=== PATIENT | male | born 1940 | race Caucasian/White ===

== ENCOUNTER → 2017-10-23 08:10 | Outpatient (CLI) | payer MEDICARE, SELFPAY ==
[2017-10-23 09:59] LABS: AST(SGOT) 20 U/L (15-37); Alanine Aminotransfer ALT/SGPT 26 U/L (16-61); Albumin, Serum 3.8 g/dL (3.2-5.0); Alkaline Phosphatase 75 U/L (45-117); Bilirubin, Direct 0.16 mg/dL (0.00-0.30); Cholesterol 130 mg/dL (200); Globulin 3.3 g/dL (2.2-4.2); High Density Lipoprotein 46 mg/dL; Protein, Total 7.1 g/dL (6.4-8.2); Triglycerides 86 mg/dL; Very Low Density Lipoprotein 17 mg/dL (5-40)
== END ==
PROVIDERS: Physician Assistant Medical; Family Provider Family Medicine; PCP Family Medicine; Visit Provider Internal Medicine Cardiovascular Disease
DX: E78.5 Hyperlipidemia, unspecified (principal)
CPT/HCPCS: 36415; 80061; 80076

== ENCOUNTER → 2018-01-20 10:56 | Outpatient (CLI) | payer MEDICARE, SELFPAY ==
[2018-01-20 12:06] LABS: Absolute Neutrophil Count 5.4 X10^3/uL (2.0-7.7); Basophil# 0.03 X10^3/uL; Basophil% 0.4 % (0-1); Eosinophil# 0.13 X10^3/uL; Eosinophils% 1.6 % (0-5); Hemoglobin 14.5 g/dl (13.0-16.5); Lymphocyte % 18.8 % (19-41); Mean Corp Hgb Conc 33.7 g/gl (32-36); Mean Corpuscular Hgb 32.5 pg (27.0-32.0); Mean Corpuscular Volume 96.4 fL (80-94); Mean Platelet Vol. 10.5 fl (6.2-12.0); Monocyte% 11.3 % (0-10); Neutrophil # 5.42 X10^3/uL (2.7-7.7); Neutrophil % 67.8 % (47-70); Platelet Count 169 K/mm3 (150-450); RBC Distribution Width CV 12.9 % (11.6-14.6); RBC Distribution Width SD 44.9 fl (35.1-43.9); Red Blood Count 4.46 M/mm3 (4.6-6.2)
[2018-01-20 12:07] LABS: POSITIVE COUNT NO; POSITIVE DIFFERENTIAL NO; POSITIVE MORPHOLOGY NO
[2018-01-20 12:46] LABS: Anion Gap 11 (5-15); BUN 24 mg/dL (7-18); BUN/Creat Ratio 16.1 RATIO (10-20); Calcium,Total 9.1 mg/dL (8.5-10.1); Chloride 104 mmol/L (98-107); Creatinine, Serum 1.49 mg/dL (0.70-1.30); EST Glomerular Filtration Rate 49 mL/min (>60); Est Glom Filt Rate - Afr Amer 59 mL/min (>60); Glucose 128 mg/dL (74-106); Sodium Level 142 mmol/L (136-145); T4 Free Direct 0.87 ng/dL (0.76-1.46); Thyroid Stim Hormone (TSH) 2.28 uIU/mL (0.358-3.74)
== END ==
PROVIDERS: Family Provider Family Medicine; PCP Family Medicine; Visit Provider Family Medicine
DX: R06.00 Dyspnea, unspecified (principal); I48.0 Paroxysmal atrial fibrillation
CPT/HCPCS: 36415; 80048; 84439; 84443; 85025

== ENCOUNTER → 2018-04-17 08:23 | Outpatient (CLI) | payer MEDICARE, SELFPAY ==
[2018-04-17 09:36] LABS: PSA,Total - Annual Screen 2.49 ng/mL (0.00-4.00)
--- OUTSIDE RECORDS SUMMARY | 2018-06-03 01:37 | XMS RPT_ITS ---
:1940 Author Organization OHIP Support Name Relationship Address Phone CARLYN MICHAELS Unavailable [address] + [place] [address] R Unavailable Unavailable Unavailable MICHAELS, CARLYN Unavailable [address] + [place] [address] R Unavailable Unavailable Unavailable MICHAELS, CARLYN Unavailable [address] + [place] [address] R Unavailable Unavailable Unavailable MICHAELS, CARLYN Unavailable [address] + [place] [address] R Unavailable Unavailable Unavailable MICHAELS, CARLYN Unavailable [address] + [place] [address] R Unavailable Unavailable Unavailable MICHAELS, CARLYN Unavailable [address] + [place] [address] R Unavailable Unavailable Unavailable MICHAELS, CARLYN Unavailable [address] + [place] [address] R Unavailable Unavailable Unavailable MICHAELS, CARLYN Unavailable [address] + [place] [address] R Unavailable Unavailable Unavailable MICHAELS, CARLYN Unavailable [address] + [place] [address] R Unavailable Unavailable Unavailable MICHAELS, CARLYN Unavailable [address] + [place] [address] R Unavailable Unavailable Unavailable Care Team Providers Name Role Phone Denae Villasenor Attending Unavailable Denae Villasenor Referring Unavailable Vikas Lockhart Primary Care Unavailable Sana Boyd Attending Unavailable Jadiel Mckeon Attending Unavailable Vikas Lockhart Referring Unavailable Jadiel Mckeon Attending Unavailable Vikas Lockhart Referring Unavailable Ashwini Nina Attending Unavailable Richy, Vikas Referring Unavailable Cristopher, Prabhjot Attending Unavailable Richy, Vikas Referring Unavailable Linda, [place] Attending Unavailable Linda, Jadiel Referring Unavailable Richy, Vikas Primary Care Unavailable Cristopher, Prabhjot Attending Unavailable Richy, Vikas Referring Unavailable Cristopher, Prabhjot Attending Unavailable Richy, Vikas Referring Unavailable Richy, Vikas Primary Care Unavailable Richy, Vikas Attending Unavailable Richy, Vikas Primary Care Unavailable PROBLEMS PROBLEMS DATE TYPE CONDITION / CODE ATTENDING STATUS SOURCE 04/17/2018 Unknown Z12.5 - Encounter Denae Villasenor [facility] for screening for M [facility]ly [facility] malignant neoplasm [facility] prostate / Repository Z12.5(ICD-10) 01/20/2018 Unknown I48.0 - Paroxysmal Vikas Lockhart [facility] atrial fibrillation [facility] / I48.0(ICD-10) Hospital Repository 01/20/2018 Unknown R06.00 - Dyspnea, Vikas Lockhart Active [facility] unspecified / Community R06.00(ICD-10) Hospital Repository 11/05/2017 Unknown J45.40 - Moderate CristopherPrabhjot gutierres [facility] persistent asthma, Community uncomplicated / Hospital J45.40(ICD-10) Repository 10/23/2017 Unknown E78.5 - Linda, [place] Active [facility] Hyperlipidemia, Community unspecified / Hospital E78.5(ICD-10) Repository 10/25/2017 Unknown R06.09 - Other Linda, [place] [facility] forms of dyspnea / Community R06.09(ICD-10) Hospital Repository 10/25/2017 Unknown I10 - Essential Linda, [place] Active [facility] (primary) Community hypertension / Hospital I10(ICD-10) Repository PROCEDURES PROCEDURES No Procedure Records FoundRESULTS RESULTS PULMONARY VISIT REPORT Observed: 05/08/2018 Status: F Source: [place] 9:18 AM [facility] REPOSITORY [facility] [place] [id number] [place] [address] OFFICE VISIT Date of Service: 05/08/18 MR#: [id number] Acct: [id number] Name: CAT MICHAELS Rambo Rep #: [id number] : 1940 Provider: Prabhjot Nicholas MD Age/Sex: 78/M Location: [facility] Status: Signed Assessment AND Plan 1. Moderate persistent asthma without complication J45.40 Plan Overall appears to be doing well. Previous pulmonary function test was obtained in 2016 showing a significant (greater than 20%) improvement following albuterol. Did stressed to the patient that vocal performances can be similar to athletic events and patient could use Ventolin preemptively to achieve better results. Patient voiced understanding. Signs and symptoms of exacerbation were reviewed. No change in medications at this time. 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 CHUCKIE (obstructive sleep apnea) G47.33 Plan Patient appears to be doing well. Compliance report shows no indications of the need for repeat titration. Did stress the role of weight loss and the overall disease plan of care. Patient voiced understanding. Continue current settings. Plan Detail Other Medications New: albuterol sulfate HFA 90 mcg/actuation 1 puff Inhalation Q4H PRN PRN 2 device 0RF Shortne ss Of Breath Follow Up 6 Months (CSM) HPI 6 M FU: Chief Complaint: Cough Details: Patient is a 78-year-old male, currently under the care of Dr. Lockhart, who presents for evaluation secondary to cough. Since last visit, patient denies any ER visits, hospitalizations or prednisone burst. Patient is using Symbicort, Flonase and Astelin. Patient overall feels subjectively unchanged compared to previous. Patient does report occasional issues with chest restriction or tightness. 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 However, during some performances, patient would like to extend to 8 bar instead of 6 wants to know if there is anything he can do to help with this. Patient has used albuterol intermittently with some improvement in overall condition. Patient has been compliant with his CPAP therapy. Patient denies any dry mouth, hoarseness or sore throat. Patient feels overall improved in the morning. Patient does state that there was one day when he had a new mask that he was unable to tolerate and was not compliant with therapy. Patient denies any change in weight. 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: [employer] Accompanied by: Self Allergies No Known Allergies Allergy (Verified 04/24/18 12:57) Medications Cholecalciferol (VIT D3) [Vitamin D] 5,000 unit PO DAILY 11/10/15 [History Confirmed 04/24/18] Multivitamin [Daily Multiple Vitamin] 1 ea PO DAILY 11/10/15 [History Confirmed 04/24/18] azelastine 137 mcg (0.1 %) nasal spray aerosol 1 spray INTRANASAL BID 04/18/17 [History Confirmed 04/24/18] fluticasone 50 mcg/actuation nasal spray,suspension 2 spray INTRANASAL QDAY g 04/18/17 [History Confirmed 04/24/18] diltiazem CD 120 mg capsule,extended release 24 hr 120 mg PO QDAY #90 cap 08/19/17 [Rx Confirmed 04/24/18] budesonide-formoterol HFA 160 mcg-4.5 mcg/actuation aerosol inhaler 2 puff INHALATION Q12H #3 device 11/05/17 [Rx Confirmed 04/24/18] flecainide 100 mg tablet 100 mg PO BID #90 tab 11/11/17 [Rx Confirmed 04/24/18] albuterol sulfate HFA 90 mcg/actuation aerosol inhaler 1 puff INHALATION Q4H PRN PRN #2 device 05/08/18 [Rx Confirmed 05/08/18] PFSH Medical History CHUCKIE (obstructive sleep apnea) (Chronic) Hyperlipidemia (Chronic) Paroxysmal atrial fibrillation (Chronic) Moderate persistent asthma (Chronic) Encounter for long-term (current) use of other medications (Chronic) Surgical History History of appendectomy (Resolved) History of umbilical hernia repair (Resolved) Family History Father , Had pacemaker, at advanced age No problems noted. Mother , lived to advanced age No problems noted. Social History Smoking Status: Former smoker how long ago did patient quit smokin years ago alcohol intake: current alcohol intake frequency: a few times a week Alcohol type: wine caffeine: No Review of Systems Const CONSTITUTIONAL: Negative anorexia, body ache, chills, daytime sleepiness, fever(s), night sweats, oral thrush, stops breathing during sleep, weight loss, sleeping in chair, fatigue, weight loss, weight gain, frequent colds, seasonal allergies, other, headache(s) or orthopnea [facility] Ear Nose Throat Mouth: Positive dry mouth in morning, nasal congestion and hearing normal; negative hoarseness, change in vision, itchy eyes, eye pain, swallowing Difficulty, ear pain, headache(s), mouth pain, nasal discharge, sinus pain, sinus pressure, sore throat, other, hard of hearing, nose bleed or post nasal drip Cardio Cardiovascular: Negative chest pain, chest pain at rest, chest pain with activity, irregular heart rhythm, edema, shortness of breath when lying down, palpitations, other or murmur Resp Respiratory: Positive as per HPI, shortness of breath shortness of breath: Positive with activity, cough cough: Positive productive color: Positive yellow and chest tightness; negative pain with cough, wheezing, chest congestion, pain on inspiration, inhalers, increase use of rescue inhalers, snoring, apnea or other Gastro Gastrointestional: Negative bloody stools, change in appetite, difficulty swallowing, reflux, hematemesis, melena stool, loose stool, constipation or other Genitourinary: Negative blood in urine, nocturia, pain with urination or other Musc Musculoskeletal: Negative body pain, back pain, neck pain or other Skin/Breast Skin/Breast: Negative dry skin, itching, unusual bruising, breast lump, other or rash Neuro Neurological: Negative restless legs, confusion, weakness or other Psych Psychocological: Negative abnormal sleep pattern, anxiety, thoughts of hurting self/others, hopelessness or other Lymph Lymphatic: Negative easy bleeding, easy bruising, other or swollen lymph nodes Exam Const Constitutional: Positive conversant, cooperative, in no acute respiratory distress, healthy appearing, well developed, well nourished and good hygiene; negative appears older than stated age, smells of smoke, frail appearing, wearing supplemental oxygen or ill appearing Head Head: Positive normocephalic and atraumatic; negative cyanosis of lips/distal nose, frontal sinus tenderness or maxillary sinus tenderness Eyes Eye: Positive clear conjunctiva; negative nystagmus, scleral abnormality or cataract present Ears Ear: Positive hearing normal and external ears normal; negative hard of hearing Nose Nose: Positive external nose normal, septum normal and clear nasal discharge; negative epistaxis or nasal polyp Mouth Mouth: Positive oral mucosae normal, no lesions and crowded posterior oropharynx; negative post nasal drip, malodorous breath or oral thrush present Mallampati Score: III: Mallampati Score Neck Neck: Positive normal visual inspection, full ROM and trachea midline; negative lymphadenopathy or JVD Chest Wall Chest: Positive normal inspection of the chest and symmetric chest movement; negative crepitus or tenderness Resp lung sounds: Positive clear to auscultation, good air exchange, normal expiratory time and normal respiratory effort; negative wheezes, rhonchi, rales, use of accessory muscles, dullness to percussion or wheeze present on forced exhalation Cardio Cardiac: Positive regular rate, regular rhythm, S1 normal and S2 normal; negative murmur, rub or gallop GI GI: Positive normal to inspection and normal bowel sounds; negative distended, ascites or epigastric tenderness Genitourinary: Positive deferred Musc Musculoskeletal: Positive steady gait; negative using an assistive device for ambulation, kyphosis or scoliosis Skin Pulmonary Skin Exam: Positive intact; negative rash, lesion, ulcers, erythema or dermal atrophy Pulses Pulse: Yes radial pulses present Extremities Extremities: Yes capillary refill normal, No clubbing, No cyanosis, No edema, No stasis dermatitis Neuro Neurologic: Yes conversant, Yes no focal neuro deficits, Yes normal concentration, Yes understands questions, Yes cooperative, Yes normal cognition, Yes normal coordination Lymph Lymphatic: No lymphadenopathy Psych Appearance: Positive grossly normal Mental Status: Positive mental status grossly normal Mood: Positive congruent mood Affect: Positive normal affect Coding Level of Care Code Off vis,est,level 3 Diagnoses Moderate persistent asthma without complication J45.40 Asthma complication type: uncomplicated CHUCKIE (obstructive sleep apnea) G47.33 05/08/18 0918 <Electronically signed by Prabhjot Nicholas MD> Date Prabhjot Nicholas MD Cosigner Signature: Date (if applicable) CC: Vikas Lockhart MD CARDIOLOGY VISIT Observed: 04/24/2018 Status: F Source: [place] REPORT 3:54 PM [facility] REPOSITORY [facility] [address] [place] [address] OFFICE VISIT Date of Service: 04/24/18 MR#: [id number] Acct: [id number] Name: CAT MICHAELS Rep #: [id number] : 1940 Provider: Ashwini Nina Age/Sex: 78/M Location: [facility] Status: Signed HPI HPI Details: CAT MICHAELS, is a 78 M who presents to the office today for a cardiovascular follow-up visit. He has a history of hypertension, paroxysmal atrial fibrillation and asthma who returns for follow-up visit. From a cardiac standpoint, patient is doing well. He does not have any chest discomfort/heaviness/tightness. His exercise tolerance is stable for his age. He does not have any worsening symptoms of shortness of breath. He denies any PND. He does not have any orthopnea. He does not have any symptoms of congestive heart failure. He does not have any palpitations that he is aware of. He does not have any lightheadedness or dizziness. He does not have any near-syncope or syncope. He does not have any lower extremity edema. He does not have any symptoms of claudication. 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 Accompanied by: None Is patient in pain?: No Allergies No Known Allergies Allergy (Verified 04/24/18 12:57) Medications Albuterol Inhaler [Ventolin Hfa] 1 puff INHALATION Q4H PRN PRN 11/03/14 [History Confirmed 04/24/18] Cholecalciferol (VIT D3) [Vitamin D] 5,000 unit PO DAILY 11/10/15 [History Confirmed 04/24/18] Multivitamin [Daily Multiple Vitamin] 1 ea PO DAILY 11/10/15 [History Confirmed 04/24/18] azelastine 137 mcg (0.1 %) nasal spray aerosol 1 spray INTRANASAL BID 04/18/17 [History Confirmed 04/24/18] fluticasone 50 mcg/actuation nasal spray,suspension 2 spray INTRANASAL QDAY g 04/18/17 [History Confirmed 04/24/18] diltiazem CD 120 mg capsule,extended release 24 hr 120 mg PO QDAY #90 cap 08/19/17 [Rx Confirmed 04/24/18] budesonide-formoterol HFA 160 mcg-4.5 mcg/actuation aerosol inhaler 2 puff INHALATION Q12H #3 device 11/05/17 [Rx Confirmed 04/24/18] flecainide 100 mg tablet 100 mg PO BID #90 tab 11/11/17 [Rx Confirmed 04/24/18] Ejection fraction %: 65 to 70 PFSH Medical History CHUCKIE (obstructive sleep apnea) (Chronic) Hyperlipidemia (Chronic) Paroxysmal atrial fibrillation (Chronic) Moderate persistent asthma (Chronic) Encounter for long-term (current) use of other medications (Chronic) Surgical History History of appendectomy (Resolved) History of umbilical hernia repair (Resolved) Family History Father , Had pacemaker, at advanced age No problems noted. Mother , lived to advanced age No problems noted. Social History Smoking Status: Former smoker how long ago did patient quit smokin years ago alcohol intake: current alcohol intake frequency: a few times a week Alcohol type: wine caffeine: No ROS Const Const: Negative for weakness, fatigue, fever(s) or headache(s) Eyes Eyes: Negative for blind spots, loss of peripheral vision or transient loss of vision ENT ENT: Negative for headache(s), dizziness, tinnitus or Nosebleed/epistaxis Cardio Chest Pain: No Palpitations: No Edema: None Muscle aches with walking: None Resp Respiratory: Negative for SOB with activity, SOB at rest, SOB orthopnea\SOB lying down or Cough GI GI: Negative nausea, vomiting, heartburn or vomiting blood/hematemesis : Negative for hematuria Musc Musc: Negative for muscle aches/ myalgia Neuro Neuro: Negative for weakness, headache(s), dizziness, near syncope, syncope, lightheadedness or orthostatic symptoms Rudi Hematologic/Lymphatic: Negative for easy bleeding Endo Endo: Negative for fatigue Cardiology Exam Const Appearance: cooperative, healthy appearing, well developed, well groomed and no acute distress Nutritional Appearance: well nourished and average body habitus Orientation: alert, awake and oriented x3 Head Head: normal to inspection, normocephalic and atraumatic Ears: hearing grossly normal bilaterally and external ears normal Nose: external nose normal, nasal mucous membranes and turbinates normal, nares normal, septum normal, no nasal discharge Face and Sinus: face symmetric Mouth: oral mucosae normal, tongue normal, oropharynx normal and moist mucous membranes Teeth and gingiva: dentition normal Throat: posterior oropharynx normal, tonsils normal and uvula midline Eyes General: appearance normal, both eyes and all related structures Eyelids: eyelids normal Conjunctivae: conjunctivae normal Pupils: PERRL, normal by confrontation and accommodation normal EOM: EOM intact bilaterally Neck Neck: normal visual inspection, trachea midline and no JVD JVD: +5 Carotids: normal carotid upstroke and bounding pulses Chest Chest inspection: normal inspection of the chest, symmetric chest movement and normal respiratory effort Auscultation: Bilateral: Clear to Auscultation Cardio Palpation: normal PMI Rate: regular rate Rhythm: regular rhythm Heart sounds: S1 normal, S2 normal and normal, physiologic split S2; negative rub, gallop or murmur GI GI: normal to inspection, soft, no hepatosplenomegaly and bowel sounds present Neuro General: alert, awake, oriented x3, no focal sensory deficit, gait normal and moves all extremities Skin Skin: no rashes or lesions noted Extremities Pulses: Normal: Right Femoral Pulse, Left Femoral Pulse, Right Dorsalis Pedis Pulse, Left Dorsalis Pedis Pulse, Right Posterior Tibial Pulse, Left Posterior Tibial Pulse, Right Radial Pulse, Left Radial Pulse Lower Extremity Edema: None: Bilateral Musculoskel Musculoskeletal: No joint tenderness Psych Psychological: normal affect Assessment AND Plan 1. Paroxysmal atrial fibrillation I48.0 Plan - GARDENIA Walter Patient has not had any symptomatic recurrence. He will continue with his Cardizem and his flecainide. He is currently not on any anticoagulation. For now we will continue to monitor. If he has any recurrence he will need to reconsider an anticoagulant. 2. Pure hypercholesterolemia E78.00; E78.0 Plan - G[place]EN[place] Walter Patient is monitoring this with his diet. He will repeat these next year for risk factor modification. Plan Detail Additional Comments - GARDENIA Walter The above patient was discussed with Dr. Mckeon, he agrees with plan of care. Thank you for allowing us to participate in patient's plan of care, if you have any questions please do not hesitate to call. This note was generated using a voice recognition system and there may be incorrect words, spelling or punctuation errors that were not noted when reviewing the office note prior to saving. 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) Coding Level of Care Code Off vis,est,level 3 Diagnoses Paroxysmal atrial fibrillation I48.0 Pure hypercholesterolemia E78.00; E78.0 Hyperlipidemia type: pure hypercholesterolemia Coding Level of Care Code Off vis,est,level 3 Diagnoses Paroxysmal atrial fibrillation I48.0 Pure hypercholesterolemia E78.00; E78.0 Hyperlipidemia type: pure hypercholesterolemia 04/24/18 1330 <Electronically signed by Ashwini VARNER> Date Ashwini VARNER 04/24/18 1554<Electronically signed by Jadiel Mckeon MD> Cosigner Signature: Date (if applicable) Jadiel Mckeon MD CC: Vikas Lockhart MD PSA,TOTAL - ANNUAL Collected: 04/17/2018 Status: F Source: [place] SCREEN 8:38 AM [facility] REPOSITORY TYPE CODE TESTS RESULT OUT OF RANGE REFERENCE UNITS LAB L501.9910 0.00-4.00 ng/mL Normal PSA,TOT 2.49 SCREEN Result Comment: This test was performed using the TPSA assay method for the [employer] chemistry system. Values obtained with different assay methods cannot be used interchangably. When changing PSA assays in the course of monitoring a patient, additional sequential testing should be carried out to confirm baseline values. Performed By: #### L501.9910 #### [facility] [address] [place], [address] CBC W/DIFF, AUTOMATED Collected: 01/20/2018 Status: F Source: [place] 11:01 AM [facility] REPOSITORY TYPE CODE TESTS RESULT OUT OF RANGE REFERENCE UNITS LAB L100.1000 4.4-11.0 K/mm3 Normal WBC 8.0 LAB L100.1200 4.6-6.2 M/mm3 Low RBC 4.46 LAB L100.1300 13.0-16.5 g/dl Normal HGB 14.5 LAB L100.1400 40-54 % Normal HCT 43.0 LAB L100.1500 80-94 fL High MCV 96.4 LAB L100.1600 27.0-32.0 pg High MCH 32.5 LAB L100.1700 32-36 g/gl Normal MCHC 33.7 LAB L100.1810 11.6-14.6 % Normal RDW CV 12.9 LAB L100.1820 35.1-43.9 fl High RDW SD 44.9 LAB L100.1900 150-450 K/mm3 Normal PLT 169 LAB L100.2000 6.2-12.0 fl Normal MPV 10.5 LAB L100.2100 47-70 % Normal NEUT% 67.8 LAB L100.2200 19-41 % Low LY% 18.8 LAB L100.2300 0-10 % High MONO% 11.3 LAB L100.2400 0-5 % Normal EO% 1.6 LAB L100.2500 0-1 % Normal BASO% 0.4 LAB L100.2550 0.0-0.9 % Normal IM GRAN % 0.100 Result Comment: IG% - Immature Granulocytes (promyelocytes, myelocytes and metamyelocytes) > 1% indicates that a LEFT SHIFT is Present. LAB L100.2620 2.0-7.7 X10 3/uL Normal Absolute Neut 5.4 LAB L100.2720 0.83-4.51 X10 3/ul Normal Absolute Lymph 1.50 Performed By: #### L100.0100 #### [facility] [place], [place], [id number] BASIC METABOLIC Collected: 01/20/2018 Status: F Source: [place] PROFILE (BMP) 11:01 AM [facility] REPOSITORY TYPE CODE TESTS RESULT OUT OF RANGE REFERENCE UNITS LAB L501.0100 74-106 mg/dL High GLU 128 Result Comment: Fasting Glucose result greater than or equal to 126 mg/dL suggests DIABETES MELLITUS per A.D.A. criteria. Please note revised GLUCOSE reference range effective 2017. LAB L501.1000 7-18 mg/dL High BUN 24 LAB L501.1100 0.70-1.30 mg/dL High CREAT,SERUM 1.49 Result Comment: The validity of the calculated GFR AND GFRAA in patients over 70 years has not been determined. Clinical correlation is essential. LAB L501.1110 >60 mL/min Low EST GFR 49 Result Comment: Non- GFR Calc LAB L501.1115 >60 mL/min Low EST GFR - AA 59 Result Comment: GFR Calc LAB L501.1300 10-20 RATIO Normal BUN/CRE 16.1 LAB L501.2200 8.5-10.1 mg/dL CA Normal 9.1 LAB L501.5300 136-145 mmol/L NA Normal 142 LAB L501.5600 3.5-5.1 mmol/L K Normal 4.0 LAB L501.5900 98-107 mmol/L CL Normal 104 LAB L501.6100 21.0-32.0 mmol/L Normal CO2 27.0 LAB L501.6200 5-15 Normal GAP 11 Performed By: #### L500.2500, L501.9520, L506.0400 #### [facility] [address] [place], [place], [id number] THYROID STIM HORMONE Collected: 01/20/2018 Status: F Source: [place] (TSH) 11:01 AM [facility] REPOSITORY TYPE CODE TESTS RESULT OUT OF RANGE REFERENCE UNITS LAB L501.9520 0.358-3.74 uIU/mL Normal TSH 2.28 Performed By: #### L500.2500, L501.9520, L506.0400 #### [facility] [address] [place], [place], [id number] T4 FREE DIRECT Collected: 01/20/2018 Status: F Source: [place] 11:01 AM [facility] REPOSITORY TYPE CODE TESTS RESULT OUT OF RANGE REFERENCE UNITS LAB L506.0400 0.76-1.46 ng/dL Normal T4 FREE 0.87 DIRECT Performed By: #### L500.2500, L501.9520, L506.0400 #### [facility] [address] [place], [address] PULMONARY VISIT REPORT Observed: 11/05/2017 Status: F Source: [place] 12:02 PM [facility] REPOSITORY [facility] [place] [address] [place] [address] OFFICE VISIT Date of Service: 11/05/17 MR#: [id number] Acct: [id number] Name: CAT MICHAELS Rep #: [id number] : 1940 Provider: Prabhjot Nicholas MD Age/Sex: 77/M Location: [facility] [place].W Status: Signed Assessment AND Plan 1. Moderate persistent asthma without complication J45.40 Plan Patient does not appear to be controlled from an asthma perspective at this time reporting symptoms 3-4 times per week. Patient was decreased to Symbicort 80 at the last appointment. Clinical suspicion for increased allergy needing increased maintenance therapy. Patient will be increased back up to the Symbicort 160/4.5. Did discuss the role of repeat pulmonary function testing to ensure no change in lung function, but patient would like to defer for now. Increase Symbicort to 160/4.5. Obtain PFT only if patient requires reevaluation prior to the 6 months Medications New: 2. CHUCKIE (obstructive sleep apnea) G47.33 Plan No compliance data available secondary to computer issues, but patient reports compliance with supplemental therapy. Patient does not have any significant change in weight compared to previous. No indication for repeat titration at this time. Continue CPAP at current settings 3. Dyspnea on exertion R06.09 Plan Patient currently being increased by maintenance therapy for asthma therapy. Patient does have a history of paroxysmal A. fib and it is unclear if the patient may have a cardiology component to dyspnea on exertion. If pulmonary function tests are stable and patient is not responding to Symbicort therapy, cardiac evaluation may be warranted. Possible cardiac evaluation in the future Plan Detail Other Medications Discontinued: budesonide-formoterol 80-4.5 mcg/actuation (Symbicort) Disconti2 puffs Inhalation BID nued Reason: Order Changed Follow Up 6 Months (BWA) HPI 9 M FU: Chief Complaint: Shortness of breath on exertion Details: Patient is a 77-year-old male, currently under the care of Dr. Lockhart, who presents for evaluation secondary to shortness of breath on exertion. Since last visit, patient states that he has been placed on prednisone therapy one time secondary to breathing difficulties. Patient states this was typically helpful in the past, but he completed a seven-day burst and feels that it did not work like it should. Patient reports that he did have some improvement, but is still having a cough productive of clear sputum and nasal congestion. Patient continues to report some shortness of breath on exertion. Patient states his cough is typically worse in the evening and he has had some shortness of breath with walking up steps or doing yard work. Patient has been compliant with Flonase and Astelin therapy. Patient denies any complications such as epistaxis. Patient does routinely follow with ENT and states that he has been told that he does not need to use those medicines anymore. However, patient feels that they are helpful has continued to use them. Patient reports she has been compliant with CPAP therapy. Patient reports that he uses it all night while sleeping, but still feels somewhat groggy during the day. Patient denies taking any naps or falling asleep while watching TV, reading or talking on the phone. Patient denies any difficulty with the interface. No complaints report is available secondary to technical difficulties. Intake Vital Signs11/05/17 Height 5 ft 6 in 11/05/17 Weight: 77.564 kg Intake Visit Reasons: 9 M FU Chief Complaint: Follow-up visit. DME Vendor: [employer] Accompanied by: Self Allergies No Known Allergies Allergy (Verified 11/05/17 10:46) Medications Albuterol Inhaler [Ventolin Hfa] 1 puff INHALATION Q4H PRN PRN 11/03/14 [History Confirmed 11/05/17] Doxazosin Mesylate [Cardura] 4 mg PO QHS 11/03/14 [History Confirmed 11/05/17] Flecainide [Tambocor] 100 mg PO BID #90 tab 11/05/14 [Rx Confirmed 11/05/17] Cholecalciferol (VIT D3) [Vitamin D] 5,000 unit PO DAILY 11/10/15 [History Confirmed 11/05/17] L. Acidophilus/Pectin, [place] [Acidophilus Capsule] 1 ea PO DAILY 11/10/15 [History Confirmed 11/05/17] Multivitamin [Daily Multiple Vitamin] 1 ea PO DAILY 11/10/15 [History Confirmed 11/05/17] azelastine 137 mcg (0.1 %) nasal spray aerosol 1 spray INTRANASAL BID 04/18/17 [History Confirmed 11/05/17] fluticasone 50 mcg/actuation nasal spray,suspension 2 spray INTRANASAL QDAY g 04/18/17 [History Confirmed 11/05/17] diltiazem CD 120 mg capsule,extended release 24 hr 120 mg PO QDAY #90 cap 08/19/17 [Rx Confirmed 11/05/17] budesonide-formoterol HFA 160 mcg-4.5 mcg/actuation aerosol inhaler 2 puff INHALATION Q12H #3 device 11/05/17 [Rx Confirmed 11/05/17] [facility] Medical History Dyspnea on exertion (Chronic) M[facility] current use of anticoagulant (Chronic) Hyperlipidemia (Chronic) Encounter for long-term (current) use of other medications (Chronic) Family History Father , Had pacemaker, at advanced age No problems noted. Mother , lived to advanced age No problems noted. Social History Smoking Status: Former smoker Review of Systems Const CONSTITUTIONAL: Positive fatigue; negative anorexia, body ache, chills, daytime sleepiness, fever(s), night sweats, oral thrush, stops breathing during sleep, weight loss, sleeping in chair, weight loss, weight gain, frequent colds, seasonal allergies, other, headache(s) or orthopnea EETM Ear Nose Throat Mouth: Positive hearing normal; negative hard of hearing, hoarseness, dry mouth in morning, change in vision, itchy eyes, eye pain, swallowing Difficulty, ear pain, nose bleed, mouth pain, nasal congestion, nasal discharge, post nasal drip, sinus pain, sinus pressure, sore throat, other or headache(s) Cardio Cardiovascular: Negative chest pain, chest pain at rest, chest pain with activity, irregular heart rhythm, edema, palpitations, murmur, other or shortness of breath when lying down Resp Respiratory: Positive as per HPI, shortness of breath shortness of breath: Positive with activity and cough cough: Positive productive color: Positive white, clear and thick; negative pain with cough, wheezing, chest congestion, chest tightness, pain on inspiration, inhalers, increase use of rescue inhalers, snoring, apnea or other Gastro Gastrointestional: Negative bloody stools, change in appetite, difficulty swallowing, reflux, hematemesis, melena stool, loose stool, constipation or other Genitourinary: Negative blood in urine, nocturia, pain with urination or other Musc Musculoskeletal: Negative body pain, back pain, neck pain or other Skin/Breast Skin/Breast: Negative dry skin, itching, rash, unusual bruising, breast lump or other Neuro Neurological: Negative restless legs, confusion, weakness or other Psych Psychocological: Negative abnormal sleep pattern, anxiety, thoughts of hurting self/others, hopelessness or other Lymph Lymphatic: Negative easy bleeding, easy bruising, swollen lymph nodes or other Exam Const Constitutional: Positive conversant, cooperative, in no acute respiratory distress, healthy appearing, well developed, well nourished and good hygiene; negative smells of smoke, wearing supplemental oxygen, obese or ill appearing Head Head: Positive normocephalic and atraumatic; negative cyanosis of lips/distal nose, frontal sinus tenderness or maxillary sinus tenderness Eyes Eye: Positive clear conjunctiva; negative nystagmus, scleral abnormality or cataract present Ears Ear: Positive hearing normal and external ears normal; negative hard of hearing Nose Nose: Positive external nose normal, septum normal and no nasal discharge; negative epistaxis or nasal polyp Mouth Mouth: Positive oral mucosae normal, no lesions, good dentition and crowded posterior oropharynx; negative post nasal drip, malodorous breath or oral thrush present Mallampati Score: III: Mallampati Score Neck Neck: Positive normal visual inspection, full ROM and trachea midline; negative lymphadenopathy or JVD Chest Wall Chest: Positive normal inspection of the chest and symmetric chest movement; negative crepitus or tenderness Resp lung sounds: Positive clear to auscultation, good air exchange, normal expiratory time and normal respiratory effort; negative wheezes, rhonchi, rales, use of accessory muscles, wheeze present on forced exhalation or dullness to percussion Cardio Cardiac: Positive regular rate, regular rhythm, S1 normal and S2 normal; negative murmur, rub or gallop GI GI: Positive normal to inspection and normal bowel sounds; negative distended, ascites, epigastric tenderness or obese Genitourinary: Positive deferred Musc Musculoskeletal: Positive steady gait; negative using an assistive device for ambulation, kyphosis or scoliosis Skin Pulmonary Skin Exam: Positive intact; negative rash, lesion, ulcers, erythema or dermal atrophy Pulses Pulse: Yes radial pulses present Extremities Extremities: Yes capillary refill normal, No clubbing, No cyanosis, No edema, No stasis dermatitis Neuro Neurologic: Yes conversant, Yes no focal neuro deficits, Yes normal concentration, Yes understands questions, Yes cooperative, Yes normal cognition, Yes normal coordination Lymph Lymphatic: No lymphadenopathy Psych Appearance: Positive grossly normal Mental Status: Positive mental status grossly normal Mood: Positive congruent mood Affect: Positive normal affect Coding Level of Care Code Off vis,est,level 4 Diagnoses Moderate persistent asthma without complication J45.40 Asthma complication type: uncomplicated CHUCKIE (obstructive sleep apnea) G47.33 Dyspnea on exertion R06.09 11/05/17 1202 <Electronically signed by Prabhjot Nicholas MD> Date Prabhjot Nicholas MD Cosigner Signature: Date (if applicable) CC: Vikas Lockhart MD LIVER PROFILE Collected: 10/23/2017 Status: F Source: IRON 8:16 AM [facility] REPOSITORY TYPE CODE TESTS RESULT OUT OF RANGE REFERENCE UNITS LAB L501.1500 6.4-8.2 g/dL Normal T PROT 7.1 LAB L501.1800 3.2-5.0 g/dL Normal ALB 3.8 LAB L501.1950 2.2-4.2 g/dL Normal GLOB 3.3 LAB L501.4100 15-37 U/L Normal AST 20 LAB L501.4305 45-117 U/L Normal ALK P 75 LAB L501.4405 16-61 U/L Normal ALT 26 LAB L501.4600 0.20-1.00 mg/dL Normal T BILI 0.60 LAB L501.4700 0.00-0.30 mg/dL Normal D BILI 0.16 Performed By: #### L500.3400, L500.4100 #### [facility] [address] [place], [address] LIPID PROFILE Collected: 10/23/2017 Status: F Source: IRON 8:16 AM [facility] REPOSITORY TYPE CODE TESTS RESULT OUT OF RANGE REFERENCE UNITS LAB L501.4900 200 mg/dL Normal CHOL 130 Result Comment: <200 mg/dL Desirable 200-240 mg/dL Borderline >240 mg/dL High Risk LAB L501.5000 mg/dL Normal TRIG 86 Result Comment: The drugs N-Acetylcysteine and Metamizole may falsely depress this assay. Serum Triglycerides Reference Interval Normal <150 mg/dL Borderline high 150 - 199 mg/dL High 200 - 499 mg/dL Very High > or = 500 mg/dL LAB L501.6400 mg/dL Normal HDL 46 Result Comment: The drugs N-Acetylcysteine and Metamizole may falsely depress this assay. Reference Range HDL <40 mg/dL Low HDL Cholesterol HDL >or= 60 mg/dL High HDL Cholesterol LAB L501.6500 0-130 mg/dL Normal LDL 67 LAB L501.6600 5-40 mg/dL Normal VLDL 17 Performed By: #### L500.3400, L500.4100 #### [facility] [address] [place], [address] CARDIOLOGY VISIT Observed: 10/18/2017 Status: F Source: IRON REPORT 10:14 AM [facility] REPOSITORY [facility] [address] [place] [address] OFFICE VISIT Date of Service: 10/10/17 MR#: [id number] Acct: [id number] Name: CAT MICHAELS Rep #: [id number] : 1940 Provider: Jadiel Mckeon MD Age/Sex: 77/M Location: [facility] [place] Status: Signed HPI [facility] Chief Complaint: Follow-up visit. Details: CAT MICHAELS, is a 77 M who presents to the office today for a follow-up visit. He is a gentleman with a history of hypertension, paroxysmal atrial fibrillation and asthma who returns for follow-up visit. He denies any chest pain or shortness breath except with exertion no paroxysmal nocturnal dyspnea or pedal edema he says that the allergy season has been quite bad for him. He has been compliant with all his medications he has not noticed any recent paroxysms of palpitations. You do remember he underwent a stress test in March 2017 where he exercised for 8 minutes at 10 metabolic equivalents with no evidence of ischemia he has had no neck arm or jaw discomfort suggest angina. His electrocardiogram done today demonstrated sinus bradycardia with a first-degree AV block and a rate of 55 bpm normal QT intervals were noted. His blood pressure is under good control. Intake Intake Visit Reasons: 6 M FU Allergies No Known Allergies Allergy (Verified 04/19/17 09:34) Medications Albuterol Inhaler [Ventolin Hfa] 1 puff INHALATION Q4H PRN PRN 11/03/14 [History Confirmed 04/19/17] Doxazosin Mesylate [Cardura] 4 mg PO QHS 11/03/14 [History Confirmed 04/19/17] Flecainide [Tambocor] 100 mg PO BID #90 tab 11/05/14 [Rx Confirmed 04/19/17] Cholecalciferol (VIT D3) [Vitamin D] 5,000 unit PO DAILY 11/10/15 [History Confirmed 04/19/17] L. Acidophilus/Pectin, [place] [Acidophilus Capsule] 1 ea PO DAILY 11/10/15 [History Confirmed 04/19/17] Multivitamin [Daily Multiple Vitamin] 1 ea PO DAILY 11/10/15 [History Confirmed 04/19/17] azelastine 137 mcg (0.1 %) nasal spray aerosol 1 spray INTRANASAL BID 04/18/17 [History Confirmed 04/19/17] budesonide-formoterol HFA 80 mcg-4.5 mcg/actuation aerosol inhaler 2 puff INHALATION BID 04/18/17 [History Confirmed 04/19/17] fluticasone 50 mcg/actuation nasal spray,suspension 2 spray INTRANASAL QDAY g 04/18/17 [History Confirmed 04/19/17] diltiazem CD 120 mg capsule,extended release 24 hr 120 mg PO QDAY #90 cap 08/19/17 [Rx] PFS Medical History Dyspnea on exertion (Chronic) MCC current use of anticoagulant (Chronic) Hyperlipidemia (Chronic) Encounter for long-term (current) use of other medications (Chronic) Family History Father , Had pacemaker, at advanced age No problems noted. Mother , lived to advanced age No problems noted. Social History Smoking Status: Former smoker ROS Const Const: Negative for fatigue, weakness, body ache, fever(s), headache(s), chills, frequent falls, night sweats, daytime sleepiness, difficulty sleeping, excessive sweating, weight gain, weight loss, increased appetite, poor appetite, anorexia or other Eyes Eyes: Negative for blind spots, loss of peripheral vision, transient loss of vision, blurry vision, change in vision, double vision, floaters, tunnel vision or other ENT ENT: Negative for headache(s) Cardio Chest Pain: No Resp Respiratory: Positive for SOB with activity GI GI: Negative nausea, vomiting, heartburn, constipation, belching, bloating, cramping, vomiting blood/hematemesis, bright, red blood in stools, black,tarry stools, loose stools, Difficulty Swallowing or other Neuro Neuro: Negative for weakness, headache(s), frequent falls, blurry vision or double vision Endo Endo: Negative for fatigue or excessive sweating Cardiology Exam Const Appearance: cooperative, healthy appearing, well developed, well groomed and no acute distress Nutritional Appearance: well nourished and average body habitus Orientation: alert, awake and oriented x3 Head Head: normal to inspection, normocephalic and atraumatic Ears: hearing grossly normal bilaterally and external ears normal Nose: external nose normal, nasal mucous membranes and turbinates normal, nares normal, septum normal, no nasal discharge Face and Sinus: face symmetric Mouth: oral mucosae normal, tongue normal, oropharynx normal and moist mucous membranes Teeth and gingiva: dentition normal Throat: posterior oropharynx normal, tonsils normal and uvula midline Eyes General: appearance normal, both eyes and all related structures Eyelids: eyelids normal Conjunctivae: conjunctivae normal Pupils: PERRL, normal by confrontation and accommodation normal EOM: EOM intact bilaterally Neck Neck: normal visual inspection, trachea midline and no JVD JVD: +5 Carotids: normal carotid upstroke and bounding pulses Chest Chest inspection: normal inspection of the chest, symmetric chest movement and normal respiratory effort Auscultation: Bilateral: Clear to Auscultation Cardio Palpation: normal PMI Rate: regular rate Rhythm: regular rhythm Heart sounds: S1 normal, S2 normal and normal, physiologic split S2; negative rub, gallop or murmur GI GI: normal to inspection, soft, no hepatosplenomegaly and bowel sounds present Neuro General: alert, awake, oriented x3, no focal sensory deficit, gait normal and moves all extremities Skin Skin: no rashes or lesions noted Extremities Pulses: Normal: Right Femoral Pulse, Left Femoral Pulse, Right Dorsalis Pedis Pulse, Left Dorsalis Pedis Pulse, Right Posterior Tibial Pulse, Left Posterior Tibial Pulse, Right Radial Pulse, Left Radial Pulse Lower Extremity Edema: None: Bilateral Musculoskel Musculoskeletal: No joint tenderness Psych Psychological: normal affect Assessment AND Plan 1. Paroxysmal atrial fibrillation I48.0 Plan He does have a history of paroxysmal atrial fibrillation but currently is maintaining sinus rhythm the plan is for him to continue the same with no changes. With regard to his shortness of breath I will suggest that we obtain a natruretic peptide level if this is normal no further action will be taken. 2. Dyspnea on exertion R06.09 Plan He does have some dyspnea on exertion and a natruretic peptide will be obtained to assess his level. Depending on the findings further recommendations will be made. 3. Essential hypertension I10 Plan His blood pressure appears to be under good control on the current medical therapy and we will continue the same with no changes I like to see him again in 6 months. Due to computer issues medication as well as past medical history were not entered contemporaneously. Thank you for allowing me to participate in the care of your patient. 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) Coding Level of Care Code Off vis,est,level 3 Diagnoses Paroxysmal atrial fibrillation I48.0 Dyspnea on exertion R06.09 Essential hypertension I10 Hypertension type: essential hypertension Coding Level of Care Code Off vis,est,level 3 Diagnoses Paroxysmal atrial fibrillation I48.0 Dyspnea on exertion R06.09 Essential hypertension I10 Hypertension type: essential hypertension 10/18/17 1014 <Electronically signed by Jadiel Mckeon MD> Date Jadiel Cross Signature: Date (if applicable) CC: Vikas Lockhart ALLERGIES ALLERGIES DATE TYPE / CODE NAME / CODE REACTION SEVERITY SOURCE 04/24/2018 Drug No Known Unknown [facility] Allergy/4160 Allergies/F00 [facility] 79243(SNOMED [id number](RXNOR Repository CT) M) ENCOUNTERS ENCOUNTERS ADMIT/DISCHARGE ACCOUNT ADMITTING ENCOUNTER LOCATION SOURCE NUMBER CLASS 05/08/2018/ [id number] Ambulatory [facility] [place] [facility] [place] 04/24/2018/ [id number] Ambulatory BMSBuilding:[facility] [place] [facility] 1 [place] Repository 04/23/2018 [id number] Ambulatory BMSBuilding:[facility] [place] 4 [place] Repository 04/22/2018 [id number] Ambulatory BMSBuilding:[facility] [place] 8 [place] Repository 04/17/2018 [id number] Ambulatory [facility] ing:LAB Repository 01/20/2018 [id number] Ambulatory [place] [facility] ing:BFHLAB Repository 12/04/2017 [id number] Ambulatory [facility]MS[facility] [place] [facility] [place] [place] 11/05/2017/ [id number] Ambulatory BMSBuilding:[facility] [place] [facility] 9 [place] [place] 10/23/2017 [id number] Ambulatory [facility] ing:LAB Repository 10/10/2017/ [id number] Ambulatory BMSBuilding:[facility] [place] [facility] 3 [place] Repository PAYERS PAYERS ENCOUNTER GUARANTOR PAYER SUBSCRIBER SOURCE 05/08/2018 CAT [id number] Primary [facility]IVA MARTINEZOB[facility]: [id number] [facility] [address]Ujz: [phone]) [id number] Repository [phone] (HP) Date:[id number] [address] [address]PQ: 05/08/2018 Secondary NOT GIVENUNK [place] Insurance:SELF PAY [facility] Hospital Number: Effective Repository Date:2018-05-07 04/24/2018 CAT K [id number] Primary CAT K [facility] [place] Insurance:AETNA CRISTINA LITTLESDOB: [facility] Number: [id number] Hospital [address]Kdc: (330) [id number] Repository [phone] (HP) Date:[id number] [address], [place] [address]TF: 04/24/2018 Secondary NOT GIVENUNK [facility] Insurance:SELF PAY [facility] Hospital Number: Effective Repository Date:2018-04-24 04/23/2018 CAT K [id number] Primary CAT K [place] Insurance:AETNA CRISTINA LITTLESDOB: [facility] Number: [id number] Hospital [address]Fij: (330) [id number] Repository [phone] (HP) Date:[id number] [address], [place] [address]PY: 04/23/2018 Secondary NOT GIVENUNK [place] Insurance:SELF PAY [facility] Hospital Number: Effective Repository Date:2018-04-09 04/22/2018 CAT K [id number] Primary CAT K [facility] [place] Insurance:AETNA CRISTINA LITTLESDOB: [facility] Number: [id number] Hospital [address]Sut: (330) [id number] Repository [phone] (HP) Date:[id number] [address], [place] [address]RS: 04/22/2018 Secondary NOT GIVENUNK [place] Insurance:SELF PAY [facility] Number: Effective Repository Date:2018-04-22 04/17/2018 CAT K [id number] Primary CAT K [facility] [place] Insurance:AETLARRY EVANS ANABELSDOB: [facility] Number: [id number] Hospital [address]Bbc: (330) [id number] Repository [phone] (HP) Date:[id number] [address] [place] [address]IM: 04/17/2018 Secondary NOT GIVENUNK [place] Insurance:SELF PAY [facility] Hospital Number: Effective Repository Date:2018-04-17 01/20/2018 CAT K [id number] Primary CAT K [place] Insurance:AETLARRY EVANS ANABELSDOB: [facility] Number: [id number] Hospital [address]Qjc: (330) [id number] Repository [phone] (HP) Date:[id number] [address] [place] [address]QI: 01/20/2018 Secondary NOT GIVENUNK [facility] Insurance:SELF PAY [facility] Number: Effective Repository Date:2018-01-20 12/04/2017 CAT K [id number] Primary CAT K [facility] [place] Insurance:AEHORTENCIA EVANS ANABELKAUSHIKOB: [facility] Number: [id number] Hospital [address]Kci: (330) [id number] Repository [phone] (HP) Date:[id number] [address] [facility] [place] [address]UV: 12/04/2017 Secondary NOT GIVENUNK [facility] Insurance:SELF PAY [facility] Number: Effective Repository Date:2017-10-21 11/05/2017 CAT K [id number] Primary CAT K [place] Insurance:AETLARRY LITTLESDOB: [facility] Number: [id number] Hospital [address]Ylr: (330) [id number] Repository [phone] (HP) Date:[id number] [address], [place] [address]DP: 11/05/2017 Secondary NOT GIVENUNK [facility] Insurance:SELF PAY [facility] Hospital Number: Effective Repository Date:2017-11-04 10/23/2017 CAT K [id number] Primary CAT K [place] Insurance:AETNA CRISTINA MARTINEZOB[facility]: [id number] Hospital [address]Opa: (330) [id number] Repository [phone] (HP) Date:7987-88-94RT [address], [place] [address]OD: 10/23/2017 Secondary NOT GIVENUNK [place] Insurance:SELF PAY [facility] Hospital Number: Effective Repository Date:2017-10-23 10/10/2017 CAT K [id number] Primary CAT K [facility] [place] Insurance:AETNA CRISTINA [facility]ARTINEZOB[facility]: [id number] Hospital [address]Qmk: (330) [id number] Repository [phone] (HP) Date:[id number] [address] [place] [address]UK: 10/10/2017 Secondary NOT GIVENUNK [facility] Insurance:SELF PAY [facility] Hospital Number: Effective Repository Date:2017-10-25
== END ==
PROVIDERS: Family Provider Family Medicine; PCP Family Medicine; Referring Provider Nurse Practitioner Adult Health; Visit Provider Nurse Practitioner Adult Health
DX: Z12.5 Encounter for screening for malignant neoplasm of prostate (principal)
CPT/HCPCS: 36415; 84153; G0103

== ENCOUNTER → 2018-06-30 08:36 | Outpatient (CLI) | payer MEDICARE, SELFPAY ==
[2018-05-08 08:36] VITALS: BMI 27.7
--- NOTE | 2018-06-30 08:54 | EKG12_ITS ---
Test Reason : Blood Pressure : / mmHG Vent. Rate : 057 BPM Atrial Rate : 057 BPM P-R Int : 226 ms QRS Dur : 110 ms QT Int : 452 ms P-R-T Axes : 055 042 048 degrees QTc Int : 439 ms Sinus bradycardia with 1st degree A-V block Otherwise normal ECG Confirmed by ALEXANDRE ERNANDEZ, MYKE ([id number]), photo editor FREDERICK MORALEZ ([id number]) on 07/01/2018 5:03:50 PM Referred By: Bobo Veras Confirmed By:MYKE SCHROEDER MD
[2018-06-30 09:36] LABS: Hematocrit 44.6 % (40-54); Hemoglobin 14.6 g/dl (13.0-16.5); Mean Corp Hgb Conc 32.7 g/gl (32-36); Mean Corpuscular Hgb 32.1 pg (27.0-32.0); Mean Platelet Vol. 10.1 fl (6.2-12.0); Platelet Count 187 K/mm3 (150-450); RBC Distribution Width CV 13.5 % (11.6-14.6); RBC Distribution Width SD 48.3 fl (35.1-43.9); Red Blood Count 4.55 M/mm3 (4.6-6.2); White Blood Count 6.7 K/mm3 (4.4-11.0)
[2018-06-30 09:39] LABS: Scan Indicated on CBC? Y/N NO
[2018-06-30 10:12] LABS: Anion Gap 8 (5-15); BUN 26 mg/dL (7-18); BUN/Creat Ratio 16.6 RATIO (10-20); Calcium,Total 8.8 mg/dL (8.5-10.1); Chloride 107 mmol/L (98-107); Creatinine, Serum 1.57 mg/dL (0.70-1.30); EST Glomerular Filtration Rate 46 mL/min (>60); Est Glom Filt Rate - Afr Amer 55 mL/min (>60); Glucose 128 mg/dL (74-106); Sodium Level 143 mmol/L (136-145)
== END ==
PROVIDERS: Family Provider Family Medicine; PCP Family Medicine; Referring Provider Otolaryngology; Visit Provider Otolaryngology
DX: Z01.818 Encounter for other preprocedural examination (principal)
CPT/HCPCS: 36415; 80048; 85027; 93005

== ENCOUNTER → 2018-11-28 09:12 | Outpatient (CLI) | payer MEDICARE, SELFPAY ==
[2018-11-27 13:34] VITALS: BMI 26.8
[2018-11-28 09:40] LABS: Absolute Lymphocyte Count 2.07 X10^3/uL (0.83-4.51); Absolute Neutrophil Count 5.2 X10^3/uL (2.0-7.7); Basophil# 0.06 X10^3/uL; Basophil% 0.7 % (0-1); Eosinophil# 0.25 X10^3/uL; Hematocrit 44.6 % (40-54); Hemoglobin 15.1 g/dL (13.0-16.5); Lymphocyte # 2.07 X10^3/ul (4.0); Lymphocyte % 24.6 % (19-41); Mean Corp Hgb Conc 33.9 g/dL (32-36); Mean Corpuscular Hgb 32.4 pg (27.0-32.0); Mean Corpuscular Volume 95.7 fL (80-94); Mean Platelet Vol. 9.7 fl (6.2-12.0); Monocyte# 0.85 X10^3/uL; Monocyte% 10.1 % (0-10); NRBC Flagged by Analyzer 0 % (0-5); Neutrophil # 5.17 X10^3/uL (2.7-7.7); Neutrophil % 61.4 % (47-70); Platelet Count 204 K/mm3 (150-450); RBC Distribution Width CV 12.8 % (11.6-14.6); RBC Distribution Width SD 44.3 fl (35.1-43.9); Red Blood Count 4.66 M/mm3 (4.6-6.2); White Blood Count 8.4 K/mm3 (4.4-11.0)
[2018-11-28 10:04] LABS: AST(SGOT) 20 U/L (15-37); Alanine Aminotransfer ALT/SGPT 26 U/L (16-61); Albumin, Serum 3.9 g/dL (3.2-5.0); Alkaline Phosphatase 96 U/L (45-117); Anion Gap 4 (5-15); BUN 23 mg/dL (7-18); BUN/Creat Ratio 15.2 RATIO (10-20); Bilirubin, Direct 0.17 mg/dL (0.00-0.30); Calcium,Total 8.9 mg/dL (8.5-10.1); Chloride 104 mmol/L (98-107); Cholesterol 131 mg/dL (200); Creatinine, Serum 1.51 mg/dL (0.70-1.30); EST Glomerular Filtration Rate 48 mL/min (>60); Est Glom Filt Rate - Afr Amer 58 mL/min (>60); Globulin 3.3 g/dL (2.2-4.2); Glucose 118 mg/dL (74-106); High Density Lipoprotein 49 mg/dL; Potassium 4.1 mmol/L (3.5-5.1); Protein, Total 7.2 g/dL (6.4-8.2); Sodium Level 137 mmol/L (136-145); Triglycerides 86 mg/dL; Very Low Density Lipoprotein 17 mg/dL (5-40)
== END ==
PROVIDERS: Family Provider Family Medicine; PCP Family Medicine; Referring Provider Internal Medicine Cardiovascular Disease; Visit Provider Internal Medicine Cardiovascular Disease
DX: E78.5 Hyperlipidemia, unspecified (principal); J45.40 Moderate persistent asthma, uncomplicated
CPT/HCPCS: 36415; 80048; 80061; 80076; 85025

== ENCOUNTER 2019-02-20 22:47 | Observation (INO) | payer MEDICARE, SELFPAY ==
[2018-11-27 13:34] VITALS: BMI 26.8
[2019-02-20 22:47] VITALS: BP 152/72; PULSE 66; RESP 16; TEMP 37.5; O2SAT 95; BMI 27.4
--- NOTE | 2019-02-20 23:01 | EKG12_ITS ---
Test Reason : Blood Pressure : / mmHG Vent. Rate : 054 BPM Atrial Rate : 044 BPM P-R Int : 000 ms QRS Dur : 110 ms QT Int : 448 ms P-R-T Axes : 000 071 058 degrees QTc Int : 424 ms Atrial fibrillation/Flutter with slow ventricular response Nonspecific ST abnormality Abnormal ECG Confirmed by JALYN ERNANDEZ, LINA ([id number]), primer expeditor and drier HEYDI SCHMID ([id number]) on 02/27/2019 11:18:30 AM Referred By: Moi Velazquez Confirmed By:LINA GUNDERSON MD
--- NOTE | 2019-02-20 23:01 | RAD_ITS ---
HISTORY: PT THINKS HE HAS AFIB PT HAS HISTORY OF AFIB EXAMINATION/TECHNIQUE: XR Chest 1 View: COMPARISON: 06/06/2015 FINDINGS: EKG leads in place. No significant change. Normal heart size. Prominent lung volumes. Left basilar mild linear scarring. No acute infiltrate. No vascular congestion or pleural effusion. No pneumothorax. The bony thorax appears intact. RAD/Chest 1 View (Portable) IMPRESSION: 1. No acute cardiopulmonary disease. No significant interval change. 2. Left basilar mild scarring. at 9330 Reported and signed by: Nam Zavala MD Electronically Signed: Nam Zavala, at 23:16 EDT Tel , Service support ,
--- NOTE | 2019-02-20 23:05 | ED.VISSUMM ---
- ER Visit Summary Date of Service: 02/20/19 Chief Complaint: Possible A. fib History of Present Illness: The patient is a 79 M who has a history of paroxysmal A. fib and follows with Dr. Mckoen. He states he has not had an episode of A. fib for greater than 5 years. He is maintained on Cardizem and flecainide. He is not on any anticoagulation. He follows about every 6 months and there is been no changes in his cardiac medications. Today he pushed mowed his lawn is his right a tractor was not working. It was about a half an acre. He took breaks try to take care of himself tonight. He sat down around 8:00 watching [employer] and felt that his heart rate was irregular. It was not getting better so he came to the emergency department. The patient's baseline EKG is a sinus bradycardia with a first-degree AV block Physical Examination: Afebrile vital signs are stable Gen: Well-nourished well-developed Head: Normocephalic atraumatic Eyes: Perrl EOMI ENT: TMs clear no rhinorrhea moist mucous membranes Neck: Supple no lymphadenopathy no JVD nontender CVS: Irregular rate rhythm no murmurs normal S1-S2 less than 2-second capillary refill Respiratory: No distress clear to auscultation bilaterally chest nontender Abdomen: Soft nontender nondistended normal bowel sounds no masses Back: Nontender Extremity: Nontender no edema Skin: Normal color no rash Neuro: alert orientated ?3 CN II-XII intact normal strength sensation reflexes gait cerebellar Psych: Normal affect normal mood Test Results: White count 12.3. Glucose 149 BUN 30 creatinine 1.68. TSH is 4.36. Magnesium 2.3. Troponin 0.072. Chest x-ray shows no acute findings. EKG is atrial fibrillation a rate of 54. Emergency Department Course and Treatment: Patient was placed on the monitor. He is remained in A. fib. He is remained in a bradycardic rhythm usually in the 50s occasionally will drop down into the 30s while awake but does not appear symptomatic at least at rest with that. He has chronic renal insufficiency so his creatinine 1.68 is near his baseline. I do not have any old troponins after 2014 to know if this troponin tonight is related to his chronic kidney disease versus perhaps exertion tonight. I spoke with on-call cardiology as well as our hospitalist. Patient will be observed tonight Impression: 1. Paroxysmal atrial fibrillation with the cardia 2. Indeterminant troponin 3. Elevated TSH This note was generated with [employer] dictation software. It may contain incorrect words, spelling, and punctuation that were not noted in review of the chart prior to signing ED Disposition - Plan for ED Patient: Referrals: Vikas Lockhart MD [Primary Care Provider] -
[2019-02-20 23:09] LABS: Absolute Neutrophil Count 7.5 X10^3/uL (2.0-7.7); Basophil# 0.09 X10^3/uL; Basophil% 0.7 % (0-1); Eosinophils% 1.6 % (0-5); Hematocrit 42.2 % (40-54); Hemoglobin 14.2 g/dL (13.0-16.5); Lymphocyte % 25.2 % (19-41); Mean Corp Hgb Conc 33.6 g/dL (32-36); Mean Corpuscular Hgb 31.8 pg (27.0-32.0); Mean Corpuscular Volume 94.6 fL (80-94); Mean Platelet Vol. 9.8 fl (6.2-12.0); Monocyte# 1.42 X10^3/uL; Monocyte% 11.5 % (0-10); NRBC Flagged by Analyzer 0 % (0-5); Neutrophil # 7.46 X10^3/uL (2.7-7.7); Neutrophil % 60.7 % (47-70); Platelet Count 191 K/mm3 (150-450); RBC Distribution Width CV 12.9 % (11.6-14.6); RBC Distribution Width SD 44.6 fl (35.1-43.9); Red Blood Count 4.46 M/mm3 (4.6-6.2); White Blood Count 12.3 K/mm3 (4.4-11.0)
[2019-02-20 23:28] LABS: Anion Gap 6 (5-15); BUN 30 mg/dL (7-18); BUN/Creat Ratio 17.9 RATIO (10-20); Calcium,Total 9.1 mg/dL (8.5-10.1); Chloride 105 mmol/L (98-107); Creatinine, Serum 1.68 mg/dL (0.70-1.30); EST Glomerular Filtration Rate 42 mL/min (>60); Est Glom Filt Rate - Afr Amer 51 mL/min (>60); Estimated Creatinine Clearance 32.17 ml/min; Glucose 149 mg/dL (74-106); Magnesium 2.3 mg/dL (1.6-2.6); Potassium 4.2 mmol/L (3.5-5.1); Sodium Level 140 mmol/L (136-145); Thyroid Stim Hormone (TSH) 4.36 uIU/mL (0.358-3.74)
[2019-02-21] VITALS (12 sets, daily range): BP systolic 110–147; BP diastolic 50–81; PULSE 45–77; RESP 16–19; TEMP 36.6–36.8; O2SAT 23–97; BMI 26.9
--- NOTE | 2019-02-21 00:08 | PCM.HP.STD ---
Problem List (1) Afib Status: Acute History of Present Illness Date of Admission: 02/21/19 Chief Complaint: irregular pulse The patient is a 79 year old M with a significant history of Afib; CHUCKIE on CPAP; asthma who presented with irregular pulse. Patient mowed a yard for about a half an acre with regular mower. Although he rested in between mowing and afterwards he still felt very tired which was unusual for him. Because of his history of paroxysmal A. fib he check his carotid pulse and recognize that his pulse was slow and irregular. He denies palpitations. He takes flecainide twice daily and extended release Cardizem daily. He is compliant with his medications. He reported that previously he was on aspirin but because of history of bleeding aspirin was stopped. He follows up with Dr. Mckeon, learning and development consultant. His last episode of A. fib was about 5 years ago. At the emergency department patient was noted to have A. fib with ventricular rates of 50s to 30s. Also he was noted to have elevated TSH and elevated troponin. Reportedly emergency department doctor discussed the case with learning and development consultant. Past Medical History Past Medical History (Chronic Problems): Chronic Problems (Last Reviewed 02/21/19 @ 01:03 by Moi Velazquez MD) Moderate persistent asthma (Chronic) CHUCKIE (obstructive sleep apnea) (Chronic) Dyspnea on exertion (Chronic) Hyperlipidemia (Chronic) Paroxysmal atrial fibrillation (Chronic) Medical History: Medical History (Last Reviewed 02/21/19 @ 02:08 by Moi Velazquez MD) Moderate persistent asthma (Chronic) J45.40 CHUCKIE (obstructive sleep apnea) (Chronic) G47.33 Hyperlipidemia (Chronic) E78.5 Paroxysmal atrial fibrillation (Chronic) I48.0 CKD (chronic kidney disease) stage 3, GFR 30-59 ml/min N18.3 Candidiasis of mouth B37.0 Allergies No Known Allergies Allergy (Verified 11/27/18 13:35) Home Medications: Ambulatory Orders Medication Instructions Recorded Cholecalciferol (VIT D3) [Vitamin 5,000 unit PO DAILY 11/10/15 D] Multivitamin [Daily Multiple 1 ea PO DAILY 11/10/15 Vitamin] azelastine 137 mcg (0.1 %) nasal 1 spray INTRANASAL BID 04/18/17 spray aerosol fluticasone propionate 50 2 spray INTRANASAL QDAY g 12/14/17 mcg/actuation nasal spray,suspension albuterol sulfate HFA 90 1 puff INHALATION Q4H PRN PRN #2 05/08/18 mcg/actuation aerosol inhaler device flecainide 100 mg tablet 100 mg PO BID #180 tab 05/27/18 diltiazem CD 120 mg 120 mg PO QDAY #90 cap 08/18/18 capsule,extended release 24 hr Surgical History: Surgical History (Last Reviewed 02/21/19 @ 02:08 by Moi Velazquez MD) History of appendectomy Z90.49 History of nasal surgery Z98.890 Bilateral plastic inserts. History of umbilical hernia repair Z98.890, Z87.19 Smoking Status: Former smoker Alcohol: Rare - *Family History Maternal Family History: Family History (Last Reviewed 02/21/19 @ 02:08 by Moi Velazquez MD) Father No problems noted. Mother No problems noted. History Items: No pertinent history Review of Systems Constitutional: Reports: Fatigue. Denies: Chills, Fever, Weight Change HEENT: Denies: Head Aches, Sinus Congestion, Sinus Drainage Cardiovascular: Denies: Chest Pain, Palpitations Respiratory: Denies: Cough, Shortness of breath at rest, Sputum production Gastrointestinal: Denies: Abdominal Pain, Nausea, Vomiting Genitourinary: Denies: Dysuria Musculoskeletal: Denies: Joint Pain, Joint Tenderness Skin: Denies: Rash, Wounds Neurological: Denies: Numbness, Tingling, Focal weakness Psychiatric: Denies: Anxiety, Depression, Homicidal Ideations, Suicidal Ideations Hematologic/ Lymphatic: Denies: Easy Bruising, Easy Bleeding VTE Information - Inpt Only VTE Present on Admission: No VTE Mechan Device Prophylaxis: SCD's VTE Pharm Prophylaxis ordered?: No Patient Problems: Active and Suspected Problems (Last Reviewed 02/21/19 @ 01:03 by Moi Velazquez MD) Afib (Acute) - Physical Exam General: Alert, Oriented x3, Cooperative HEENT: Atraumatic, PERRLA, EOMI, Normocephalic Neck: Supple, No JVD, Negative Carotid Bruits Lungs: Clear to auscultation, Normal air movement Cardiovascular: Normal S1, Normal S2, No murmurs, Irregular Rate Abdomen: Bowel Sounds Present, Soft, Non Tender Extremities: No edema, Capillary Refill Less than 3 Seconds Skin: No rashes, No breakdown Musculoskeletal: No Tenderness to Palpation of Joints or Extremities Neurological: Cranial nerves II-XII grossly intact Psych/Mental Status: Normal Affect, Appropriate Vital Signs Temp Pulse Resp BP Pulse Ox 99.5 F H 66 16 152/72 H 95 02/20/19 22:47 02/20/19 22:47 02/20/19 22:47 02/20/19 22:47 02/20/19 22:47 Oxygen Delivery Method Room Air Weight: 77.2 kg Body Mass Index (BMI) 27.4 Laboratory Tests Past 24 Hrs 02/20/19 02/20/19 22:49 22:49 WBC 12.3 H RBC 4.46 L Hgb 14.2 Hct 42.2 MCV 94.6 H MCH 31.8 MCHC 33.6 RDW Std Deviation 44.6 H RDW Coeff of Tiffany 12.9 Plt Count 191 MPV 9.8 Immature Gran % (Auto) 0.300 Neut % (Auto) 60.7 Lymph % (Auto) 25.2 [place] % (Auto) 11.5 H Eos % (Auto) 1.6 Baso % (Auto) 0.7 Absolute Neuts (auto) 7.5 Absolute Lymphs (auto) 3.10 Nucleated RBC % 0 Sodium 140 Potassium 4.2 Chloride 105 Carbon Dioxide 29.0 Anion Gap 6 BUN 30 H Creatinine 1.68 H Estim Creat Clear Calc 32.17 Est GFR (MDRD) Af Amer 51 L Est GFR (MDRD) Non-Af 42 L BUN/Creatinine Ratio 17.9 Glucose 149 H Calcium 9.1 Magnesium 2.3 Troponin I 0.072 H TSH 4.36 H Assessment/Plan All Active Problems (Last Reviewed 02/21/19 @ 01:03 by Moi Velazquez MD) Afib (Acute) The patient is a 79 year old M with a significant history of Afib; CHUCKIE on CPAP; asthma and A. fib with slow ventricular response and with elevated troponin. A. fib with slow ventricular response Heart rate predominantly in 50s but occasionally dipping into the 30s. Would hold home Cardizem. Continue flecainide. Place patient on PCU with telemetry. Aspirin 325 mg x 1 was ordered emergency department. We will continue patient on aspirin 81 mg daily Magnesium an potassium are within goal. Will get a surface echo. Cardiology consult. Trend troponin. Elevated TSH We will get free T4 Elevated troponin Etiology could be from atrial fibrillation; CKD; myocardial ischemia or other. Trend CKD stage III Creatinine on admission was 1.68. Although this is mildly elevated it is within his baseline. Repeat BMP in a.m. DVT prophylaxis Subcutaneous Lovenox Code Visit OBSV E&M: 33368 Initial observation care L3
[2019-02-21] MEDS: Aspirin 325 MG Tablet PO (00:39)
--- NOTE | 2019-02-21 01:59 | CPS ---
PATIENT REFUSED ALBUTEROL TREATMENT AT TIME OF VISIT.
--- NOTE | 2019-02-21 02:03 | EKG12_ITS ---
Test Reason : CP ADMISSION Blood Pressure : / mmHG Vent. Rate : 048 BPM Atrial Rate : 050 BPM P-R Int : 000 ms QRS Dur : 110 ms QT Int : 472 ms P-R-T Axes : 000 058 052 degrees QTc Int : 421 ms Atrial fibrillation with slow ventricular response Abnormal ECG When compared with ECG of 30-JUN-2018 09:02, Atrial fibrillation has replaced Sinus rhythm Confirmed by ALEXANDRE ERNANDEZ, MYKE ([id number]), battery inspector HEYDI SCHMID ([id number]) on 02/27/2019 11:32:42 AM Referred By: Moi Velazquez Confirmed By:MYKE SCHROEDER MD
[2019-02-21 04:49] LABS: Anion Gap 6 (5-15); BUN 27 mg/dL (7-18); BUN/Creat Ratio 17.5 RATIO (10-20); Calcium,Total 8.6 mg/dL (8.5-10.1); Chloride 108 mmol/L (98-107); Creatinine, Serum 1.54 mg/dL (0.70-1.30); EST Glomerular Filtration Rate 47 mL/min (>60); Est Glom Filt Rate - Afr Amer 56 mL/min (>60); Glucose 120 mg/dL (74-106); Potassium 4.5 mmol/L (3.5-5.1); Sodium Level 141 mmol/L (136-145); T4 Free Direct 0.88 ng/dL (0.76-1.46)
[2019-02-21] MEDS: Budesonide Respules 0.5 MG/2 ML AMPUL.NEB. INHALATION (07:07)
[2019-02-21] MEDS: Albuterol 2.5 MG/3 ML VIAL.NEB. INHALATION (07:07)
[2019-02-21] MEDS: Flecainide 100 MG Tablet PO (09:52)
[2019-02-21] MEDS: Multivitamins,Therapeutic Tablet 1 TABLET PO (09:52)
--- NOTE | 2019-02-21 12:15 | PCM.CONS.C ---
Problem List (1) Troponin I above reference range Status: Acute (2) Paroxysmal atrial fibrillation Status: Acute Reason for Consult Date of Consultation: 02/21/19 Reason for Consultation: Atrial fibrillation with slow ventricular response History of Present Illness: The patient is a 79 year old M being seen by request of the hospitalist team. His past cardiac history is notorious for seasonal atrial fibrillation, obstructive sleep apnea on CPAP. He presented yesterday with complaints of irregular heart beating. Patient mowed a yard for about a half an acre with regular mower. He noted some tiredness and fatigue. He checked his pulse and felt it to be irregular, which prompted the presentation. In the emergency department, the patient was found to be in atrial fibrillation with slow ventricular response. Work-up also revealed elevated creatinine level and borderline elevated troponins. The patient is an established patient of Dr. Mckeon with a history of paroxysmal atrial fibrillation. He is on flecainide and Cardizem at home. He stated that his last episode of atrial fibrillation was about 5 or more years ago. He had pretty much similar symptoms, back then. Overnight telemetry demonstrates atrial fibrillation with slow ventricular response. At the moment of my exam, the patient is minimally symptomatic. Past Medical History Allergies/Adverse Reactions: Allergies No Known Allergies Allergy (Verified 11/27/18 13:35) Home Medications: Ambulatory Orders Medication Instructions Recorded Cholecalciferol (VIT D3) [Vitamin 5,000 unit PO DAILY 11/10/15 D] Multivitamin [Daily Multiple 1 ea PO DAILY 11/10/15 Vitamin] azelastine 137 mcg (0.1 %) nasal 1 spray INTRANASAL BID 04/18/17 spray aerosol fluticasone propionate 50 2 spray INTRANASAL QDAY g 04/18/17 mcg/actuation nasal spray,suspension albuterol sulfate HFA 90 1 puff INHALATION Q4H PRN PRN #2 05/08/18 mcg/actuation aerosol inhaler device flecainide 100 mg tablet 100 mg PO BID #180 tab 05/27/18 diltiazem CD 120 mg 120 mg PO QDAY #90 cap 08/18/18 capsule,extended release 24 hr Past Medical History (Chronic Problems): Chronic Problems (Last Reviewed 02/21/19 @ 02:08 by Moi Velazquez MD) Moderate persistent asthma (Chronic) CHUCKIE (obstructive sleep apnea) (Chronic) Dyspnea on exertion (Chronic) Hyperlipidemia (Chronic) - *Family History Maternal Family History: Family History (Last Reviewed 02/21/19 @ 02:08 by Moi Velazquez MD) Father No problems noted. Mother No problems noted. History Items: No pertinent history Smoking Status: Former smoker Alcohol: Rare Review of Systems - Review of Systems General: Denies: Fever, Night Sweats, Fatigue Cardiovascular: Denies: Chest Discomfort, Shortness of Breath, Orthopnea, PND, Peripheral Edema, Palpitations, Lightheadedness, Dizziness, Near Syncope, Syncope Respiratory: Denies: Cough, Sputum Production, Hemoptysis Gastrointestinal: Denies: Hematemesis, Hematochezia, Melena Genitourinary: Denies: Dysuria, Hematuria Skin: Denies: Rash Objective: Vital Signs Temp Pulse Resp BP Pulse Ox 98.1 F 77 16 116/59 L 95 02/21/19 09:42 02/21/19 09:42 02/21/19 09:42 02/21/19 09:42 02/21/19 09:42 Oxygen Flow Rate (L/min) 2 Oxygen Delivery Method Nasal Cannula Weight: 75.495 kg Body Mass Index (BMI) 26.9 Intake and Output for Last 24 Hours 02/19/19 02/20/19 02/21/19 23:59 23:59 23:59 Intake Total 0 / 0 Balance 0 / 0 General: Awake, Alert, Oriented x 3 HEENT: PERRL, EOMI, Sclera Non Icteric Neck: Supple, Good ROM, No Lymph Node Enlargement Lungs: Clear to auscultation Cardiovascular: Regular Rhythm, Irregular Rhythm, Normal S1, Normal S2, No Murmurs, No Rubs, No Gallops Vascular: No Carotid Bruits, Normal Femoral Pulses, Normal Radial Pulses, Normal Dorsalis Pedal Pulse, Normal Posterior Tibial Pulses Abdomen: Bowel Sounds Present, Soft, Non Tender, No HSM, No Organomegaly Extremities: No Cyanosis, No Clubbing, No edema Neurological: No Focal Motor or Sensory Deficit 02/20/19 22:49: WBC 12.3 H, RBC 4.46 L, Hgb 14.2, Hct 42.2, MCV 94.6 H, MCH 31.8, MCHC 33.6, Plt Count 191, MPV 9.8, Immature Gran % (Auto) 0.300, Neut % (Auto) 60.7, Lymph % (Auto) 25.2, [place] % (Auto) 11.5 H, Eos % (Auto) 1.6, Baso % (Auto) 0.7, Absolute Neuts (auto) 7.5, Nucleated RBC % 0 02/20/19 22:49: Sodium 140, Potassium 4.2, Chloride 105, Carbon Dioxide 29.0, Anion Gap 6, BUN 30 H, Creatinine 1.68 H, Est GFR (MDRD) Af Amer 51 L, Est GFR (MDRD) Non-Af 42 L, BUN/Creatinine Ratio 17.9, Glucose 149 H, Calcium 9.1, Magnesium 2.3, Troponin I 0.072 H 02/21/19 01:28: Troponin I 0.072 H 02/21/19 04:10: Sodium 141, Potassium 4.5, Chloride 108 H, Carbon Dioxide 27.0, Anion Gap 6, BUN 27 H, Creatinine 1.54 H, Est GFR (MDRD) Af Amer 56 L, Est GFR (MDRD) Non-Af 47 L, BUN/Creatinine Ratio 17.5, Glucose 120 H, Calcium 8.6 02/21/19 04:10: Troponin I 0.066 H Rhythm: EKG: Atrial fibrillation with slow ventricular response ECHO: Normal left ventricular ejection fraction in the range of 65% without evidence of regional wall motion abnormalities. The right ventricle was not well visualized. Stress Test: Cardiac Cath: PCI: CT Surgery: Holter monitor: EPS: PPM: CXR: Chest CT Scan: Assessment/Plan 1. Paroxysmal atrial fibrillation. Patient presents with rare but symptomatic paroxysms of atrial fibrillation. He was on flecainide and Cardizem at home. Due to bradycardia, Cardizem was stopped. Flecainide to be continued. I will initiate anticoagulation with Eliquis 5 mg twice daily. Options for pharmacological versus DC cardioversion mediated rhythm control were discussed with the patient. He likely need 3 to 4 weeks of uninterrupted anticoagulation, before outpatient cardioversion. He may well convert to normal sinus rhythm by himself, though. 2. Borderline troponin elevation. There is no evidence of acute coronary syndrome. EKG does not demonstrate evidence of coronary ischemia. There is no evidence of local wall motion abnormalities on the echocardiogram. Concerns about pulmonary embolism, therefore I will order a d-dimer to rule that out. If negative, the patient may be discharged home with outpatient exercise Cardiolite stress test. Code Visit Inpatient E&M: 94693 Init Hosp L2
[2019-02-21 12:31] LABS: D-Dimer Quantitative (DVT/PE) 0.28 FEU/ug/m (0.27-0.49)
[2019-02-21] MEDS: APIXABAN 5 MG TABLET PO (14:45)
--- NOTE | 2019-02-21 15:05 | DCINST_ITS ---
- Discharge Diagnoses Current Active Problems: Current Active and Chronic Problems (Last Reviewed 02/21/19 @ 02:08 by Moi Velazquez MD) Afib (Acute) Troponin I above reference range (Acute) You will use the following diet at home:: Cardiac Your food should be the consistency of: Regular Your liquids should be the consistency of: Regular/Thin Discharge Activity: Return to Normal Activity Call your doctor if you observe: Fever of 101 or Higher, Shortness of breath, Dizziness, Fainting spells, Swelling in the ankles, Chest pain, Increased palpitations (irregular heartbeat) Allergies/Adverse Reactions: Allergies No Known Allergies Allergy (Verified 11/27/18 13:35) Medications to take at Discharge Cholecalciferol (VIT D3) [Vitamin D3] 5,000 unit PO DAILY 11/10/15 Multivitamin [Daily Multiple Vitamin] 1 ea PO DAILY 11/10/15 azelastine 137 mcg (0.1 %) nasal spray aerosol 1 spray INTRANASAL BID 04/18/17 fluticasone propionate 50 mcg/actuation nasal spray,suspension 2 spray INTRANASAL QDAY g 04/18/17 albuterol sulfate HFA 90 mcg/actuation aerosol inhaler 1 puff INHALATION Q4H PRN PRN #2 device 05/08/18 flecainide 100 mg tablet 100 mg PO BID #180 tab 05/27/18 Apixaban [Eliquis] 5 mg PO BID #60 tab 02/21/19 The following prescriptions were given: Apixaban [Eliquis] 5 mg PO BID #60 tab Transmission Status: Pending to [facility] Primary Care Physician: Vikas Lockhart MD [Primary Care Provider] - Please follow up with your Primary Care Physician in: 3-5 days Test Results: Test results from this visit will be discussed in further detail at your follow- up appointment, if applicable. Please Follow Up With: Jadiel Mckeon MD - Or PA/POWER LINEWORKER When: 1-2 weeks
--- NOTE | 2019-02-21 18:50 | DS.PCM_ITS ---
Discharge Date and Diagnosis Date of Admission: 02/21/19 Date of Discharge: 02/21/19 - Secondary Discharge Diagnosis Chronic Problems (Last Reviewed 02/21/19 @ 02:08 by Moi Velazquez MD) Moderate persistent asthma (Chronic) CHUCKIE (obstructive sleep apnea) (Chronic) Dyspnea on exertion (Chronic) Hyperlipidemia (Chronic) Hospital Course and Treatment Imaging Results: CXR: IMPRESSION: 1. No acute cardiopulmonary disease. No significant interval change. 2. Left basilar mild scarring. Echo: Interpretation summary The estimated ejection fraction is 65%. Left ventricular systolic function is normal No regional wall motion abnormalities noted. The right ventricle is not well visualized. The left atrium is mildly enlarged. Mild (1+) pulmonic valve insufficiency. Consults: Cardiology Operations: None Procedures: 2-D Echocardiogram Summary of Care Provided: Per HPI: The patient is a 79 year old M with a significant history of Afib; CHUCKIE on CPAP; asthma who presented with irregular pulse. Patient mowed a yard for about a half an acre with regular mower. Although he rested in between mowing and afterwards he still felt very tired which was unusual for him. Because of his history of paroxysmal A. fib he check his carotid pulse and recognize that his pulse was slow and irregular. He denies palpitations. He takes flecainide twice daily and extended release Cardizem daily. He is compliant with his medications. He reported that previously he was on aspirin but because of history of bleeding aspirin was stopped. He follows up with Dr. Mckeon, assistant corporation counsel. His last episode of A. fib was about 5 years ago. At the emergency department patient was noted to have A. fib with ventricular rates of 50s to 30s. Also he was noted to have elevated TSH and elevated troponin. Reportedly emergency department doctor discussed the case with ca rdiologist. Hospital Course: 1. Paroxysmal A. fib with slow ventricular [id number] male with a history of A. fib, CHUCKIE on CPAP, and asthma presented with a regular pulse. He was mowing the yard about half an acre with a normal mower and when he was resting between mowing and then when he finished he felt very tired. He presented to the ER where he was found to be in A. fib with ventricular rates in the 50s. He was monitored overnight and cardiology was consulted. Because of his heart rate Cardizem was held but he was continued on his flecainide. Cardiology felt that it was okay to discontinue his Cardizem completely and just continue on flecainide. They also started him on Eliquis 5 mg p.o. twice daily and felt that if a d-dimer was negative that he could go home today. The d- dimer was negative and the patient felt comfortable to go home and said that all of his symptoms had resolved and he felt great. I discussed with him the risks of going home and the need to pick out hand his Eliquis from the pharmacy. He expressed understanding of the risks and benefits and chose to go home today. Of note the troponin was also slightly elevated and cardiology felt that he would be able to get a stress test as an outpatient and was cleared for discharge by cardiology. 2. CKD 3-on admission his creatinine was 1.68, which is slightly above baseline of 1.4-1.5. However on the day of discharge his creatinine had improved to 1.54 area 3. His other medical diagnoses were evaluated and his home medications were continued where appropriate - Physical Exam General: Alert, Oriented x3, Cooperative, No apparent distress HEENT: Atraumatic, PERRLA, EOMI, Normocephalic Oral: Moist Mucosa Neck: Supple, No JVD Lungs: Clear to auscultation, Normal air movement, No rhonchi, No wheeze, No rales Cardiovascular: Regular rate, Normal S1, Normal S2, No murmurs, - - Irregular rhythm Abdomen: Soft, Non Tender, Non-Distended, No Hepato-splenomegaly Extremities: No edema, Capillary Refill Less than 3 Seconds Skin: No rashes, No breakdown Neurological: Neuro grossly intact, Sensory exam intact to light touch and pain Psych/Mental Status: Normal Affect, Appropriate Vital Signs Temp Pulse Resp BP Pulse Ox 98.2 F 53 L 16 121/65 H 94 02/21/19 15:38 02/21/19 15:38 02/21/19 15:38 02/21/19 15:38 02/21/19 15:38 Oxygen Flow Rate (L/min) 2 Oxygen Delivery Method Room Air Weight: 166 lb 7 oz Body Mass Index (BMI) 26.9 Intake and Output for Last 24 Hours 02/19/19 02/20/19 02/21/19 23:59 23:59 23:59 Intake Total 0 / 0 Balance 0 / 0 Laboratory Tests Past 24 Hrs 02/20/19 02/20/19 02/21/19 22:49 22:49 01:28 WBC 12.3 H RBC 4.46 L Hgb 14.2 Hct 42.2 MCV 94.6 H MCH 31.8 MCHC 33.6 RDW Std Deviation 44.6 H RDW Coeff of Tiffany 12.9 Plt Count 191 MPV 9.8 Immature Gran % (Auto) 0.300 Neut % (Auto) 60.7 Lymph % (Auto) 25.2 Converse % (Auto) 11.5 H Eos % (Auto) 1.6 Baso % (Auto) 0.7 Absolute Neuts (auto) 7.5 Absolute Lymphs (auto) 3.10 Nucleated RBC % 0 D-Dimer Quant (PE/DVT) Sodium 140 Potassium 4.2 Chloride 105 Carbon Dioxide 29.0 Anion Gap 6 BUN 30 H Creatinine 1.68 H Estim Creat Clear Calc 32.17 Est GFR (MDRD) Af Amer 51 L Est GFR (MDRD) Non-Af 42 L BUN/Creatinine Ratio 17.9 Glucose 149 H Calcium 9.1 Magnesium 2.3 Troponin I 0.072 H 0.072 H TSH 4.36 H Free T4 02/21/19 02/21/19 02/21/19 04:10 04:10 12:20 WBC RBC Hgb Hct MCV MCH MCHC RDW Std Deviation RDW Coeff of Tiffany Plt Count MPV Immature Gran % (Auto) Neut % (Auto) Lymph % (Auto) Converse % (Auto) Eos % (Auto) Baso % (Auto) Absolute Neuts (auto) Absolute Lymphs (auto) Nucleated RBC % D-Dimer Quant (PE/DVT) 0.28 Sodium 141 Potassium 4.5 Chloride 108 H Carbon Dioxide 27.0 Anion Gap 6 BUN 27 H Creatinine 1.54 H Estim Creat Clear Calc 35.10 Est GFR (MDRD) Af Amer 56 L Est GFR (MDRD) Non-Af 47 L BUN/Creatinine Ratio 17.5 Glucose 120 H Calcium 8.6 Magnesium Troponin I 0.066 H TSH Free T4 0.88 Discharge Activity: Return to Normal Activity Call your doctor if you observe: Fever of 101 or Higher, Shortness of breath, Dizziness, Fainting spells, Swelling in the ankles, Chest pain, Increased palpitations (irregular heartbeat) Home Medications: Medications to take at Discharge Cholecalciferol (VIT D3) [Vitamin D3] 5,000 unit PO DAILY 11/10/15 Multivitamin [Daily Multiple Vitamin] 1 ea PO DAILY 11/10/15 azelastine 137 mcg (0.1 %) nasal spray aerosol 1 spray INTRANASAL BID 04/18/17 fluticasone propionate 50 mcg/actuation nasal spray,suspension 2 spray INTRANASAL QDAY g 04/18/17 albuterol sulfate HFA 90 mcg/actuation aerosol inhaler 1 puff INHALATION Q4H PRN PRN #2 device 05/08/18 flecainide 100 mg tablet 100 mg PO BID #180 tab 05/27/18 Apixaban [Eliquis] 5 mg PO BID #60 tab 02/21/19 Following Prescrptions Were Given to Patient: Apixaban [Eliquis] 5 mg PO BID #60 tab Transmission Status: Received by [facility] [facility] Primary Care Physician: Vikas Lockhart MD [Primary Care Provider] - Please follow up with your Primary Care Physician in: 3-5 days Please Follow Up With: Jadiel Mckeon MD - Or PA/VENEER MARKER When: 1-2 weeks Disposition: Home Minutes spent on discharge:: 35 Patient Condition:: Stable Medical Necessity - Tobacco Use Smoking Status: Former smoker Meaningful Use Info Meaningful Use Diagnoses (Choose all that apply): None applicable Code Visit OBSV E&M: 43776 Observation care discharge
== END 2019-02-21 16:37 | disposition home or self-care (01) ==
LOC: ED 23:19 → PCU 02-21 00:49
PROVIDERS: Internal Medicine Cardiovascular Disease; Admitting Provider Hospitalist; Emergency Provider Emergency Medicine; Family Provider Family Medicine; PCP Family Medicine; Referring Provider Hospitalist; Visit Provider Family Medicine
DX: I48.0 Paroxysmal atrial fibrillation (principal); G47.33 Obstructive sleep apnea (adult) (pediatric); E78.5 Hyperlipidemia, unspecified; J45.40 Moderate persistent asthma, uncomplicated; N18.3 Chronic kidney disease, stage 3 (moderate); Z79.899 Other long term (current) drug therapy; Z79.51 Long term (current) use of inhaled steroids; Z87.891 Personal history of nicotine dependence
CPT/HCPCS: 36415; 71045; 80048; 83735; 84439; 84443; 84484; 85025; 85379; 93005; 93306; 94640; 94660; 99218; 99285; Q9957; A4216; G0378

== ENCOUNTER → 2019-03-12 12:28 | Outpatient (CLI) | payer MEDICARE, SELFPAY ==
[2019-02-21 01:06] VITALS: BMI 26.9
== END ==
PROVIDERS: Family Provider Family Medicine; PCP Family Medicine; Referring Provider Internal Medicine Critical Care Medicine; Visit Provider Internal Medicine Critical Care Medicine
DX: R05 Cough (principal)
CPT/HCPCS: 87070; 87205

== ENCOUNTER → 2019-03-20 11:39 | Outpatient (CLI) | payer MEDICARE, SELFPAY ==
[2019-03-20 10:53] VITALS: BMI 26.6
[2019-03-20 13:43] LABS: Anion Gap 7 (5-15); BUN 21 mg/dL (7-18); BUN/Creat Ratio 16.9 RATIO (10-20); Chloride 105 mmol/L (98-107); Creatinine, Serum 1.24 mg/dL (0.70-1.30); EST Glomerular Filtration Rate 60 mL/min (>60); Est Glom Filt Rate - Afr Amer 72 mL/min (>60); Glucose 84 mg/dL (74-106); Potassium 4.1 mmol/L (3.5-5.1); Sodium Level 140 mmol/L (136-145)
== END ==
PROVIDERS: Family Provider Family Medicine; PCP Family Medicine; Referring Provider Internal Medicine Cardiovascular Disease; Visit Provider Internal Medicine Cardiovascular Disease
DX: I48.0 Paroxysmal atrial fibrillation (principal)
CPT/HCPCS: 36415; 80048

== ENCOUNTER → 2019-03-30 10:52 | Outpatient (CLI) | payer MEDICARE, SELFPAY ==
[2019-03-20 10:53] VITALS: BMI 26.6
== END ==
PROVIDERS: Family Provider Family Medicine; PCP Family Medicine; Referring Provider Internal Medicine Cardiovascular Disease; Visit Provider Internal Medicine Cardiovascular Disease
DX: I48.0 Paroxysmal atrial fibrillation (principal)
CPT/HCPCS: 93225; 93226

== ENCOUNTER → 2019-06-12 14:43 | Outpatient (CLI) | payer MEDICARE, SELFPAY ==
[2019-05-19 06:02] VITALS: BMI 26.6
== END ==
PROVIDERS: PCP Family Medicine; Referring Provider Nurse Practitioner Acute Care; Visit Provider Nurse Practitioner Acute Care
DX: R05 Cough (principal)
CPT/HCPCS: 87070; 87077; 87205

== ENCOUNTER → 2019-10-20 07:27 | Outpatient (CLI) | payer MEDICARE, SELFPAY ==
[2019-09-29 13:10] VITALS: BMI 26.4
[2019-10-20 09:15] LABS: AST(SGOT) 17 U/L (15-37); Alanine Aminotransfer ALT/SGPT 27 U/L (16-61); Albumin, Serum 3.7 g/dL (3.2-5.0); Alkaline Phosphatase 76 U/L (45-117); Anion Gap 8 (5-15); BUN 23 mg/dL (7-18); BUN/Creat Ratio 15.4 RATIO (10-20); Calcium,Total 8.8 mg/dL (8.5-10.1); Chloride 105 mmol/L (98-107); Cholesterol 133 mg/dL (200); Creatinine, Serum 1.49 mg/dL (0.70-1.30); EST Glomerular Filtration Rate 48 mL/min (>60); Est Glom Filt Rate - Afr Amer 58 mL/min (>60); Globulin 3.5 g/dL (2.2-4.2); Glucose 111 mg/dL (74-106); High Density Lipoprotein 47 mg/dL; PSA,Total - Annual Screen 2.16 ng/mL (0.00-4.00); Potassium 4.1 mmol/L (3.5-5.1); Protein, Total 7.2 g/dL (6.4-8.2); Sodium Level 141 mmol/L (136-145); Triglycerides 85 mg/dL; Very Low Density Lipoprotein 17 mg/dL (5-40)
== END ==
PROVIDERS: PCP Family Medicine; Referring Provider Internal Medicine Cardiovascular Disease; Visit Provider Internal Medicine Cardiovascular Disease
DX: I48.0 Paroxysmal atrial fibrillation (principal); E78.5 Hyperlipidemia, unspecified; Z12.5 Encounter for screening for malignant neoplasm of prostate
CPT/HCPCS: 36415; 80048; 80061; 80076; 84153; G0103

== ENCOUNTER → 2019-11-23 10:30 | Outpatient (CLI) | payer MEDICARE, SELFPAY ==
[2019-11-09 10:06] VITALS: BMI 26.8
[2019-11-23 12:25] LABS: Anion Gap 6 (5-15); BUN 24 mg/dL (7-18); BUN/Creat Ratio 16.4 RATIO (10-20); Chloride 107 mmol/L (98-107); Creatinine, Serum 1.46 mg/dL (0.70-1.30); EST Glomerular Filtration Rate 49 mL/min (>60); Est Glom Filt Rate - Afr Amer 60 mL/min (>60); Glucose 120 mg/dL (74-106); Potassium 4.1 mmol/L (3.5-5.1); Sodium Level 139 mmol/L (136-145)
== END ==
PROVIDERS: PCP Family Medicine; Referring Provider Nurse Practitioner Family; Visit Provider Nurse Practitioner Family
DX: I48.0 Paroxysmal atrial fibrillation (principal)
CPT/HCPCS: 36415; 80048

== ENCOUNTER → 2019-12-18 11:32 | Outpatient (CLI) | payer MEDICARE, SELFPAY ==
[2019-11-25 08:52] VITALS: BMI 26.9
--- NOTE | 2019-12-18 11:34 | RAD_ITS ---
STUDY: X-RAY CHEST REASON FOR EXAM: Male, 79 years old. INCREASED SHORTNESS OF BREATH AND COUGH X 2 WKS, NO FEVER TECHNIQUE: Frontal and lateral views of the chest. COMPARISON: 02/20/2019 chest x-ray FINDINGS: The lungs are clear and expanded. There is no demonstrated pleural abnormality. Normal size heart. Normal mediastinum and shawn. Normal visualized pulmonary arteries. Normal visualized aortic arch and descending thoracic aorta. Normal visualized thoracic spine. Normal visualized ribs, clavicles, and shoulders. There is no demonstrated abnormality of the visualized soft tissue structures of the upper abdomen. RAD/Chest PA and Lateral IMPRESSION: Normal x-ray examination of the chest. Electronically Signed: Milton Wright MD at 17:00 EDT , Service support ,
[2019-12-18 12:26] LABS: Absolute Lymphocyte Count 1.66 X10^3/uL (0.83-4.51); Absolute Neutrophil Count 6.6 X10^3/uL (2.0-7.7); Basophil# 0.07 X10^3/uL; Basophil% 0.7 % (0-1); Eosinophil# 0.18 X10^3/uL; Eosinophils% 1.9 % (0-5); Hemoglobin 14.2 g/dL (13.0-16.5); Lymphocyte # 1.66 X10^3/ul (4.0); Lymphocyte % 17.3 % (19-41); Mean Corp Hgb Conc 33.8 g/dL (32-36); Mean Corpuscular Hgb 32.7 pg (27.0-32.0); Mean Corpuscular Volume 96.8 fL (80-94); Mean Platelet Vol. 10.3 fl (6.2-12.0); Monocyte# 1.02 X10^3/uL; Monocyte% 10.6 % (0-10); NRBC Flagged by Analyzer 0 % (0-5); Neutrophil # 6.64 X10^3/uL (2.7-7.7); Neutrophil % 69.2 % (47-70); Platelet Count 198 K/mm3 (150-450); RBC Distribution Width CV 13.2 % (11.6-14.6); RBC Distribution Width SD 46.6 fl (35.1-43.9); Red Blood Count 4.34 M/mm3 (4.6-6.2); White Blood Count 9.6 K/mm3 (4.4-11.0)
[2019-12-18 12:58] LABS: BNP,B-Type NATRIURETIC PEPTIDE 166.1 pg/mL (0-100)
[2019-12-18 13:08] LABS: Anion Gap 5 (5-15); BUN 21 mg/dL (7-18); BUN/Creat Ratio 15.2 RATIO (10-20); Calcium,Total 8.9 mg/dL (8.5-10.1); Chloride 107 mmol/L (98-107); Creatinine, Serum 1.38 mg/dL (0.70-1.30); EST Glomerular Filtration Rate 53 mL/min (>60); Est Glom Filt Rate - Afr Amer 64 mL/min (>60); Glucose 102 mg/dL (74-106); Potassium 4.1 mmol/L (3.5-5.1); Sodium Level 140 mmol/L (136-145)
== END ==
PROVIDERS: PCP Family Medicine; Referring Provider Nurse Practitioner Family; Visit Provider Nurse Practitioner Family
DX: R06.09 Other forms of dyspnea (principal); I48.0 Paroxysmal atrial fibrillation; R42 Dizziness and giddiness
CPT/HCPCS: 36415; 71046; 80048; 83880; 85025

== ENCOUNTER → 2020-01-04 06:08 | Outpatient (CLI) | payer MEDICARE, SELFPAY ==
[2019-11-25 08:52] VITALS: BMI 26.9
--- NOTE | 2020-01-04 13:00 | STRESSREP ---
Stress Test Report Exercise myocardial perfusion stress test. 79-year-old man with a history of atrial fibrillation. Stress protocol: Resting EKG demonstrates sinus bradycardia with a rate of 54 bpm normal intervals are noted resting blood pressure is 128/76 mmHg. The patient exercised according to regular Prabhjot protocol for 7 minutes and 35 seconds. The maximum heart rate was 120 bpm which was 85% of max impacted heart rate the maximum workload was 9.4 metabolic equivalents. Patient maintained sinus rhythm throughout the recording. At rest there were no ST or T wave changes noted to suggest ischemia at peak exercise upsloping ST changes only were noted with no meet the criteria for ischemia. No clinical angina was noted the test was terminated due to leg fatigue. Myocardial perfusion protocol. 11.8 mCi of technetium 99m sestamibi was injected at rest. The patient exercised according to regular Prabhjot protocol for 7-1/2 minutes at peak exercise 33.3 mCi of technetium 99m sestamibi was injected stress images were obtained stress and rest images were reconstructed and compared in the short axis vertical long horizontal long axis. Gated images were also obtained Perfusion SPECT analysis: Review of the stress images demonstrate normal uptake of tracer noted in all areas of the myocardium. The resting images demonstrated normal uptake of tracer noted in all areas of the myocardium. No reversibility is noted suggest ischemia no previous infarct is noted. Dated SPECT analysis: The gated ejection fraction is 70%. Conclusion: Normal exercise myocardial perfusion stress test at a moderate to high workload. Preserved ejection fraction. No arrhythmias noted. No A. fib noted.
== END ==
PROVIDERS: PCP Family Medicine; Referring Provider Internal Medicine Cardiovascular Disease; Visit Provider Internal Medicine Cardiovascular Disease
DX: R06.09 Other forms of dyspnea (principal); I48.0 Paroxysmal atrial fibrillation; Z51.81 Encounter for therapeutic drug level monitoring; Z79.899 Other long term (current) drug therapy
CPT/HCPCS: 78452; 93017; A9500; A4216

== ENCOUNTER → 2020-08-01 13:44 | Outpatient (CLI) | payer MEDICARE, SELFPAY ==
[2020-06-02 08:44] VITALS: BMI 27.7
[2020-08-01 15:31] LABS: Anion Gap 6 (5-15); BUN 22 mg/dL (7-18); BUN/Creat Ratio 15.1 RATIO (10-20); Calcium,Total 9.3 mg/dL (8.5-10.1); Chloride 105 mmol/L (98-107); Creatinine, Serum 1.46 mg/dL (0.70-1.30); EST Glomerular Filtration Rate 49 mL/min (>60); Est Glom Filt Rate - Afr Amer 60 mL/min (>60); Glucose 74 mg/dL (74-106); Sodium Level 140 mmol/L (136-145)
== END ==
PROVIDERS: PCP Family Medicine; Referring Provider Internal Medicine Cardiovascular Disease; Visit Provider Internal Medicine Cardiovascular Disease
DX: N18.9 Chronic kidney disease, unspecified (principal); R42 Dizziness and giddiness
CPT/HCPCS: 36415; 80048

== ENCOUNTER → 2020-08-24 08:05 | Outpatient (CLI) | payer MEDICARE, SELFPAY ==
[2020-06-02 08:44] VITALS: BMI 27.7
--- NOTE | 2020-08-24 11:47 | NEURO ---
NCS and/or EMG Patient Report Ordering Doctor: Guero Mcneill DATE OF SERVICE: 08/24/20 Isiah Mcmahan presents for electrodiagnostic testing of the lower limbs. He reports a history of plantar fasciitis in the right foot. He reports altered sensation in both feet as well as pain in the left heel. He denies a history of diabetes. He denies back pain. Electrodiagnostic findings: Peroneal motor nerve demonstrates normal distal latency, amplitude and conduction velocity bilaterally. Normal tibial motor response bilaterally. Normal peroneal and tibial F waves. H reflex is normal bilaterally. Sensory responses are within normal limits. On needle EMG, all muscles tested in the lower limb showed no evidence of denervation with normal motor unit action potentials. Electrodiagnostic impression: This is a normal electrodiagnostic study of the lower limbs. There is no electrodiagnostic evidence for lumbosacral radiculopathy or peripheral neuropathy.
== END ==
PROVIDERS: PCP Family Medicine; Referring Provider Podiatrist; Visit Provider Podiatrist
DX: G62.9 Polyneuropathy, unspecified (principal); R20.2 Paresthesia of skin
CPT/HCPCS: 95886; 95913

== ENCOUNTER 2020-08-25 17:21 | Observation (INO) | payer MEDICARE, SELFPAY ==
[2020-06-02 08:44] VITALS: BMI 27.7
[2020-08-25 17:22] VITALS: BP 147/69; PULSE 55; RESP 16; TEMP 36.8; O2SAT 99; BMI 28.5
--- NOTE | 2020-08-25 17:36 | ED.VIS.GEN ---
History of Present Illness Chief Complaint: Lower Extremity Injury Informant: Patient Narrative: 80-year-old male presenting with right knee pain. He states that he was walking up stairs carrying a case of water bottles when he tripped and fell anteriorly. He thinks he might of hit his knee but is unsure of the exact mechanism. He states he was unable to get up and walk after this. He states he crawled into the house. Patient is nonweightbearing in the ED. He denies any head injury or LOC. Patient is currently on Eliquis for history of A. fib. Patient sustained no lacerations or abrasions. He denies any paresthesias. - Past Medical History (1) Chronic kidney disease Status: Chronic (2) Hyperlipidemia Status: Chronic (3) Moderate persistent asthma Status: Chronic (4) CHUCKIE (obstructive sleep apnea) Status: Chronic (5) Paroxysmal atrial fibrillation Status: Chronic Past Medical History - Allergies and Home Meds Allergies/Adverse Reactions: Allergies No Known Allergies Allergy (Verified 06/02/20 08:44) Primary Care Physician: Moi Echevarria DO [STAFF PHYSICIAN] - Vikas Lockhart MD [Primary Care Provider] - Prior records reviewed: Yes Past Medical History: - - Reviewed in problem list Surgical History: noncontributory Lives: Spouse/ Significant Other Smoking Status: Former smoker Alcohol: None Drugs: None - Family History Maternal Family History: Family History (Last Reviewed 06/02/20 @ 11:[address] Jadiel Mckeon MD) Father No problems noted. Mother No problems noted. Family History: Reports: No pertinent history Review of Systems General: Denies: Chills, Fever, Sweats Eyes: Denies: Visual changes - bilaterally, Diplopia ENT: Denies: Rhinorrhea, Sore throat Cardiovascular: Denies: Chest pain, Palpitations Respiratory: Denies: Dyspnea, Cough, Dyspnea on exertion Gastrointestinal: Denies: Abdominal pain, Nausea, Vomiting, Diarrhea, Melena, Hematochezia Genitourinary: Denies: Dysuria, Hematuria, Frequency Musculoskeletal: Reports: Extremity Pain - Right knee pain and right thigh pain Skin: Denies: Rash, Wounds Neurological: Denies: Headache, Weakness, Numbness Psych: Denies: Depression, Anxiety, Suicidal thoughts, Suicidal ideations, -, - Physical Exam Vital Signs/Narrative: Vital Signs Temp Pulse Resp BP Pulse Ox 08/25/20 17:22 98.2 F 55 L 16 147/69 H 99 General: Well nourished, No Acute Distress Head: Normocephalic, Atraumatic Eyes: Perrl, EOMI ENT: Moist mucous membranes, No rhinorrhea Cardiovascular: Regular rate, Regular rhythm Respiratory: No distress, CTA bilaterally Extremities: Tenderness - Right knee pain and distal femoral pain anteriorly. Extensor mechanism intact on the right knee. Patient is able to flex the knee however he has difficulty straightening her back out. Patella does look mildly inferiorly subluxed. Skin: Normal color, No rash Neurological: Alert, Oriented x3 Psychological: Normal affect, Normal Mood Diagnostic/Tx/Re-eval Clinical Impression(s) from Imaging Studies Femur X-Ray 08/25/20 17:39 IMPRESSION: Normal x-ray examination of the femur. Electronically Signed: Max Hernandez DO at 18:38 EDT Tel [phone], Service support , Knee X-Ray 08/25/20 17:40 IMPRESSION: Normal x-ray examination of the knee. Electronically Signed: Max Hernandez DO at 18:39 EDT Tel [phone], Service support , - Medical Decision Making 80-year-old male with right knee and distal femur pain. He states that he had a fall forward on steps and is unable to ambulate secondary to pain. He was given Gar[place] in the ED with good relief of his pain. He had x-rays of the right femur and right knee which interpreted by myself showed no acute bony abnormality. Based on his examination with a defect at the lateral aspect of the patella as well as difficulty with extension of the knee secondary to pain I believe he has a partial quadriceps tear. I discussed this with Dr. Echevarria recommended patient the patient in a knee immobilizer with crutches. Patient is to call the office tomorrow and set up outpatient MRI and office visit. Patient given Gar[place] for pain at home. He is counseled not to bend his knee to keep it in the immobilizer. Patient knowledge understanding is amenable to this plan. Impression: 1. Mechanical fall 2. Partial quadriceps tear right knee ED Disposition - Plan for ED Patient: Disposition: Home or Assisted Living Prescriptions: Hydrocodone Bitart/Apap 5-325 [Gar[place] 5MG-325MG] 1 tablet PO Q6H PRN PRN 3 Days #12 tab PRN Reason: Pain Prescription Printed Referrals: Vikas Lockhart MD [Primary Care Provider] - Moi Echevarria DO [STAFF PHYSICIAN] - Additional Instructions: You were diagnosed today with a partial quadriceps rupture. It is very important that you keep your knee immobilizer on and do not bend your knee. You are to follow-up with Dr. Monique tomorrow for outpatient MRI.
--- NOTE | 2020-08-25 17:39 | RAD_ITS ---
STUDY: X-RAY - RIGHT FEMUR REASON FOR STUDY: Male, 80 years old. Distal femur pain TECHNIQUE: 4 view(s) of the femur. COMPARISON: None. FINDINGS: Normal visualized femur. Normal visualized soft tissue structure. RAD/Femur Min 2 Views IMPRESSION: Normal x-ray examination of the femur. Electronically Signed: Max Hernandez DO at 18:38 EDT Tel [phone], Service support ,
--- NOTE | 2020-08-25 17:40 | RAD_ITS ---
STUDY: X-RAY - RIGHT KNEE REASON FOR EXAM: Male, 80 years old. Knee pain TECHNIQUE: 4 view(s) of the knee. COMPARISON: None. FINDINGS: Normal visualized distal femur. Normal visualized proximal tibia and fibula. Normal proximal tibiofibular articulation. Normal medial femorotibial compartment. Normal lateral femorotibial compartment. Normal patellofemoral articulation. The soft tissue structures are unremarkable. RAD/Knee 4 or More Views IMPRESSION: Normal x-ray examination of the knee. Electronically Signed: Max Hernandez DO at 18:39 EDT Tel [phone], Service support ,
[2020-08-25] MEDS: HYDROcodone Bitartrate/Apap 5/325 Tablet PO (17:45)
[2020-08-25 20:16] VITALS: BP 145/64; PULSE 57; RESP 18; O2SAT 97
[2020-08-25] MEDS: Ondansetron ODT 4 MG Tablet PO (20:40)
--- NOTE | 2020-08-25 22:00 | ED.RN ---
PT TOOK ONE STEP WITH THE CRUTCHES AND BECAME DIZZY TO THE POINT WHERE HE NEEDED TO SIT DOWN. IS CONCERNED FOR BEING ABLE TO TAKE CARE OF HIM SAFELY AT HOME. THE RESULTS OF THE WALK TEST WERE RELAYED TO ALONG WITH THE WIFES CONCERNS. VERBALIZED UNDERSTANDING
--- NOTE | 2020-08-25 22:07 | EKG12_ITS ---
Test Reason : DYSRHYTHMIA Blood Pressure : / mmHG Vent. Rate : 055 BPM Atrial Rate : 055 BPM P-R Int : 288 ms QRS Dur : 120 ms QT Int : 478 ms P-R-T Axes : 055 038 033 degrees QTc Int : 457 ms Sinus bradycardia with 1st degree A-V block Otherwise normal ECG Confirmed by NATALIA ERNANDEZ, AIDE ([id number]), editorial project manager SANTHOSH MOORE ([id number]) on 08/29/2020 9:54:56 AM Referred By: GENE Confirmed By:ANDREINA FISHER MD
[2020-08-25 22:35] LABS: Absolute Lymphocyte Count 1.43 X10^3/uL (0.83-4.51); Absolute Neutrophil Count 11.2 X10^3/uL (2.0-7.7); Basophil# 0.07 X10^3/uL; Basophil% 0.5 % (0-1); Eosinophil# 0.08 X10^3/uL; Eosinophils% 0.6 % (0-5); Hematocrit 44.2 % (40-54); Hemoglobin 14.5 g/dL (13.0-16.5); Lymphocyte # 1.43 X10^3/ul (0.83-4.51); Mean Corp Hgb Conc 32.8 g/dL (32-36); Mean Corpuscular Hgb 32.2 pg (27.0-32.0); Monocyte# 1.44 X10^3/uL; Monocyte% 10.1 % (0-10); NRBC Flagged by Analyzer 0 % (0-5); Neutrophil # 11.22 X10^3/uL (2.7-7.7); Neutrophil % 78.3 % (47-70); Platelet Count 207 K/mm3 (150-450); RBC Distribution Width CV 13.2 % (11.6-14.6); RBC Distribution Width SD 46.9 fl (35.1-43.9); Red Blood Count 4.51 M/mm3 (4.6-6.2); White Blood Count 14.3 K/mm3 (4.4-11.0)
--- NOTE | 2020-08-25 22:53 | RAD_ITS ---
STUDY: X-RAY CHEST REASON FOR EXAM: Male, 80 years old. Near syncope TECHNIQUE: Frontal view COMPARISON: 12/18/2019 FINDINGS: The lungs are clear and expanded. There is no demonstrated pleural abnormality. Normal size heart. Normal mediastinum and shawn. Normal visualized pulmonary arteries. Normal visualized aortic arch and descending thoracic aorta. Normal visualized thoracic spine. Normal visualized ribs, clavicles, and shoulders. There is no demonstrated abnormality of the visualized soft tissue structures of the upper abdomen. RAD/Chest 1 View (Portable) IMPRESSION: Normal x-ray examination of the chest. Electronically Signed: Max Hernandez DO at 23:45 EDT Tel [phone], Service support ,
[2020-08-25 22:54] LABS: ALB/GLOB Ratio 1.2 RATIO (0.9-2.4); AST(SGOT) 24 U/L (15-37); Alanine Aminotransfer ALT/SGPT 29 U/L (16-61); Alkaline Phosphatase 85 U/L (45-117); Anion Gap 4 (5-15); BUN 23 mg/dL (7-18); BUN/Creat Ratio 14.5 RATIO (10-20); Calcium,Total 8.8 mg/dL (8.5-10.1); Chloride 102 mmol/L (98-107); Creatinine, Serum 1.59 mg/dL (0.70-1.30); EST Glomerular Filtration Rate 45 mL/min (>60); Est Glom Filt Rate - Afr Amer 54 mL/min (>60); Estimated Creatinine Clearance 33.44 ml/min; Globulin 3.3 g/dL (2.2-4.2); Glucose 217 mg/dL (74-106); Potassium 4.5 mmol/L (3.5-5.1); Protein, Total 7.3 g/dL (6.4-8.2); Sodium Level 136 mmol/L (136-145)
--- NOTE | 2020-08-25 23:20 | PCM.HP.STD ---
Problem List (1) Knee pain, right Status: Acute Qualifiers: Chronicity: acute Qualified Code(s): M25.561 - Pain in right knee (2) Paroxysmal atrial fibrillation Status: Chronic (3) Hyperlipidemia Status: Chronic Qualifiers: Hyperlipidemia type: pure hypercholesterolemia Qualified Code(s): E78.00 - Pure hypercholesterolemia, unspecified; E78.0 - Pure hypercholesterolemia (4) Chronic kidney disease Status: Chronic Qualifiers: Chronic kidney disease stage: stage 3 (moderate) Chronic kidney disease stage 3 subtype: unspecified whether 3a or 3b Qualified Code(s): N18.30 - Chronic kidney disease, stage 3 unspecified (5) CHUCKIE (obstructive sleep apnea) Status: Chronic (6) Moderate persistent asthma Status: Chronic Qualifiers: Asthma complication type: uncomplicated Qualified Code(s): J45.40 - Moderate persistent asthma, uncomplicated History of Present Illness Date of Admission: 08/25/20 Chief Complaint: Mechanical fall, intractable R knee pain The patient is a 80 y/o M w/ PMHx: PAF on eliquis, CHUCKIE, Asthma w/ allergic rhinitis, CKD stage III, HLD who presents to the [facility] ED on 08/25/20 with history of unfortunate mechanical fall onto his right knee with onset of significant severe 10/10 knee pain and distal femur pain following specifically noted to have fallen forward on the steps and unable to ambulate following prompting eventual ED presentation. Upon ED attempt for discharge from the ED to home he had lightheadedness and lightheadedness while attempting to ambulate without assist with crutches and felt unsafe therefore discharge from ED discontinued. He notes notable nausea since taking pain regimen or potentially associated pain. He denied any lightheadedness or dizziness prior to his fall. In the ED Work-up in the ED included T 98.2, heart rate 57, BP 147/69, respiratory rate 16, 99% on room air, CBC with WBC 14.3, hemoglobin 14.5, platelet 207 with left shift, CMP with BUN/creat 23/1.59, glucose 217 otherwise not marked appearing, troponin 0.020, plain film of the right knee unremarkable, plain film of the right femur unremarkable. In the ED patient ministered normal saline, Zofran as well as Fyffe. UA, CXR pending upon admission per ED physician. Past Medical History Past Medical History (Chronic Problems): Chronic Problems (Last Reviewed 06/02/20 @ 11:[address] Jadiel Mckeon MD) Dyspnea on exertion (Chronic) Paroxysmal atrial fibrillation (Chronic) Incomplete right bundle branch block (Chronic) Hyperlipidemia (Chronic) Chronic kidney disease (Chronic) CHUCKIE (obstructive sleep apnea) (Chronic) Moderate persistent asthma (Chronic) Medical History: Medical History (Last Reviewed 06/02/20 @ 11:[address] Jadiel Mckeon MD) Dyspnea on exertion (Chronic) R06.09 Paroxysmal atrial fibrillation (Chronic) I48.0 Hyperlipidemia (Chronic) E78.5 Chronic kidney disease (Chronic) N18.9 CHUCKIE (obstructive sleep apnea) (Chronic) G47.33 Moderate persistent asthma (Chronic) J45.40 Rhinitis (Acute) J31.0 CKD (chronic kidney disease) stage 3, GFR 30-59 ml/min N18.3 Candidiasis of mouth B37.0 Troponin I above reference range Onset Date: 02/20/19 R79.89 Allergies No Known Allergies Allergy (Verified 06/02/20 08:44) Home Medications: Ambulatory Orders Medication Instructions Recorded Cholecalciferol (VIT D3) [Vitamin 5,000 unit PO DAILY 11/10/15 D3] Multivitamin [Daily Multiple 1 ea PO DAILY 11/10/15 Vitamin] azelastine 137 mcg (0.1 %) nasal 1 spray INTRANASAL BID 04/18/17 spray aerosol albuterol sulfate 90 mcg/actuation 1 puff INHALATION Q4H PRN PRN #2 05/08/18 aerosol inhaler device fluticasone propionate 50 2 spray INTRANASAL DAILY #16 g 09/08/19 mcg/actuation nasal spray,suspension furosemide 20 mg tablet 20 mg PO DAILY #90 tab 01/05/20 budesonide-formoterol HFA 160 2 inh INHALATION BID #10.2 g 02/22/ mcg-4.5 mcg/actuation aerosol inhaler apixaban 2.5 mg tablet 2.5 mg PO BID #180 tab 03/21/20 diltiazem HCl 120 mg See Rx Instructions .ROUTE 05/30/20 capsule,extended release 24 hr .COMPLEX #90 cap flecainide 100 mg tablet See Rx Instructions .ROUTE 05/30/20 .COMPLEX #180 tablet Hydrocodone Bitart/Apap 5-325 1 tablet PO Q6H PRN PRN 3 Days #12 08/25/20 [Fyffe 5MG-325MG] tab Surgical History: Surgical History (Last Reviewed 06/02/20 @ 11:[address] Jadiel Mckeon MD) History of appendectomy Z90.49 History of nasal surgery Z98.890 Bilateral plastic inserts. History of umbilical hernia repair Z98.890, Z87.19 Surgical History: - - Umbilical hernia repair, bilateral plastic nasal surgery inserts, appendectomy. Psychiatric History: No pertinent psych hx Lives: Spouse/ Significant Other Smoking Status: Former smoker - Patient quit cigarette tobacco usage greater than 50 years prior to current presentation with prior to this less than 1/2 pack/day starting when he was 22 years old. Tobacco Use: Non-smoker Alcohol: None Drugs: None - *Family History Maternal Family History: Family History (Last Reviewed 06/02/20 @ 11:[address] Jadiel Mckeon MD) Father No problems noted. Mother No problems noted. History Items: Heart Disease Paternal Family History: Family History (Last Reviewed 06/02/20 @ 11:[address] Jadiel Mckeon MD) Father No problems noted. Mother No problems noted. History Items: Heart Disease Review of Systems Constitutional: Reports: Weakness, Fatigue. Denies: Anorexia, Chills, Fever, Malaise, Weight Change HEENT: Denies: Head Aches, Sinus Congestion, Sinus Drainage Cardiovascular: Reports: Light Headedness. Denies: Chest Pain, Palpitations Respiratory: Denies: Cough, Shortness of breath at rest, Sputum production Gastrointestinal: Reports: Nausea. Denies: Abdominal Pain, Vomiting Genitourinary: Denies: Dysuria Musculoskeletal: Reports: Joint Pain, Leg Pain. Denies: Joint Tenderness Skin: Denies: Rash, Wounds Neurological: Reports: Balance problems. Denies: Focal weakness, Numbness, Tingling Psychiatric: Denies: Anxiety, Depression, Homicidal Ideations, Suicidal Ideations Hematologic/ Lymphatic: Denies: Easy Bruising, Easy Bleeding VTE Information - Inpt Only VTE Present on Admission: No VTE Mechan Device Prophylaxis: SCD's VTE Pharm Prophylaxis ordered?: No Reason prophylaxis not ordered:: Treatment Not Indicated - We will continue patient home Eliquis anticoagulant regimen. Subjective: Patient seated upright in the ED bed, notes pain currently controlled but still has some nausea, holding emesis bag, denies any current lightheadedness or dizziness nor any preceding his fall but only since being in the ED and since narcotic therapy. Objective: Physical Examination: General: awake, alert, oriented x 3 and cooperative, seated upright in the ED bed, fatigued appearing, no acute distress currently. Skin: normal color, turgor, no icterus, cyanosis. HEENT: AT/NC, EOMI, PERRLA, moderately dry MM, no carotid bruits or JVD noted. Lungs: CTA bilaterally, moderate effort, mild decrease BL bases, no rales, ronchi or wheezing. Heart: Regular rate and rhythm; no gallop, rub audible. Abdomen: soft, NTTP, ND, normal BS, no HSM. Extremities: no cyanosis or clubbing, right lower extremity with knee immobilizer in place, peripheral pulses intact. Neurological: patient awake, alert, oriented as noted; cognitive function intact; pupils equally reactive to light and accomodation; cranial nerves II-XII grossly normal, moving all 4 extremities except specifically limited right lower extremity with knee immobilizer in place, strength accordingly severely global decreased. Psychiatric: affect appears fatigued, no acute evidence of depressive or anxiety feelings. - Physical Exam Vitals/I&O's: Vital Signs Temp Pulse Resp BP Pulse Ox 98.2 F 57 L 18 145/64 H 97 08/25/20 17:22 08/25/20 20:16 08/25/20 20:16 08/25/20 20:16 08/25/20 20:16 Oxygen Delivery Method Room Air Weight: 177 lb 3.674 oz Body Mass Index (BMI) 28.5 Laboratory Results 08/25/20 22:12: Sodium 136, Potassium 4.5, Chloride 102, Carbon Dioxide 30.0, Anion Gap 4 L, BUN 23 H, Creatinine 1.59 H, Estim Creat Clear Calc 33.44, Est GFR (MDRD) Af Amer 54 L, Est GFR (MDRD) Non-Af 45 L, BUN/Creatinine Ratio 14.5, Glucose 217 H, Calcium 8.8, Total Bilirubin 0.30, AST 24, ALT 29, Alkaline Phosphatase 85, Troponin I 0.020, Total Protein 7.3, Albumin 4.0, Globulin 3.3, Albumin/Globulin Ratio 1.2 08/25/20 22:25: WBC 14.3 H, RBC 4.51 L, Hgb 14.5, Hct 44.2, MCV 98.0 H, MCH 32.2 H, MCHC 32.8, RDW Std Deviation 46.9 H, RDW Coeff of Tiffany 13.2, Plt Count 207, MPV 10.0, Immature Gran % (Auto) 0.500, Neut % (Auto) 78.3 H, Lymph % (Auto) 10.0 L, [place] % (Auto) 10.1 H, Eos % (Auto) 0.6, Baso % (Auto) 0.5, Absolute Neuts (auto) 11.2 H, Absolute Lymphs (auto) 1.43, Nucleated RBC % 0 Assessment/Plan All Active Problems (Last Reviewed 06/02/20 @ 11:[address] Jadiel Mckeon MD) Knee pain, right (Acute) Rhinitis (Acute) The patient is a 80 y/o M w/ PMHx: PAF on eliquis, CHUCKIE, Asthma w/ allergic rhinitis, CKD stage III, HLD who presents to the [facility] ED on 08/25/20 with history of unfortunate mechanical fall onto his right knee with onset of significant severe 10/10 knee pain and distal femur pain following specifically noted to have fallen forward on the steps and unable to ambulate following prompting eventual ED presentation. 1. Mechanical fall with acute intractable right knee pain with suspected partial versus complete quadricep tear to the right knee: Patient with inability to bear any weight and significant acute pain. Patient was discussed with orthopedic surgeon who recommended knee immobilizer with crutches with plan for outpatient MRI and office follow-up. Patient unable to utilize crutches safely therefore will plan to admit to medical surgical floor, will continue consultation with Dr. Echevarria initiated per ED, will continue knee immobilizer with crutch usage with assist only, maintain on fall precautions, as needed oral and IV narcotic, as needed antiemetic regimen. UA, CXR pending. 2. Hyperglycemia: Admission glucose 217, per current regimen and history nondiabetic, will obtain hemoglobin A1c and if significant will initiate ADA diet as well as Accu-Cheks with sliding scale. 3. Leukocytosis: Patient with CBC with WC elevation and left shift, unclear specific etiology, possibly stress response given recent injury as noted, plan repeat CBC in AM. 4. PAF: We will continue patient home flecainide, diltiazem regimen as well as apixaban cautiously given recent fall and injury. 5. Chronic Kidney Disease Stage III: Admission BUN/Cr 23/1.59, baseline renal function 1.3-1.5, stable, repeat BMP in AM. 6. Chronic asthma with allergic rhinitis: We will continue as needed albuterol, azelastine nasal spray, budesonide inhaler, fluticasone intranasal spray home regimen. 7. Hyperlipidemia: Not on regimen, defer to outpatient. 8. CHUCKIE: We will continue CPAP nightly. 9. DVT prophylaxis: SCDs, continue home apixaban regimen. OBSV E&M: [id number] Initial observation care L3
[2020-08-26] VITALS: BP 147/59; PULSE 51; RESP 18; TEMP 36.1; O2SAT 99
[2020-08-26 00:14] VITALS: BP 151/76; PULSE 60; RESP 18; TEMP 36.8; O2SAT 97
[2020-08-26 00:23] VITALS: BMI 27.6
[2020-08-26 00:50] VITALS: BMI 27.6
[2020-08-26] MEDS: 0.9% Normal Saline 1,000 ML 100 ML IV (00:55)
[2020-08-26] MEDS: 0.9% Saline Lock 10 ML Syringe IV (00:55)
[2020-08-26 01:16] LABS: Magnesium 2.3 mg/dL (1.6-2.6)
[2020-08-26 05:20] VITALS: BP 134/77; PULSE 62; RESP 18; TEMP 36.9; O2SAT 95
[2020-08-26 05:23] VITALS: RESP 16; O2SAT 96
[2020-08-26 06:36] LABS: Absolute Lymphocyte Count 1.73 X10^3/uL (0.83-4.51); Absolute Neutrophil Count 5.9 X10^3/uL (2.0-7.7); Basophil# 0.05 X10^3/uL; Basophil% 0.6 % (0-1); Eosinophil# 0.09 X10^3/uL; Hemoglobin 12.9 g/dL (13.0-16.5); Lymphocyte # 1.73 X10^3/ul (0.83-4.51); Lymphocyte % 19.3 % (19-41); Mean Corp Hgb Conc 33.1 g/dL (32-36); Mean Corpuscular Hgb 31.8 pg (27.0-32.0); Mean Corpuscular Volume 96.1 fL (80-94); Mean Platelet Vol. 10.2 fl (6.2-12.0); Monocyte# 1.14 X10^3/uL; Monocyte% 12.7 % (0-10); NRBC Flagged by Analyzer 0 % (0-5); Neutrophil # 5.93 X10^3/uL (2.7-7.7); Neutrophil % 66.2 % (47-70); Platelet Count 195 K/mm3 (150-450); RBC Distribution Width CV 13.2 % (11.6-14.6); RBC Distribution Width SD 47.1 fl (35.1-43.9); Red Blood Count 4.06 M/mm3 (4.6-6.2)
[2020-08-26 06:47] VITALS: PULSE 59; RESP 16; O2SAT 98
[2020-08-26] MEDS: Albuterol 2.5 MG/3 ML VIAL.NEB. INHALATION (06:47)
[2020-08-26] MEDS: Budesonide Respules 0.5 MG/2 ML AMPUL.NEB. INHALATION (06:55)
[2020-08-26 07:08] LABS: ALB/GLOB Ratio 1.2 RATIO (0.9-2.4); AST(SGOT) 23 U/L (15-37); Alanine Aminotransfer ALT/SGPT 25 U/L (16-61); Albumin, Serum 3.4 g/dL (3.2-5.0); Alkaline Phosphatase 74 U/L (45-117); Anion Gap 6 (5-15); BUN 19 mg/dL (7-18); BUN/Creat Ratio 14.3 RATIO (10-20); Calcium,Total 8.2 mg/dL (8.5-10.1); Chloride 106 mmol/L (98-107); Creatinine, Serum 1.33 mg/dL (0.70-1.30); EST Glomerular Filtration Rate 55 mL/min (>60); Est Glom Filt Rate - Afr Amer 66 mL/min (>60); Estimated Creatinine Clearance 39.97 ml/min; Globulin 2.9 g/dL (2.2-4.2); Glucose 112 mg/dL (74-106); Potassium 4.1 mmol/L (3.5-5.1); Protein, Total 6.3 g/dL (6.4-8.2); Sodium Level 139 mmol/L (136-145)
--- NOTE | 2020-08-26 07:30 | PN_ITS ---
Patient Problems: Active and Suspected Problems (Last Reviewed 06/02/20 @ 11:[address] Jadiel Mckeon MD) Knee pain, right (Acute) Vitals/I&O's: Vital Signs Temp Pulse Resp BP Pulse Ox 98.5 F 62 16 134/77 H 96 08/26/20 05:20 08/26/20 05:20 08/26/20 05:23 08/26/20 05:20 08/26/20 05:23 Oxygen Delivery Method Room Air Weight: 171 lb 8.314 oz Body Mass Index (BMI) 27.6 Intake and Output for Last 24 Hours 08/24/20 08/25/20 08/26/20 23:59 23:59 23:59 Intake Total 900 / 900 Output Total 450 / 450 Balance 450 / 450 Laboratory Results 08/25/20 22:12: Sodium 136, Potassium 4.5, Chloride 102, Carbon Dioxide 30.0, Anion Gap 4 L, BUN 23 H, Creatinine 1.59 H, Estim Creat Clear Calc 33.44, Est GFR (MDRD) Af Amer 54 L, Est GFR (MDRD) Non-Af 45 L, BUN/Creatinine Ratio 14.5, Glucose 217 H, Calcium 8.8, Total Bilirubin 0.30, AST 24, ALT 29, Alkaline Phosphatase 85, Troponin I 0.020, Total Protein 7.3, Albumin 4.0, Globulin 3.3, Albumin/Globulin Ratio 1.2 08/25/20 22:25: WBC 14.3 H, RBC 4.51 L, Hgb 14.5, Hct 44.2, MCV 98.0 H, MCH 32.2 H, MCHC 32.8, RDW Std Deviation 46.9 H, RDW Coeff of Tiffany 13.2, Plt Count 207, MPV 10.0, Immature Gran % (Auto) 0.500, Neut % (Auto) 78.3 H, Lymph % (Auto) 10.0 L, [place] % (Auto) 10.1 H, Eos % (Auto) 0.6, Baso % (Auto) 0.5, Absolute Neuts (auto) 11.2 H, Absolute Lymphs (auto) 1.43, Nucleated RBC % 0 08/26/20 05:50: WBC 9.0, RBC 4.06 L, Hgb 12.9 L, Hct 39.0 L, MCV 96.1 H, MCH 31.8, MCHC 33.1, RDW Std Deviation 47.1 H, RDW Coeff of Tiffany 13.2, Plt Count 195, MPV 10.2, Immature Gran % (Auto) 0.200, Neut % (Auto) 66.2, Lymph % (Auto) 19.3, [place] % (Auto) 12.7 H, Eos % (Auto) 1.0, Baso % (Auto) 0.6, Absolute Neuts (auto) 5.9, Absolute Lymphs (auto) 1.73, Nucleated RBC % 0 08/26/20 05:50: Sodium 139, Potassium 4.1, Chloride 106, Carbon Dioxide 27.0, Anion Gap 6, BUN 19 H, Creatinine 1.33 H, Estim Creat Clear Calc 39.97, Est GFR (MDRD) Af Amer 66, Est GFR (MDRD) Non-Af 55 L, BUN/Creatinine Ratio 14.3, Glucose 112 H, Calcium 8.2 L, Total Bilirubin 0.60, AST 23, ALT 25, Alkaline Phosphatase 74, Total Protein 6.3 L, Albumin 3.4, Globulin 2.9, Albumin/Globulin Ratio 1.2 08/26/20 05:50: Hemoglobin A1c 6.0 H 08/26/20 : Magnesium 2.3 Current Medications Acetaminophen (Acetaminophen 325 Mg Tablet) 650 mg PO Q6H PRN PRN PRN Reason: Pain Score 1-10/Temp > 100.7 F Al Hydroxide/Mg Hydroxide (Mag Hydrox/Al Hydrox/Simeth 30 Ml Udc) 30 ml PO Q6H PRN PRN PRN Reason: Gastric Burning Albuterol Sulfate (Albuterol 2.5 Mg/3 Ml Vial.Neb.) 2.5 mg INHALATION Q2H PRN PRN PRN Reason: Dyspnea, wheezing Albuterol Sulfate (Albuterol 2.5 Mg/3 Ml Vial.Neb.) 2.5 mg INHALATION Q6HWA.RT JOSH Azelastine HCl (Azelastine Hcl Nasal.Sry) 1 spray NASAL BID JOSH Budesonide (Budesonide Respules 0.5 Mg/2 Ml Ampul.Neb.) 0.5 mg INHALATION Q12H.RT JOSH Cholecalciferol (Cholecalciferol (Vit D3) 25 Mcg Tablet (1,000 Units)) 125 mcg PO DAILY [facility] Diltiazem HCl (Diltiazem Cd 120 Mg Capsule) 120 mg PO DAILY [facility] Famotidine (Famotidine 20 Mg Tablet) 20 mg PO BID [facility] Flecainide Acetate (Flecainide 100 Mg Tablet) 100 mg PO BID [facility] Fluticasone Propionate (Fluticasone 0.05% 1 [place] Nasal.Sry) 2 spray NASAL DAILY [facility] Guaifenesin (Guaifenesin 10 Ml Udc (200mg/10ml)) 20 ml PO Q4H PRN PRN PRN Reason: COUGH Hydralazine HCl (Hydralazine 20 Mg/Ml Vial) 10 mg IV Q4H PRN PRN PRN Reason: SBP > 160 Sodium Chloride () 250 mls @ 15 mls/hr IV .[id number] PRN PRN Reason: Saline Flush Sodium Chloride () 250 mls @ 15 mls/hr IV .[id number] PRN PRN Reason: Additional IVPB Infusion Sodium Chloride () 1,000 mls @ 100 mls/hr IV .Q10H [facility] Last Admin: 08/26/20 00:55 Dose: 100 mls/hr Documented by: Magnesium Hydroxide (Magnesium Hydroxide 30 Ml Udc) 30 ml PO DAILY PRN PRN PRN Reason: Constipation Melatonin (Melatonin 3 Mg Tablet) 3 mg PO QHS PRN PRN PRN Reason: INSOMNIA Morphine Sulfate (Morphine 2 Mg/Ml Syringe) 2 mg IV Q3H PRN PRN PRN Reason: Pain Score 6-10 Ondansetron HCl (Ondansetron 4 Mg/2 Ml Vial) 4 mg IV Q8H PRN PRN PRN Reason: NAUSEA/VOMITING Oxycodone HCl (Oxycodone 5 Mg Tablet) 5 mg PO Q4H PRN PRN PRN Reason: Pain Score 4-5 Prochlorperazine Edisylate (Prochlorperazine 10 Mg/2 Ml Vial) 5 mg IV Q4H PRN PRN PRN Reason: Breakthrough nausea/vomiting Psyllium Hydrophilic Mucilloid (Psyllium 1 Packet) 1 packet PO DAILY PRN PRN PRN Reason: Constipation Senna/Docusate Sodium (Senna/Docusate Sodium 1 Tablet) 2 tablet PO BID PRN PRN PRN Reason: Constipation Sodium Chloride (0.9% Saline Lock 10 Ml Syringe) 10 - 40 ml IV UD PRN PRN Reason: SALINE FLUSH Last Admin: 08/26/20 00:55 Dose: 10 ml Documented by: Throat Lozenges (Benzocaine/Menthol 1 Lozenge) 1 lozenge MUCOUS MEM Q2H PRN PRN PRN Reason: SORE THROAT STROKE Vital Signs/Narrative: Vital Signs Temp Pulse Resp BP Pulse Ox 08/26/20 05:23 16 96 08/26/20 05:20 98.5 F 62 18 134/77 H 95 Medical Necessity - Tobacco Use Smoking Status: Former smoker Tobacco Use: Non-smoker Assessment/Plan All Active Problems (Last Reviewed 06/02/20 @ 11:[address] Jadiel Mckeon MD) Knee pain, right (Acute) Rhinitis (Acute) The patient is a 80 y/o M is admitted after mechanical fall resulting into intractable right knee pain. 1. Mechanical fall with acute intractable right knee pain with suspected partial versus complete quadricep tear to the right knee: Patient with inability to bear any weight and significant acute pain. Patient was discussed with orthopedic surgeon who recommended knee immobilizer with crutches with plan for outpatient MRI and office follow-up. Patient unable to utilize crutches safely therefore will plan to admit to medical surgical floor, will continue consultation with Dr. Echevarria initiated per ED, will continue knee immobilizer with crutch usage with assist only, maintain on fall precautions, as needed oral and IV narcotic, as needed antiemetic regimen. UA, CXR pending. 2. Hyperglycemia: Admission glucose 217, per current regimen and history nondiabetic, will obtain hemoglobin A1c and if significant will initiate ADA diet as well as Accu-Cheks with sliding scale. 3. Leukocytosis: Patient with CBC with WC elevation and left shift, unclear specific etiology, possibly stress response given recent injury as noted, plan repeat CBC in AM. 4. PAF: We will continue patient home flecainide, diltiazem regimen as well as apixaban cautiously given recent fall and injury. 5. Chronic Kidney Disease Stage III: Admission BUN/Cr 23/1.59, baseline renal function 1.3-1.5, stable, repeat BMP in AM. 6. Chronic asthma with allergic rhinitis: We will continue as needed albuterol, azelastine nasal spray, budesonide inhaler, fluticasone intranasal spray home regimen. 7. Hyperlipidemia: Not on regimen, defer to outpatient. 8. CHUCKIE: We will continue CPAP nightly. 9. DVT prophylaxis: SCDs, continue home apixaban regimen.
--- NOTE | 2020-08-26 08:01 | PCM.CONS.GEN ---
Reason for Consult Date of Consultation: 08/25/20 Reason for Consultation: right knee pain History of Present Illness: The patient is a 80 year old M on Eliquis had fall onto ceramic covered stair injury to right knee. Seen in the emergency room denies other injury is on Eliquis secondary to A. fib. denies numbness tingling. Past Medical History Past Medical History (Chronic Problems): Chronic Problems (Last Reviewed 06/02/20 @ 11:[address] Jadiel Mckeon MD) Dyspnea on exertion (Chronic) Paroxysmal atrial fibrillation (Chronic) Incomplete right bundle branch block (Chronic) Hyperlipidemia (Chronic) Chronic kidney disease (Chronic) CHUCKIE (obstructive sleep apnea) (Chronic) Moderate persistent asthma (Chronic) Medical History: Medical History (Last Reviewed 06/02/20 @ 11:[address] Jadiel Mckeon MD) Dyspnea on exertion (Chronic) R06.09 Paroxysmal atrial fibrillation (Chronic) I48.0 Hyperlipidemia (Chronic) E78.5 Chronic kidney disease (Chronic) N18.9 CHUCKIE (obstructive sleep apnea) (Chronic) G47.33 Moderate persistent asthma (Chronic) J45.40 Rhinitis (Acute) J31.0 CKD (chronic kidney disease) stage 3, GFR 30-59 ml/min N18.3 Candidiasis of mouth B37.0 Troponin I above reference range Onset Date: 02/20/19 R79.89 Allergies No Known Allergies Allergy (Verified 06/02/20 08:44) Home Medications: Ambulatory Orders Medication Instructions Recorded Cholecalciferol (VIT D3) [Vitamin 5,000 unit PO DAILY 11/10/15 D3] Multivitamin [Daily Multiple 1 ea PO DAILY 11/10/15 Vitamin] azelastine 137 mcg (0.1 %) nasal 1 spray INTRANASAL BID PRN 04/18/17 spray aerosol albuterol sulfate 90 mcg/actuation 1 puff INHALATION Q4H PRN PRN #2 05/08/18 aerosol inhaler device budesonide-formoterol HFA 160 2 inh INHALATION BID #10.2 g 02/23/20 mcg-4.5 mcg/actuation aerosol inhaler Hydrocodone Bitart/Apap 5-325 1 tablet PO Q6H PRN PRN 3 Days #12 08/25/20 [[place] 5MG-325MG] tab Diltiazem CD [Cardizem CD] 120 mg PO DAILY 08/26/20 Flecainide [Tambocor] 100 mg PO BID 08/26/20 Fluticasone 0.05% [Flonase Nasal 1 spray INHALATION DAILY PRN 08/26/20 [place]] Surgical History: Surgical History (Last Reviewed 06/02/20 @ 11:[address] Jadiel Mckeon MD) History of appendectomy Z90.49 History of nasal surgery Z98.890 Bilateral plastic inserts. History of umbilical hernia repair Z98.890, Z87.19 Surgical History: - - Umbilical hernia repair, bilateral plastic nasal surgery inserts, appendectomy. Psychiatric History: No pertinent psych hx Lives: Spouse/ Significant Other Smoking Status: Former smoker Tobacco Use: Non-smoker Alcohol: None Drugs: None - *Family History Paternal Family History: Family History (Last Reviewed 06/02/20 @ 11:[address] Jadiel Mckeon MD) Father No problems noted. Mother No problems noted. History Items: Heart Disease Maternal Family History: Family History (Last Reviewed 06/02/20 @ 11:[address] Jadiel Mckeon MD) Father No problems noted. Mother No problems noted. History Items: Heart Disease Patient Problems: Active and Suspected Problems (Last Reviewed 06/02/20 @ 11:[address] Jadiel Mckeon MD) Knee pain, right (Acute) - Physical Exam Vitals/I&O's: Vital Signs Temp Pulse Resp BP Pulse Ox 98.5 F 59 L 16 134/77 H 98 08/26/20 05:20 08/26/20 06:47 08/26/20 06:47 08/26/20 05:20 08/26/20 06:47 Oxygen Delivery Method Room Air Weight: 171 lb 8.314 oz Body Mass Index (BMI) 27.6 Intake and Output for Last 24 Hours 08/24/20 08/25/20 08/26/20 23:59 23:59 23:59 Intake Total 900 / 900 Output Total 450 / 450 Balance 450 / 450 General: Alert, Oriented x3, Cooperative, No apparent distress Musculoskeletal: - - Right knee with mild ecchymosis joint effusion palpable defect quad tendon, no collateral instability compartments soft no open wounds able to plantarflex dorsiflex ankle with palpable pedal pulses and intact light touch Laboratory Results 08/25/20 22:12: Sodium 136, Potassium 4.5, Chloride 102, Carbon Dioxide 30.0, Anion Gap 4 L, BUN 23 H, Creatinine 1.59 H, Estim Creat Clear Calc 33.44, Est GFR (MDRD) Af Amer 54 L, Est GFR (MDRD) Non-Af 45 L, BUN/Creatinine Ratio 14.5, Glucose 217 H, Calcium 8.8, Total Bilirubin 0.30, AST 24, ALT 29, Alkaline Phosphatase 85, Troponin I 0.020, Total Protein 7.3, Albumin 4.0, Globulin 3.3, Albumin/Globulin Ratio 1.2 08/25/20 22:25: WBC 14.3 H, RBC 4.51 L, Hgb 14.5, Hct 44.2, MCV 98.0 H, MCH 32.2 H, MCHC 32.8, RDW Std Deviation 46.9 H, RDW Coeff of Tiffany 13.2, Plt Count 207, MPV 10.0, Immature Gran % (Auto) 0.500, Neut % (Auto) 78.3 H, Lymph % (Auto) 10.0 L, [place] % (Auto) 10.1 H, Eos % (Auto) 0.6, Baso % (Auto) 0.5, Absolute Neuts (auto) 11.2 H, Absolute Lymphs (auto) 1.43, Nucleated RBC % 0 08/26/20 05:50: WBC 9.0, RBC 4.06 L, Hgb 12.9 L, Hct 39.0 L, MCV 96.1 H, MCH 31.8, MCHC 33.1, RDW Std Deviation 47.1 H, RDW Coeff of Tiffany 13.2, Plt Count 195, MPV 10.2, Immature Gran % (Auto) 0.200, Neut % (Auto) 66.2, Lymph % (Auto) 19.3, [place] % (Auto) 12.7 H, Eos % (Auto) 1.0, Baso % (Auto) 0.6, Absolute Neuts (auto) 5.9, Absolute Lymphs (auto) 1.73, Nucleated RBC % 0 08/26/20 05:50: Sodium 139, Potassium 4.1, Chloride 106, Carbon Dioxide 27.0, Anion Gap 6, BUN 19 H, Creatinine 1.33 H, Estim Creat Clear Calc 39.97, Est GFR (MDRD) Af Amer 66, Est GFR (MDRD) Non-Af 55 L, BUN/Creatinine Ratio 14.3, Glucose 112 H, Calcium 8.2 L, Total Bilirubin 0.60, AST 23, ALT 25, Alkaline Phosphatase 74, Total Protein 6.3 L, Albumin 3.4, Globulin 2.9, Albumin/Globulin Ratio 1.2 08/26/20 05:50: Hemoglobin A1c 6.0 H 08/26/20 : Magnesium 2.3 Current Medications Acetaminophen (Acetaminophen 325 Mg Tablet) 650 mg PO Q6H PRN PRN PRN Reason: Pain Score 1-10/Temp > 100.7 F Al Hydroxide/Mg Hydroxide (Mag Hydrox/Al Hydrox/Simeth 30 Ml Udc) 30 ml PO Q6H PRN PRN PRN Reason: Gastric Burning Albuterol Sulfate (Albuterol 2.5 Mg/3 Ml Vial.Neb.) 2.5 mg INHALATION Q2H PRN PRN PRN Reason: Dyspnea, wheezing Albuterol Sulfate (Albuterol 2.5 Mg/3 Ml Vial.Neb.) 2.5 mg INHALATION Q6HWA.RT [facility] Last Admin: 08/26/20 06:47 Dose: 2.5 mg Documented by: Azelastine HCl (Azelastine Hcl Nasal.Sry) 1 spray NASAL BID [facility] Budesonide (Budesonide Respules 0.5 Mg/2 Ml Ampul.Neb.) 0.5 mg INHALATION Q12H.RT [facility] Last Admin: 08/26/20 06:55 Dose: 0.5 mg Documented by: Cholecalciferol (Cholecalciferol (Vit D3) 25 Mcg Tablet (1,000 Units)) 125 mcg PO DAILY [facility] Diltiazem HCl (Diltiazem Cd 120 Mg Capsule) 120 mg PO DAILY [facility] Famotidine (Famotidine 20 Mg Tablet) 20 mg PO BID [facility] Flecainide Acetate (Flecainide 100 Mg Tablet) 100 mg PO BID [facility] Fluticasone Propionate (Fluticasone 0.05% 1 [place] Nasal.Sry) 2 spray NASAL DAILY [facility] Guaifenesin (Guaifenesin 10 Ml Udc (200mg/10ml)) 20 ml PO Q4H PRN PRN PRN Reason: COUGH Hydralazine HCl (Hydralazine 20 Mg/Ml Vial) 10 mg IV Q4H PRN PRN PRN Reason: SBP > 160 Sodium Chloride () 250 mls @ 15 mls/hr IV .[id number] PRN PRN Reason: Saline Flush Sodium Chloride () 250 mls @ 15 mls/hr IV .[id number] PRN PRN Reason: Additional IVPB Infusion Sodium Chloride () 1,000 mls @ 100 mls/hr IV .Q10H [facility] Last Admin: 08/26/20 00:55 Dose: 100 mls/hr Documented by: Magnesium Hydroxide (Magnesium Hydroxide 30 Ml Udc) 30 ml PO DAILY PRN PRN PRN Reason: Constipation Melatonin (Melatonin 3 Mg Tablet) 3 mg PO QHS PRN PRN PRN Reason: INSOMNIA Morphine Sulfate (Morphine 2 Mg/Ml Syringe) 2 mg IV Q3H PRN PRN PRN Reason: Pain Score 6-10 Ondansetron HCl (Ondansetron 4 Mg/2 Ml Vial) 4 mg IV Q8H PRN PRN PRN Reason: NAUSEA/VOMITING Oxycodone HCl (Oxycodone 5 Mg Tablet) 5 mg PO Q4H PRN PRN PRN Reason: Pain Score 4-5 Prochlorperazine Edisylate (Prochlorperazine 10 Mg/2 Ml Vial) 5 mg IV Q4H PRN PRN PRN Reason: Breakthrough nausea/vomiting Psyllium Hydrophilic Mucilloid (Psyllium 1 Packet) 1 packet PO DAILY PRN PRN PRN Reason: Constipation Senna/Docusate Sodium (Senna/Docusate Sodium 1 Tablet) 2 tablet PO BID PRN PRN PRN Reason: Constipation Sodium Chloride (0.9% Saline Lock 10 Ml Syringe) 10 - 40 ml IV UD PRN PRN Reason: SALINE FLUSH Last Admin: 08/26/20 00:55 Dose: 10 ml Documented by: Throat Lozenges (Benzocaine/Menthol 1 Lozenge) 1 lozenge MUCOUS MEM Q2H PRN PRN PRN Reason: SORE THROAT Assessment/Plan All Active Problems (Last Reviewed 06/02/20 @ 11:[address] Jadiel Mckeon MD) Knee pain, right (Acute) Rhinitis (Acute) Quadriceps tendon rupture right knee MRI to fully evaluate right knee May ambulate weightbearing as tolerated as long as knee immobilizer is on No need to be off Eliquis for 72 hours preop Does not need to be in hospital per orthopedic standpoint Schedule surgery likely next week definitive plans following MRI
--- NOTE | 2020-08-26 08:12 | MRI_ITS ---
STUDY: MRI RIGHT KNEE REASON FOR EXAM: Right knee injury with deformity at the quadriceps tendon. TECHNIQUE: Standardized fat and water weighted pulse sequences were obtained in all 3 orthogonal planes. COMPARISON: Radiographs 08/25/2020. FINDINGS: Normal medial meniscus. Normal hyaline cartilage of the medial femorotibial compartment. Normal medial femoral condyle and tibial plateau. Normal medial collateral ligamentous complex (MCL). Normal distal semimembranosus, gracilis and semitendinosus tendons. Normal lateral meniscus. Normal hyaline cartilage of the lateral femorotibial compartment. Normal lateral femoral condyle and tibial plateau. Normal proximal tibiofibular articulation. Normal lateral collateral (fibular) ligament. Normal popliteus tendon. Normal biceps femoris tendon. Normal anterior cruciate ligament (ACL). Normal posterior cruciate ligament (PCL). Normal congruent patellofemoral articulation. Normal hyaline cartilage of the patellofemoral compartment. There is a tear of the medial patellar retinaculum (T2 axial images 13-15) and a mild sprain of the lateral patellar retinaculum (T2 axial image 13). There is a full-thickness near-complete tear of the distal is 0.7 cm of the quadriceps tendon with only a few intact fibers of the posterior aspect of the tendon (T2 sagittal images 9-14). Normal patellar tendon. Normal Hoffa''s fat pad. There is a small joint effusion with anterior extravasation of fluid. There is a strain of the distal vastus lateralis muscle (T2 sagittal images 3-5). The otherwise visualized osseous structures are unremarkable. MRI/Lower Ext Joint Only (Routine) IMPRESSION: Full-thickness near complete tear of the distal quadriceps tendon. Tear of the medial patellar retinaculum and mild sprain of the lateral patellar retinaculum. Distal vastus lateralis muscle strain. Small joint effusion with anterior extravasation of fluid. Electronically Signed: Kwasi Jennings MD at 12:41 EDT Tel , Service support ,
--- NOTE | 2020-08-26 09:40 | CASEMGMT ---
BENJAMIN DONALDSON Face to Face with patient for initial transition planning/care coordination assessment. RN CM introduced self and role at [facility]. Patient sitting in chair, alert and oriented. Patient willing to participate in assessment and is able to answer all questions appropriately. Care providers, pharmacy, and demographics verified. Patient wishes to discharge home, with possible HHC pending progress with therapy. Patient states he has no further needs or concerns at this time. CM to follow for discharge planning needs that may arise. PCP: Richy Specialists: Cristopher, fuel attendant; Linda, candle maker; Natalie, urologist; Gaviota, ENT; Tomas, ortho Preferred Pharmacy: [facility] Insurance: [employer] Prescription Benefit: yes Living Will/HPOA: yes, Chasidy Mcmahan LNOK: , daughter Living Arrangements: Patient lives with in a single story home with 4 steps to enter the home. Patient states he was independent at home. Transportation: self/ DME/HHC: Patient states he has crutches and cpap at home. Patient may benefit from walker and possible HHC at discharge, will monitor progress with therapy. Disposition Plan: Patient to discharge home with family support and follow-up plans in place. Lennie MARTINEZ, RN, CM
[2020-08-26 11:20] VITALS: BP 144/77; PULSE 64; RESP 18; TEMP 36.7; O2SAT 98
--- NOTE | 2020-08-26 11:57 | CASEMGMT ---
RN ANIKA was notified from therapy that pt needs a FWW. Pt requested [employer] as he is using them for other DME. Rx for walker obtained. Faxed referral to [employer] for delivery to pt room today.
--- NOTE | 2020-08-26 12:06 | NURSING ---
Addendum entered by Phuong Rivers 08/26/20 12:18: pt remains in MRI Original Note: pt to and from MRI
[2020-08-26] MEDS: dilTIAZem CD 120 MG Capsule PO (12:26)
[2020-08-26] MEDS: Famotidine 20 MG Tablet PO (12:26)
[2020-08-26] MEDS: Flecainide 100 MG Tablet PO (12:28)
--- NOTE | 2020-08-26 12:34 | NURSING ---
pt now returned from MRI
--- NOTE | 2020-08-26 13:02 | PN.ORTHO_ITS ---
Patient Problems: Active and Suspected Problems (Last Reviewed 06/02/20 @ 11:[address] Jadiel Mckeon MD) Knee pain, right (Acute) Subjective: Doing well pain controlled nausea improved ambulating with knee immobilizer with therapy oK for discharge - Physical Exam Vitals/I&O's: Vital Signs Temp Pulse Resp BP Pulse Ox 98.0 F 64 18 144/77 H 98 08/26/20 11:20 08/26/20 11:20 08/26/20 11:20 08/26/20 11:20 08/26/20 11:20 Oxygen Delivery Method Room Air Weight: 171 lb 8.314 oz Body Mass Index (BMI) 27.6 Intake and Output for Last 24 Hours 08/24/20 08/25/20 08/26/20 23:59 23:59 23:59 Intake Total 2500 / 2500 Output Total 650 / 650 Balance 1850 / 1850 General: Alert, Oriented x3, Cooperative, No apparent distress Extremities: - - Knee immobilizer on compartment soft neurovascular intact Laboratory Results 08/25/20 22:12: Sodium 136, Potassium 4.5, Chloride 102, Carbon Dioxide 30.0, Anion Gap 4 L, BUN 23 H, Creatinine 1.59 H, Estim Creat Clear Calc 33.44, Est GFR (MDRD) Af Amer 54 L, Est GFR (MDRD) Non-Af 45 L, BUN/Creatinine Ratio 14.5, Glucose 217 H, Calcium 8.8, Total Bilirubin 0.30, AST 24, ALT 29, Alkaline Phosphatase 85, Troponin I 0.020, Total Protein 7.3, Albumin 4.0, Globulin 3.3, Albumin/Globulin Ratio 1.2 08/25/20 22:25: WBC 14.3 H, RBC 4.51 L, Hgb 14.5, Hct 44.2, MCV 98.0 H, MCH 32.2 H, MCHC 32.8, RDW Std Deviation 46.9 H, RDW Coeff of Tiffany 13.2, Plt Count 207, MPV 10.0, Immature Gran % (Auto) 0.500, Neut % (Auto) 78.3 H, Lymph % (Auto) 10.0 L, [place] % (Auto) 10.1 H, Eos % (Auto) 0.6, Baso % (Auto) 0.5, Absolute Neuts (auto) 11.2 H, Absolute Lymphs (auto) 1.43, Nucleated RBC % 0 08/26/20 05:50: WBC 9.0, RBC 4.06 L, Hgb 12.9 L, Hct 39.0 L, MCV 96.1 H, MCH 31.8, MCHC 33.1, RDW Std Deviation 47.1 H, RDW Coeff of Tiffany 13.2, Plt Count 195, MPV 10.2, Immature Gran % (Auto) 0.200, Neut % (Auto) 66.2, Lymph % (Auto) 19.3, [place] % (Auto) 12.7 H, Eos % (Auto) 1.0, Baso % (Auto) 0.6, Absolute Neuts (auto) 5.9, Absolute Lymphs (auto) 1.73, Nucleated RBC % 0 08/26/20 05:50: Sodium 139, Potassium 4.1, Chloride 106, Carbon Dioxide 27.0, Anion Gap 6, BUN 19 H, Creatinine 1.33 H, Estim Creat Clear Calc 39.97, Est GFR (MDRD) Af Amer 66, Est GFR (MDRD) Non-Af 55 L, BUN/Creatinine Ratio 14.3, Glucose 112 H, Calcium 8.2 L, Total Bilirubin 0.60, AST 23, ALT 25, Alkaline Phosphatase 74, Total Protein 6.3 L, Albumin 3.4, Globulin 2.9, Albumin/Globulin Ratio 1.2 08/26/20 05:50: Hemoglobin A1c 6.0 H 08/26/20 : Magnesium 2.3 Current Medications Acetaminophen (Acetaminophen 325 Mg Tablet) 650 mg PO Q6H PRN PRN PRN Reason: Pain Score 1-10/Temp > 100.7 F Al Hydroxide/Mg Hydroxide (Mag Hydrox/Al Hydrox/Simeth 30 Ml Udc) 30 ml PO Q6H PRN PRN PRN Reason: Gastric Burning Albuterol Sulfate (Albuterol 2.5 Mg/3 Ml Vial.Neb.) 2.5 mg INHALATION Q2H PRN PRN PRN Reason: Dyspnea, wheezing Albuterol Sulfate (Albuterol 2.5 Mg/3 Ml Vial.Neb.) 2.5 mg INHALATION Q6HWA.RT [facility] Last Admin: 08/26/20 06:47 Dose: 2.5 mg Documented by: Azelastine HCl (Azelastine Hcl Nasal.Sry) 1 spray NASAL BID [facility] Last Admin: 08/26/20 12:35 Dose: Not Given Documented by: Budesonide (Budesonide Respules 0.5 Mg/2 Ml Ampul.Neb.) 0.5 mg INHALATION Q12H.RT [facility] Last Admin: 08/26/20 06:55 Dose: 0.5 mg Documented by: Cholecalciferol (Cholecalciferol (Vit D3) 25 Mcg Tablet (1,000 Units)) 125 mcg PO DAILY [facility] Last Admin: 08/26/20 12:37 Dose: Not Given Documented by: Diltiazem HCl (Diltiazem Cd 120 Mg Capsule) 120 mg PO DAILY [facility] Last Admin: 08/26/20 12:26 Dose: 120 mg Documented by: Famotidine (Famotidine 20 Mg Tablet) 20 mg PO BID [facility] Last Admin: 08/26/20 12:26 Dose: 20 mg Documented by: Flecainide Acetate (Flecainide 100 Mg Tablet) 100 mg PO BID [facility] Last Admin: 08/26/20 12:28 Dose: 100 mg Documented by: Fluticasone Propionate (Fluticasone 0.05% 1 [place] Nasal.Sry) 2 spray NASAL [place] [facility] Last Admin: 08/26/20 12:35 Dose: Not Given Documented by: Guaifenesin (Guaifenesin 10 Ml Udc (200mg/10ml)) 20 ml PO Q4H PRN PRN PRN Reason: COUGH Hydralazine HCl (Hydralazine 20 Mg/Ml Vial) 10 mg IV Q4H PRN PRN PRN Reason: SBP > 160 Sodium Chloride () 250 mls @ 15 mls/hr IV .[id number] PRN PRN Reason: Saline Flush Sodium Chloride () 250 mls @ 15 mls/hr IV .[id number] PRN PRN Reason: Additional IVPB Infusion Sodium Chloride () 1,000 mls @ 100 mls/hr IV .Q10H [facility] Last Admin: 08/26/20 12:36 Dose: Not Given Documented by: Magnesium Hydroxide (Magnesium Hydroxide 30 Ml Udc) 30 ml PO DAILY PRN PRN PRN Reason: Constipation Melatonin (Melatonin 3 Mg Tablet) 3 mg PO QHS PRN PRN PRN Reason: INSOMNIA Morphine Sulfate (Morphine 2 Mg/Ml Syringe) 2 mg IV Q3H PRN PRN PRN Reason: Pain Score 6-10 Ondansetron HCl (Ondansetron 4 Mg/2 Ml Vial) 4 mg IV Q8H PRN PRN PRN Reason: NAUSEA/VOMITING Oxycodone HCl (Oxycodone 5 Mg Tablet) 5 mg PO Q4H PRN PRN PRN Reason: Pain Score 4-5 Prochlorperazine Edisylate (Prochlorperazine 10 Mg/2 Ml Vial) 5 mg IV Q4H PRN PRN PRN Reason: Breakthrough nausea/vomiting Psyllium Hydrophilic Mucilloid (Psyllium 1 Packet) 1 packet PO DAILY PRN PRN PRN Reason: Constipation Senna/Docusate Sodium (Senna/Docusate Sodium 1 Tablet) 2 tablet PO BID PRN PRN PRN Reason: Constipation Sodium Chloride (0.9% Saline Lock 10 Ml Syringe) 10 - 40 ml IV UD PRN PRN Reason: SALINE FLUSH Last Admin: 08/26/20 00:55 Dose: 10 ml Documented by: Throat Lozenges (Benzocaine/Menthol 1 Lozenge) 1 lozenge MUCOUS MEM Q2H PRN PRN PRN Reason: SORE THROAT Medical Necessity - Tobacco Use Smoking Status: Former smoker Tobacco Use: Non-smoker Assessment/Plan All Active Problems (Last Reviewed 06/02/20 @ 11:[address] Jadiel Mckeon MD) Knee pain, right (Acute) Rhinitis (Acute) Right knee full-thickness quad tendon rupture MRI reviewed Plan for quad tendon repair 09/01/2020. Last dose of Eliquis should be 08/29/2020 in the AM Must wear knee immobilizer when ambulating may remove knee immobilizer when resting strict ice and elevation to minimize swelling courage ankle pumps
--- NOTE | 2020-08-26 13:29 | PCM.DC ---
- Discharge Diagnoses Current Active Problems: Current Active and Chronic Problems (Last Reviewed 06/02/20 @ 11:[address] Jadiel Mckeon MD) Knee pain, right (Acute) Paroxysmal atrial fibrillation (Chronic) Hyperlipidemia (Chronic) Chronic kidney disease (Chronic) CHUCKIE (obstructive sleep apnea) (Chronic) Moderate persistent asthma (Chronic) You will use the following diet at home:: No restrictions Discharge Activity: Return to Normal Activity, - - Must wear knee immobilizer when ambulating Call your doctor if you observe: Uncontrolled pain Additional Instructions: Last dose of Eliquis 08/29/2020 in a.m. then hold prior to surgery. Wear knee immobilizer when ambulating, may remove with rest. Ice and elevation. Allergies/Adverse Reactions: Allergies No Known Allergies Allergy (Verified 06/02/20 08:44) Medications to take at Discharge Cholecalciferol (VIT D3) [Vitamin D3] 5,000 unit PO DAILY 11/10/15 Multivitamin [Daily Multiple Vitamin] 1 ea PO DAILY 11/10/15 azelastine 137 mcg (0.1 %) nasal spray aerosol 1 spray INTRANASAL BID PRN 04/18/17 albuterol sulfate 90 mcg/actuation aerosol inhaler 1 puff INHALATION Q4H PRN PRN #2 device 05/08/18 budesonide-formoterol HFA 160 mcg-4.5 mcg/actuation aerosol inhaler 2 inh INHALATION BID #10.2 g 02/23/20 Hydrocodone Bitart/Apap 5-325 [[place] 5MG-325MG] 1 tablet PO Q6H PRN PRN 3 Days #12 tab 08/25/20 Diltiazem CD [Cardizem CD] 120 mg PO DAILY 08/26/20 Flecainide [Tambocor] 100 mg PO BID 08/26/20 Fluticasone 0.05% [Flonase Nasal [place]] 1 spray INHALATION DAILY PRN 08/26/20 The following prescriptions were given: Hydrocodone Bitart/Apap 5-325 [[place] 5MG-325MG] 1 tablet PO Q6H PRN PRN 3 Days #12 tab PRN Reason: Pain Prescription Printed Primary Care Physician: Vikas Lockhart MD [Primary Care Provider] - Please follow up with your Primary Care Physician in: 1 Week Test Results: Test results from this visit will be discussed in further detail at your follow-up appointment, if applicable. Please Follow Up With: Moi Echevarria DO - Last dose of Eliquis 08/29/2020 in a.m. When: Quad tendon repair 09/01/2020 Proposed Discharge Date: 08/26/20
--- NOTE | 2020-08-26 13:31 | PCM.DC.SUM ---
<Monique Kenny PRINTING PRESS OPERATOR APPRENTICE - Last Filed: 08/26/20 13:36> Discharge Date and Diagnosis - Problem List Patient Problems: Active and Suspected Problems (Last Reviewed 06/02/20 @ 11:[address] Jadiel Mckeon MD) Knee pain, right (Acute) Date of Admission: 08/25/20 Date of Discharge: 08/26/20 - Primary Discharge Diagnosis Acute Problems: Active Problems (Last Reviewed 06/02/20 @ 11:[address] Jadiel Mckeon MD) 1. Intractable right knee pain secondary to right knee full-thickness quad tendon rupture 2. Prediabetes 3. Paroxysmal atrial fibrillation 4. Chronic kidney disease stage IIIa 5. Chronic asthma with allergic rhinitis 6. Hyperlipidemia 7. CHUCKIE - Secondary Discharge Diagnosis Chronic Problems: Chronic Problems (Last Reviewed 06/02/20 @ 11:[address] Jadiel Mckeon MD) Dyspnea on exertion (Chronic) Paroxysmal atrial fibrillation (Chronic) Incomplete right bundle branch block (Chronic) Hyperlipidemia (Chronic) Chronic kidney disease (Chronic) CHUCKIE (obstructive sleep apnea) (Chronic) Moderate persistent asthma (Chronic) Hospital Course and Treatment Imaging Results: Diagnostic Data Femur X-Ray 08/25/20 17:39 IMPRESSION: Normal x-ray examination of the femur. Electronically Signed: Max Hernandez DO at 18:38 EDT Tel [phone], Service support , Knee X-Ray 08/25/20 17:40 IMPRESSION: Normal x-ray examination of the knee. Electronically Signed: Max Hernandez DO at 18:39 EDT Tel [phone], Service support , Chest X-Ray 08/25/20 22:53 IMPRESSION: Normal x-ray examination of the chest. Electronically Signed: Max Hernandez DO at 23:45 EDT Tel [phone], Service support , Lower Extremity MRI 08/26/20 08:12 IMPRESSION: Full-thickness near complete tear of the distal quadriceps tendon. Tear of the medial patellar retinaculum and mild sprain of the lateral patellar retinaculum. Distal vastus lateralis muscle strain. Small joint effusion with anterior extravasation of fluid. Electronically Signed: Kwasi Jennings MD at 12:41 EDT Tel , Service support , Dr. Echevarria- orthopedic medicine Operations: None Procedures: None Summary of Care Provided: The patient is a 80 year old M admitted 08/25/2020 due to mechanical fall, intractable right knee pain. 1. Intractable right knee pain secondary to right knee full-thickness quad tendon rupture-orthopedic medicine on consult. Patient will return for quad tendon repair 09/01/2020. Last dose of Eliquis 08/29/2020 in a.m. Patient will wear knee immobilizer with ambulation. Ice, elevation, as needed pain regimen. 2. Prediabetes-hemoglobin A1c 6%. Recommend carb controlled diet. 3. Paroxysmal atrial fibrillation-on flecainide, Cardizem. Hold Eliquis 72 hours prior to surgery with last dose 08/29/2020 in a.m. 4. Chronic kidney disease stage IIIa-at baseline. 5. Chronic asthma with allergic rhinitis-continue as needed albuterol inhaler regimen. 6. Hyperlipidemia-not on regimen, outpatient follow-up. 7. CHUCKIE-on CPAP. Patient seen and examined prior to discharge. Physical assessment as noted below. Patient is stable for discharge with follow up recommendations as noted above. This patient was seen by FERNANDO Vincent under the supervision of Dr. Neri. Patient Problems: Active and Suspected Problems (Last Reviewed 06/02/20 @ 11:[address] Jadiel Mckeon MD) Knee pain, right (Acute) - Physical Exam Vitals/I&O's: Vital Signs Temp Pulse Resp BP Pulse Ox 98.0 F 64 18 144/77 H 98 08/26/20 11:20 08/26/20 11:20 08/26/20 11:20 08/26/20 11:20 08/26/20 11:20 Oxygen Delivery Method Room Air Weight: 171 lb 8.314 oz Body Mass Index (BMI) 27.6 Intake and Output for Last 24 Hours 08/24/20 08/25/20 08/26/20 23:59 23:59 23:59 Intake Total 2500 / 2500 Output Total 650 / 650 Balance 1850 / 1850 General: Alert, Oriented x3, Cooperative HEENT: Atraumatic, PERRLA, EOMI, Normocephalic Neck: Supple, No JVD, Negative Carotid Bruits Lungs: Clear to auscultation, Normal air movement Cardiovascular: Regular rate, No murmurs Abdomen: Bowel Sounds Present, Soft, Non Tender, Non-Distended Extremities: No clubbing, No cyanosis, No edema, Capillary Refill Less than 3 Seconds Skin: No rashes, No breakdown Musculoskeletal: No Tenderness to Palpation of Joints or Extremities Neurological: Cranial nerves II-XII grossly intact, Neuro grossly intact Psych/Mental Status: Normal Affect, Appropriate Laboratory Results 08/25/20 22:12: Sodium 136, Potassium 4.5, Chloride 102, Carbon Dioxide 30.0, Anion Gap 4 L, BUN 23 H, Creatinine 1.59 H, Estim Creat Clear Calc 33.44, Est GFR (MDRD) Af Amer 54 L, Est GFR (MDRD) Non-Af 45 L, BUN/Creatinine Ratio 14.5, Glucose 217 H, Calcium 8.8, Total Bilirubin 0.30, AST 24, ALT 29, Alkaline Phosphatase 85, Troponin I 0.020, Total Protein 7.3, Albumin 4.0, Globulin 3.3, Albumin/Globulin Ratio 1.2 08/25/20 22:25: WBC 14.3 H, RBC 4.51 L, Hgb 14.5, Hct 44.2, MCV 98.0 H, MCH 32.2 H, MCHC 32.8, RDW Std Deviation 46.9 H, RDW Coeff of Tiffany 13.2, Plt Count 207, MPV 10.0, Immature Gran % (Auto) 0.500, Neut % (Auto) 78.3 H, Lymph % (Auto) 10.0 L, Dickey % (Auto) 10.1 H, Eos % (Auto) 0.6, Baso % (Auto) 0.5, Absolute Neuts (auto) 11.2 H, Absolute Lymphs (auto) 1.43, Nucleated RBC % 0 08/26/20 05:50: WBC 9.0, RBC 4.06 L, Hgb 12.9 L, Hct 39.0 L, MCV 96.1 H, MCH 31.8, MCHC 33.1, RDW Std Deviation 47.1 H, RDW Coeff of Tiffany 13.2, Plt Count 195, MPV 10.2, Immature Gran % (Auto) 0.200, Neut % (Auto) 66.2, Lymph % (Auto) 19.3, Dickey % (Auto) 12.7 H, Eos % (Auto) 1.0, Baso % (Auto) 0.6, Absolute Neuts (auto) 5.9, Absolute Lymphs (auto) 1.73, Nucleated RBC % 0 08/26/20 05:50: Sodium 139, Potassium 4.1, Chloride 106, Carbon Dioxide 27.0, Anion Gap 6, BUN 19 H, Creatinine 1.33 H, Estim Creat Clear Calc 39.97, Est GFR (MDRD) Af Amer 66, Est GFR (MDRD) Non-Af 55 L, BUN/Creatinine Ratio 14.3, Glucose 112 H, Calcium 8.2 L, Total Bilirubin 0.60, AST 23, ALT 25, Alkaline Phosphatase 74, Total Protein 6.3 L, Albumin 3.4, Globulin 2.9, Albumin/Globulin Ratio 1.2 08/26/20 05:50: Hemoglobin A1c 6.0 H 08/26/20 : Magnesium 2.3 Current Medications Acetaminophen (Acetaminophen 325 Mg Tablet) 650 mg PO Q6H PRN PRN PRN Reason: Pain Score 1-10/Temp > 100.7 F Al Hydroxide/Mg Hydroxide (Mag Hydrox/Al Hydrox/Simeth 30 Ml Udc) 30 ml PO Q6H PRN PRN PRN Reason: Gastric Burning Albuterol Sulfate (Albuterol 2.5 Mg/3 Ml Vial.Neb.) 2.5 mg INHALATION Q2H PRN PRN PRN Reason: Dyspnea, wheezing Albuterol Sulfate (Albuterol 2.5 Mg/3 Ml Vial.Neb.) 2.5 mg INHALATION Q6HWA.RT [facility] Last Admin: 08/26/20 06:47 Dose: 2.5 mg Documented by: Azelastine HCl (Azelastine Hcl Nasal.Sry) 1 spray NASAL BID [facility] Last Admin: 08/26/20 12:35 Dose: Not Given Documented by: Budesonide (Budesonide Respules 0.5 Mg/2 Ml Ampul.Neb.) 0.5 mg INHALATION Q12H.RT [facility] Last Admin: 08/26/20 06:55 Dose: 0.5 mg Documented by: Cholecalciferol (Cholecalciferol (Vit D3) 25 Mcg Tablet (1,000 Units)) 125 mcg PO DAILY [facility] Last Admin: 08/26/20 12:37 Dose: Not Given Documented by: Diltiazem HCl (Diltiazem Cd 120 Mg Capsule) 120 mg PO DAILY [facility] Last Admin: 08/26/20 12:26 Dose: 120 mg Documented by: Famotidine (Famotidine 20 Mg Tablet) 20 mg PO BID [facility] Last Admin: 08/26/20 12:26 Dose: 20 mg Documented by: Flecainide Acetate (Flecainide 100 Mg Tablet) 100 mg PO BID [facility] Last Admin: 08/26/20 12:28 Dose: 100 mg Documented by: Fluticasone Propionate (Fluticasone 0.05% 1 Gary Nasal.Sry) 2 spray NASAL DAILY [facility] Last Admin: 08/26/20 12:35 Dose: Not Given Documented by: Guaifenesin (Guaifenesin 10 Ml Udc (200mg/10ml)) 20 ml PO Q4H PRN PRN PRN Reason: COUGH Hydralazine HCl (Hydralazine 20 Mg/Ml Vial) 10 mg IV Q4H PRN PRN PRN Reason: SBP > 160 Sodium Chloride () 250 mls @ 15 mls/hr IV .[id number] PRN PRN Reason: Saline Flush Sodium Chloride () 250 mls @ 15 mls/hr IV .[id number] PRN PRN Reason: Additional IVPB Infusion Sodium Chloride () 1,000 mls @ 100 mls/hr IV .Q10H [facility] Last Admin: 08/26/20 12:36 Dose: Not Given Documented by: Magnesium Hydroxide (Magnesium Hydroxide 30 Ml Udc) 30 ml PO DAILY PRN PRN PRN Reason: Constipation Melatonin (Melatonin 3 Mg Tablet) 3 mg PO QHS PRN PRN PRN Reason: INSOMNIA Morphine Sulfate (Morphine 2 Mg/Ml Syringe) 2 mg IV Q3H PRN PRN PRN Reason: Pain Score 6-10 Ondansetron HCl (Ondansetron 4 Mg/2 Ml Vial) 4 mg IV Q8H PRN PRN PRN Reason: NAUSEA/VOMITING Oxycodone HCl (Oxycodone 5 Mg Tablet) 5 mg PO Q4H PRN PRN PRN Reason: Pain Score 4-5 Prochlorperazine Edisylate (Prochlorperazine 10 Mg/2 Ml Vial) 5 mg IV Q4H PRN PRN PRN Reason: Breakthrough nausea/vomiting Psyllium Hydrophilic Mucilloid (Psyllium 1 Packet) 1 packet PO DAILY PRN PRN PRN Reason: Constipation Senna/Docusate Sodium (Senna/Docusate Sodium 1 Tablet) 2 tablet PO BID PRN PRN PRN Reason: Constipation Sodium Chloride (0.9% Saline Lock 10 Ml Syringe) 10 - 40 ml IV UD PRN PRN Reason: SALINE FLUSH Last Admin: 08/26/20 00:55 Dose: 10 ml Documented by: Throat Lozenges (Benzocaine/Menthol 1 Lozenge) 1 lozenge MUCOUS MEM Q2H PRN PRN PRN Reason: SORE THROAT Discharge Diet: No Restrictions Discharge Activity: Return to Normal Activity, - - Must wear knee immobilizer when ambulating Call your doctor if you observe: Uncontrolled pain Home Medications: Medications to take at Discharge Cholecalciferol (VIT D3) [Vitamin D3] 5,000 unit PO DAILY 11/10/15 Multivitamin [Daily Multiple Vitamin] 1 ea PO DAILY 11/10/15 azelastine 137 mcg (0.1 %) nasal spray aerosol 1 spray INTRANASAL BID PRN 04/18/17 albuterol sulfate 90 mcg/actuation aerosol inhaler 1 puff INHALATION Q4H PRN PRN #2 device 05/08/18 budesonide-formoterol HFA 160 mcg-4.5 mcg/actuation aerosol inhaler 2 inh INHALATION BID #10.2 g 02/23/20 Diltiazem CD [Cardizem CD] 120 mg PO DAILY 08/26/20 Flecainide [Tambocor] 100 mg PO BID 08/26/20 Fluticasone 0.05% [Flonase Nasal Gary] 1 spray INHALATION DAILY PRN 08/26/20 Hydrocodone Bitart/Apap 5-325 [[place] 5MG-325MG] 1 tablet PO Q6H PRN PRN 3 Days #12 tab 08/26/20 Following Prescriptions Were Given to Patient: Hydrocodone Bitart/Apap 5-325 [[place] 5MG-325MG] 1 tablet PO Q6H PRN PRN 3 Days #12 tab PRN Reason: Pain Prescription Printed Primary Care Physician: Vikas Lockhart MD [Primary Care Provider] - Please follow up with your Primary Care Physician in: 1 Week Please Follow Up With: Moi Echevarria DO - Last dose of Eliquis 08/29/2020 in a.m. When: Quad tendon repair 09/01/2020 Disposition: Home Minutes spent on discharge:: 35 Patient Condition:: Stable Medical Necessity - Tobacco Use Smoking Status: Former smoker Tobacco Use: Non-smoker Meaningful Use Info Meaningful Use Diagnoses (Choose all that apply): None applicable <Gerald Neri - Last Filed: 08/26/20 17:05> Discharge Date and Diagnosis - Primary Discharge Diagnosis Acute Problems: Active Problems (Last Reviewed 06/02/20 @ 11:[address] Jadiel Mckeon MD) Knee pain, right (Acute) - Secondary Discharge Diagnosis Chronic Problems: Chronic Problems (Last Reviewed 06/02/20 @ 11:[address] Jadiel Mckeon MD) Dyspnea on exertion (Chronic) Paroxysmal atrial fibrillation (Chronic) Incomplete right bundle branch block (Chronic) Hyperlipidemia (Chronic) Chronic kidney disease (Chronic) CHUCKIE (obstructive sleep apnea) (Chronic) Moderate persistent asthma (Chronic) Hospital Course and Treatment Imaging Results: 08/26/20 08:12 Lower Ext Joint Only (Routine) [MRI] Urgent Summary of Care Provided: This patient was seen in conjunction with PRINTING PRESS OPERATOR APPRENTICE, Monique. I have independently interviewed and examined the patient and reviewed pertinent history, examination findings, laboratory and plan of management. I have reviewed the note and agree with the documented findings with the few additional points. In brief, patient is 80-year-old gentleman admitted after mechanical fall resulting in intractable right knee pain and swelling. X-ray imagings were done. Further MRI was done which showed Full-thickness near complete tear of the distal quadriceps tendon and tear of the medial patellar retinaculum and small joint effusion. On conservative management with ice elevation, pain control. Patient was seen by orthopedic surgeon as mentioned above and has follow-up date on 09/01 for quadriceps tendon repair. Keep the knee immobilizer. Other comorbidities as mentioned above. Hold Eliquis as instructed above prior to surgery. Discharge medication reconciliation done. Discharge follow-up instructions completed. Discharge process discussed with the patient and all questions were answered to patient's satisfaction. Total time spent, exact 35 minutes on discharge meds reconciliation, examination, coordination of care with nurses and ancillary staff, review of imaging and blood test and discussion with the patient on follow-up instructions I have discussed my assessment with PRINTING PRESS OPERATOR APPRENTICEMonique and orders have been reviewed. [] Clinical Impression(s) from Imaging Studies Femur X-Ray 08/25/20 17:39 IMPRESSION: Normal x-ray examination of the femur. Electronically Signed: Max Hernandez DO at 18:38 EDT Tel [phone], Service support , Knee X-Ray 08/25/20 17:40 IMPRESSION: Normal x-ray examination of the knee. Electronically Signed: Max Hernandez DO at 18:39 EDT Tel [phone], Service support , Chest X-Ray 08/25/20 22:53 IMPRESSION: Normal x-ray examination of the chest. Electronically Signed: Max Hernandez DO at 23:45 EDT Tel [phone], Service support , Lower Extremity MRI 08/26/20 08:12 IMPRESSION: Full-thickness near complete tear of the distal quadriceps tendon. Tear of the medial patellar retinaculum and mild sprain of the lateral patellar retinaculum. Distal vastus lateralis muscle strain. Small joint effusion with anterior extravasation of fluid. Electronically Signed: Kwasi Jennings MD at 12:41 EDT Tel , Service support , Objective: Seen and examined. Patient is admitted after fall while going down the stairs. Has quadriceps tendon tear. Right leg and knee immobilizer. Patient complain of pain on moving right leg. Physical exam General: Alert, Oriented x3, Cooperative HEENT: Atraumatic, PERRLA, EOMI, Normocephalic Oral: No Gingival or Mucosal Lesions/ Ulcerations Neck: Supple, No JVD, Negative Carotid Bruits Lungs: Air entry diminished in bilateral lung bases. No crepitation/rhonchi Cardiovascular: Regular rate, Regular Rhythm, Normal S1, Normal S2, No murmurs Abdomen: Bowel Sounds Present, Soft, Non Tender, Non-Distended : No renal angle tenderness. No suprapubic tenderness. Extremities: Right lower extremity on knee immobilizer. Skin: No rashes, No breakdown Musculoskeletal: Right knee area is swollen and tender Neurological: Cranial nerves II-XII grossly intact, Deep Tendon Reflexes 2+/4 and Symmetrical, Neuro grossly intact Psych/Mental Status: Normal Affect, Appropriate. - Physical Exam Vitals/I&O's: Vital Signs Temp Pulse Resp BP Pulse Ox 98.0 F 64 18 144/77 H 98 08/26/20 11:20 08/26/20 11:20 08/26/20 11:20 08/26/20 11:20 08/26/20 11:20 Oxygen Delivery Method Room Air Weight: 171 lb 8.314 oz Body Mass Index (BMI) 27.6 Intake and Output for Last 24 Hours 08/24/20 08/25/20 08/26/20 23:59 23:59 23:59 Intake Total 2500 / 2500 Output Total 650 / 650 Balance 1850 / 1850 Laboratory Results 08/25/20 22:12: Sodium 136, Potassium 4.5, Chloride 102, Carbon Dioxide 30.0, Anion Gap 4 L, BUN 23 H, Creatinine 1.59 H, Estim Creat Clear Calc 33.44, Est GFR (MDRD) Af Amer 54 L, Est GFR (MDRD) Non-Af 45 L, BUN/Creatinine Ratio 14.5, Glucose 217 H, Calcium 8.8, Total Bilirubin 0.30, AST 24, ALT 29, Alkaline Phosphatase 85, Troponin I 0.020, Total Protein 7.3, Albumin 4.0, Globulin 3.3, Albumin/Globulin Ratio 1.2 08/25/20 22:25: WBC 14.3 H, RBC 4.51 L, Hgb 14.5, Hct 44.2, MCV 98.0 H, MCH 32.2 H, MCHC 32.8, RDW Std Deviation 46.9 H, RDW Coeff of Tiffany 13.2, Plt Count 207, MPV 10.0, Immature Gran % (Auto) 0.500, Neut % (Auto) 78.3 H, Lymph % (Auto) 10.0 L, Dickey % (Auto) 10.1 H, Eos % (Auto) 0.6, Baso % (Auto) 0.5, Absolute Neuts (auto) 11.2 H, Absolute Lymphs (auto) 1.43, Nucleated RBC % 0 08/26/20 05:50: WBC 9.0, RBC 4.06 L, Hgb 12.9 L, Hct 39.0 L, MCV 96.1 H, MCH 31.8, MCHC 33.1, RDW Std Deviation 47.1 H, RDW Coeff of Tiffany 13.2, Plt Count 195, MPV 10.2, Immature Gran % (Auto) 0.200, Neut % (Auto) 66.2, Lymph % (Auto) 19.3, Dickey % (Auto) 12.7 H, Eos % (Auto) 1.0, Baso % (Auto) 0.6, Absolute Neuts (auto) 5.9, Absolute Lymphs (auto) 1.73, Nucleated RBC % 0 08/26/20 05:50: Sodium 139, Potassium 4.1, Chloride 106, Carbon Dioxide 27.0, Anion Gap 6, BUN 19 H, Creatinine 1.33 H, Estim Creat Clear Calc 39.97, Est GFR (MDRD) Af Amer 66, Est GFR (MDRD) Non-Af 55 L, BUN/Creatinine Ratio 14.3, Glucose 112 H, Calcium 8.2 L, Total Bilirubin 0.60, AST 23, ALT 25, Alkaline Phosphatase 74, Total Protein 6.3 L, Albumin 3.4, Globulin 2.9, Albumin/Globulin Ratio 1.2 08/26/20 05:50: Hemoglobin A1c 6.0 H 08/26/20 : Magnesium 2.3 Inpatient E&M: [id number] Disch Hosp
--- NOTE | 2020-08-26 15:06 | PHA.DC.MR ---
Pharmacy Service has performed discharge medication reconciliation for this patient. The patient's discharge medication list was reviewed for discrepancies and discrepancies were resolved. Home Medications Cholecalciferol (VIT D3) [Vitamin D3] 5,000 unit PO DAILY 11/10/15 Multivitamin [Daily Multiple Vitamin] 1 ea PO DAILY 11/10/15 azelastine 137 mcg (0.1 %) nasal spray aerosol 1 spray INTRANASAL BID PRN 04/18/17 albuterol sulfate 90 mcg/actuation aerosol inhaler 1 puff INHALATION Q4H PRN PRN #2 device 05/08/18 budesonide-formoterol HFA 160 mcg-4.5 mcg/actuation aerosol inhaler 2 inh INHALATION BID #10.2 g 02/23/20 Diltiazem CD [Cardizem CD] 120 mg PO DAILY 08/26/20 Flecainide [Tambocor] 100 mg PO BID 08/26/20 Fluticasone 0.05% [Flonase Nasal [place]] 1 spray INHALATION DAILY PRN 08/26/20 Hydrocodone Bitart/Apap 5-325 [[place] 5MG-325MG] 1 tablet PO Q6H PRN PRN 3 Days #12 tab 08/26/20
== END 2020-08-26 14:58 | disposition home or self-care (01) ==
LOC: ED 20:13 → MS3 23:56
PROVIDERS: Admitting Provider Family Medicine; Emergency Provider Student in an Organized Health Care Education/Training Program; PCP Family Medicine; Visit Provider Internal Medicine
DX: S76.111A Strain of right quadriceps muscle, fascia and tendon, initial encounter (principal); W10.9XXA Fall (on) (from) unspecified stairs and steps, initial encounter; Y93.89 Activity, other specified; Y92.9 Unspecified place or not applicable; Y99.9 Unspecified external cause status; J45.40 Moderate persistent asthma, uncomplicated; E78.5 Hyperlipidemia, unspecified; I44.0 Atrioventricular block, first degree; R42 Dizziness and giddiness; I48.0 Paroxysmal atrial fibrillation; D72.829 Elevated white blood cell count, unspecified; J31.0 Chronic rhinitis; N18.31 Chronic kidney disease, stage 3a; R73.03 Prediabetes; G47.33 Obstructive sleep apnea (adult) (pediatric); Z79.899 Other long term (current) drug therapy; Z87.891 Personal history of nicotine dependence; Z79.01 Long term (current) use of anticoagulants
CPT/HCPCS: 36415; 71045; 73552; 73564; 73721; 80053; 83036; 83735; 84484; 85025; 93005; 94640; 96360; 96361; 97162; 97166; 99218; 99251; 99285; J7030; J7040; A4216; G0378; G0463

== ENCOUNTER 2020-09-01 17:39 | Observation (INO) | payer MEDICARE, SELFPAY ==
[2020-09-01] VITALS (11 sets, daily range): BP systolic 113–144; BP diastolic 52–75; PULSE 61–77; RESP 16–18; TEMP 35.9–37.1; O2SAT 93–99; BMI 32.8
[2020-09-01] MEDS: Lactated Ringers 1,000 ML 100 ML IV (13:24)
--- NOTE | 2020-09-01 13:59 | PCM.HP.STD ---
HPI - General General Date of Admission: 08/25/20 HPI Narrative CAT MICHAELS, is a 80 M who presents after a ground-level fall on the stairs 08/26/2020, was initially seen in the ER and evaluated he is on Eliquis for atrial fibrillation. MRI and clinical exam consistent with full-thickness quadriceps tendon rupture on the right. Eliquis last dose 08/29/2020 in the AM. [facility], [facility] Medical History (Updated 09/01/20 @ 14:[address] Moi Echevarria, DO) Asthma Candidiasis of mouth Chronic kidney disease CKD (chronic kidney disease) stage 3, GFR 30-59 ml/min CPAP (continuous positive airway pressure) dependence Dyspnea on exertion Former smoker History of stress test Hx of echocardiogram Hyperlipidemia Irregular heart beat Moderate persistent asthma CHUCKIE (obstructive sleep apnea) Paroxysmal atrial fibrillation Rhinitis Shortness of breath on exertion Wears glasses Home Medications cholecalciferol (vitamin D3) 5,000 unit PO DAILY 11/10/15 [History Last Taken 09/01/20 08:30 5000 UNIT] multivitamin 1 ea PO DAILY 11/10/15 [History Last Taken 09/01/20 08:30 1 EA] azelastine 137 mcg (0.1 %) nasal spray aerosol 1 spray INTRANASAL BID PRN 04/18/17 [History Last Taken Unknown] albuterol sulfate 90 mcg/actuation aerosol inhaler 1 puff INHALATION Q4H PRN PRN #2 device 05/08/18 [Rx Last Taken 02/20/19 16:00 1 puff] budesonide-formoterol HFA 160 mcg-4.5 mcg/actuation aerosol inhaler 2 inh INHALATION BID #10.2 g 02/23/20 [Rx Last Taken 09/01/20 08:30 2 INH] diltiazem HCl 120 mg PO DAILY 08/26/20 [History Last Taken 09/01/20 08:30 120 MG] flecainide 100 mg PO BID 08/26/20 [History Last Taken 09/01/20 08:30 100 MG] fluticasone propionate 1 spray INHALATION DAILY PRN 08/26/20 [History Last Taken Unknown] apixaban [Eliquis] 2.5 mg PO BID 08/31/20 [History Last Taken 08/28/20] Allergy/AdvReac Type Severity Reaction Status Date / Time No Known Allergies Allergy Verified 08/31/20 08:50 Family History Father , Had pacemaker, at advanced age No problems noted. Mother , lived to advanced age No problems noted. Surgical History (Updated 08/31/20 @ 09:04 by Mackenzie Vital) History of appendectomy History of nasal surgery History of umbilical hernia repair Social History (Updated 06/02/20 @ 11:[address] Jadiel Mckeon MD) Smoking Status: Former smoker how long ago did patient quit smokin years ago alcohol intake: current alcohol intake frequency: a few times a week Alcohol type: wine caffeine: No Vital Signs Vital Signs Vital Signs: 09/01/20 13:06 Temperature 98.6 F Temperature Source Temporal Pulse Rate 72 Respiratory Rate 16 Respiratory Pattern Irregular Blood Pressure 143/64 H Blood Pressure Mean 90 Blood Pressure Source Manual Blood Pressure Position Semi-Fowlers Blood Pressure Location Left Arm Pulse Ox 97 Oxygen Delivery Method Room Air Physical Exam Const alert, oriented x3 and no apparent distress General Appearance: comfortable Orientation / Consciousness: awake Extremity Extremity Narrative: Right knee with palpable defect quadriceps tendon no open wounds there is joint effusion and swelling edema throughout the leg neurovascular intact Assessment & Plan Assessment/Plan (1) Quadriceps tendon rupture: Status: Acute Code(s): S76.119A - Strain of unspecified quadriceps muscle, fascia and tendon, initial encounter Qualifiers: Encounter type: subsequent encounter Laterality: right Qualified Code(s): S76.111D - Strain of right quadriceps muscle, fascia and tendon, subsequent encounter Plan: Risk benefits and alternatives reviewed with the patient including risk of bleeding infection nerve artery tissue damage need for further surgery continued pain retear postoperative expectations need for postoperative physical therapy and expected postoperative course We will proceed with right quadriceps tendon repair with bioabsorbable patellar anchors He will resume his Eliquis the morning after surgery he will be given a postoperative femoral nerve block and will be placed in a knee immobilizer immediately after surgery
[2020-09-01] MEDS: Cefazolin 2 GM in 0.9% Normal Saline 100 ML IV (14:03)
--- NOTE | 2020-09-01 15:25 | PCM.OPRPT ---
Problems Associated Problem List Diagnoses (1) Quadriceps tendon rupture: Report of Operation Description of Surgical Findings:: Preoperative diagnosis: Right quadriceps tendon rupture Postoperative diagnosis: Same Procedure: Right open quadriceps tendon repair Anesthesia: General with postoperative femoral block EBL: 25 Complications: None Condition: Stable to PACU Implants: Arthrex bio composite 4.75 swivel lock x2 Tourniquet time 47 minutes 300 mmHg Indication for procedure: 80-year-old male had a fall on the stairs and sustained full-thickness rupture of right quadriceps tendon risk benefits and alternatives were reviewed including risk of bleeding infection nerve, artery, bone, tissue damage, blood clot need for further surgery and continued pain. Need for postoperative restrictions and postoperative physical therapy and expected postoperative course. Procedure: Patient was met the preoperative holding area once again the operative extremity was identified by both patient and physician and was marked. Patient was brought back to the operating room on a wheeled cart and transferred to the operating table in the supine position. Anesthesia was started. The patient was prepped and draped in the usual sterile fashion with a bump under the right hip and a well-padded tourniquet. A timeout was called to ensure the proper patient procedure and extremity were being contemplated. The leg was exsanguinated with Esmarch and the tourniquet was inflated to 300 mmHg. A midline incision was carried down through the skin and subcutaneous tissue over the quadriceps insertion and patella full-thickness this flaps were elevated. The patella was prepped with a rongeur to assure bleeding bone. Following this a, #5 suture tape was passed in a Krak?w fashion proximally and then distally. The tails were then secured to a 4.75 swivel lock. Drill holes were made for the anchors followed by a tap. And the tails were advanced under tension creating an excellent repair, the free sutures were then used to provide additional repair, a #2 suture was also used for [id number] for the lateral and medial retinaculum, #1 Vicryl was also used on the most more posterior retinacular tissue. The knee was brought into flexion to ensure adequate repair. Prior to repair the articular joint was thoroughly irrigated and irrigation was repeated after repair, this was followed by closure of subcutaneous tissue with 2-0 Vicryl buried knots followed by hadley in the skin dressing was applied in the form of Mepilex Ag. Thigh-high SABINA hose and knee immobilizer. Tourniquet was let down there was no intraoperative complications all counts were correct and patient was brought back to the PACU in stable condition He will resume his Eliquis, and start physical therapy immediately Admit VTE Documentation VTE Mechan Device Prophylaxis: SCD's
--- NOTE | 2020-09-01 15:34 | PCM.DC ---
Discharge Instructions Outpatient Procedure Reason For Visit: RT QUADRICEPS REPAIR Diet Discharge Diet: No restrictions Activity Additional Activity Instructions:: Keep operative extremity elevated when not ambulating. Weightbearing as tolerated with knee immobilizer on. May remove when not ambulating keeping leg straight. Encourage immediate straight leg raise, however do not bend knee then actively extend knee. However should perform prone leg flexion and extension as was demonstrated by Dr. Echevarria up to 90 degrees of flexion, this should be done 10-15 times 3 times a day to help with early range of motion without stressing repair. Dressing should remain on clean and dry for 72 hours post op, then should be removed prior to her first shower, do not submerge knee in tub or pool for 3 weeks, take pain medication as prescribed if questions or concerns please call geri Jacobsen morning after surgery, Follow Up Care Test Results: Test results from this visit will be discussed in further detail at your follow-up appointment, if applicable. Discharge Plan Admission Attending Provider: Moi Echevarria Primary Care Provider: Vikas Lockhart Discharge Orders/Prescriptions Prescriptions: New acetaminophen [acetaminophen] 500 MG tablet 1,000 mg PO Q6H PRN Qty: 100 RF: 0 oxycodone 5 mg capsule 5 - 10 mg PO Q4H PRN (Reason: pain) 5 Days Qty: 40 RF: 0 cephalexin [cephalexin] 500 MG capsule 1,000 mg PO Q8 Qty: 4 RF: 0 Continued azelastine 137 mcg (0.1 %) aerosol,spray 1 spray INTRANASAL BID PRN (Reason: Congestion) RF: 0 albuterol sulfate 90 mcg/actuation HFA aerosol inhaler 1 puff INHALATION Q4H PRN PRN (Reason: Shortness Of Breath) Qty: 2 RF: 0 multivitamin 1 EACH tablet 1 ea PO DAILY RF: 0 cholecalciferol (vitamin D3) 1,000 UNIT tablet 5,000 unit PO DAILY RF: 0 diltiazem HCl 120 MG capsule 120 mg PO DAILY RF: 0 flecainide 100 MG tablet 100 mg PO BID RF: 0 fluticasone propionate 1 SPRAY spray,suspension 1 spray INHALATION DAILY PRN (Reason: Congestion) RF: 0 Eliquis 5 mg Tablet 2.5 mg PO BID RF: 0 budesonide-formoterol 160-4.5 mcg/actuation HFA aerosol inhaler 2 inh INHALATION BID Qty: 10.2 RF: 3 Referrals: Vikas Lockhart MD [Primary Care Provider] - Disposition Discharge Orders: Discharge Patient (Routine); Ordered 09/01/20 Ordered By: Dr. Moi Echevarria
[2020-09-01] MEDS: Cefazolin 1 GM/50 ML BAG IV ×2 (15:53→23:22)
[2020-09-02 02:12] VITALS: BP 108/61; PULSE 63; RESP 18; TEMP 36.6; O2SAT 97
[2020-09-02] MEDS: Cefazolin 1 GM/50 ML BAG IV (05:48)
[2020-09-02 05:50] VITALS: BP 106/56; PULSE 59; RESP 16; TEMP 36.3; O2SAT 96
[2020-09-02 08:00] VITALS: BP 112/59; PULSE 61; RESP 14; TEMP 36.8; O2SAT 95
--- NOTE | 2020-09-02 08:26 | PCM.PN.ORT ---
Subjective Subjective: Seen and examined patient rested well overnight pain controlled denies nausea vomiting shortness of breath or chest pain. Patient did have dizziness postoperatively that has subsequently resolved however he has not been up to stand yet with physical therapy. Objective Data Objective Data Vital Signs: Vital Signs Temp Pulse Resp BP Pulse Ox 97.4 F L 59 L 16 106/56 L 96 09/02/20 05:50 09/02/20 05:50 09/02/20 05:50 09/02/20 05:50 09/02/20 05:50 Oxygen Flow Rate (L/min) 2 Oxygen Delivery Method Room Air Weight: 167 lb 15.876 oz Body Mass Index (BMI) 32.8 Intake & Output: Intake and Output for Last 24 Hours 08/31/20 09/01/20 09/02/20 23:59 23:59 23:59 Intake Total 1210 / 1210 50 / 50 Output Total 900 / 900 Balance 1210 / 1210 -850 / -850 Physical Exam Const alert and oriented x3 General Appearance: cooperative Extremity Extremity Narrative: Dressing clean dry and intact compartments soft neurovascular intact Assessment & Plan Assessment/Plan (1) Quadriceps tendon rupture: Status: Acute Code(s): S76.119A - Strain of unspecified quadriceps muscle, fascia and tendon, initial encounter Qualifiers: Encounter type: subsequent encounter Laterality: right Qualified Code(s): S76.111D - Strain of right quadriceps muscle, fascia and tendon, subsequent encounter Plan: Will have patient seen by physical therapy this a.m. as long as he does well does not become lightheaded and vitals remained stable he is okay for discharge to home. He was given postoperative discharge instructions. We will start physical therapy on Saturday will wear knee immobilizer at all times while ambulating demonstrated again straight leg raise and prone leg flexion exercises will leave dressing on for 72 hours postop then may remove prior to for shower and then shower daily afterwards to change bandage daily at that time follow-up in office 2 weeks
[2020-09-02] MEDS: Loperamide 2 MG Capsule PO (09:59)
[2020-09-02] MEDS: dilTIAZem CD 120 MG Capsule PO (09:59)
[2020-09-02] MEDS: Flecainide 100 MG Tablet PO (09:59)
[2020-09-02] MEDS: APIXABAN 2.5 MG TABLET PO (09:59)
--- NOTE | 2020-09-02 10:00 | CASEMGMT ---
RN CM LOADER HELPER CM to room to meet with patient for initial transition planning/care coordination assessment. BENJAMIN DONALDSON introduced self and role at [facility] [place]. Pt voices understanding and consents to assessment at this time. Pt sitting up in chair in room in no distress at this time. Pt is A/O at this time and answers all questions appropriately. Care providers, pharmacy, and demographics verified/updated at this time. PCP: Dr Vikas Lockhart Specialists: Dr Mckeon-cardiology, Dr Nicholas-pulmonology, Dr Veras--ENT Preferred Pharmacy: [facility] [place] Retail Insurance:[employer] Prescription Benefit: Yes Living Will/HPOA: Has both LW and Healthcare POA, who is his , Chasidy LNOK: , Chasidy. Daughter, Patricia. Son, Adrián Living Arrangements: Lives w/his , Chasidy, in one-story home w/basement. 3 steps to enter. States no difficulty w/these stairs. Independent prior to hospitalization. able to help. States son, Adrián, is planning on staying with them for a couple of days to help as well. Transportation: Pt drove prior to hospitalization. also drives and denies transp concerns. DME: States has the following DME: shower chair, CPAP, walker. States is concerning getting [facility] @ discharge and he has the contact info for this already. Pt states no need for further DME at this time. HHC/SNF: No history of either. Denies need for HHC States plans to start OP therapy on Saturday. Pt wishes to return home and states has no concerns with going home at time of discharge. CM to follow for home oxygen needs and any discharge planning/needs. Pt voices no concerns/needs at this time. Advised pt to ask for CM if any questions/concerns/needs arise. Voices understanding. PLAN: Home w/OP therapy. Aidan MARTINEZ RN, CM
== END 2020-09-02 12:01 | disposition home or self-care (01) ==
LOC: SDC 20:50 → MS3 20:50
PROVIDERS: Admitting Provider Orthopaedic Surgery; PCP Family Medicine; Referring Provider Orthopaedic Surgery; Visit Provider Orthopaedic Surgery
PROC: (CPT 27385; principal; 2020-09-01 13:45)
DX: S76.111A Strain of right quadriceps muscle, fascia and tendon, initial encounter (principal); W10.9XXA Fall (on) (from) unspecified stairs and steps, initial encounter; Y93.9 Activity, unspecified; Y92.9 Unspecified place or not applicable; Y99.9 Unspecified external cause status; N18.31 Chronic kidney disease, stage 3a; G47.33 Obstructive sleep apnea (adult) (pediatric); J45.40 Moderate persistent asthma, uncomplicated; I48.0 Paroxysmal atrial fibrillation; E78.5 Hyperlipidemia, unspecified; Z87.891 Personal history of nicotine dependence; Z79.899 Other long term (current) drug therapy; Z79.01 Long term (current) use of anticoagulants
CPT/HCPCS: 01250; 27385; 64447; 96361; 96365; 96366; 97162; 99218; C1713; J7120; G0378; G0379; J2405

== ENCOUNTER → 2020-10-14 11:02 | Outpatient (CLI) | payer MEDICARE, SELFPAY ==
[2020-09-14 10:35] VITALS: BMI 32.8
== END ==
PROVIDERS: PCP Family Medicine; Referring Provider Orthopaedic Surgery; Visit Provider Orthopaedic Surgery
DX: R19.5 Other fecal abnormalities (principal)
CPT/HCPCS: 87493

== ENCOUNTER → 2020-11-23 07:29 | Outpatient (CLI) | payer MEDICARE, SELFPAY ==
[2020-11-01 08:40] VITALS: BMI 27.3
[2020-11-23 07:54] LABS: Absolute Lymphocyte Count 2.18 X10^3/uL (0.83-4.51); Basophil# 0.05 X10^3/uL; Basophil% 0.6 % (0-1); Eosinophil# 0.13 X10^3/uL; Eosinophils% 1.6 % (0-5); Hematocrit 40.5 % (40-54); Hemoglobin 13.4 g/dL (13.0-16.5); Lymphocyte # 2.18 X10^3/ul (0.83-4.51); Lymphocyte % 26.6 % (19-41); Mean Corp Hgb Conc 33.1 g/dL (32-36); Mean Corpuscular Hgb 31.5 pg (27.0-32.0); Mean Corpuscular Volume 95.3 fL (80-94); Mean Platelet Vol. 9.6 fl (6.2-12.0); Monocyte# 0.83 X10^3/uL; Monocyte% 10.1 % (0-10); NRBC Flagged by Analyzer 0 % (0-5); Neutrophil % 60.9 % (47-70); Platelet Count 203 K/mm3 (150-450); RBC Distribution Width CV 13.2 % (11.6-14.6); RBC Distribution Width SD 46.2 fl (35.1-43.9); Red Blood Count 4.25 M/mm3 (4.6-6.2); White Blood Count 8.2 K/mm3 (4.4-11.0)
[2020-11-23 08:33] LABS: Anion Gap 6 (5-15); BUN 17 mg/dL (7-18); BUN/Creat Ratio 12.3 RATIO (10-20); Calcium,Total 8.4 mg/dL (8.5-10.1); Chloride 106 mmol/L (98-107); Cholesterol 140 mg/dL (200); Creatinine, Serum 1.38 mg/dL (0.70-1.30); EST Glomerular Filtration Rate 53 mL/min (>60); Est Glom Filt Rate - Afr Amer 64 mL/min (>60); Glucose 112 mg/dL (74-106); High Density Lipoprotein 43 mg/dL; Magnesium 2.2 mg/dL (1.6-2.6); Potassium 4.1 mmol/L (3.5-5.1); Sodium Level 141 mmol/L (136-145); Thyroid Stim Hormone (TSH) 3.88 uIU/mL (0.358-3.74); Triglycerides 104 mg/dL; Very Low Density Lipoprotein 21 mg/dL (5-40)
== END ==
PROVIDERS: PCP Family Medicine; Referring Provider Internal Medicine Cardiovascular Disease; Visit Provider Internal Medicine Cardiovascular Disease
DX: I12.9 Hypertensive chronic kidney disease with stage 1 through stage 4 chronic kidney disease, or unspecified chronic kidney disease (principal); N18.30 Chronic kidney disease, stage 3 unspecified; I48.91 Unspecified atrial fibrillation; R06.00 Dyspnea, unspecified
CPT/HCPCS: 36415; 80048; 80061; 83735; 84443; 85025

== ENCOUNTER 2020-11-23 13:00 | Outpatient (RCR) | payer MEDICARE, SELFPAY ==
[2020-09-01 18:18] VITALS: BMI 32.8
--- NOTE | 2020-09-05 12:51 | HP.PTEVAL ---
Patient's Visit Information CAT MICHAELS is a 80 year old M referred to Physical Therapy by Dr. Moi Echevarria DO with a diagnosis of 09/01 quad tendon repair.. Date of Evaluation: 09/05/20 Physical Therapist: Bryan Penn, DPT, OCS, CSCS - Visit Plan Frequency: 3x /Week Duration: 3 Months Plan: Pt is WBAT in immobilizer. Allowed to move to 90 degrees flexion but not actively extend(may do SLR as tolerated.). Treat with: 1. rollout and stretch HS R as able. patella mobs, PROM knee flexion to 90, No active extension yet. 2. strength R hip and knee as tolerated within precaution limits. 3. Gait training as needed using walker and getting away from it as safety allows WBAT in brace. 4. ice as needed. - Subjective Quad tendon repair 09/01/20. Fell down one step adn tore something in Knee, fall was 2 weeks ago. Showered this morning adn replaced dressing. sat in shower chair. Pain abdulaziz the weekend 2/10 on meds (acetominophen). Has other meds but kyle needed first night. Pain is 0-2/10 this weekend. Not sleeping great but that is unusual. No balance problems just missed the last step. 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 Spends day when healthy being active with yard work, steps at home with regularity. No regular exercises. Less active since covid. Lives with . Has steps and not a problem prior, doesn't need to do them. Dresses self with assist from for paints. Bathroom self, needed help stepping over tub to shower. Getting around house with wh walker without assist. Has to be in brace all day, loosened when sitting. Went down two steps with walker with assist yesterday and walked outside on cement a little. Ex: has leg lifts at home on , Saturday it hurt too much as well as yesterday. Bends knee a little bit. - Pain R knee anteriorly Pain Intensity (Out of 10): 2 Pain Intensity Range: 0, 2 - Objective Walks in with walker wheeled adn brace on R knee immobilizer mod I. needs assist of hands.other leg to bring R up on table. Transfer is mod I chair and bed. Steps ascended adn descended with one rail using L only. L LE WNL ROM and strength at 0-140 L knee AROM and 4+/5 strength hip, knee, ankle. R hip PROM WFL and HS tight B at -45 90/90 test. R knee AROM 0-22 today, PROM to 29. Self limited by pain. Able to SLR with 10 degree ext lag after about 4 tries adn some cueing. Hip strength 4- R abd and ext, and 3 flexion. ankle AROM WFL to 0 DF and 4+/5 strength all directions. Incision is dressed appropriately and appear dry. No signs of excessive redness or heat or swelling but did not take dressing off today. wEaring compression stocking. Needing assist to doff and don immobilizer. - Goals Goal 1:: sT 0-90 AROM per limitations in doc note Goal Time Frame: 2-4 Weeks Goal 2:: SLR withotu lag x 10 Goal Time Frame: 4-6 Weeks Goal 3:: Walk as allowed by doctor withotu antalgia and step reciprocally Goal Time Frame: 8-12 Weeks Goal 4:: Pt feel back to all normal home activities Goal Time Frame: 8-12 Weeks Goal 5:: I approp management of condition including HEP Goal Time Frame: 8-12 Weeks - Rehabilitation Potential Physical Therapy Diagnosis: s/p quad tendon repair with resulting ROM and strength deficits. Rehabilitation Potential: Good - Anticipated Interventions Patient/Client Instruction: Educate patient on: Condition, Plan of Care For the Purpose of:: To decrease pain, To increase ROM, To improve muscle performance and motor function, To increase tolerance to activity/condition/position, To improve gait and locomotor functions, To improve health of tissue Therapeutic Exercise to Include: Strength training, Flexibilty training, Gait and locomotor training, Neuromotor development, Passive ROM, Active ROM For the Purpose of:: To decrease pain, To increase ROM, To improve ability to perform ADL's, To increase tolerance to activity/condition/position, To improve ability of physical actions for home/community/work/leisure, To improve gait and locomotor functions Manual Therapy Techniques to Include: Petrissage, Scar massage, Mobilization For the Purpose of:: To decrease pain, To increase ROM Cryotherapy (ice pack, ice massage): Yes For the Purpose of:: To decrease pain, To decrease swelling/inflammation Thank you for the opportunity to evaluate your patient. For Medicare and Medicare HMO plans, please review the plan of care and approve it. It will need to be FAXED BACK to us at [phone] for Medicare purposes. For Medicare only, by signing this I certify the plan of care. Please let me know if there are questions or concerns regarding this plan of care. Physician Signature: Date:
--- NOTE | 2020-09-23 13:16 | HP.PTREVAL ---
Dr. Moi Echevarria, DO, It has been my pleasure to treat CAT MICHAELS over the last 9 visits for 09/01 quad tendon repair.. Please see the progress note below for an update on the physical therapy plan of care! Subjective: No pain. Doing HEP dailyx 2. Sleeps OK. To doctor October 13. Very much liked exercising from last session. Objective/Function: Walking with brace locked I, see FGA. Transfer with UE easilya dn I bed adn chair. Obeying precautions with brace on onow. Steps using L only and two railings. Overall doing well and will start sink exercises at home of SLS and hip movmeents B. Plan Plan: 3x/week x 4 weeks to cotninue POC within doctor limitations of 90 degree flexion and only passive extension , no active extension of knee. Please spend time in gym with machines for LE, core strength that are within his limitation, amb brace locked only and flexion ROM to 90. POC still appropriate with fair prognosis Goals Goal 1:: sT 0-90 AROM per limitations in doc note Goal Time Frame: 2-4 Weeks Goal Progress: Goal Met Goal 2:: SLR withotu lag x 10 Goal Time Frame: 4-6 Weeks Goal Progress: Goal Met Goal 3:: Walk as allowed by doctor withotu antalgia and step reciprocally Goal Time Frame: 8-12 Weeks Goal Progress: brace locked only Goal 4:: Pt feel back to all normal home activities Goal Time Frame: 8-12 Weeks Goal 5:: I approp management of condition including HEP Goal Time Frame: 8-12 Weeks Anticipated Interventions Patient/Client Instruction: Educate patient on: Condition, Plan of Care For the Purpose of:: To decrease pain, To increase ROM, To improve muscle performance and motor function, To increase tolerance to activity/condition/position, To improve gait and locomotor functions, To improve health of tissue Therapeutic Exercise to Include: Strength training, Flexibilty training, Gait and locomotor training, Neuromotor development, Passive ROM, Active ROM For the Purpose of:: To decrease pain, To increase ROM, To improve ability to perform ADL's, To increase tolerance to activity/condition/position, To improve ability of physical actions for home/community/work/leisure, To improve gait and locomotor functions Manual Therapy Techniques to Include: Petrissage, Scar massage, Mobilization For the Purpose of:: To decrease pain, To increase ROM Cryotherapy (ice pack, ice massage): Yes For the Purpose of:: To decrease pain, To decrease swelling/inflammation Please do not hesitate to contact me at [phone] by phone or if you have questions or concerns regarding this new plan of care! Sincerely, Bryan Penn, DPT, OCS, CSCS
--- NOTE | 2020-10-14 12:47 | HP.PTREVAL ---
Dr. Moi Echevarria, DO, It has been my pleasure to treat CAT MICHAELS over the last 15 visits for 09/01 quad tendon repair.. Please see the progress note below for an update on the physical therapy plan of care! Subjective: Saw doctor this morning adn can remove brace now and be gentle. Using a walker for a little bit as he gets out of brace. Wants 6 more weeks of PT. Pain today 2/10 in anterior knee. Sleep OK. Continue therapy for 6 weeks. Did bike today Objective/Function: Full AROM extension R LE adn 2 degree ext lag with SLR, 128 flexion today. Patella moving well, HS strength R 4, quad not tested. Walks with good knee flexion, steps not tested. Overall doing well and decreasing pain. Aprropriate to cotninue PT with fair prognosis. Plan Plan: 3x/week for 4-6 weeks for... 1. ensure gait without pain. 2. progress strength of surgical integirty slowly and R LE strength and function slowly. 3. ROM R knee. Progress to I gym program without pain, slowly and then list for Silver ashishs I. Goals Goal 1:: sT 0-90 AROM per limitations in doc note Goal Time Frame: 2-4 Weeks Goal Progress: Goal Met Goal 2:: SLR withotu lag x 10 Goal Time Frame: 4-6 Weeks Goal Progress: Goal Met Goal 3:: Walk as allowed by doctor withotu antalgia and step reciprocally Goal Time Frame: 8-12 Weeks Goal Progress: Progressing Goal 4:: Pt feel back to all normal home activities Goal Time Frame: 8-12 Weeks Goal Progress: Progressing Goal 5:: I approp management of condition including HEP Goal Time Frame: 8-12 Weeks Goal Progress: Progressing Anticipated Interventions Patient/Client Instruction: Educate patient on: Condition, Plan of Care For the Purpose of:: To decrease pain, To increase ROM, To improve muscle performance and motor function, To increase tolerance to activity/condition/position, To improve gait and locomotor functions, To improve health of tissue Therapeutic Exercise to Include: Strength training, Flexibilty training, Gait and locomotor training, Neuromotor development, Passive ROM, Active ROM For the Purpose of:: To decrease pain, To increase ROM, To improve ability to perform ADL's, To increase tolerance to activity/condition/position, To improve ability of physical actions for home/community/work/leisure, To improve gait and locomotor functions Manual Therapy Techniques to Include: Petrissage, Scar massage, Mobilization For the Purpose of:: To decrease pain, To increase ROM Cryotherapy (ice pack, ice massage): Yes For the Purpose of:: To decrease pain, To decrease swelling/inflammation Please do not hesitate to contact me at [phone] by phone or if you have questions or concerns regarding this new plan of care! Sincerely, Bryan Penn, DPT, OCS, CSCS
--- NOTE | 2020-11-05 10:00 | HP.PTREVAL ---
Dr. Moi Echevarria, DO, It has been my pleasure to treat CAT MICHAELS over the last 24 visits for 09/01 quad tendon repair.. Please see the progress note below for an update on the physical therapy plan of care! Subjective: Seeing patient for re assessment today. Pt. reports overall doing well. She reports being ~85-90% better. He is having some difficulty with ascending and descending steps. He reports continued swelling (minimal) and redness at anterior knee after exercising. I talked to him this slight edema in normal as long as it continues to reduce with rest. No pain reported currently. Objective/Function: ROM: AROM 0-0-122deg. PROM 0-0-128deg. Pt. reports no pain with manual ROM testing. PALPATION: Pt. has slight swelling throughout knee (non pitting), most likely due to recently exercises. He does have some marked redness (non infection presentation), again most likely due to activity. GAIT: Pt. ambulating without AD with good step length and knee flexion during swing, and good stability during stance phase. Slight increase in lateral trunk lean to R during R stance phase (pt. reports no pain during this). STAIRS: Pt. has marked muscle weakness during loading phase of RLE during ascending steps, needs 1 HR to complete. Descending again has slight soreness with loaded RLE descending and difficulty with controlled descending (again suggesting some functional quad, glute weakness). MMT: LLE 5/5 throughout ankle and knee. Hip: flexion 4+/5, abd 4+/5, ext 4+/5. RLE: ankle 5/5 throughout; knee: flexion 4+/5, ext tolerated light over pressure equivalent of ~4/5 (break test not performed). Hip: flexion 4+/5, abd 4/5, ext 4/5. Plan Plan: Cont with POC. I would recommend continued progression towards independent gym program. Cont. to stress end range knee extension both passively and actively. Slowly progress loading applied to quad as tolerated. Add in glute strengthening as well. Goal of increasing control with ascending and descending steps as he has to do this frequently at work. Pt. as reassessment with physician in ~2-3 weeks. Goals Goal 1:: sT 0-90 AROM per limitations in doc note Goal Time Frame: 2-4 Weeks Goal Progress: Goal Met Goal 2:: SLR withotu lag x 10 Goal Time Frame: 4-6 Weeks Goal Progress: Goal Met Goal 3:: Walk as allowed by doctor withotu antalgia and step reciprocally Goal Time Frame: 8-12 Weeks Goal Progress: Progressing Goal 4:: Pt feel back to all normal home activities Goal Time Frame: 8-12 Weeks Goal Progress: Progressing Goal 5:: I approp management of condition including HEP Goal Time Frame: 8-12 Weeks Goal Progress: Progressing Goal 6:: LTG: Pt. to negotiate steps with 1 HR with good eccentric control during R loading phase. Goal Time Frame: 2-4 Weeks Goal Progress: Progressing Anticipated Interventions Patient/Client Instruction: Educate patient on: Condition, Plan of Care For the Purpose of:: To decrease pain, To increase ROM, To improve muscle performance and motor function, To increase tolerance to activity/condition/position, To improve gait and locomotor functions, To improve health of tissue Therapeutic Exercise to Include: Strength training, Flexibilty training, Gait and locomotor training, Neuromotor development, Passive ROM, Active ROM For the Purpose of:: To decrease pain, To increase ROM, To improve ability to perform ADL's, To increase tolerance to activity/condition/position, To improve ability of physical actions for home/community/work/leisure, To improve gait and locomotor functions Manual Therapy Techniques to Include: Petrissage, Scar massage, Mobilization For the Purpose of:: To decrease pain, To increase ROM Cryotherapy (ice pack, ice massage): Yes For the Purpose of:: To decrease pain, To decrease swelling/inflammation Please do not hesitate to contact me at [phone] by phone or if you have questions or concerns regarding this new plan of care! Sincerely, BOO LombardiT
--- NOTE | 2020-11-14 10:53 | HP.PTREVAL ---
Dr. Moi Echevarria, DO, It has been my pleasure to treat CAT MICHAELS over the last 26 visits for 09/01 quad tendon repair.. Please see the progress note below for an update on the physical therapy plan of care! Subjective: Leg doing pretty well. A little sensitive and pulling in front. No pain recently. It has been a while. Tolerating machine strengthening well. Sleeping well. Activities at home are cautious on steps, doesn't carry things going down steps such as books or other objects. Basic ADLS are getting done OK. No shower chair needed. Doing most things outside of stair pretty well. Trasnfers are going OK. Hobbies are normal. 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 To doctror in two weeks. Needs more confidence on steps outside, steps adn with exercises. Objective/Function: Steps reciprocal up without rail, needs rail to descend safely. No knee pain. Walking on grass and gravel today slight deficits and hesitation, SBA. Funcitonal knee aROM without pain today. Confident gait on firm flat surface. Stair goals approp and outdoor walking needed. Fair prognosis to I with these. Plan Plan: continue 2-3x/week for 2 weeks, pt to do gym workout leg press, HSC, slant baord, hip abd and glut ham I with HO given today. Please progress to fucntional ex descending steps carrying object, walking on grass and grave and progress gym ex as he needs. He will do those as [employer] smember and ask questions if he has any. Goals Goal 1:: sT 0-90 AROM per limitations in doc note Goal Time Frame: 2-4 Weeks Goal Progress: Goal Met Goal 2:: SLR withotu lag x 10 Goal Time Frame: 4-6 Weeks Goal Progress: Goal Met Goal 3:: Walk as allowed by doctor withotu antalgia and step reciprocally Goal Time Frame: 8-12 Weeks Goal Progress: up on steps, approp Goal 4:: Pt feel back to all normal home activities Goal Time Frame: 8-12 Weeks Goal Progress: just steps off, approp. Goal 5:: I approp management of condition including HEP Goal Time Frame: 8-12 Weeks Goal Progress: gym met. Goal 6:: LTG: Pt. to negotiate steps with 1 HR with good eccentric control during R loading phase. Goal Time Frame: 2-4 Weeks Goal Progress: up , not down, approp. Anticipated Interventions Patient/Client Instruction: Educate patient on: Condition, Plan of Care For the Purpose of:: To decrease pain, To increase ROM, To improve muscle performance and motor function, To increase tolerance to activity/condition/position, To improve gait and locomotor functions, To improve health of tissue Therapeutic Exercise to Include: Strength training, Flexibilty training, Gait and locomotor training, Neuromotor development, Passive ROM, Active ROM For the Purpose of:: To decrease pain, To increase ROM, To improve ability to perform ADL's, To increase tolerance to activity/condition/position, To improve ability of physical actions for home/community/work/leisure, To improve gait and locomotor functions Manual Therapy Techniques to Include: Petrissage, Scar massage, Mobilization For the Purpose of:: To decrease pain, To increase ROM Cryotherapy (ice pack, ice massage): Yes For the Purpose of:: To decrease pain, To decrease swelling/inflammation Please do not hesitate to contact me at [phone] by phone or if you have questions or concerns regarding this new plan of care! Sincerely, Bryan Penn, DPT, OCS, CSCS
--- NOTE | 2020-11-21 12:58 | HP.PTREVAL_ITS ---
Dr. Moi Echevarria, DO, It has been my pleasure to treat CAT MICHAELS over the last 29 visits for 09/01 quad tendon repair.. Please see the progress note below for an update on the physical therapy plan of care! Subjective: Did workout I prior to session including shoulder and chest press. Objective/Function: 0-132 AROM. SLR without lag. Overall walking well adn steps without rail reciprocally and I. Overall doing well. Will continue 2 more visits of POC then likely D/C to I program. Plan Plan: Pt to be seen 2 more visits then d/c to I program. Ensure I with gym program, continue steps with weights, outdoor walking if desired. Ensure LEFS after last session Goals Goal 1:: sT 0-90 AROM per limitations in doc note Goal Time Frame: 2-4 Weeks Goal Progress: Goal Met Goal 2:: SLR withotu lag x 10 Goal Time Frame: 4-6 Weeks Goal Progress: Goal Met Goal 3:: Walk as allowed by doctor withotu antalgia and step reciprocally Goal Time Frame: 8-12 Weeks Goal Progress: Goal Met Goal 4:: Pt feel back to all normal home activities Goal Time Frame: 8-12 Weeks Goal Progress: Goal Met Goal 5:: I approp management of condition including HEP Goal Time Frame: 8-12 Weeks Goal Progress: gym met. Goal 6:: LTG: Pt. to negotiate steps with 1 HR with good eccentric control duri ng R loading phase. Goal Time Frame: 2-4 Weeks Goal Progress: Progressing Anticipated Interventions Patient/Client Instruction: Educate patient on: Condition, Plan of Care For the Purpose of:: To decrease pain, To increase ROM, To improve muscle performance and motor function, To increase tolerance to activity/condition/position, To improve gait and locomotor functions, To improve health of tissue Therapeutic Exercise to Include: Strength training, Flexibilty training, Gait and locomotor training, Neuromotor development, Passive ROM, Active ROM For the Purpose of:: To decrease pain, To increase ROM, To improve ability to perform ADL's, To increase tolerance to activity/condition/position, To improve ability of physical actions for home/community/work/leisure, To improve gait and locomotor functions Manual Therapy Techniques to Include: Petrissage, Scar massage, Mobilization For the Purpose of:: To decrease pain, To increase ROM Cryotherapy (ice pack, ice massage): Yes For the Purpose of:: To decrease pain, To decrease swelling/inflammation Please do not hesitate to contact me at [phone] by phone or Fax: if you have questions or concerns regarding this new plan of care! Sincerely, Bryan Penn, DPT, OCS, CSCS
--- NOTE | 2021-01-19 15:53 | HP.PT.NRP ---
CAT MICHAELS was seen in my office for initial evaluation on 09/05/20. The following Plan of Care was established for this patient: Initial Frequency: 3x /Week Initial Duration: 3 Months Patient/Client Instruction: Educate patient on: Condition, Plan of Care For the Purpose of:: To decrease pain, To increase ROM, To improve muscle performance and motor function, To increase tolerance to activity/condition/position, To improve gait and locomotor functions, To improve health of tissue Therapeutic Exercise to Include: Strength training, Flexibilty training, Gait and locomotor training, Neuromotor development, Passive ROM, Active ROM For the Purpose of:: To decrease pain, To increase ROM, To improve ability to perform ADL's, To increase tolerance to activity/condition/position, To improve ability of physical actions for home/community/work/leisure, To improve gait and locomotor functions Manual Therapy Techniques to Include: Petrissage, Scar massage, Mobilization For the Purpose of:: To decrease pain, To increase ROM Cryotherapy (ice pack, ice massage): Yes For the Purpose of:: To decrease pain, To decrease swelling/inflammation This patient was last seen in our office 11/23/20. Pertinent comments regarding their Physical therapy will appear below: Pt seen 30 visits of POC and came along rather nicely per his reevaluations. At this point, he has become I with his HEP and will continue exercise on his own. I deneen disocntinue him from PT. At this point I will be discontinuing this patient from physical therapy. I would be happy to see this patient again in the future if found appropriate by the physician. Thank you! Bryan Penn, DPT, OCS, CSCS Balance/Gait/Functional tests - Balance/Special Test Scores Functional Gait Assessment Score: 23 % Disability: 23.3400 Lower Extremity Functional Score: 54
== END 2020-11-23 19:00 | disposition home or self-care (01) ==
LOC: PT 13:00
PROVIDERS: PCP Family Medicine; Referring Provider Orthopaedic Surgery; Visit Provider Orthopaedic Surgery
DX: Z47.89 Encounter for other orthopedic aftercare (principal)
CPT/HCPCS: 97110; 97140; 97162; 97164; 97530

== ENCOUNTER → 2020-12-01 15:28 | Outpatient (CLI) | payer MEDICARE, SELFPAY ==
[2020-11-01 08:40] VITALS: BMI 27.3
[2020-11-25 10:12] VITALS: BMI 27.3
--- NOTE | 2020-12-01 16:00 | MRI_ITS ---
HISTORY: RIGHT foot plantar fascitis. TECHNIQUE: Multiplanar and multisequence MR images of the right foot. IV Contrast dosage and agent: None. # of images including paperwork:265. COMPARISON: None. FINDINGS: BONE: No acute fracture identified. Degenerative cyst in the talar head, probable old osteochondral injury of the medial talar dome. JOINTS: Normal alignment without dislocation. No significant joint effusion. Mild degenerative changes. LIGAMENTS: Intact in this. Ligament interval. TENDONS: No Achilles tendon tear. No high-grade flexor, peroneal, or extensor tendon tear or tenosynovitis. PLANTAR FASCIA: Normal signal and morphology without acute tear. SOFT TISSUES: Sinus tarsi fat preserved. Mild subcutaneous edema. Mild edema in the pre-Achilles fat. 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 Unremarkable plantar fascia. Mild soft tissue edema in the right foot. at 1003 Reported and signed by: Angela Fisher MD Electronically Signed: Angela Fisher MD at 10:02 EDT Tel , Service support ,
--- NOTE | 2020-12-01 16:45 | MRI_ITS ---
HISTORY: LEFT foot pain, plantar fasciitis. TECHNIQUE: Multiplanar and multisequence MR images of the left foot. IV Contrast dosage and agent: None. # of images including paperwork:269. COMPARISON: None. FINDINGS: BONE: No acute fracture identified. Very mild bone marrow edema of the calcaneus at the plantar fascia insertion. Degenerative subchondral edema of the talar dome, likely superimposed on small chronic osteochondral lesion medially. Degenerative subchondral cysts of the first metatarsal head. JOINTS: Normal alignment without dislocation. No significant joint effusion. Mild degenerative change. LIGAMENTS: Intact Lisfranc ligament interval. TENDONS: No Achilles tendon tear. No high-grade tear or significant tenosynovitis of the peroneal, flexor, or extensor tendons. PLANTAR FASCIA: Mild 6 mm thickening and signal heterogeneity at the calcaneal attachment. SOFT TISSUES: Sinus tarsi fat preserved. Mild edema in the pre-Achilles fat pad. Mild plantar subcutaneous edema. MRI/Lower Ext/No Jt/w/o IMPRESSION: Mild plantar fasciitis of the left foot. Mild bone marrow edema of the adjacent calcaneus. 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 at 1011 Reported and signed by: Angela Fisher MD Electronically Signed: Angela Fisher MD at 10:10 EDT Tel , Service support ,
== END ==
PROVIDERS: PCP Family Medicine; Referring Provider Podiatrist; Visit Provider Podiatrist
DX: M72.2 Plantar fascial fibromatosis (principal); M77.42 Metatarsalgia, left foot; M77.41 Metatarsalgia, right foot
CPT/HCPCS: 73718

== ENCOUNTER → 2021-01-04 09:18 | Outpatient (CLI) | payer MEDICARE, SELFPAY ==
[2021-01-04 09:42] LABS: Absolute Lymphocyte Count 1.61 X10^3/uL (0.83-4.51); Absolute Neutrophil Count 5.1 X10^3/uL (2.0-7.7); Basophil# 0.05 X10^3/uL; Basophil% 0.7 % (0-1); Eosinophil# 0.06 X10^3/uL; Eosinophils% 0.8 % (0-5); Hematocrit 40.2 % (40-54); Hemoglobin 13.7 g/dL (13.0-16.5); Lymphocyte # 1.61 X10^3/ul (0.83-4.51); Lymphocyte % 21.4 % (19-41); Mean Corp Hgb Conc 34.1 g/dL (32-36); Mean Corpuscular Hgb 32.8 pg (27.0-32.0); Mean Corpuscular Volume 96.2 fL (80-94); Mean Platelet Vol. 9.8 fl (6.2-12.0); Monocyte# 0.69 X10^3/uL; Monocyte% 9.2 % (0-10); NRBC Flagged by Analyzer 0 % (0-5); Neutrophil # 5.09 X10^3/uL (2.7-7.7); Neutrophil % 67.6 % (47-70); Platelet Count 202 K/mm3 (150-450); RBC Distribution Width CV 13.4 % (11.6-14.6); RBC Distribution Width SD 47.4 fl (35.1-43.9); Red Blood Count 4.18 M/mm3 (4.6-6.2); White Blood Count 7.5 K/mm3 (4.4-11.0)
[2021-01-07 03:06] LABS: Alternaria alternata <0.10 kU/L (Class 0); Bermuda Grass <0.10 kU/L (Class 0); Bluegrass, Kentucky <0.10 kU/L (Class 0); Cat Hair/Dander, Standard <0.10 kU/L (Class 0); D farinae Mite <0.10 kU/L (Class 0); D pteronyssinus <0.10 kU/L (Class 0); Dog Epithelia <0.10 kU/L (Class 0); Elm, American White <0.10 kU/L (Class 0); Oak, White <0.10 kU/L (Class 0); Plantain, English <0.10 kU/L (Class 0); Ragweed, Short/Common <0.10 kU/L (Class 0)
[2021-01-07 07:20] LABS: Mouse Urine <0.10 kU/L (Class 0)
[2021-01-07 20:08] LABS: Aspirgillus flavus Negative (Neg:<1:1); Aspirgillus fumigatus Negative (Neg:<1:1); Aspirgillus niger Negative (Neg:<1:1); Cytoplasmic Ab (C-ANCA) <1:20 titer (Neg:<1:20)
[2021-01-07 23:10] LABS: Immunoglobulin E 133 IU/mL (6-495); Perinuclear Ab (P-ANCA) <1:20 titer (Neg:<1:20)
== END ==
PROVIDERS: PCP Family Medicine; Referring Provider Nurse Practitioner Acute Care; Visit Provider Nurse Practitioner Acute Care
DX: J45.40 Moderate persistent asthma, uncomplicated (principal)
CPT/HCPCS: 36415; 82785; 85025; 86003; 86256; 86606

== ENCOUNTER → 2021-03-20 12:52 | Outpatient (CLI) | payer MEDICARE, SELFPAY ==
[2020-11-01 08:40] VITALS: BMI 27.3
--- NOTE | 2021-03-20 15:47 | PFTCOMP_ITS ---
COMPLETE PULMONARY FUNCTION TEST INTERPRETATION Brief HPI: Patient is an 81 year old male, currently under the care of myself, who presents to [facility] for complete pulmonary function tests secondary to diagnosis of asthma. Respiratory therapist reports good effort and reproducible results. Interpretation: Forced expiration spirometry shows a mild large airways obstructive ventilatory defect with an FEV1 of 110% predicted. There is a significant bronchodilator response in FEV1 by strict ATS criteria. Spirograms are of good quality and plateau slowly, indicating slowly emptying areas of the lungs. The respiratory flow volume loop shows decreased expiratory flow rates at all lung volumes consistent with airway obstruction. Lung volumes by body plethysmography show a normal total lung capacity at 5.77 L, 107% predicted. All other lung volumes are within normal limits. Diffusion capacity by carbon monoxide is normal at 107% predicted. The airway resistance is slightly elevated. Compared to previous pulmonary function tests from 07/13/2015, there has been no significant change. Impression: Fully reversible mild large airways obstructive ventilatory defect in a pattern consistent with asthma
== END ==
PROVIDERS: PCP Family Medicine; Referring Provider Nurse Practitioner Acute Care; Visit Provider Nurse Practitioner Acute Care
DX: J45.50 Severe persistent asthma, uncomplicated (principal)
CPT/HCPCS: 94060; 94726; 94729

== ENCOUNTER 2021-07-06 11:00 | Outpatient (RCR) | payer MEDICARE, SELFPAY ==
--- NOTE | 2021-06-20 10:49 | HP.PTEVAL_ITS ---
Patient's Visit Information CAT MICHAELS is a 81 year old M referred to Physical Therapy by Dr. Guero Mcneill DPM with a diagnosis of B Peripheral neuropathy. Date of Evaluation: 06/20/21 Physical Therapist: Bryan Penn DPT, OCS, CSCS - Visit Plan Frequency: 2x /Week Duration: 4 Weeks Plan: Please do 15 minutes of B foot massage underside of feet and the 15 minutes of teaching balance ex progression ec and foam working to I in gym. Pt is to do gym ex 2x/week, daily stretches for PF at home and add foot and toe ROM every 10 minutes when sitting long time and SLS at counter 1-2 min each leg daily. has foot massager at home to progress to when we find out if massage is helpful for tight feeling inn feet. - Subjective Sent over from foot doctor due to problem with feet. Had plantarfasciitis and that is better. Did fall and hurt knee and then that took precedence. PFitis is conquered. Knee is coming along well L. The fall was tripping on the last step into basement and no other falls. Is here because bottoms of feet from balls to heel feels like the skin is really tight. Sometimes it hurts badly, other days just feels tight. Not noticing a pattern to it. Has had this concern for years. Wears orthotics regularly. Stretches feet for plantarfasciitis and this sometimes helps. Looking something to do regularly which might give positive results. Has tried TENS unit on feet which seems to help. Wants less tightness in legs. Also feel like balance is uncertain at times but does not feel dangerous. Activities are pretty normal, more cautious. Works out at for LE strength, calf streetches, heel raises, machines LE and UE. Uses bike also. Retired. Sleep is OK. 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 Plays [employer]. - Pain B feet tightness Pain Intensity (Out of 10): 0 - Objective Walks normal and safe back to PT I. Trasnfers I, steps reciprocal with no rail up and down. SLS 3 seconds each leg, unable ec as he tends BW immediately. Tends backwards in romberg with ec adn on foam with ec. Tightness mildly in gastroc soleus B. Ankle hip and knee AROM WFL and strength at 4+/5 B. sensation to gross light touch WNl in B feet and ankles. reflexes 2/3 B patella and 1/3 B achilles. Coordination to reciprocal toe and heel tap is I and normal. pulses are present pedally B. - Balance/Special Test Scores Functional Gait Assessment Score: 29 % Disability: 3.3400 CATSIB Score (Max score 120 seconds): 79 Lower Extremity Functional Score: 72 - Goals Goal 1:: Pt feel tightness in feet is 50% better and manageable Goal Time Frame: 2-4 Weeks Goal 2:: I appropriate balance ex in gym to help minimize future problems Goal Time Frame: 2-4 Weeks - Rehabilitation Potential Physical Therapy Diagnosis: Unstable balance and sensation differences likely due to neuropathy Rehabilitation Potential: Questionable - Anticipated Interventions Patient/Client Instruction: Educate patient on: Condition, Plan of Care For the Purpose of:: To decrease pain, To improve balance Therapeutic Exercise to Include: Balance training For the Purpose of:: To improve balance, To improve safety with gait Manual Therapy Techniques to Include: Soft tissue mobilization For the Purpose of:: To decrease pain Thank you for the opportunity to evaluate your patient. For Medicare and Medicare HMO plans, please review the plan of care and approve it. It will need to be FAXED BACK to us at [phone] for Medicare purposes. For Medicare only, by signing this I certify the plan of care. Please let me know if there are questions or concerns regarding this plan of care. Physician Signature: Date:
--- NOTE | 2021-07-06 11:42 | HP.PTREVAL ---
Dr. Guero Mcneill, DPM, It has been my pleasure to treat CAT MICHAELS over the last 5 visits for B Peripheral neuropathy. Please see the progress note below for an update on the physical therapy plan of care! Subjective: Getting better, feet don't feel so bad. Balance feels Pretty good. Doing stretches at home. Wants to continue on own. Objective/Function: Pt doing well with walking, HEP and pain complaints. Plan Plan: f/u in two weeks to monitor progress with HEP and ensure consistent improvement and meeting of goals. and d/c if doing well Balance/Gait/Functional tests - Balance/Special Test Scores Functional Gait Assessment Score: 29 % Disability: 3.3400 CATSIB Score (Max score 120 seconds): 79 Lower Extremity Functional Score: 73 Goals Goal 1:: Pt feel tightness in feet is 50% better and manageable Goal Time Frame: 2-4 Weeks Goal Progress: Goal Met Goal 2:: I appropriate balance ex in gym to help minimize future problems Goal Time Frame: 2-4 Weeks Goal Progress: Goal Met Anticipated Interventions Patient/Client Instruction: Educate patient on: Condition, Plan of Care For the Purpose of:: To decrease pain, To improve balance Therapeutic Exercise to Include: Balance training For the Purpose of:: To improve balance, To improve safety with gait Manual Therapy Techniques to Include: Soft tissue mobilization For the Purpose of:: To decrease pain Please do not hesitate to contact me at [phone] by phone or if you have questions or concerns regarding this new plan of care! Sincerely, Bryan Penn, DPT, OCS, CSCS
--- NOTE | 2021-09-08 07:58 | HP.PT.NRP ---
CAT MICHAELS was seen in my office for initial evaluation on 06/20/21. The following Plan of Care was established for this patient: Initial Frequency: 2x /Week Initial Duration: 4 Weeks Patient/Client Instruction: Educate patient on: Condition, Plan of Care For the Purpose of:: To decrease pain, To improve balance Therapeutic Exercise to Include: Balance training For the Purpose of:: To improve balance, To improve safety with gait Manual Therapy Techniques to Include: Soft tissue mobilization For the Purpose of:: To decrease pain This patient was last seen in our office 07/06/21. Pertinent comments regarding their Physical therapy will appear below: Pt seen 5 visits of POC and was 95% better. he was to f/u two weeks after last session as needed to progress and ensure compliance. He did not schedule or attend that visit. At this point, it has been over 2 months and I will discontinue from my care. At this point I will be discontinuing this patient from physical therapy. I would be happy to see this patient again in the future if found appropriate by the physician. Thank you! Bryan Penn, DPT, OCS, CSCS Balance/Gait/Functional tests - Balance/Special Test Scores Functional Gait Assessment Score: 29 % Disability: 3.3400 CATSIB Score (Max score 120 seconds): 79 Lower Extremity Functional Score: 73
== END 2021-07-06 19:00 | disposition home or self-care (01) ==
LOC: PT 11:00
PROVIDERS: PCP Family Medicine; Referring Provider Podiatrist; Visit Provider Podiatrist
DX: G62.9 Polyneuropathy, unspecified (principal); R26.81 Unsteadiness on feet
CPT/HCPCS: 97110; 97140; 97161; 97164

== ENCOUNTER 2021-07-14 05:02 | Emergency (ER) | payer MEDICARE, SELFPAY ==
[2021-07-14 05:04] VITALS: BP 147/72; PULSE 63; RESP 18; TEMP 35.8; O2SAT 96; BMI 29.7
--- NOTE | 2021-07-14 05:23 | CT_ITS ---
HISTORY: head injury TECHNIQUE: Helically acquired images were obtained of the cervical spine without contrast. 2D reformatted images were reviewed. A radiation dose optimization technique was used for this scan. COMPARISON: None FINDINGS: # of images incl. paperwork: 370 SOFT TISSUES: No prevertebral soft tissue swelling. ALIGNMENT: Normal alignment. FRACTURE: No fracture or acute compression deformity. DISC SPACES/POSTERIOR ELEMENTS: Multilevel disc height loss with small posterior disc osteophyte complexes and facet arthropathy, most prominent at C4-C5 and C5-C6 with mild spinal canal stenosis and mild bilateral neuroforaminal narrowing. LUNG APICES: Visualized portions are unremarkable. THYROID: Visualized portions are unremarkable. SKULL BASE: Visualized portions are unremarkable. CT/Spine Cervical without Contras IMPRESSION: No acute fracture or subluxation. Mild spondylosis. Individualized dose optimization techniques were used for this CT. at 0615 Reported and signed by: Nam Boateng MD Electronically Signed: Nam Boateng MD at 6:14 EST ,
--- NOTE | 2021-07-14 05:23 | CT_ITS ---
HISTORY: head injury TECHNIQUE: Multiple axial images were obtained of the brain without intravenous contrast. Coronal and sagittal reformats obtained. Bone algorithm axial images obtained. A radiation dose optimization technique was used for this scan. COMPARISON: None FINDINGS: # of images incl. paperwork: 252 HEMORRHAGE: No evidence of acute intracranial hemorrhage. CEREBRAL PARENCHYMA: --Volume: Mild global cerebral volume loss. --White matter: Mild periventricular hypodense chronic small vessel ischemic change. --Mass: No evidence of intracranial mass. --Stroke: Li-white matter differentiation is preserved. VENTRICULAR SYSTEM: No hydrocephalus. MASS EFFECT: No midline shift or focal sulci effacement. Basal cisterns are preserved. SCALP: No large scalp hematoma. CALVARIUM/SKULL BASE: No fracture. PARANASAL SINUSES: Diffuse mucoperiosteal thickening, most prominent in the ethmoid sinuses. MASTOID AIR CELLS: Minimal left inferior mastoid air cell fluid. ORBITS: Imaged portions are unremarkable. VESSELS: Mild carotid atherosclerosis. ASPECTS acute stroke score: 10 CT/Brain/Head without Contrast IMPRESSION: No CT evidence of acute intracranial hemorrhage or injury. Mild senescent changes with atherosclerosis. Sinus disease as above. Minimal nonspecific left mastoid air cell fluid. Individualized dose optimization techniques were used for this CT. at 0611 Reported and signed by: Nam Boateng MD Electronically Signed: Nam Boateng MD at 6:10 EST ,
--- NOTE | 2021-07-14 05:23 | EKG12_ITS ---
Test Reason : SYNCOPE Blood Pressure : / mmHG Vent. Rate : 052 BPM Atrial Rate : 052 BPM P-R Int : 262 ms QRS Dur : 120 ms QT Int : 484 ms P-R-T Axes : 068 069 055 degrees QTc Int : 450 ms Sinus bradycardia with 1st degree A-V block Otherwise normal ECG Confirmed by ALEXANDRE ERNANDEZ, MYKE ([id number]), technical writer and editor SANTHOSH MOORE ([id number]) on 07/17/2021 10:56:48 AM Referred By: SHAI Confirmed By:MYKE SCHROEDER MD
[2021-07-14] MEDS: Ondansetron 4 MG/2 ML Vial IV (05:35)
[2021-07-14 05:43] LABS: Absolute Lymphocyte Count 2.39 X10^3/uL (0.83-4.51); Absolute Neutrophil Count 5.7 X10^3/uL (2.0-7.7); Basophil# 0.04 X10^3/uL; Basophil% 0.4 % (0-1); Eosinophil# 0.22 X10^3/uL; Eosinophils% 2.3 % (0-5); Hematocrit 40.6 % (40-54); Hemoglobin 14.2 g/dL (13.0-16.5); Lymphocyte # 2.39 X10^3/ul (0.83-4.51); Lymphocyte % 24.8 % (19-41); Mean Corpuscular Hgb 32.5 pg (27.0-32.0); Mean Corpuscular Volume 92.9 fL (80-94); Mean Platelet Vol. 10.3 fl (6.2-12.0); Monocyte% 13.5 % (0-10); NRBC Flagged by Analyzer 0 % (0-5); Neutrophil # 5.65 X10^3/uL (2.7-7.7); Neutrophil % 58.6 % (47-70); Platelet Count 187 K/mm3 (150-450); RBC Distribution Width CV 13.2 % (11.6-14.6); RBC Distribution Width SD 44.8 fl (35.1-43.9); Red Blood Count 4.37 M/mm3 (4.6-6.2); White Blood Count 9.6 K/mm3 (4.4-11.0)
[2021-07-14 05:55] LABS: International Normalized Ratio 1.1; Prothrombin Time (Protime)PT. 13.5 SECONDS (11.7-14.9)
--- NOTE | 2021-07-14 05:55 | RAD_ITS ---
HISTORY: cough EXAMINATION/TECHNIQUE: XR Chest 1 View: 3 image frontal chest radiograph COMPARISON: August 25, 2020 FINDINGS: LINES/DEVICES: None. LUNGS: Eventration of the hemidiaphragms. No airspace consolidation. Unremarkable interstitium. No effusion. No pneumothorax. MEDIASTINUM: Mild cardiomegaly. Aortic atherosclersosis. MUSCULOSKELETAL: No acute osseous finding. RAD/Chest 1 View (Portable) IMPRESSION: Cardiomegaly without florid pulmonary edema. No evidence of acute cardiopulmonary process. at 0618 Reported and signed by: Nam Boateng MD Electronically Signed: Nam Boateng MD at 6:16 EST ,
[2021-07-14 06:01] LABS: ALB/GLOB Ratio 1.1 RATIO (0.9-2.4); AST(SGOT) 17 U/L (15-37); Alanine Aminotransfer ALT/SGPT 27 U/L (16-61); Albumin, Serum 3.6 g/dL (3.2-5.0); Alkaline Phosphatase 82 U/L (45-117); Anion Gap 5 (5-15); BUN 20 mg/dL (7-18); BUN/Creat Ratio 12.9 RATIO (10-20); Calcium,Total 8.9 mg/dL (8.5-10.1); Chloride 105 mmol/L (98-107); Creatinine, Serum 1.55 mg/dL (0.70-1.30); EST Glomerular Filtration Rate 46 mL/min (>60); Est Glom Filt Rate - Afr Amer 56 mL/min (>60); Estimated Creatinine Clearance 33.73 ml/min; Globulin 3.4 g/dL (2.2-4.2); Glucose 164 mg/dL (74-106); Sodium Level 137 mmol/L (136-145)
[2021-07-14 06:03] VITALS: BP 141/72; PULSE 56; RESP 16; TEMP 37.1; O2SAT 98
[2021-07-14 06:43] VITALS: O2SAT 99
--- NOTE | 2021-07-14 07:00 | EX.ED.DYSGE1 ---
HPI History of Present Illness Chief Complaint: Syncope Informant: patient and spouse/S.O. Narrative Narrative: Patient brought in by EMS for syncopal episode with head injury. Patient on Eliquis for history of paroxysmal atrial fibrillation. Is been on this for least 5 years. Reports was coming back from the restroom felt lightheaded and does not recall the event. He hit his head on the hardwood floor. Mild headache. He nausea and vomiting x1. Status post Zofran by EMS. Denies neck back chest or abdominal pain. No extremity pain or paresthesias. Tetanus was back in 2008. Denied recent vomiting or diarrhea. Denies urinary symptoms. He states he has been dealing with a viral cold since Saturday sick contacts in the car. He is Covid vaccinated. Reports mild cough. No fevers. No loss of taste or smell. Prior similar symptoms: No PFSH PFSH Medical History Asthma Candidiasis of mouth Chronic kidney disease CKD (chronic kidney disease) stage 3, GFR 30-59 ml/min CPAP (continuous positive airway pressure) dependence Dyspnea on exertion Former smoker History of stress test Hx of echocardiogram Hyperlipidemia Irregular heart beat Moderate persistent asthma CHUCKIE (obstructive sleep apnea) Other acute postprocedural pain Paroxysmal atrial fibrillation Rhinitis Shortness of breath on exertion Wears glasses Home Medications cholecalciferol (vitamin D3) 5,000 unit PO DAILY 11/10/15 [History Last Taken 09/01/20 08:30 5000 UNIT] multivitamin 1 ea PO DAILY 11/10/15 [History Last Taken 09/01/20 08:30 1 EA] azelastine 137 mcg (0.1 %) nasal spray aerosol 1 spray INTRANASAL BID PRN 04/18/17 [History Last Taken Unknown] albuterol sulfate 90 mcg/actuation aerosol inhaler 1 puff INHALATION Q4H PRN PRN #2 device 05/08/18 [Rx Last Taken 02/20/19 16:00 1 puff] acetaminophen 1,000 mg PO Q6H PRN #100 tab 09/01/20 [Rx Last Taken Unknown] budesonide-formoterol HFA 160 mcg-4.5 mcg/actuation aerosol inhaler 2 inh INHALATION BID #10.2 g 03/01/21 [Rx Last Taken Unknown] fluticasone propionate 50 mcg/actuation nasal spray,suspension 1 spray INHALATION DAILY PRN #16 g 03/20/21 [Rx Last Taken Unknown] apixaban 2.5 mg tablet 2.5 mg PO BID #180 tab 04/17/21 [Rx Last Taken Unknown] diltiazem HCl 120 mg capsule,extended release 24 hr 120 mg PO DAILY #90 cap 05/30/21 [Rx Last Taken Unknown] flecainide 100 mg tablet 100 mg PO BID #180 tab 06/12/21 [Rx Last Taken Unknown] montelukast 10 mg tablet 10 mg PO QPM #90 tab 07/07/21 [Rx Last Taken Unknown] Allergy/AdvReac Type Severity Reaction Status Date / Time No Known Allergies Allergy Verified 07/14/21 05:09 Family History Father , Had pacemaker, at advanced age No problems noted. Mother , lived to advanced age No problems noted. Surgical History History of appendectomy History of nasal surgery History of umbilical hernia repair Social History Smoking Status: Former smoker how long ago did patient quit smokin years ago alcohol intake: current alcohol intake frequency: a few times a week Alcohol type: wine caffeine: No ROS ROS ED Constitutional Constitutional ED: Denies chills, fever(s) or sweats Eyes Eyes: Denies change in vision ENT ENT ED: Denies dysphagia or sore throat Cardiovascular Cardiovascular: Denies chest pain, leg edema, palpitations or racing heartbeat Respiratory/Chest Respiratory/Chest: Reports cough; Denies dyspnea or dyspnea on exertion Gastrointestinal Gastrointestinal: Reports nausea and vomiting; Denies abdominal pain or diarrhea Genitourinary Genitourinary ED: Denies dysuria, hematuria or urinary frequency Musculoskeletal Musculoskeletal: Denies back pain, extremity pain or neck pain Integumentary Denies rash or wounds Neurologic Neurologic: Reports headache(s); Denies paresthesias or weakness EXAM Physical Exam Const Vital Signs: 07/14/21 05:04 07/14/21 06:03 07/14/21 07:28 Temperature 96.4 F L 98.7 F Temperature Source Temporal Temporal Pulse Rate 63 56 L 61 Respiratory Rate 18 16 18 Blood Pressure 147/72 H 141/72 H 150/78 H Blood Pressure Mean 97 95 Pulse Ox 96 98 96 Oxygen Delivery Method Room Air Room Air Positive well nourished and well developed Constitutional Narrative: GCS 15. General Appearance ED: well developed and NAD HEENT Reports moist mucous membranes HEENT Narrative: No hemotympanums. There is small contusion left medial brow with an abrasion with dried blood. There is no deep lacerations. No proptosis or entrapment. normocephalic and atraumatic Eyes PERRL, EOMs intact bilaterally and conjunctivae normal General Eye ED: Yes normal appearance of both eyes Neck no lymphadenopathy and supple Neck Narrative: No midline tenderness or step-off. General: Negative for tenderness Chest Wall Chest: Negative for tenderness Resp normal respiratory effort and normal air movement Effort and Inspection: symmetric chest movement; Negative for respiratory distress Cardio regular rate, regular rhythm and no murmurs Peripheral Pulses: pulses 2+ throughout GI normal to inspection, nondistended, normoactive bowel sounds and non-tender Palpation: Negative for guarding or rebound tenderness present Back/Spine no CVA tenderness and no thoracic nor lumbar tenderness Cervical Spine: Negative for cervical spine tenderness Thoracic Spine / Upper Back: Negative for thoracic spinal tenderness Lumbar Spine / Lower Back: Negative for lumbar spinal tenderness Extremity normal to inspection Extremity Narrative: Negative logroll bilateral lower extremities. Active full range of motion x4 extremities. Pulses intact x4. General Extremety ED: Negative for edema or tenderness General Extremity: Negative for edema Neuro oriented x3, CN's II-XII intact bilaterally and no sensory deficits noted Sensorium / Orientation: awake and alert Skin Skin Narrative: Abrasion contusion noted left medial brow. MDM MDM MDM Narrative Medical decision making narrative: Patient no focal deficits. Due to being on Eliquis trauma scan obtain a head and neck returning negative. EKG was sinus rhythm. Basic labs were normal. Covid testing obtained due to cough also negative. Chest x-ray 1 view reviewed by myself and read by radiology shows no acute process. Patient's tetanus updated wound was cleansed by nursing. Patient was ambulated by nursing with no difficulties. Likely orthostasis process from post ictal urination. Currently clinically stable. Creatinine 1.55 stable from previous history of chronic kidney disease. We will monitor symptoms he will follow-up as an outpatient. Return precautions discussed. All questions were answered. Lab Data Labs: Laboratory Results - last 24 hr 07/14/21 07/14/21 07/14/21 05:20 05:20 05:20 WBC 9.6 RBC 4.37 L Hgb 14.2 Hct 40.6 MCV 92.9 MCH 32.5 H MCHC 35.0 RDW Std Deviation 44.8 H RDW Coeff of Tiffany 13.2 Plt Count 187 MPV 10.3 Immature Gran % (Auto) 0.400 Neut % (Auto) 58.6 Lymph % (Auto) 24.8 [place] % (Auto) 13.5 H Eos % (Auto) 2.3 Baso % (Auto) 0.4 Absolute Neuts (auto) 5.7 Absolute Lymphs (auto) 2.39 Nucleated RBC % 0 PT 13.5 INR 1.1 APTT 31.0 Sodium 137 Potassium 4.0 Chloride 105 Carbon Dioxide 27.0 Anion Gap 5 BUN 20 H Creatinine 1.55 H Estim Creat Clear Calc 33.73 Est GFR (MDRD) Af Amer 56 L Est GFR (MDRD) Non-Af 46 L BUN/Creatinine Ratio 12.9 Glucose 164 H Calcium 8.9 Total Bilirubin 0.70 AST 17 ALT 27 Alkaline Phosphatase 82 Total Protein 7.0 Albumin 3.6 Globulin 3.4 Albumin/Globulin Ratio 1.1 Radiography Chest X-Ray - ED: 1 View, Read by ED Physician and Read by Radiologist Diagnostic Testing: Clinical Impression(s) from Imaging Studies Brain CT 07/14/21 05:23 IMPRESSION: No CT evidence of acute intracranial hemorrhage or injury. Mild senescent changes with atherosclerosis. Sinus disease as above. Minimal nonspecific left mastoid air cell fluid. Individualized dose optimization techniques were used for this CT. at 0611 Reported and signed by: Nam Boateng MD Electronically Signed: Nam Boateng MD at 6:10 EST Reading Location ID and State: [facility] / [place] Tel , Service support , Cervical Spine CT 07/14/21 05:23 IMPRESSION: No acute fracture or subluxation. Mild spondylosis. Individualized dose optimization techniques were used for this CT. at 0615 Reported and signed by: Nam Boateng MD Electronically Signed: Nam Boateng MD at 6:14 EST Reading Location ID and State: [facility] / [place] Tel , Service support , Chest X-Ray 07/14/21 05:55 IMPRESSION: Cardiomegaly without florid pulmonary edema. No evidence of acute cardiopulmonary process. at 0618 Reported and signed by: Nam Boateng MD Electronically Signed: Nam Boateng MD at 6:16 EST Reading Location ID and State: [facility] / [place] Tel , Service support , EKG Initial EKG: Attestation: I personally reviewed and interpreted this EKG as follows: Comments: Sinus rate of 52, no ST or T wave changes QTC 450. Discharge Plan Triage Chief Complaint: Syncope ED Provider: Gene Sheppard Dx/Rx/DC Orders Clinical Impression: Syncope, Chronic kidney disease, CHI (closed head injury), Abrasion of face, Tetanus toxoid vaccination administered at current visit, URI (upper respiratory infection) Instructions: Causes of Syncope, ED Abrasion, ED Head Injury (Adult), ED URI, Viral, No Abx (Adult) Prescriptions: No Action azelastine 137 mcg (0.1 %) aerosol,spray 1 spray INTRANASAL BID PRN (Reason: Congestion) RF: 0 albuterol sulfate 90 mcg/actuation HFA aerosol inhaler 1 puff INHALATION Q4H PRN PRN (Reason: Shortness Of Breath) Qty: 2 RF: 0 multivitamin 1 EACH tablet 1 ea PO DAILY RF: 0 cholecalciferol (vitamin D3) 1,000 UNIT tablet 5,000 unit PO DAILY RF: 0 acetaminophen [acetaminophen] 500 MG tablet 1,000 mg PO Q6H PRN Qty: 100 RF: 0 budesonide-formoterol 160-4.5 mcg/actuation HFA aerosol inhaler 2 inh INHALATION BID Qty: 10.2 RF: 3 fluticasone propionate 50 mcg/actuation spray,suspension 1 spray INHALATION DAILY PRN (Reason: Congestion) Qty: 16 RF: 5 Eliquis 2.5 mg tablet 2.5 mg PO BID Qty: 180 RF: 3 diltiazem HCl 120 mg capsule,extended release 24hr 120 mg PO DAILY Qty: 90 RF: 3 flecainide 100 mg tablet 100 mg PO BID Qty: 180 RF: 3 montelukast 10 mg tablet 10 mg PO QPM Qty: 90 RF: 3 Primary Care Provider: Vikas Lockhart Referrals: Vikas Lockhart MD [Primary Care Provider] - 3-5 Days Activity Restrictions/Additional Instructions: CT head and neck negative. Labs and EKG normal. Your Covid testing negative your chest x-ray negative. Creatinine stable today at 1.55. Follow-up with your doctor. Return if any worsening symptoms. Disposition Disposition: Home, Self Care Discharge Date/Time: 07/14/21 07:45
[2021-07-14] MEDS: Diphth,Pertuss(Acell),Tet Vac 0.5 ML Vial IM (07:21)
[2021-07-14 07:28] VITALS: BP 150/78; PULSE 61; RESP 18; O2SAT 96
== END 2021-07-14 07:45 | disposition home or self-care (01) ==
PROVIDERS: Emergency Provider Emergency Medicine; PCP Family Medicine; Visit Provider Emergency Medicine
DX: R55 Syncope and collapse (principal); I48.0 Paroxysmal atrial fibrillation; N18.30 Chronic kidney disease, stage 3 unspecified; S09.90XA Unspecified injury of head, initial encounter; S00.81XA Abrasion of other part of head, initial encounter; E78.5 Hyperlipidemia, unspecified; J06.9 Acute upper respiratory infection, unspecified; Z87.891 Personal history of nicotine dependence; Z99.89 Dependence on other enabling machines and devices; G47.33 Obstructive sleep apnea (adult) (pediatric); Z79.01 Long term (current) use of anticoagulants; Z23 Encounter for immunization
CPT/HCPCS: 70450; 71045; 72125; 80053; 85025; 85610; 85730; 87811; 90471; 90715; 93005; 96374; 99284; A4216; J2405

== ENCOUNTER 2021-08-04 09:58 | Outpatient (CLI) | payer MEDICARE, SELFPAY ==
[2021-08-04 10:45] LABS: Hematocrit 41.7 % (40-54); Hemoglobin 14.1 g/dL (13.0-16.5); Mean Corp Hgb Conc 33.8 g/dL (32-36); Mean Corpuscular Volume 94.6 fL (80-94); Mean Platelet Vol. 10.2 fl (6.2-12.0); Platelet Count 160 K/mm3 (150-450); RBC Distribution Width SD 45.6 fl (35.1-43.9); Red Blood Count 4.41 M/mm3 (4.6-6.2); White Blood Count 9.8 K/mm3 (4.4-11.0)
[2021-08-04 11:26] LABS: AST(SGOT) 18 U/L (15-37); Alanine Aminotransfer ALT/SGPT 32 U/L (16-61); Albumin, Serum 3.6 g/dL (3.2-5.0); Alkaline Phosphatase 81 U/L (45-117); Anion Gap 4 (5-15); BUN 21 mg/dL (7-18); BUN/Creat Ratio 14.7 RATIO (10-20); Bilirubin, Direct 0.19 mg/dL (0.00-0.30); Calcium,Total 8.6 mg/dL (8.5-10.1); Chloride 106 mmol/L (98-107); Cholesterol 155 mg/dL (200); Creatinine, Serum 1.43 mg/dL (0.70-1.30); EST Glomerular Filtration Rate 50 mL/min (>60); Est Glom Filt Rate - Afr Amer 61 mL/min (>60); Globulin 3.6 g/dL (2.2-4.2); Glucose 160 mg/dL (74-106); High Density Lipoprotein 48 mg/dL; Potassium 4.5 mmol/L (3.5-5.1); Protein, Total 7.2 g/dL (6.4-8.2); Sodium Level 139 mmol/L (136-145); T4 Total, Thyroxin 7.7 ug/dL (4.5-12.1); Thyroid Stim Hormone (TSH) 3.16 uIU/mL (0.358-3.74); Triglycerides 99 mg/dL; Very Low Density Lipoprotein 20 mg/dL (5-40)
== END 2021-08-04 23:59 | disposition home or self-care (01) ==
PROVIDERS: PCP Family Medicine; Referring Provider Internal Medicine Cardiovascular Disease; Visit Provider Internal Medicine Cardiovascular Disease
DX: R42 Dizziness and giddiness (principal); I48.0 Paroxysmal atrial fibrillation; E78.00 Pure hypercholesterolemia, unspecified
CPT/HCPCS: 36415; 80048; 80061; 80076; 84436; 84443; 85027

== ENCOUNTER 2021-09-05 11:02 | Emergency (ER) | payer MEDICARE, SELFPAY ==
[2021-09-05 11:03] VITALS: BP 138/83; PULSE 69; RESP 18; TEMP 36.6; BMI 25.7
[2021-09-05 11:05] VITALS: BP 138/83; PULSE 64; RESP 18; TEMP 36.6; O2SAT 97
--- NOTE | 2021-09-05 11:24 | EDS_ITS ---
HPI HPI - GI History of Present Illness Chief Complaint: Diarrhea Informant: patient and spouse/S.O. Abdominal Pain/Flank Pain Onset: - (NO abd pain) Nausea/Vomiting/Emesis GI Symptom: Positive for Vomiting (twice, both times isolated and just after eating, none in past 24-48 hrs); Negative for Nausea Quality: Positive for Nonbilious (just food); Negative for Blood streaks, Coffee ground and Hematemesis Diarrhea/Melena/Hematochezia GI Symptom: Positive for Diarrhea; Negative for Melena and Hematochezia Onset: Days (3) Stool Quality: Positive for Watery; Negative for Black, Maroon and BRB per rectum Severity: Severe (5-10 per day) Associated Symptoms Associated Symptoms: Negative for Dysuria, Frequency, Hematuria and Urgency Narrative Narrative: Profuse watery diarrhea for the past couple days. Patient has been drinking well, trying to stay hydrated, he has been a little fatigued but denies any lightheadedness or near syncope/syncope. No chest symptoms. He did vomit twice as above, but for the most part he has not been nauseated. Denies any abdominal pain. Denies contact with anyone who has been ill lately that he knows of. No recent antibiotics or other illness, although he did have a similar more limited episode of diarrhea several weeks ago that resolved without treatment. He had a history of C. difficile long ago but not recently. Denies any recent travel or suspicious food ingestions such as undercooked meats or leftovers that have sat out. [facility] Medical History Asthma Candidiasis of mouth Chronic kidney disease CKD (chronic kidney disease) stage 3, GFR 30-59 ml/min CPAP (continuous positive airway pressure) dependence Dyspnea on exertion Former smoker History of stress test Hx of echocardiogram Hyperlipidemia Irregular heart beat Moderate persistent asthma CHUCKIE (obstructive sleep apnea) Other acute postprocedural pain Paroxysmal atrial fibrillation Rhinitis Shortness of breath on exertion Wears glasses Home Medications cholecalciferol (vitamin D3) 5,000 unit PO DAILY 11/10/15 [History Last Taken 09/01/20 08:30 5000 UNIT] multivitamin 1 ea PO DAILY 11/10/15 [History Last Taken 09/01/20 08:30 1 EA] azelastine 137 mcg (0.1 %) nasal spray aerosol 1 spray INTRANASAL BID PRN 04/18/17 [History Last Taken Unknown] albuterol sulfate 90 mcg/actuation aerosol inhaler 1 puff INHALATION Q4H PRN PRN #2 device 05/08/18 [Rx Last Taken 02/20/19 16:00 1 puff] acetaminophen 1,000 mg PO Q6H PRN #100 tab 09/01/20 [Rx Last Taken Unknown] budesonide-formoterol HFA 160 mcg-4.5 mcg/actuation aerosol inhaler 2 inh INHALATION BID #10.2 g 03/01/21 [Rx Last Taken Unknown] fluticasone propionate 50 mcg/actuation nasal spray,suspension 1 spray INHALATION DAILY PRN #16 g 03/20/21 [Rx Last Taken Unknown] apixaban 2.5 mg tablet 2.5 mg PO BID #180 tab 04/17/21 [Rx Last Taken Unknown] diltiazem HCl 120 mg capsule,extended release 24 hr 120 mg PO DAILY #90 cap 05/30/21 [Rx Last Taken Unknown] flecainide 100 mg tablet 100 mg PO BID #180 tab 06/12/21 [Rx Last Taken Unknown] montelukast 10 mg tablet 10 mg PO QPM #90 tab 07/07/21 [Rx Last Taken Unknown] Allergy/AdvReac Type Severity Reaction Status Date / Time No Known Allergies Allergy Verified 09/05/21 11:06 Family History Father , Had pacemaker, at advanced age No problems noted. Mother , lived to advanced age No problems noted. Surgical History History of appendectomy History of nasal surgery History of umbilical hernia repair Social History Smoking Status: Former smoker how long ago did patient quit smokin years ago alcohol intake: current alcohol intake frequency: a few times a week Alcohol type: wine caffeine: No ROS ROS ED Constitutional Constitutional ED: Reports malaise; Denies chills or fever(s) Eyes Eyes: Denies change in vision or diplopia ENT ENT ED: Denies rhinorrhea or sore throat Cardiovascular Cardiovascular: Denies chest pain or palpitations Respiratory/Chest Respiratory/Chest: Denies cough or dyspnea Gastrointestinal Gastrointestinal: Reports as per HPI, diarrhea and vomiting; Denies abdominal pain or nausea Genitourinary Genitourinary ED: Denies dysuria or hematuria Musculoskeletal Musculoskeletal: Denies back pain or neck pain Integumentary Denies abscess or rash Neurologic Neurologic: Denies headache(s), paresthesias or weakness Psychiatric Psychiatric: Denies anxiety or suicidal thoughts EXAM Physical Exam Const Vital Signs: 09/05/21 11:03 09/05/21 11:05 09/05/21 12:05 Temperature 98 F 98 F 98.7 F Temperature Source Temporal Oral Oral Pulse Rate 69 64 59 L Respiratory Rate 18 18 18 Blood Pressure 138/83 H 138/83 H 120/69 Blood Pressure Mean 101 101 86 Pulse Ox 97 96 Oxygen Delivery Method Room Air Room Air 09/05/21 13:05 Temperature 98.4 F Temperature Source Oral Pulse Rate 57 L Respiratory Rate 18 Blood Pressure 122/63 H Blood Pressure Mean 82 Pulse Ox 96 Oxygen Delivery Method Room Air Positive well nourished and well developed Constitutional Narrative: well-appearing General Appearance ED: well developed and NAD HEENT Reports moist mucous membranes normocephalic and atraumatic Eyes PERRL and EOMs intact bilaterally Neck full ROM and supple Resp normal respiratory effort and clear to auscultation bilaterally Cardio regular rate, regular rhythm and no murmurs GI non-tender and non-distended Auscultation: normoactive bowel sounds Palpation: soft Back/Spine no CVA tenderness General Back: other FROM Extremity normal to inspection General Extremety ED: Negative for edema, pulses abnormal or tenderness General Extremity: Negative for edema or pulses abnormal Neuro oriented x3, CN's II-XII intact bilaterally and no sensory deficits noted Sensorium / Orientation: awake and alert Motor Exam: strength 5/5 throughout Psych mental status grossly normal, thought process normal, cooperative, affect normal and speech normal Skin no rashes or lesions noted and no wounds MDM MDM MDM Narrative Medical decision making narrative: Lab work obtained unremarkable, he has chronic renal insufficiency that is essentially unchanged. While getting hydrated here in emergency department he did not have the need to have a bowel movement and was unable to provide a specimen. I discussed with him that most causes of diarrhea are self-limiting, however with his history of C. difficile I think it is entirely reasonable to obtain test on his stool which would really be the only way to rule in or rule out either bacterial or C. difficile opportunistic infection given he does not have symptoms of severe colitis nor does he have a leukocytosis on his blood work. He understands this, he has been hydrating well as an outpatient stable for discharge home which is what he wants to do, so given a stool collection kit and prescription for the test that we wanted to follow-up with his regular doctor. Lab Data Attestation: I reviewed the patient's lab results. Labs: Laboratory Results - last 24 hr 09/05/21 09/05/21 11:40 11:40 WBC 7.2 RBC 4.81 Hgb 15.7 Hct 44.5 MCV 92.5 MCH 32.6 H MCHC 35.3 RDW Std Deviation 44.3 H RDW Coeff of Tiffany 12.9 Plt Count 185 MPV 9.9 Immature Gran % (Auto) 0.300 Neut % (Auto) 56.8 Lymph % (Auto) 23.0 [place] % (Auto) 17.9 H Eos % (Auto) 1.7 Baso % (Auto) 0.3 Absolute Neuts (auto) 4.1 Absolute Lymphs (auto) 1.65 Nucleated RBC % 0 Differential Comment SCANNED Reactive Lymphocytes 1+ Sodium 137 Potassium 3.9 Chloride 104 Carbon Dioxide 23.0 Anion Gap 10 BUN 21 H Creatinine 1.41 H Estim Creat Clear Calc 37.08 Est GFR (MDRD) Af Amer 62 Est GFR (MDRD) Non-Af 51 L BUN/Creatinine Ratio 14.9 Glucose 100 Calcium 8.8 Total Bilirubin 0.50 AST 44 H ALT 34 Alkaline Phosphatase 70 Total Protein 7.3 Albumin 3.7 Globulin 3.6 Albumin/Globulin Ratio 1.0 Discharge Plan Triage Chief Complaint: Diarrhea ED Provider: Diego Park Dx/Rx/DC Orders Clinical Impression: Acute diarrhea, Chronic kidney insufficiency Instructions: ED Diarrhea, Unknown Cause Prescriptions: No Action azelastine 137 mcg (0.1 %) aerosol,spray 1 spray INTRANASAL BID PRN (Reason: Congestion) RF: 0 albuterol sulfate 90 mcg/actuation HFA aerosol inhaler 1 puff INHALATION Q4H PRN PRN (Reason: Shortness Of Breath) Qty: 2 RF: 0 multivitamin 1 EACH tablet 1 ea PO DAILY RF: 0 cholecalciferol (vitamin D3) 1,000 UNIT tablet 5,000 unit PO DAILY RF: 0 acetaminophen [acetaminophen] 500 MG tablet 1,000 mg PO Q6H PRN Qty: 100 RF: 0 budesonide-formoterol 160-4.5 mcg/actuation HFA aerosol inhaler 2 inh INHALATION BID Qty: 10.2 RF: 3 fluticasone propionate 50 mcg/actuation spray,suspension 1 spray INHALATION DAILY PRN (Reason: Congestion) Qty: 16 RF: 5 Eliquis 2.5 mg tablet 2.5 mg PO BID Qty: 180 RF: 3 diltiazem HCl 120 mg capsule,extended release 24hr 120 mg PO DAILY Qty: 90 RF: 3 flecainide 100 mg tablet 100 mg PO BID Qty: 180 RF: 3 montelukast 10 mg tablet 10 mg PO QPM Qty: 90 RF: 3 Primary Care Provider: Vikas Lockhart Referrals: Vikas Lockhart MD [Primary Care Provider] - Activity Restrictions/Additional Instructions: Until you have a negative C. difficile test, avoid taking Imodium and take either a probiotic or eat yogurt at least 1 container daily. Disposition Disposition: Home, Self Care
[2021-09-05 12:02] LABS: Absolute Lymphocyte Count 1.65 X10^3/uL (0.83-4.51); Absolute Neutrophil Count 4.1 X10^3/uL (2.0-7.7); Basophil# 0.02 X10^3/uL; Basophil% 0.3 % (0-1); Eosinophil# 0.12 X10^3/uL; Eosinophils% 1.7 % (0-5); Hematocrit 44.5 % (40-54); Hemoglobin 15.7 g/dL (13.0-16.5); Lymphocyte # 1.65 X10^3/ul (0.83-4.51); Mean Corp Hgb Conc 35.3 g/dL (32-36); Mean Corpuscular Hgb 32.6 pg (27.0-32.0); Mean Corpuscular Volume 92.5 fL (80-94); Mean Platelet Vol. 9.9 fl (6.2-12.0); Monocyte# 1.28 X10^3/uL; Monocyte% 17.9 % (0-10); NRBC Flagged by Analyzer 0 % (0-5); Neutrophil # 4.07 X10^3/uL (2.7-7.7); Neutrophil % 56.8 % (47-70); POSITIVE MORPHOLOGY YES; Platelet Count 185 K/mm3 (150-450); RBC Distribution Width CV 12.9 % (11.6-14.6); RBC Distribution Width SD 44.3 fl (35.1-43.9); Red Blood Count 4.81 M/mm3 (4.6-6.2); White Blood Count 7.2 K/mm3 (4.4-11.0)
[2021-09-05 12:03] LABS: Differential Indicated SCAN CRITERIA MET
[2021-09-05 12:05] VITALS: BP 120/69; PULSE 59; RESP 18; TEMP 37.1; O2SAT 96
[2021-09-05 12:09] LABS: AST(SGOT) 44 U/L (15-37); Alanine Aminotransfer ALT/SGPT 34 U/L (16-61); Albumin, Serum 3.7 g/dL (3.2-5.0); Alkaline Phosphatase 70 U/L (45-117); Anion Gap 10 (5-15); BUN 21 mg/dL (7-18); BUN/Creat Ratio 14.9 RATIO (10-20); Calcium,Total 8.8 mg/dL (8.5-10.1); Chloride 104 mmol/L (98-107); Creatinine, Serum 1.41 mg/dL (0.70-1.30); EST Glomerular Filtration Rate 51 mL/min (>60); Est Glom Filt Rate - Afr Amer 62 mL/min (>60); Estimated Creatinine Clearance 37.08 ml/min; Globulin 3.6 g/dL (2.2-4.2); Glucose 100 mg/dL (74-106); Potassium 3.9 mmol/L (3.5-5.1); Protein, Total 7.3 g/dL (6.4-8.2); Sodium Level 137 mmol/L (136-145)
[2021-09-05 12:33] LABS: Differential Comment SCANNED; Reactive Lymphocyte 1+
[2021-09-05 13:05] VITALS: BP 122/63; PULSE 57; RESP 18; TEMP 36.9; O2SAT 96
--- NOTE | 2021-09-05 13:08 | NURSING ---
pt and pts asked this RN how long is this going to be? this RN explains to pt that we are still waiting on another stool sample to be sent for further testing. pt states that he is not sure if he can provide another sample. pts expresses that i have things to do later today and i want to be sure i can do them. pt requesting to be able to leave at this time. provider aware
[2021-09-05 13:19] VITALS: BP 124/65; PULSE 86; RESP 18; O2SAT 94
--- NOTE | 2021-09-11 14:23 | CASEMGMT ---
ED follow-up phone call: BENJAMIN DONALDSON attempted to complete follow-up phone call at this time. No answer, voice message left with return contact information.
== END 2021-09-05 13:48 | disposition home or self-care (01) ==
PROVIDERS: Emergency Provider Emergency Medicine; PCP Family Medicine; Visit Provider Emergency Medicine
DX: R19.7 Diarrhea, unspecified (principal); I48.0 Paroxysmal atrial fibrillation; N18.30 Chronic kidney disease, stage 3 unspecified; E78.5 Hyperlipidemia, unspecified; Z87.891 Personal history of nicotine dependence; R10.9 Unspecified abdominal pain; K92.0 Hematemesis; Z99.89 Dependence on other enabling machines and devices; G47.33 Obstructive sleep apnea (adult) (pediatric)
CPT/HCPCS: 80053; 83630; 85025; 87329; 87493; 87506; 99282; A4216

== ENCOUNTER → 2021-09-05 | Outpatient (CLI) | payer MEDICARE, SELFPAY ==
[2021-09-07 14:32] LABS: Giardia Lamblia, Stool EIA Negative (Negative)
== END | disposition home or self-care (01) ==
LOC: LABSPEC 09-06 08:46
PROVIDERS: PCP Family Medicine; Visit Provider Emergency Medicine
DX: R19.7 Diarrhea, unspecified (principal); Z87.19 Personal history of other diseases of the digestive system
CPT/HCPCS: 87329; 87506

== ENCOUNTER → 2021-11-16 | Outpatient (CLI) | payer MEDICARE, SELFPAY | END | disposition home or self-care (01) | LOC: SL 09:21 | PROVIDERS: PCP Family Medicine; Visit Provider Nurse Practitioner Acute Care | DX: Z46.89 Encounter for fitting and adjustment of other specified devices (principal) ==

== ENCOUNTER 2022-01-25 21:31 | Emergency (ER) | payer MEDICARE, SELFPAY ==
[2022-01-25 21:31] VITALS: BP 147/74; PULSE 47; RESP 18; TEMP 36.7; O2SAT 98; BMI 26.1
--- NOTE | 2022-01-25 21:35 | ED.RN ---
ATTEMPT TO CALL RT FOR EKG AND PHONE JUST KEPT RINING,NO ANSWER.
[2022-01-25 21:38] VITALS: PULSE 72; RESP 17; O2SAT 96
--- NOTE | 2022-01-25 21:48 | EKG12_ITS ---
Test Reason : DYSRHYTHMIA Blood Pressure : / mmHG Vent. Rate : 072 BPM Atrial Rate : 064 BPM P-R Int : 000 ms QRS Dur : 138 ms QT Int : 458 ms P-R-T Axes : 000 055 030 degrees QTc Int : 501 ms Atrial fibrillation Non-specific intra-ventricular conduction block Abnormal ECG Confirmed by ALEXANDRE ERNANDEZ, MYKE ([id number]), sound editor SANTHOSH MOORE ([id number]) on 01/29/2022 9:47:18 AM Referred By: GENE Confirmed By:MYKE SCHROEDER MD
--- NOTE | 2022-01-25 21:50 | EDS_ITS ---
HPI History of Present Illness Chief Complaint: Palpitations Narrative Narrative: 82-year-old male presenting with lightheadedness and palpitations. He feels his heart rate is irregular. He was seen by Dr. Mckeon earlier today and had an EKG and was told he is not in atrial fibrillation. He does have a history of paroxysmal A. fib fib. He is on Eliquis. He states that he has not had any fainting episodes. He does have a history of lightheadedness and dizziness. He denies chest pain. He states he does have some chronic shortness of breath with is unchanged. No fever, chills, cough. PFSH [facility] Medical History Asthma Candidiasis of mouth Chronic kidney disease CKD (chronic kidney disease) stage 3, GFR 30-59 ml/min CPAP (continuous positive airway pressure) dependence Dyspnea on exertion Former smoker History of stress test Hx of echocardiogram Hyperlipidemia Irregular heart beat Knee pain, right Moderate persistent asthma CHUCKIE (obstructive sleep apnea) Other acute postprocedural pain Paroxysmal atrial fibrillation Quadriceps tendon rupture Rhinitis Shortness of breath on exertion Stool contents finding, abnormal Wears glasses Home Medications cholecalciferol (vitamin D3) 25 mcg (1,000 unit) tablet 5,000 unit PO DAILY vitamin 11/10/15 [History Last Taken 09/01/20 08:30 5000 UNIT] multivitamin 1 ea PO DAILY supplement 11/10/15 [History Last Taken 09/01/20 08:30 1 EA] azelastine 137 mcg (0.1 %) nasal spray aerosol 1 spray intranasal BID PRN Congestion 04/18/17 [History Last Taken Unknown] albuterol sulfate 90 mcg/actuation aerosol inhaler 1 puff inhalation Q4H PRN PRN Shortness Of Breath #2 device 05/08/18 [Rx Last Taken 02/20/19 16:00 1 puff] apixaban 2.5 mg tablet 2.5 mg PO BID #180 tabs 04/17/21 [Rx Last Taken Unknown] diltiazem HCl 120 mg capsule,extended release 24 hr 120 mg PO DAILY heart #90 caps 05/30/21 [Rx Last Taken Unknown] flecainide 100 mg tablet 100 mg PO BID heart #180 tabs 06/12/21 [Rx Last Taken Unknown] montelukast 10 mg tablet 10 mg PO QPM #90 tabs 07/07/21 [Rx Last Taken Unknown] budesonide-formoterol HFA 160 mcg-4.5 mcg/actuation aerosol inhaler 2 inh inhalation BID 09/21/21 [History Last Taken Unknown] fluticasone propionate 50 mcg/actuation nasal spray,suspension 1 spray inhalation BID 01/25/22 [History Last Taken Unknown] furosemide 20 mg tablet (Lasix) 20 mg PO DAILY 01/25/22 [History Last Taken Unknown] tamsulosin 0.4 mg capsule 0.4 mg PO DAILY 01/25/22 [History Last Taken Unknown] Allergy/AdvReac Type Severity Reaction Status Date / Time No Known Allergies Allergy Verified 01/25/22 21:33 Family History Father , Had pacemaker, at advanced age No problems noted. Mother , lived to advanced age No problems noted. Surgical History History of appendectomy History of appendectomy History of nasal surgery History of umbilical hernia repair Social History Smoking Status: Former smoker how long ago did patient quit smokin years ago alcohol intake: current alcohol intake frequency: a few times a week Alcohol type: wine caffeine: No ROS ROS ED Constitutional Constitutional ED: Denies chills or fever(s) Eyes Eyes: Denies change in vision or diplopia ENT ENT ED: Denies rhinorrhea or sore throat Cardiovascular Cardiovascular: Reports palpitations; Denies chest pain Respiratory/Chest Respiratory/Chest: Denies cough or dyspnea Gastrointestinal Gastrointestinal: Denies abdominal pain or constipation Genitourinary Genitourinary ED: Denies dysuria Musculoskeletal Musculoskeletal: Denies arthralgias or back pain Integumentary Denies abscess or Abrasions Neurologic Neurologic: Denies headache(s) or paresthesias Psychiatric Psychiatric: Denies anxiety or depression EXAM Physical Exam Const Vital Signs: 01/25/22 21:31 01/25/22 21:38 01/25/22 21:40 Temperature 98.0 F Temperature Source Temporal Pulse Rate 47 L 72 Respiratory Rate 18 17 Respiratory Effort Normal Non-Labored Blood Pressure 147/74 H Blood Pressure Mean 98 Pulse Ox 98 96 Oxygen Delivery Method Room Air Room Air 01/25/22 21:56 Temperature Temperature Source Pulse Rate Respiratory Rate Respiratory Effort Blood Pressure Blood Pressure Mean Pulse Ox Oxygen Delivery Method Room Air Positive well nourished General Appearance ED: NAD; Negative for pallor HEENT Reports moist mucous membranes Negative for trauma Eyes PERRL and EOMs intact bilaterally General Eye ED: Negative for pale conjunctiva or scleral icterus Chest Wall inspection of chest normal Resp normal respiratory effort and clear to auscultation bilaterally Auscultation: Negative for rales, rhonchi or wheezes Cardio regular rate Rhythm: abnormal rhythm irregularly irregular GI Inspection: Negative for abdominal distention Extremity normal to inspection Neuro oriented x3 and CN's II-XII intact bilaterally Sensorium / Orientation: alert Psych mental status grossly normal Skin no rashes or lesions noted and no wounds General Skin Exam: Negative for jaundice or pallor MDM MDM MDM Narrative Medical decision making narrative: 82-year-old male presenting with palpitations and feeling of lightheadedness. These are all not new symptoms. Patient had an EKG performed this morning which he was told was not A. fib. He is been having his irregular heartbeats all day. I obtained an EKG tonight and it shows atrial fibrillation at a controlled rate of 72 bpm. Patient is anticoagulated. EKG was sent to Dr. Mckeon who wanted the patient to be discharged home. He did not feel he needed to be admitted. He did not feel he needed blood work or imaging. He states that he can manage him as an outpatient and recommended he go home and take his regular medications and his office will reach out to them tomorrow. Patient was amenable to this. All this was discussed with him at length. All questions were answered. Patient discharged stable condition. Impression: 1 atrial fibrillation with controlled ventricular response 2. Lightheadedness Discharge Plan Triage Chief Complaint: Palpitations ED Provider: Herbie Trujillo Dx/Rx/DC Orders Instructions: ED AFIB Prescriptions: No Action azelastine 137 mcg (0.1 %) aerosol,spray 1 spray INTRANASAL BID PRN (Reason: Congestion) albuterol sulfate 90 mcg/actuation HFA aerosol inhaler 1 puff INHALATION Q4H PRN PRN (Reason: Shortness Of Breath) Qty: 2 0RF budesonide-formoterol 160-4.5 mcg/actuation HFA aerosol inhaler 2 inh INHALATION BID Rx Instructions: breathing multivitamin 1 EACH tablet 1 ea PO DAILY cholecalciferol (vitamin D3) 1,000 UNIT tablet 5,000 unit PO DAILY tamsulosin 0.4 mg Capsule 0.4 mg PO DAILY furosemide [Lasix] 20 mg Tablet 20 mg PO DAILY fluticasone propionate 50 mcg/actuation spray,suspension 1 spray INHALATION BID Eliquis 2.5 mg tablet 2.5 mg PO BID Qty: 180 3RF diltiazem HCl 120 mg capsule,extended release 24hr 120 mg PO DAILY Qty: 90 3RF flecainide 100 mg tablet 100 mg PO BID Qty: 180 3RF montelukast 10 mg tablet 10 mg PO QPM Qty: 90 3RF Primary Care Provider: Vikas Lockhart Referrals: Jadiel Mckeon MD [Med Staff - Active Staff] - As soon as possible Vikas Lockhart MD [Primary Care Provider] - Disposition Disposition: Home, Self Care
== END 2022-01-25 22:02 | disposition home or self-care (01) ==
PROVIDERS: Emergency Provider Student in an Organized Health Care Education/Training Program; PCP Family Medicine; Visit Provider Student in an Organized Health Care Education/Training Program
DX: I48.91 Unspecified atrial fibrillation (principal); N18.30 Chronic kidney disease, stage 3 unspecified; R42 Dizziness and giddiness; E78.5 Hyperlipidemia, unspecified; Z87.891 Personal history of nicotine dependence; Z79.01 Long term (current) use of anticoagulants; G47.33 Obstructive sleep apnea (adult) (pediatric)
CPT/HCPCS: 93005; 99284; A4216

== ENCOUNTER 2022-04-20 09:00 | Outpatient (RCR) | payer MEDICARE, SELFPAY ==
--- NOTE | 2022-04-11 10:08 | HP.PTEVAL ---
Patient's Visit Information CAT MICHAELS is a 82 year old M referred to Physical Therapy by GARDENIA Barone with a diagnosis of ILIOTIBIAL BAND SYNDROME OF RIGHT HIP. Date of Evaluation: 04/11/22 Physical Therapist: Dante Mendiola, PT, Cert MDT, OCS - Visit Plan Frequency: 2x /Week Duration: 4 Weeks Plan: PT INTERVETIONS STICK /STM I TBAND ,MODALTIES US/ESTIM/CP , STRETCHING HIP AND STRENGTH HIP - Subjective This 82 y/o male presents to physical therapy with iliotibial pain pain . Patient had pain h/o patella tendon repair August 2020. Patient twisted leg ~ 2weeks ago and developed right lateral hip pain. Seen DR did x-rays -. Patient located lateral IT BAND. Aggravating symptoms not specific even at rest. Alleviating factors teylonal. Denies paresthesia/tingling. Denies back pain. Denies falls. Patient has pain during sleeping. Patient has neuropathy feet ,cardiac issues A-FIB. Possible ablation. Patient has pain with stairs . Patient goals have no more pain. VOCATION: vocation. SOCIAL: - Pain Right Hip Pain Intensity (Out of 10): 7 Pain Intensity Range: 10 Comment: lateral - Objective POSTURE: mild forward posture. GAIT: reciprocal pattern. SYMMTRIES: align. PALAPTION: mid to proximal I T BAND tender. FLEXABLITY : quads mod tight ,hamstrings min/mod ,piriformis min tight. MMT: quads//hamstring,hip flexion/hip abd 4/5 ,ankle 5/5. AROM HIP: hip flexion 110 degrees ,abduction 45 ,IR 50 degrees - Balance/Special Test Scores Lower Extremity Functional Score: 32 - Goals Goal 1:: Patient to be I with HEP Goal Time Frame: 4-6 Weeks Goal 2:: Patient to demonstrate 60% improvement with improved function and less pain Goal Time Frame: 4-6 Weeks Goal 3:: Patient to improve LFES score by 5 points to improve QOL and function Goal Time Frame: 4-6 Weeks Goal 4:: Patient to perform all functional activities with min symptoms Goal Time Frame: 4-6 Weeks - Rehabilitation Potential Physical Therapy Diagnosis: Patient has right IT band tender has h/o quad tendon repair last year ,with patient consrant pain and tender I T BAND thus benefit from skilled PT Rehabilitation Potential: Good - Anticipated Interventions Patient/Client Instruction: Educate patient on: Condition, Plan of Care For the Purpose of:: To decrease pain, To increase ROM, To improve muscle performance and motor function, To improve ability to perform ADL's, To increase tolerance to activity/condition/position, To improve performance and independence with ADL's, To improve health of tissue, To decrease soft tissue restriction, To increase flexibility/ROM, To prevent re-injury Therapeutic Exercise to Include: Strength training, Body mechanics, Flexibilty training, Passive ROM, Active ROM Comment: HIP For the Purpose of:: To decrease pain, To increase ROM, To improve muscle performance and motor function, To improve ability to perform ADL's, To increase tolerance to activity/condition/position, To improve ability of physical actions for home/community/work/leisure, To improve health of tissue, To decrease soft tissue restriction, To increase flexibility/ROM, To prevent re-injury Manual Therapy Techniques to Include: Soft tissue mobilization Comment: STICK I T BAND For the Purpose of:: To decrease pain, To decrease swelling/inflammation, To improve health of tissue, To decrease soft tissue restriction, To increase flexibility/ROM TENS: Yes IF ES: Yes Cryotherapy (ice pack, ice massage): Yes Thermo therapy (hot pack): Yes Ultrasound (thermal/non thermal): Yes For the Purpose of:: To decrease pain, To increase ROM, To improve nutrient delivery to tissue, To increase oxygenation perfusion, To decrease soft tissue restriction, To increase flexibility/ROM Thank you for the opportunity to evaluate your patient. For Medicare and Medicare HMO plans, please review the plan of care and approve it. It will need to be FAXED BACK to us at [phone] for Medicare purposes. For Medicare only, by signing this I certify the plan of care. Please let me know if there are questions or concerns regarding this plan of care. Physician Signature: Date:
--- NOTE | 2022-09-13 10:42 | HP.PT.NRP ---
CAT MICHAELS was seen in my office for initial evaluation on 04/11/22. The following Plan of Care was established for this patient: Initial Frequency: 2x /Week Initial Duration: 4 Weeks Patient/Client Instruction: Educate patient on: Condition, Plan of Care For the Purpose of:: To decrease pain, To increase ROM, To improve muscle performance and motor function, To improve ability to perform ADL's, To increase tolerance to activity/condition/position, To improve performance and independence with ADL's, To improve health of tissue, To decrease soft tissue restriction, To increase flexibility/ROM, To prevent re-injury Therapeutic Exercise to Include: Strength training, Body mechanics, Flexibilty training, Passive ROM, Active ROM For the Purpose of:: To decrease pain, To increase ROM, To improve muscle performance and motor function, To improve ability to perform ADL's, To increase tolerance to activity/condition/position, To improve ability of physical actions for home/community/work/leisure, To improve health of tissue, To decrease soft tissue restriction, To increase flexibility/ROM, To prevent re-injury Manual Therapy Techniques to Include: Soft tissue mobilization Comment: STICK I T BAND For the Purpose of:: To decrease pain, To decrease swelling/inflammation, To improve health of tissue, To decrease soft tissue restriction, To increase flexibility/ROM TENS: Yes IF ES: Yes Cryotherapy (ice pack, ice massage): Yes Thermo therapy (hot pack): Yes Ultrasound (thermal/non thermal): Yes For the Purpose of:: To decrease pain, To increase ROM, To improve nutrient delivery to tissue, To increase oxygenation perfusion, To decrease soft tissue restriction, To increase flexibility/ROM This patient was last seen in our office . Pertinent comments regarding their Physical therapy will appear below: Patient seen for IT BAND syndrome right hip doing well thus d/c At this point I will be discontinuing this patient from physical therapy. I would be happy to see this patient again in the future if found appropriate by the physician. Thank you! Dante Mendiola, PT, Cert MDT, OCS Balance/Gait/Functional tests - Balance/Special Test Scores Lower Extremity Functional Score: 32
== END 2022-04-20 19:00 | disposition home or self-care (01) ==
LOC: PT 09:00
PROVIDERS: PCP Family Medicine
DX: M76.31 Iliotibial band syndrome, right leg (principal)
CPT/HCPCS: 97110; 97162

== ENCOUNTER 2022-07-09 08:40 | Emergency (ER) | payer MEDICARE, SELFPAY ==
[2022-07-09] VITALS (10 sets, daily range): BP systolic 108–143; BP diastolic 61–115; PULSE 63–113; RESP 11–18; TEMP 35.7; O2SAT 93–99; BMI 26.7
--- NOTE | 2022-07-09 08:55 | EKG12_ITS ---
Test Reason : Blood Pressure : / mmHG Vent. Rate : 066 BPM Atrial Rate : 066 BPM P-R Int : 186 ms QRS Dur : 096 ms QT Int : 434 ms P-R-T Axes : 051 029 034 degrees QTc Int : 454 ms Sinus rhythm with Premature atrial complexes Otherwise normal ECG Confirmed by ALEXANDRE ERNANDEZ, MYKE ([id number]), magazine editor SANTHOSH MOORE ([id number]) on 07/10/2022 7:58:05 AM Referred By: INDIO Confirmed By:MYKE SCHROEDER MD
--- NOTE | 2022-07-09 08:56 | EDS_ITS ---
HPI History of Present Illness Chief Complaint: Palpitations Narrative Narrative: 82-year-old male past medical history of paroxysmal atrial fibrillation since 1997, presents with irregular heartbeat, thinking that he is in atrial fibrillation again. His legal arbitrator is Dr. Mckeon. He is on Eliquis for his atrial fibrillation. He had an ablation performed at the [facility] a week ago today. He states that on of last week, he sent a normal EKG to the legal arbitrator. However, over the weekend, he noticed that he was in atrial fibrillation again with an irregular heartbeat. He denies any fevers or chills. No cough, no shortness of breath or chest pain. [facility] Medical History Asthma Candidiasis of mouth Chronic kidney disease CKD (chronic kidney disease) stage 3, GFR 30-59 ml/min CPAP (continuous positive airway pressure) dependence Dyspnea on exertion Former smoker History of stress test Hx of amiodarone therapy Hx of echocardiogram Hyperlipidemia Irregular heart beat Knee pain, right Moderate persistent asthma CHUCKIE (obstructive sleep apnea) Other acute postprocedural pain Paroxysmal atrial fibrillation Quadriceps tendon rupture Rhinitis Shortness of breath on exertion Stool contents finding, abnormal Wears glasses Home Medications cholecalciferol (vitamin D3) 25 mcg (1,000 unit) tablet 5,000 unit PO DAILY vitamin 11/10/15 [History Last Taken 09/01/20 08:30 5000 UNIT] multivitamin 1 ea PO DAILY supplement 11/10/15 [History Last Taken 09/01/20 08:30 1 EA] azelastine 137 mcg (0.1 %) nasal spray aerosol 1 spray intranasal BID PRN Congestion 04/18/17 [History Last Taken Unknown] albuterol sulfate 90 mcg/actuation aerosol inhaler 1 puff inhalation Q4H PRN PRN Shortness Of Breath #2 device 05/08/18 [Rx Last Taken 02/20/19 16:00 1 puff] montelukast 10 mg tablet 10 mg PO QPM #90 tabs 07/07/21 [Rx Last Taken Unknown] fluticasone propionate 50 mcg/actuation nasal spray,suspension 1 spray inhalation BID PRN 03/26/22 [History Last Taken Unknown] budesonide-formoterol HFA 160 mcg-4.5 mcg/actuation aerosol inhaler 2 inh inhalation BID #3 device 03/30/22 [Rx Last Taken Unknown] apixaban 2.5 mg tablet (Eliquis) See Rx Instructions .Route .COMPLEX #180 tabs 04/02/22 [Rx Last Taken Unknown] amiodarone 200 mg tablet 200 mg PO BID This is a dose increase #60 tabs 04/05/22 [Rx Last Taken Unknown] diltiazem HCl 120 mg capsule,extended release 24 hr 120 mg PO DAILY heart #90 caps 05/29/22 [Rx Last Taken Unknown] Allergy/AdvReac Type Severity Reaction Status Date / Time No Known Allergies Allergy Verified 04/06/22 08:29 Family History Father , Had pacemaker, at advanced age No problems noted. Mother , lived to advanced age No problems noted. Surgical History History of appendectomy History of appendectomy History of nasal surgery History of umbilical hernia repair Social History Smoking Status: Former smoker how long ago did patient quit smokin years ago alcohol intake: current alcohol intake frequency: a few times a week Alcohol type: wine substance use type: does not use caffeine: Yes Type: coffee Number of servings: 1 ROS ROS ED ROS Narrative Constitutional: No fever, no chills. HEENT: No sore throat. No neck pain. No loss of vision. No rhinorrhea. Cardiovascular: No chest pain. Positive palpitations. No pedal edema. Respiratory: No cough, no shortness of breath. Abdominal: No abdominal pain. No nausea. No vomiting. Genitourinary: No dysuria. No hematuria. Musculoskeletal: No myalgias. No arthralgias. Neurologic: No headaches. No dizziness. No lightheadedness. Skin: No rash. No change in color. Psychiatric: No depression. No anxiety. EXAM Physical Exam Narrative Exam Narrative: Afebrile. Vital signs noted. HEENT: Normocephalic. Atraumatic. PERRL, EOMI. Neck soft and supple. No point tenderness or step off. Cardiovascular: Irregularly irregular rhythm with normal rate, no murmurs, rubs, or gallops appreciated. Respiratory: No tachypnea. Lungs clear to auscultation bilaterally. Gastrointestinal: Abdomen soft, nontender, with normoactive bowel sounds. No rebound or guarding. Neurological: Awake. Alert. Nonfocal, nonlateralizing. Skin: No rash. Normal color. No pallor. Musculoskeletal: No pedal edema. Full range of motion extremities. Const Vital Signs: 07/09/22 08:40 07/09/22 08:51 07/09/22 08:52 Temperature 96.2 F L Temperature Source Temporal Pulse Rate 66 96 Pulse Rate [1 (Initial Baseline)] Pulse Rate [2] Pulse Rate [3] Pulse Rate [4] Pulse Rate [5] Respiratory Rate 18 18 Respiratory Rate [1 (Initial Baseline)] Respiratory Rate [2] Respiratory Rate [3] Respiratory Rate [4] Respiratory Rate [5] Respiratory Effort Normal Non-Labored Blood Pressure 119/82 H 126/83 H Blood Pressure [1 (Initial Baseline)] Blood Pressure [2] Blood Pressure [3] Blood Pressure [4] Blood Pressure [5] Blood Pressure Mean 94 97 Pulse Ox 96 96 Oxygen Delivery Method Room Air Room Air Oxygen Delivery Method [1 (Initial Baseline)] Oxygen Delivery Method [2] Oxygen Delivery Method [3] Oxygen Delivery Method [4] Oxygen Delivery Method [5] Oxygen Flow Rate (L/min) Oxygen Flow Rate (L/min) [2] Oxygen Flow Rate (L/min) [3] Oxygen Flow Rate (L/min) [4] Oxygen Flow Rate (L/min) [5] 07/09/22 10:37 07/09/22 10:38 07/09/22 10:45 Temperature Temperature Source Pulse Rate 95 90 Pulse Rate [1 (Initial Baseline)] 113 H Pulse Rate [2] 101 H Pulse Rate [3] 71 Pulse Rate [4] 68 Pulse Rate [5] 71 Respiratory Rate 12 18 Respiratory Rate [1 (Initial Baseline)] 14 Respiratory Rate [2] 11 L Respiratory Rate [3] 17 Respiratory Rate [4] 16 Respiratory Rate [5] 18 Respiratory Effort Blood Pressure 128/90 H 128/90 H Blood Pressure [1 (Initial Baseline)] 138/115 H Blood Pressure [2] 143/82 H Blood Pressure [3] 108/67 Blood Pressure [4] 120/66 Blood Pressure [5] 116/61 Blood Pressure Mean 102 Pulse Ox 99 99 Oxygen Delivery Method Room Air Room Air Oxygen Delivery Method [1 (Initial Baseline)] Room Air Oxygen Delivery Method [2] Nasal Cannula Oxygen Delivery Method [3] Nasal Cannula Oxygen Delivery Method [4] Nasal Cannula Oxygen Delivery Method [5] Nasal Cannula Oxygen Flow Rate (L/min) Oxygen Flow Rate (L/min) [2] 2 Oxygen Flow Rate (L/min) [3] 2 Oxygen Flow Rate (L/min) [4] 2 Oxygen Flow Rate (L/min) [5] 2 07/09/22 11:00 07/09/22 10:55 07/09/22 11:05 Temperature Temperature Source Pulse Rate Pulse Rate [1 (Initial Baseline)] Pulse Rate [2] Pulse Rate [3] Pulse Rate [4] Pulse Rate [5] Respiratory Rate Respiratory Rate [1 (Initial Baseline)] Respiratory Rate [2] Respiratory Rate [3] Respiratory Rate [4] Respiratory Rate [5] Respiratory Effort Blood Pressure Blood Pressure [1 (Initial Baseline)] Blood Pressure [2] Blood Pressure [3] Blood Pressure [4] Blood Pressure [5] Blood Pressure Mean Pulse Ox Oxygen Delivery Method Nasal Cannula Nasal Cannula Room Air Oxygen Delivery Method [1 (Initial Baseline)] Oxygen Delivery Method [2] Oxygen Delivery Method [3] Oxygen Delivery Method [4] Oxygen Delivery Method [5] Oxygen Flow Rate (L/min) 2 2 Oxygen Flow Rate (L/min) [2] Oxygen Flow Rate (L/min) [3] Oxygen Flow Rate (L/min) [4] Oxygen Flow Rate (L/min) [5] 07/09/22 11:08 Temperature Temperature Source Pulse Rate 63 Pulse Rate [1 (Initial Baseline)] Pulse Rate [2] Pulse Rate [3] Pulse Rate [4] Pulse Rate [5] Respiratory Rate 14 Respiratory Rate [1 (Initial Baseline)] Respiratory Rate [2] Respiratory Rate [3] Respiratory Rate [4] Respiratory Rate [5] Respiratory Effort Blood Pressure 114/62 Blood Pressure [1 (Initial Baseline)] Blood Pressure [2] Blood Pressure [3] Blood Pressure [4] Blood Pressure [5] Blood Pressure Mean 79 Pulse Ox 96 Oxygen Delivery Method Room Air Oxygen Delivery Method [1 (Initial Baseline)] Oxygen Delivery Method [2] Oxygen Delivery Method [3] Oxygen Delivery Method [4] Oxygen Delivery Method [5] Oxygen Flow Rate (L/min) Oxygen Flow Rate (L/min) [2] Oxygen Flow Rate (L/min) [3] Oxygen Flow Rate (L/min) [4] Oxygen Flow Rate (L/min) [5] MDM MDM MDM Narrative Medical decision making narrative: I received a phone call from his legal arbitrator, Dr. Mckeon. He would like the patient confirmed to be in atrial fibrillation. EKG was obtained and interpreted by myself which does show atrial fibrillation at 102 bpm, he is in the 90s on the monitor. No acute ST changes. In discussion with Dr. Mckeon, as the patient has not missed his Eliquis dosing in the last 3 weeks, and the patient confirms this, it was felt that cardioversion should be performed. Risks and benefits were discussed with the patient. Timeout was performed. Procedural sedation was used for cardioversion. See procedure note for details. Procedure note: Timeout was performed. Written consent signed. Risks and benefits of procedural sedation with propofol were discussed with the patient, and with electrocardioversion, synchronized. Pacer pads were placed in the AP diameter by RN. A total of 70 mg of propofol was used for adequate sedation. Synchronized cardioversion with 150 J was performed by myself. Patient did have transient dip in his blood pressure, and IV fluids were continued. Patient tolerated procedure well. His repeat EKG afterwards was interpreted by myself and it shows normal sinus rhythm with PACs at 66 beats per minges. At this point in time, I feel the patient can be discharged safely home with follow-up to his legal arbitrator. Return instructions were reviewed. Disposition is discharged home in improved and stable condition. Discharge Plan Triage Chief Complaint: Palpitations ED Provider: Guanako Arnold Dx/Rx/DC Orders Clinical Impression: Paroxysmal atrial fibrillation, Encounter for cardioversion procedure Instructions: ED AFIB, ED Procedural Sedation, (Adult) Prescriptions: No Action azelastine 137 mcg (0.1 %) aerosol,spray 1 spray INTRANASAL BID PRN (Reason: Congestion) albuterol sulfate 90 mcg/actuation HFA aerosol inhaler 1 puff INHALATION Q4H PRN PRN (Reason: Shortness Of Breath) Qty: 2 0RF multivitamin 1 EACH tablet 1 ea PO DAILY cholecalciferol (vitamin D3) 1,000 UNIT tablet 5,000 unit PO DAILY fluticasone propionate 50 mcg/actuation spray,suspension 1 spray INHALATION BID PRN montelukast 10 mg tablet 10 mg PO QPM Qty: 90 3RF budesonide-formoterol 160-4.5 mcg/actuation HFA aerosol inhaler 2 inh INHALATION BID Qty: 3 3RF Rx Instructions: breathing Eliquis 2.5 mg tablet See Rx Instructions .ROUTE .COMPLEX Qty: 180 3RF Dose Instruction: TAKE 1 TABLET TWICE A DAY Rx Instructions: TAKE 1 TABLET TWICE A DAY amiodarone 200 mg tablet 200 mg PO BID Qty: 60 11RF diltiazem HCl 120 mg capsule,extended release 24hr 120 mg PO DAILY Qty: 90 3RF Primary Care Provider: Manju Coulter Referrals: Jadiel Mckeon MD [Med Staff - Active Staff] - As soon as possible Vikas Lockhart MD [Non-Staff] - Activity Restrictions/Additional Instructions: Continue your previous medications, including your Eliquis. Follow-up with Dr. Mckeon as soon as possible. Disposition Disposition: Home, Self Care
--- NOTE | 2022-07-09 09:13 | EKG12_ITS ---
Test Reason : Blood Pressure : / mmHG Vent. Rate : 102 BPM Atrial Rate : 267 BPM P-R Int : 000 ms QRS Dur : 100 ms QT Int : 380 ms P-R-T Axes : 000 028 014 degrees QTc Int : 495 ms Atrial flutter with variable A-V block Inferior-posterior infarct , age undetermined Abnormal ECG Confirmed by ALEXANDRE ERNANDEZ, MYKE ([id number]), slot editor SANTHOSH MOORE ([id number]) on 07/10/2022 7:59:47 AM Referred By: INDIO Confirmed By:MYKE SCHROEDER MD
[2022-07-09] MEDS: Propofol 200 MG/20 ML Vial IV BOLUS (11:09)
== END 2022-07-09 12:04 | disposition home or self-care (01) ==
PROVIDERS: Emergency Provider Emergency Medicine; PCP Family Medicine; Visit Provider Emergency Medicine
DX: I48.0 Paroxysmal atrial fibrillation (principal); N18.30 Chronic kidney disease, stage 3 unspecified; E78.5 Hyperlipidemia, unspecified; Z87.891 Personal history of nicotine dependence
CPT/HCPCS: 92960; 93005; 99284; J7040; A4216

== ENCOUNTER → 2022-07-25 | Outpatient (CLI) | payer MEDICARE, SELFPAY ==
[2022-07-25 12:23] LABS: Absolute Lymphocyte Count 1.64 X10^3/uL (0.83-4.51); Absolute Neutrophil Count 4.2 X10^3/uL (2.0-7.7); Basophil# 0.06 X10^3/uL; Basophil% 0.9 % (0-1); Eosinophil# 0.07 X10^3/uL; Hematocrit 39.8 % (40-54); Hemoglobin 13.4 g/dL (13.0-16.5); Lymphocyte # 1.64 X10^3/ul (0.83-4.51); Lymphocyte % 24.2 % (19-41); Mean Corp Hgb Conc 33.7 g/dL (32-36); Mean Corpuscular Hgb 32.8 pg (27.0-32.0); Mean Corpuscular Volume 97.3 fL (80-94); Mean Platelet Vol. 10.4 fl (6.2-12.0); Monocyte# 0.82 X10^3/uL; Monocyte% 12.1 % (0-10); NRBC Flagged by Analyzer 0 % (0-5); Neutrophil # 4.16 X10^3/uL (2.7-7.7); Neutrophil % 61.5 % (47-70); Platelet Count 225 K/mm3 (150-450); RBC Distribution Width CV 13.2 % (11.6-14.6); RBC Distribution Width SD 47.6 fl (35.1-43.9); Red Blood Count 4.09 M/mm3 (4.6-6.2); White Blood Count 6.8 K/mm3 (4.4-11.0)
[2022-07-25 12:48] LABS: ALB/GLOB Ratio 1.1 RATIO (0.9-2.4); AST(SGOT) 19 U/L (15-37); Alanine Aminotransfer ALT/SGPT 38 U/L (16-61); Albumin, Serum 3.6 g/dL (3.2-5.0); Alkaline Phosphatase 78 U/L (45-117); Anion Gap 6 (5-15); BUN 25 mg/dL (7-18); BUN/Creat Ratio 16.1 RATIO (10-20); Calcium,Total 8.7 mg/dL (8.5-10.1); Chloride 107 mmol/L (98-107); Cholesterol 143 mg/dL (200); Creatinine, Serum 1.55 mg/dL (0.70-1.30); EST Glomerular Filtration Rate 46 mL/min (>60); Est Glom Filt Rate - Afr Amer 55 mL/min (>60); Globulin 3.4 g/dL (2.2-4.2); Glucose 117 mg/dL (74-106); High Density Lipoprotein 45 mg/dL; Potassium 4.2 mmol/L (3.5-5.1); Sodium Level 140 mmol/L (136-145); Triglycerides 84 mg/dL; Very Low Density Lipoprotein 17 mg/dL (5-40)
[2022-07-25 12:52] LABS: Microalbumin,Random Urine 9.4 mg/L (NO RANGE EST.); Microalbumin:Creatinine Ratio 5.8 mg/g CRE (<30 mg/g CRE)
[2022-07-26 12:12] LABS: Hemoglobin A1c 6.1 % (3.8-5.6)
[2022-07-26 13:00] LABS: Thyroid Stim Hormone (TSH) 2.86 uIU/mL (0.358-3.74)
== END | disposition home or self-care (01) ==
LOC: LAB.FUTURE 08:44 → BFHLAB 08:45
PROVIDERS: PCP Family Medicine; Referring Provider Family Medicine; Visit Provider Family Medicine
DX: E11.9 Type 2 diabetes mellitus without complications (principal); N40.1 Benign prostatic hyperplasia with lower urinary tract symptoms; N13.8 Other obstructive and reflux uropathy; E03.9 Hypothyroidism, unspecified
CPT/HCPCS: 36415; 80053; 80061; 82043; 82570; 83036; 84439; 84443; 85025

== ENCOUNTER 2022-09-17 09:24 | Day surgery (SDC) | payer MEDICARE, SELFPAY ==
--- NOTE | 2022-09-03 08:51 | HP.PCM_ITS ---
History and Physical Date of Admission: 09/17/22 CAT MICHAELS, is a 82 M who presents today for a cardioversion. He has a history of hypertension, paroxysmal atrial fibrillation, and asthma.? You remember in February 2019, he was admitted to the hospital with an episode of atrial fibrillation with a slow ventricular response rate.? He had some medication changes and he appears to have done well.? After seeing us in the office his medications were adjusted once again.? At that time, he was noted to have some renal dysfunction and it has improved after rechecking it. A follow-up Holter monitor in March 2019 did not demonstrate any evidence of atrial fibrillation. He underwent electrophysiology study and ablation for persistent atrial fibrillation with [facility] on 07/02/[address] Bejarano. He presented to [facility] [place] [facility] on 07/09/2022 with palpitations.? He was noted to be in atrial fibrillation at a rate of 102 bpm.? He proceeded with cardioversion to sinus rhythm with PACs. He denies chest, arm, jaw, or neck discomfort.? He denies palpitations.? He denies bilateral lower extremity edema.? He denies claudication.? He denies shortness of breath with activity, shortness of breath at rest, orthopnea, or PND.? He denies chronic cough.? He denies significant, sudden weight gain.? He denies lightheadedness, dizziness, near-syncope, or syncope.? He denies blood in urine, blood in stool, or epistaxis.? He denies fever with chills.? He denies myalgia.? He denies fatigue. He states feeling uneasy or anxious that he attributes to atrial fibrillation.? His exercise level has remained stable. Intake Vital Signs See EMR Allergies See EMR Medications See EMR [facility] Medical History?(Reviewed 08/07/22 @ 10:25 by Gibson Lopez WATER RESOURCE ENGINEER, WATER RESOURCE ENGINEER-C) Asthma Candidiasis of mouth Chronic kidney disease CKD (chronic kidney disease) stage 3, GFR 30-59 ml/min CPAP (continuous positive airway pressure) dependence Dyspnea on exertion Former smoker History of stress test Hx of amiodarone therapy Hx of echocardiogram Hyperlipidemia Irregular heart beat Knee pain, right Moderate persistent asthma CHUCKIE (obstructive sleep apnea) Other acute postprocedural pain Paroxysmal atrial fibrillation Quadriceps tendon rupture Rhinitis Shortness of breath on exertion Stool contents finding, abnormal Wears glasses Surgical History? History of appendectomy History of appendectomy History of cardiac radiofrequency ablation (RFA) (~07/03/22) History of cardioversion (~07/09/22) History of nasal surgery History of umbilical hernia repair Family History? Father?? ,? Had pacemaker, at advanced age ?? No problems noted. Mother?? ,? lived to advanced age ?? No problems noted. Social History? Smoking Status:? Former smoker how long ago did patient quit smoking:? 50 years ago alcohol intake:? current alcohol intake frequency: a few times a week Alcohol type: wine substance use type:? does not use caffeine:? Yes Type: coffee Number of servings: 1 ROS Const Const: Positive for other (Uneasy, anxiety); Negative for fatigue, weakness, body ache, fever(s) or chills ENT ENT: Negative for dizziness or Nosebleed/epistaxis Cardio Chest Pain: No Palpitations: No Edema: None Muscle aches with walking: None Resp Respiratory: Negative for SOB with activity, SOB at rest, SOB orthopnea\SOB lying down, Cough or paroxysmal nocturnal dyspnea GI GI: Negative nausea, vomiting blood/hematemesis, bright, red blood in stools or black,tarry stools : Negative for hematuria or frequent nighttime urination/ nocturia Musc Musc: Negative for muscle aches/ myalgia Skin Skin: Negative non-healing lesions or rash Neuro Neuro: Negative for dizziness, lightheadedness, near syncope, syncope, orthostatic symptoms or weakness Endo Endo: Negative for fatigue Allergy Allergy/Immunology: Negative for rash Cardiology Exam Const Appearance: cooperative, healthy appearing, comfortable and no acute distress Nutritional Appearance: well nourished and overweight Orientation: alert, awake and oriented x3 Head Head: normal to inspection Ears: hearing grossly normal bilaterally Nose: external nose normal Face and Sinus: face symmetric Mouth: moist mucous membranes Eyes General: appearance normal, both eyes and all related structures Eyelids: eyelids normal EOM: EOM intact bilaterally Neck Neck: normal visual inspection and no JVD Carotids: normal carotid upstroke Chest Chest inspection: normal inspection of the chest, symmetric chest movement and normal respiratory effort; Negative cough Auscultation: Bilateral: Clear to Auscultation Cardio Rate: regular rate Rhythm: irregular rhythm Heart sounds: S1 normal and S2 normal; Negative rub, gallop or murmur GI GI: normal to inspection Neuro General: patient alert, patient awake, patient oriented x3 and CN's II-XI intact bilaterally Skin Skin: no rashes or lesions noted Extremities Pulses: Normal: Right Posterior Tibial Pulse, Left Posterior Tibial Pulse, Right Radial Pulse and Left Radial Pulse Lower Extremity Edema: None: Bilateral Psych Psychological: normal affect Supplemental Info Supplemental Information Exercise myocardial perfusion stress test 01/04/2020 Conclusion: Normal exercise myocardial perfusion stress test at a moderate to high workload. Preserved ejection fraction. No arrhythmias noted. No A. fib noted. Echocardiogram from 05/25/2022 at [facility]: Conclusions: ? Exam indication: Nonsustained atrial fibrillation ? The left ventricle is small.? Left ventricular systolic function is hyperdynamic.? EF equals 72?5% (2D biplane) ? The right ventricle is normal in size.? Right ventricular systolic function is normal. ? Estimated right ventricular systolic pressure is likely underestimated due to a week or in complete tricuspid regurgitation signal and is, at least, 35 mmHg consistent with mild pulmonary hypertension.? Estimated right atrial pressure is 3 mmHg based on IVC assessment. ? No significant valve disease. ? The patient has not had a prior echocardiographic exam for comparison. ECHOCARDIOGRAM 11/04/2014 Interpretation Summary Normal LV size. Mild concentric left ventricular hypertrophy. Left ventricular systolic function is normal. The estimated ejection fraction is 65 %. Mild (1+) mitral valve insufficiency. Mild tricuspid valve insufficiency. Assessment and Plan Assessment and Plan (1) Paroxysmal atrial fibrillation: ?Status:?Chronic ?Comment: s/p EP study and ablation with [facility] on 07/02/2022; DCCV in ER on 07/09/2022; ?Plan: His twelve-lead ECG on 08/07/2022 showed atrial fibrillation at a controlled rate at 72 bpm. He is currently taking amiodarone 200mg PO daily. He is also on Eliquis 2.5mg twice daily for CVA protection, without interruption. He continues to feel uneasy, and attributes this to atrial fibrillation. He will proceed with a cardioversion. On account of age and creatinine greater than 1.5, he will proceed with Eliquis 2.5mg PO BID. (2) Hyperlipidemia: ?Status:?Chronic ?Qualifiers: ?Hyperlipidemia type:?pure hypercholesterolemia? Qualified Code(s):? E78.00 - Pure hypercholesterolemia, unspecified; E78.0 - Pure hypercholesterolemia ?Plan: He will continue risk factor and lifestyle modification.
[2022-09-12 10:45] LABS: Anion Gap 8 (5-15); BUN 24 mg/dL (7-18); BUN/Creat Ratio 13.9 RATIO (10-20); Chloride 106 mmol/L (98-107); Creatinine, Serum 1.73 mg/dL (0.70-1.30); EST Glomerular Filtration Rate 40 mL/min (>60); Est Glom Filt Rate - Afr Amer 49 mL/min (>60); Glucose 105 mg/dL (74-106); Potassium 4.3 mmol/L (3.5-5.1); Sodium Level 141 mmol/L (136-145)
[2022-09-14 08:36] VITALS: BMI 26.8
--- NOTE | 2022-09-17 11:09 | OP.PCM_ITS ---
Operative Report Date of Procedure: 09/17/22 DC cardioversion. 82-year-old man with a history of atrial fibrillation flutter status post a blation in June 2022. Patient presents with recurrent atrial fibrillation flutter. Patient has been anticoagulated uninterrupted and on low-dose amiodarone. The patient was brought into the noninvasive lab and was seen by Dr. Villagomez of the critical care division. Informed consent was obtained. Anterior-posterior pads were applied. The patient was then administered 60 mg of intravenous propofol and 200 J of synchronized DC cardioversion energy were applied with prompt reversal to sinus rhythm. Patient tolerated the procedure well. Conclusion: Successful DC cardioversion from atrial fibrillation to sinus rhythm. Continue amiodarone. Continue anticoagulation. Follow-up as per office protocol.
--- NOTE | 2022-09-17 11:52 | PCM.OP.PRO ---
Procedure Report Date of Procedure: 09/17/22 CONSCIOUS SEDATION REPORT DATE OF SERVICE: September 17, 2022 BRIEF HISTORY OF PRESENT ILLNESS: The patient is an 82-year-old male who presented to [facility] for elective outpatient cardioversion due to underlying atrial fibrillation. The patient denied any prior anesthetic complications. His last surface echocardiogram demonstrated an ejection fraction of approximately 70%. The patient is systemically anticoagulated on Eliquis. PHYSICAL EXAMINATION: VITAL SIGNS: Reviewed and were acceptable. GENERAL: The patient is a male, in no apparent distress, speaking in full sentences. HEENT: Normocephalic, atraumatic. Mucous membranes are moist and pink. Good mouth opening noted. Trachea is midline. Good neck mobility. CHEST: S1, S2 irregularly irregular. No murmurs, rubs or gallops were noted. LUNGS: Clear to auscultation bilaterally without appreciable wheezes, rales or rhonchi. ABDOMEN: Soft, nontender, nondistended. Positive bowel sounds. EXTREMITIES: There is no clubbing, cyanosis or edema. ASA Class: II DESCRIPTION OF PROCEDURE: After confirmation of informed consent, the patient's anesthesia plan was reviewed in detail. Propofol was chosen. Risks and benefits were reviewed and the patient agreed to proceed. At 1103, the patient was given 40 mg of propofol. The patient achieved an appropriate level of sedation and was given a 200 joule synchronized cardioversion by Dr. Mckeon at the bedside. This was successful in achieving normal sinus rhythm. The patient was monitored until 1115, at which time he reached his baseline mental status and function. The patient tolerated the procedure well. COMPLICATIONS: None ESTIMATED BLOOD LOSS: None RECOMMENDATIONS: Okay to recover in usual fashion. Procedures Pulmonary 9xxxx: [id number] Con Sedation
== END 2022-09-17 11:56 | disposition home or self-care (01) ==
PROVIDERS: PCP Family Medicine; Referring Provider Internal Medicine Cardiovascular Disease; Visit Provider Internal Medicine Cardiovascular Disease
DX: I48.92 Unspecified atrial flutter (principal); I48.91 Unspecified atrial fibrillation; E78.5 Hyperlipidemia, unspecified; Z87.891 Personal history of nicotine dependence
CPT/HCPCS: 36415; 80048; 92960; 93005; J7040

== ENCOUNTER → 2022-11-07 | Outpatient (CLI) | payer MEDICARE, SELFPAY | END | disposition home or self-care (01) | PROVIDERS: PCP Family Medicine; Referring Provider Nurse Practitioner Acute Care; Visit Provider Nurse Practitioner Acute Care | DX: G47.33 Obstructive sleep apnea (adult) (pediatric) (principal) | CPT/HCPCS: 95811 ==

== ENCOUNTER → 2023-01-24 | Outpatient (CLI) | payer MEDICARE, SELFPAY ==
[2023-01-24 12:23] LABS: Anion Gap 4 (5-15); BUN 24 mg/dL (7-18); BUN/Creat Ratio 14.8 RATIO (10-20); Calcium,Total 9.1 mg/dL (8.5-10.1); Chloride 107 mmol/L (98-107); Creatinine, Serum 1.62 mg/dL (0.70-1.30); EST Glomerular Filtration Rate 44 mL/min (>60); Est Glom Filt Rate - Afr Amer 53 mL/min (>60); Glucose 183 mg/dL (74-106); Potassium 4.3 mmol/L (3.5-5.1); Sodium Level 140 mmol/L (136-145); Thyroid Stim Hormone (TSH) 3.06 uIU/mL (0.358-3.74)
[2023-01-24 12:37] LABS: Protein, Urine (Random) 12.2 mg/dL (<11.9); Protein:Creat Ratio 87 mg/g CRE (0-200)
== END | disposition home or self-care (01) ==
LOC: BFHLAB 09:34
PROVIDERS: PCP Family Medicine; Referring Provider Family Medicine; Visit Provider Family Medicine
DX: E11.22 Type 2 diabetes mellitus with diabetic chronic kidney disease (principal); N18.30 Chronic kidney disease, stage 3 unspecified; T46.2X5A Adverse effect of other antidysrhythmic drugs, initial encounter
CPT/HCPCS: 36415; 80048; 82570; 83036; 84156; 84439; 84443

== ENCOUNTER → 2023-07-29 | Outpatient (CLI) | payer MEDICARE, SELFPAY ==
[2023-07-29 08:31] LABS: Absolute Lymphocyte Count 1.62 X10^3/uL (0.83-4.51); Absolute Neutrophil Count 3.3 X10^3/uL (2.0-7.7); Basophil# 0.06 X10^3/uL; Eosinophil# 0.21 X10^3/uL; Eosinophils% 3.5 % (0-5); Hematocrit 39.7 % (40-54); Hemoglobin 12.9 g/dL (13.0-16.5); Lymphocyte # 1.62 X10^3/ul (0.83-4.51); Lymphocyte % 26.6 % (19-41); Mean Corp Hgb Conc 32.5 g/dL (32-36); Mean Corpuscular Hgb 30.1 pg (27.0-32.0); Mean Corpuscular Volume 92.5 fL (80-94); Monocyte# 0.84 X10^3/uL; Monocyte% 13.8 % (0-10); NRBC Flagged by Analyzer 0 % (0-5); Neutrophil # 3.34 X10^3/uL (2.7-7.7); Neutrophil % 54.9 % (47-70); Platelet Count 185 K/mm3 (150-450); RBC Distribution Width SD 47.1 fl (35.1-43.9); Red Blood Count 4.29 M/mm3 (4.6-6.2); White Blood Count 6.1 K/mm3 (4.4-11.0)
[2023-07-29 08:56] LABS: Hemoglobin A1c 5.9 % (3.8-5.6)
[2023-07-29 09:15] LABS: ALB/GLOB Ratio 1.1 RATIO (0.9-2.4); AST(SGOT) 24 U/L (15-37); Alanine Aminotransfer ALT/SGPT 22 U/L (16-61); Albumin, Serum 3.7 g/dL (3.2-5.0); Alkaline Phosphatase 69 U/L (45-117); Anion Gap 4 (5-15); BUN 19 mg/dL (7-18); BUN/Creat Ratio 11.7 RATIO (10-20); Chloride 107 mmol/L (98-107); Cholesterol 141 mg/dL (200); Creatinine, Serum 1.63 mg/dL (0.70-1.30); EST Glomerular Filtration Rate 43 mL/min (>60); Est Glom Filt Rate - Afr Amer 52 mL/min (>60); Globulin 3.4 g/dL (2.2-4.2); Glucose 144 mg/dL (74-106); High Density Lipoprotein 39 mg/dL; Potassium 4.5 mmol/L (3.5-5.1); Protein, Total 7.1 g/dL (6.4-8.2); Sodium Level 139 mmol/L (136-145); T4 Free Direct 0.93 ng/dL (0.76-1.46); Triglycerides 117 mg/dL; Very Low Density Lipoprotein 23 mg/dL (5-40)
[2023-07-29 11:40] LABS: Microalbumin,Random Urine 10.5 mg/L (NO RANGE EST.); Microalbumin:Creatinine Ratio 6.6 mg/g CRE (<30 mg/g CRE)
== END | disposition home or self-care (01) ==
LOC: LAB 08:12
PROVIDERS: PCP Family Medicine; Referring Provider Family Medicine; Visit Provider Family Medicine
DX: E11.9 Type 2 diabetes mellitus without complications (principal); N18.30 Chronic kidney disease, stage 3 unspecified; N40.1 Benign prostatic hyperplasia with lower urinary tract symptoms; N13.8 Other obstructive and reflux uropathy; J45.909 Unspecified asthma, uncomplicated
CPT/HCPCS: 36415; 80053; 80061; 82043; 82570; 83036; 84439; 84443; 85025

== ENCOUNTER 2023-07-30 16:48 | Emergency (ER) | payer MEDICARE, SELFPAY ==
[2023-07-30 16:48] VITALS: BP 137/58; PULSE 75; RESP 16; TEMP 36.7; O2SAT 100; BMI 26.6
--- NOTE | 2023-07-30 16:56 | ED.VIS.GI ---
HPI HPI - GI History of Present Illness Chief Complaint: Nausea/Vomiting/Diarrhea Informant: patient Nausea/Vomiting/Emesis GI Symptom: Positive for Nausea and Vomiting Onset: Days (3) Quality: Positive for Nonbilious; Negative for Blood streaks, Coffee ground or Hematemesis Diarrhea/Melena/Hematochezia GI Symptom: Positive for Diarrhea; Negative for Melena or Hematochezia Onset: Days (3) Stool Quality: Positive for Loose and Watery Associated Symptoms Associated Symptoms: Negative for Dysuria, Frequency or Hematuria Narrative Narrative: Patient presents with I feel like I am dehydrated. Patient states he has been having some nausea, vomiting, and diarrhea for the past few days. Patient denies any melena or hematochezia. Patient states his diarrhea started off as loose stools then became watery. Patient denies any hematemesis or coffee-ground emesis. Patient states he is able to keep some fluids down. Patient denies any abdominal pain. Patient denies any fevers or chills. Patient denies any urinary complaints. [facility] Medical History (Updated 07/30/23 @ 18:[address] Bryan Diego, ) Asthma Candidiasis of mouth Chronic kidney disease CKD (chronic kidney disease) stage 3, GFR 30-59 ml/min CPAP (continuous positive airway pressure) dependence Dyspnea on exertion Former smoker History of stress test Hx of amiodarone therapy Hx of echocardiogram Hyperlipidemia Irregular heart beat Knee pain, right Moderate persistent asthma CHUCKIE (obstructive sleep apnea) Other acute postprocedural pain Paroxysmal atrial fibrillation Quadriceps tendon rupture Rhinitis Shortness of breath on exertion Stool contents finding, abnormal Wears glasses Home Medications cholecalciferol (vitamin D3) 25 mcg (1,000 unit) tablet 5,000 unit PO DAILY vitamin 11/10/15 [History Last Taken 07/30/23] multivitamin 1 ea PO DAILY supplement 11/10/15 [History Last Taken 07/30/23] azelastine 137 mcg (0.1 %) nasal spray aerosol 1 spray intranasal BID PRN Congestion 04/18/17 [History Last Taken Unknown] apixaban 5 mg tablet (Eliquis) 5 mg PO BID dose has been increased to 5mg bid #180 tabs 10/08/22 [Rx Last Taken 07/30/23] dupilumab 200 mg/1.14 mL subcutaneous pen injector (Dupixent) 200 mg subcut MONTHLY 02/06/23 [History Last Taken Unknown] Allergy/AdvReac Type Severity Reaction Status Date / Time No Known Allergies Allergy Verified 07/30/23 16:49 Family History Father , Had pacemaker, at advanced age No problems noted. Mother , lived to advanced age No problems noted. Other Chronic kidney disease Surgical History (Updated 07/30/23 @ 18:27 by Bárbara Del Rio) History of appendectomy History of appendectomy History of cardiac radiofrequency ablation History of cardiac radiofrequency ablation (RFA) (~07/03/22) History of cardioversion (~07/09/22) History of nasal surgery History of umbilical hernia repair Social History Smoking Status: Former smoker how long ago did patient quit smokin years ago alcohol intake: current alcohol intake frequency: a few times a week Alcohol type: wine substance use type: does not use caffeine: Yes Type: coffee Number of servings: 1 ROS ROS ED Constitutional Constitutional ED: Denies chills or fever(s) Eyes Eyes: Denies blurry vision or change in vision ENT ENT ED: Denies rhinorrhea or sore throat Cardiovascular Cardiovascular: Denies chest pain or palpitations Respiratory/Chest Respiratory/Chest: Denies cough or dyspnea Gastrointestinal Gastrointestinal: Reports diarrhea, nausea and vomiting; Denies melena Genitourinary Genitourinary ED: Denies dysuria or hematuria Musculoskeletal Musculoskeletal: Denies back pain or neck pain Integumentary Denies abscess or rash Neurologic Neurologic: Denies headache(s) or weakness Allergic/Immunologic Allergic/Immunologic ED: Denies mouth swelling or urticaria EXAM Physical Exam Const Vital Signs: 07/30/23 16:48 Temperature 98.1 F Temperature Source Temporal Pulse Rate 75 Respiratory Rate 16 Blood Pressure 137/58 H Blood Pressure Mean 84 Pulse Ox 100 Oxygen Delivery Method Room Air Positive well nourished and well developed General Appearance ED: well developed and NAD HEENT Reports moist mucous membranes Neck supple and no JVD Resp normal respiratory effort and clear to auscultation bilaterally Cardio regular rate and regular rhythm GI non-tender and non-distended Palpation: soft Neuro CN's II-XII intact bilaterally, moves all extremities and no sensory deficits noted Motor Exam: strength 5/5 throughout Psych mental status grossly normal MDM MDM MDM Narrative Medical decision making narrative: Differential diagnosis includes dehydration, electrolyte abnormality, gastrointestinal bleeding, anemia, and viral illness. CBC will be obtained to assess for leukocytosis and anemia. Basic metabolic profile will be obtained to assess for electrolyte abnormality and renal function. PT with INR and PTT will be obtained to assess for coagulopathy. Lab Data Attestation: I reviewed the patient's lab results. Lab results narrative: CBC was reviewed and was within normal limits. Basic metabolic profile was reviewed. BUN was 24 and creatinine was 1.52. These are consistent with prior results. PT with INR and PTT were reviewed. Pro time was 15.3 and INR is 1.2. PTT was normal at 31.9. Labs: Laboratory Results - last 24 hr 07/30/23 17:45 WBC 8.8 RBC 4.32 L Hgb 13.0 Hct 39.2 L MCV 90.7 MCH 30.1 MCHC 33.2 RDW Std Deviation 46.5 H RDW Coeff of Tiffany 14.0 Plt Count 182 MPV 10.2 Immature Gran % (Auto) 0.200 Neut % (Auto) 86.2 H Lymph % (Auto) 5.5 L Perry % (Auto) 7.4 Eos % (Auto) 0.2 Baso % (Auto) 0.5 Absolute Neuts (auto) 7.6 Absolute Lymphs (auto) 0.49 L Nucleated RBC % 0 Differential Comment SEE COMMENT Platelet Estimate ADEQUATE RBC Morphology N CHROM Anisocytosis RARE Macrocytosis RARE PT 15.3 H INR 1.2 APTT 31.9 Sodium 138 Potassium 4.0 Chloride 106 Carbon Dioxide 25.0 Anion Gap 7 BUN 24 H Creatinine 1.52 H Estim Creat Clear Calc 33.23 Est GFR (MDRD) Af Amer 57 L Est GFR (MDRD) Non-Af 47 L BUN/Creatinine Ratio 15.8 Glucose 135 H Calcium 8.4 L Treatment and Re-Evaluation :: Patient was given IV fluids. Patient was advised of his findings. Patient was instructed to follow-up with his primary care physician in 5 to 7 days. Patient was instructed to drink plenty of fluids. Patient was instructed to return if worse in any way. Patient understood and was agreeable with the plan. All questions were answered. Discharge Plan Triage Chief Complaint: Nausea/Vomiting/Diarrhea ED Provider: Bryan Diego Dx/Rx/DC Orders Clinical Impression: Nausea, vomiting, and diarrhea, Chronic kidney disease Instructions: ED Vomiting (Adult) Prescriptions: No Action azelastine 137 mcg (0.1 %) aerosol,spray 1 spray INTRANASAL BID PRN (Reason: Congestion) Dupixent Pen 200 mg/1.14 mL pen injector 200 mg subcut MONTHLY multivitamin 1 EACH tablet 1 ea PO DAILY cholecalciferol (vitamin D3) 1,000 UNIT tablet 5,000 unit PO DAILY Eliquis 5 mg tablet 5 mg PO BID Qty: 180 3RF Primary Care Provider: Manju Coulter Referrals: Manju Coulter MD [Primary Care Provider] - 5-7 Days Disposition Disposition: Home, Self Care
[2023-07-30 17:56] LABS: Absolute Lymphocyte Count 0.49 X10^3/uL (0.83-4.51); Absolute Neutrophil Count 7.6 X10^3/uL (2.0-7.7); Basophil# 0.04 X10^3/uL; Basophil% 0.5 % (0-1); Eosinophil# 0.02 X10^3/uL; Eosinophils% 0.2 % (0-5); Hematocrit 39.2 % (40-54); Lymphocyte # 0.49 X10^3/ul (0.83-4.51); Lymphocyte % 5.5 % (19-41); Mean Corp Hgb Conc 33.2 g/dL (32-36); Mean Corpuscular Hgb 30.1 pg (27.0-32.0); Mean Corpuscular Volume 90.7 fL (80-94); Mean Platelet Vol. 10.2 fl (6.2-12.0); Monocyte# 0.65 X10^3/uL; Monocyte% 7.4 % (0-10); NRBC Flagged by Analyzer 0 % (0-5); Neutrophil # 7.61 X10^3/uL (2.7-7.7); Neutrophil % 86.2 % (47-70); POSITIVE DIFFERENTIAL YES; Platelet Count 182 K/mm3 (150-450); RBC Distribution Width SD 46.5 fl (35.1-43.9); Red Blood Count 4.32 M/mm3 (4.6-6.2); White Blood Count 8.8 K/mm3 (4.4-11.0)
[2023-07-30 18:05] LABS: International Normalized Ratio 1.2; Prothrombin Time (Protime)PT. 15.3 SECONDS (11.7-14.9)
[2023-07-30 18:06] LABS: Partial Thromboplast Time 31.9 Seconds (24.1-36.2)
[2023-07-30 18:07] LABS: Anion Gap 7 (5-15); BUN 24 mg/dL (7-18); BUN/Creat Ratio 15.8 RATIO (10-20); Calcium,Total 8.4 mg/dL (8.5-10.1); Chloride 106 mmol/L (98-107); Creatinine, Serum 1.52 mg/dL (0.70-1.30); EST Glomerular Filtration Rate 47 mL/min (>60); Est Glom Filt Rate - Afr Amer 57 mL/min (>60); Estimated Creatinine Clearance 33.23 ml/min; Glucose 135 mg/dL (74-106); Sodium Level 138 mmol/L (136-145)
[2023-07-30 18:16] LABS: Differential Indicated SCAN CRITERIA MET
[2023-07-30 18:19] LABS: Anisocytosis RARE; Platelet Estimate ADEQUATE (ADEQ); Red Cell Morphology N CHROM NORMAL (NORM C&C)
[2023-07-30] MEDS: 0.9% Normal Saline (1000mL) 1,000 ML 1000 ML IV (18:19)
[2023-07-30 18:20] LABS: Macrocytosis RARE
[2023-07-30 18:48] VITALS: BP 121/60; PULSE 72; RESP 16; TEMP 37.2; O2SAT 99
== END 2023-07-30 19:17 | disposition home or self-care (01) ==
PROVIDERS: Emergency Provider Emergency Medicine; PCP Family Medicine; Visit Provider Emergency Medicine
DX: R11.2 Nausea with vomiting, unspecified (principal); I48.0 Paroxysmal atrial fibrillation; N18.30 Chronic kidney disease, stage 3 unspecified; Z87.891 Personal history of nicotine dependence; R19.7 Diarrhea, unspecified; E78.5 Hyperlipidemia, unspecified; G47.33 Obstructive sleep apnea (adult) (pediatric); Z99.89 Dependence on other enabling machines and devices; Z79.01 Long term (current) use of anticoagulants; Z90.49 Acquired absence of other specified parts of digestive tract
CPT/HCPCS: 80048; 85025; 85610; 85730; 96360; 99283; J7030; A4216

== ENCOUNTER → 2023-08-21 | Outpatient (CLI) | payer MEDICARE, SELFPAY ==
--- NOTE | 2023-08-21 10:11 | RAD_ITS ---
INDICATION: Shortness of breath, cough -- for DCCV EXAMINATION/TECHNIQUE: X-RAY - XR Chest 2 Views COMPARISON: July 14, 2021 FINDINGS: LINES/DEVICES: None. LUNGS: No new consolidation, edema or effusion. There is a grossly stable hazy opacity at the right cardiophrenic angle suggestive of a pericardial fat pad. No pneumothorax. MEDIASTINUM AND CARDIOVASCULAR STRUCTURES: Cardiac silhouette not enlarged. Central airways and mediastinal contour are unremarkable. BONES AND SOFT TISSUES: Unremarkable. RAD/Chest PA and Lateral IMPRESSION: No radiographic evidence of acute cardiopulmonary disease. Electronically Signed: Lisa Ballard MD at 8:40 EDT ,
[2023-08-21 11:43] LABS: Anion Gap 6 (5-15); BUN 27 mg/dL (7-18); BUN/Creat Ratio 15.5 RATIO (10-20); Calcium,Total 9.5 mg/dL (8.5-10.1); Chloride 108 mmol/L (98-107); Creatinine, Serum 1.74 mg/dL (0.70-1.30); EST Glomerular Filtration Rate 40 mL/min (>60); Est Glom Filt Rate - Afr Amer 48 mL/min (>60); Glucose 242 mg/dL (74-106); Potassium 4.6 mmol/L (3.5-5.1); Sodium Level 140 mmol/L (136-145)
== END | disposition home or self-care (01) ==
LOC: RAD 10:11
PROVIDERS: PCP Family Medicine; Referring Provider Internal Medicine Cardiovascular Disease; Visit Provider Internal Medicine Cardiovascular Disease
DX: R53.83 Other fatigue (principal); I48.92 Unspecified atrial flutter; I48.19 Other persistent atrial fibrillation; R06.02 Shortness of breath; R05.9 Cough, unspecified
CPT/HCPCS: 36415; 71046; 80048

== ENCOUNTER 2023-09-05 11:31 | Day surgery (SDC) | payer MEDICARE, SELFPAY ==
--- NOTE | 2023-08-21 16:18 | PCM.HP.BLA ---
History and Physical Date of Admission: 09/05/23 CAT MICHAELS, is a 83 M who presents for a cardioversion. His EKG from 08/21/2023 demonstrated Atrial Fibrillation/Flutter. He has a history of hypertension, paroxysmal atrial fibrillation, and asthma. You remember in February 2019, he was admitted to the hospital with an episode of atrial fibrillation with a slow ventricular response rate. He had some medication changes and he appears to have done well. After seeing us in the office his medications were adjusted once again. At that time, he was noted to have some renal dysfunction and it has improved after rechecking it. A follow-up Holter monitor in March 2019 did not demonstrate any evidence of atrial fibrillation. He underwent electrophysiology study and ablation for persistent atrial fibrillation with [facility] on 07/02/[address] Bejarano. He presented to [facility] Emergency Department on 07/09/2022 with palpitations. He was noted to be in atrial fibrillation at a rate of 102 bpm. He proceeded with cardioversion to sinus rhythm with PACs. He had repeat cardioversion in September 2022 for recurrening atrial fibrillation. He has actually done well since then with no complaints at this particular time. Intake Vital Signs See EMR Allergies See EMR Medications See EMR Ejection fraction %: 65 to 70 PFSH Medical History Asthma Candidiasis of mouth Chronic kidney disease CKD (chronic kidney disease) stage 3, GFR 30-59 ml/min CPAP (continuous positive airway pressure) dependence Dyspnea on exertion Former smoker History of stress test Hx of amiodarone therapy Hx of echocardiogram Hyperlipidemia Irregular heart beat Knee pain, right Moderate persistent asthma CHUCKIE (obstructive sleep apnea) Other acute postprocedural pain Paroxysmal atrial fibrillation Quadriceps tendon rupture Rhinitis Shortness of breath on exertion Stool contents finding, abnormal Wears glasses Surgical History History of appendectomy History of appendectomy History of cardiac radiofrequency ablation History of cardiac radiofrequency ablation (RFA) (~07/03/22) History of cardioversion (~07/09/22) History of nasal surgery History of umbilical hernia repair Family History Father , Had pacemaker, at advanced age No problems noted. Mother , lived to advanced age No problems noted. Other Chronic kidney disease Social History Smoking Status: Former smoker how long ago did patient quit smokin years ago alcohol intake: current alcohol intake frequency: a few times a week Alcohol type: wine substance use type: does not use caffeine: Yes Type: coffee Number of servings: 1 ROS Const Const: Negative for fatigue, weakness, headache(s), daytime sleepiness or difficulty sleeping Eyes Eyes: Negative for change in vision ENT ENT: Negative for headache(s), dizziness or Nosebleed/epistaxis Cardio Chest Pain: No Palpitations: No Edema: None Resp Respiratory: Negative for SOB with activity, SOB at rest, SOB orthopnea\SOB lying down or Cough GI GI: Negative nausea, vomiting or heartburn Neuro Neuro: Negative for dizziness, lightheadedness, near syncope, headache(s) or weakness Endo Endo: Negative for fatigue Cardiology Exam Const Appearance: cooperative, healthy appearing, comfortable and no acute distress Nutritional Appearance: well nourished and overweight Orientation: alert, awake and oriented x3 Head Head: normal to inspection Ears: hearing grossly normal bilaterally Nose: external nose normal Face and Sinus: face symmetric Mouth: moist mucous membranes Eyes General: appearance normal, both eyes and all related structures Eyelids: eyelids normal EOM: EOM intact bilaterally Neck Neck: normal visual inspection and no JVD Carotids: normal carotid upstroke Chest Chest inspection: normal inspection of the chest, symmetric chest movement and normal respiratory effort; Negative cough Auscultation: Bilateral: Clear to Auscultation Cardio Rhythm: irregularly irregular rhythm Heart sounds: S1 normal and S2 normal; Negative rub, gallop or murmur GI GI: normal to inspection Neuro General: patient alert, patient awake, patient oriented x3 and CN's II-XI intact bilaterally Skin Skin: no rashes or lesions noted Extremities Pulses: Normal: Right Posterior Tibial Pulse, Left Posterior Tibial Pulse, Right Radial Pulse and Left Radial Pulse Upper Extremity: Bruising Lower Extremity Edema: None: Bilateral Psych Psychological: normal affect Supplemental Info Supplemental Information Echocardiogram from 05/25/2022 at [facility]: Conclusions: ? Exam indication: Nonsustained atrial fibrillation ? The left ventricle is small. Left ventricular systolic function is hyperdynamic. EF equals 72?5% (2D biplane) ? The right ventricle is normal in size. Right ventricular systolic function is normal. ? Estimated right ventricular systolic pressure is likely underestimated due to a week or in complete tricuspid regurgitation signal and is, at least, 35 mmHg consistent with mild pulmonary hypertension. Estimated right atrial pressure is 3 mmHg based on IVC assessment. ? No significant valve disease. ? The patient has not had a prior echocardiographic exam for comparison. ECHOCARDIOGRAM 11/04/2014 Interpretation Summary Normal LV size. Mild concentric left ventricular hypertrophy. Left ventricular systolic function is normal. The estimated ejection fraction is 65 %. Mild (1+) mitral valve insufficiency. Mild tricuspid valve insufficiency. Exercise myocardial perfusion stress test 01/04/2020 Conclusion: Normal exercise myocardial perfusion stress test at a moderate to high workload. Preserved ejection fraction. No arrhythmias noted. No Afib noted. Assessment and Plan Assessment and Plan (1) Paroxysmal atrial fibrillation: Status: Chronic Comment: s/p EP study and ablation with [facility] on 07/02/2022; DCCV in ER on 07/09/2022; DCCV 09/17/2022; Plan: Patient has a history of paroxysmal atrial fibrillation. His EKG from 08/21/2023 demonstrated atrial flutter/fib with a heart rate of 105 bpm. Will proceed with DCCV.
[2023-09-04 08:38] VITALS: BMI 26.6
--- NOTE | 2023-09-05 12:44 | PCM.OP.PRO ---
Procedure Report Date of Procedure: 09/05/23 CONSCIOUS SEDATION REPORT DATE OF SERVICE: September 05, 2023 BRIEF HISTORY OF PRESENT ILLNESS: The patient is an 83-year-old male who presented to [facility] for elective outpatient cardioversion due to underlying atrial fibrillation. The patient did undergo a prior cardioversion in September 2022, during which time, he required 40 mg of propofol to achieve an appropriate level of sedation. The patient denied any prior anesthetic complications. His last surface echocardiogram demonstrated an ejection fraction of 65%. The patient remains systemically anticoagulated on Eliquis, without any missed doses noted. PHYSICAL EXAMINATION: VITAL SIGNS: Reviewed and were acceptable. GENERAL: The patient is a male, in no apparent distress, speaking in full sentences. HEENT: Normocephalic, atraumatic. Mucous membranes are moist and pink. Good mouth opening noted. Trachea is midline. CHEST: S1, S2 irregularly irregular. No murmurs, rubs or gallops were noted. LUNGS: Clear to auscultation bilaterally without appreciable wheezes, rales or rhonchi. ABDOMEN: Soft, nontender, nondistended. Positive bowel sounds. EXTREMITIES: There is no clubbing, cyanosis or edema. ASA Class: II DESCRIPTION OF PROCEDURE: After confirmation of informed consent, the patient's anesthesia plan was reviewed in detail. Propofol was chosen. Risks and benefits were reviewed and the patient agreed to proceed. At 1228, the patient was given 40 mg of propofol. The patient achieved an appropriate level of sedation and was given a 200 joule synchronized cardioversion by Dr. Mckeon at the bedside. This was successful in achieving normal sinus rhythm. The patient was monitored until 1240, at which time he reached his baseline mental status and function. The patient tolerated the procedure well. COMPLICATIONS: None ESTIMATED BLOOD LOSS: None RECOMMENDATIONS: Okay to recover in usual fashion. Procedures Pulmonary 9xxxx: [id number] Con Sedation
--- NOTE | 2023-09-05 13:42 | PCM.OP.PRO ---
Procedure Report Date of Procedure: 09/05/23 DC cardioversion. 83-year-old man with a history of atrial fibrillation flutter ablation. He is back in atrial fibrillation which is persistent. He is symptomatic. He has been on therapeutic anticoagulation. Patient was seen in the [facility] catheterization lab in the postabsorptive nonsedated state. Patient was seen by Dr. Villagomez of the critical care division. Informed consent was obtained. Anterior-posterior pads were applied. The patient was administered 40 mg of intravenous propofol. 200 J of synchronized DC cardioversion energy were applied with prompt reversal to sinus rhythm. Patient tolerated the procedure well. Conclusion: Successful DC cardioversion from atrial fibrillation to sinus rhythm. Continue as per office protocol. Will institute amiodarone 200 mg a day for 3 months.
== END 2023-09-05 13:25 | disposition home or self-care (01) ==
PROVIDERS: PCP Family Medicine; Referring Provider Internal Medicine Cardiovascular Disease; Visit Provider Internal Medicine Cardiovascular Disease
DX: I48.19 Other persistent atrial fibrillation (principal); I48.0 Paroxysmal atrial fibrillation; N18.30 Chronic kidney disease, stage 3 unspecified; E78.5 Hyperlipidemia, unspecified; Z87.891 Personal history of nicotine dependence; G47.33 Obstructive sleep apnea (adult) (pediatric); I12.9 Hypertensive chronic kidney disease with stage 1 through stage 4 chronic kidney disease, or unspecified chronic kidney disease; J45.909 Unspecified asthma, uncomplicated
CPT/HCPCS: 92960; 93005; J7040

== ENCOUNTER 2024-02-27 11:30 | Outpatient (RCR) | payer MEDICARE, SELFPAY ==
--- NOTE | 2024-01-07 12:15 | HP.PTEVAL ---
Patient's Visit Information Visit Information Visit Information: CAT MICHAELS is a 83 year old M referred to Physical Therapy by Dr. Moi Echevarria DO with a diagnosis of NUEROPATHY ,POOR BALANCE, STIFFNESS KNEE. Date of Evaluation: 01/07/24 Physical Therapist: Dante Mendiola, PT, Cert MDT, OCS Visit Plan Frequency: 2x /Week Duration: 4 Weeks Plan: PT INTERVENTIONS AQUATIC THERAPY FLEXABILITY CALVES,BALANCE/PROPRIOCEPTION ,BLE STRENGTHENING AND CORE EX'S Subjective Subjective: This 83 y/o male presents to physical therapy with neuropathy and balance with stiffness in knee with h/o right open quadriceps tendon repair ~ 2 years ago done by DR Echevarria. Patient pain issue is pain causes decrease balance. Patient seen DR Patrick for pain recommended PT and seen DR Echevarria for knee stiffness. No medication or treatment has helped. Patient had nerve testing which is negative. Patient c/o stiffness in knee. Patient has not fallen. Patient has constant pain in feet. Symptoms are not affected with any type of movement or activity. Although walking helps to make symptoms better. Denies paresthesia/tingling. Patient knee symptoms are not produced with any activity. Patient condition affects QOL and function. Patient goals to decrease pain in feet. SOCAIL: VOCATION: [employer] Pain Bilateral Ankle: Pain Intensity (Out of 10): 2 Pain Intensity Range: 10 Bilateral Foot: Pain Intensity (Out of 10): 2 Pain Intensity Range: 10 Objective Objective: POSTURE: mild forward posture GAIT: reciprocal pattern NEURO: denies paresthesia/tingling ,reflexes L3-4,L4-5,L5- S1 2/3 SLS: diminished right > left 15-20seconds AROM: supine knee flexion 0-130 degrees supine flexion MMT: quads/hamstrings 4/5 ,hip flexion/abduction 4/5 ,ankle 5/5 no pain HEEL /TOE: intact FELXABILITY : -G-S mild tight Balance/Special Test Scores Functional Gait Assessment Score: 30 % Disability: 0 CATSIB Score (Max score 120 seconds): 120 Lower Extremity Functional Score: 28 Goals Goal 1:: Patient to be I with Aquatic Therapy program and strengthening Goal Time Frame: 4-6 Weeks Goal 2:: Patient to demonstrate 40% improvement with less symptoms in feet to improve function Goal Time Frame: 4-6 Weeks Goal 3:: Patient to improve LFES score by 5 points to improve QOL and function Goal Time Frame: 4-6 Weeks Goal 4:: Patient able to walk/stand with less pain 30mins to improve function Goal Time Frame: 4-6 Weeks Rehabilitation Potential Physical Therapy Diagnosis: This patient has decrease balance with pain feet from neuropathy with pain along with h/o patella repair ~ 2 years ago with symptoms affects feet patient CATSIBE - and functional gait assessment score - thus will benefit from skilled PT Rehabilitation Potential: Good Anticipated Interventions Patient/Client Instruction: Educate patient on: Condition and Plan of Care For the Purpose of:: To decrease pain, To increase ROM, To improve muscle performance and motor function, To improve ability to perform ADL's, To increase tolerance to activity/condition/position, To improve ability of physical actions for home/community/work/leisure, To improve gait and locomotor functions, To improve health of tissue, To decrease soft tissue restriction, To increase flexibility/ROM, To improve balance and To reduce risk of recurrence Therapeutic Exercise to Include: Strength training, Endurance training, Balance training, Postural training, Flexibilty training, In an aquatic setting and Dynamic Lumbar Stabilization For the Purpose of:: To decrease pain, To increase ROM, To improve muscle performance and motor function, To improve ability to perform ADL's, To increase tolerance to activity/condition/position, To decrease level of supervision to perform tasks, To improve health of tissue, To decrease soft tissue restriction, To increase flexibility/ROM, To improve endurance and To improve balance Text: Thank you for the opportunity to evaluate your patient. For Medicare and Medicare HMO plans, please review the plan of care and approve it. It will need to be FAXED BACK to us at [phone] for Medicare purposes. For Medicare only, by signing this I certify the plan of care. Please let me know if there are questions or concerns regarding this plan of care. Physician Signature: Date:
--- NOTE | 2024-02-27 12:41 | HP.PTDCSUM_ITS ---
Discharge Summary D/C summary: It has been my pleasure to treat CAT MICHAELS referred by Dr. Moi Echevarria DO, with the diagnosis of NUEROPATHY ,POOR BALANCE, STIFFNESS KNEE for a total of 15 visit(s). Discharge Date: 02/27/24 Please see the following information for a summary of their discharge status. Subjective Subjective: PT has helped with balance and ex's to manage symptoms with neuropathy Feel better physical therapy Patient is happy with result Pain Bilateral Ankle: Pain Intensity (Out of 10): 0 Bilateral Foot: Pain Intensity (Out of 10): 3 Overall Improvement % Improvement: 80 Objective Objective/Function: POSTURE: mild forward posture GAIT: reciprocal pattern NEURO: denies paresthesia/tingling ,reflexes L3-4,L4-5,L5- S1 2/3 SLS: diminished right > left 15-20seconds AROM: supine knee flexion 0-130 degrees supine flexion MMT: quads/hamstrings 4/5 ,hip flexion/abduction 4/5 ,ankle 5/5 no pain HEEL /TOE: intact FELXABILITY : -G-S mild tight Goals Goal 1:: Patient to be I with Aquatic Therapy program and strengthening Goal Progress: Goal Met Goal 2:: Patient to demonstrate 40% improvement with less symptoms in feet to im prove function Goal Progress: Goal Met Goal 3:: Patient to improve LFES score by 5 points to improve QOL and function Goal Progress: Goal Met Goal 4:: Patient able to walk/stand with less pain 30mins to improve function Goal Progress: Goal Met Plan Plan: D/C D/C Information Discharge Comments: HEP d/c sentence: If there are questions or concerns regarding this patient's physical therapy, please feel free to call me at [phone]. Thank you for the referral of this patient. Sincerely, Dante Mendiola, PT, Cert MDT, OCS Balance/Gait/Functional tests Balance/Special Test Scores Functional Gait Assessment Score: 30 % Disability: 0 CATSIB Score (Max score 120 seconds): 120 Lower Extremity Functional Score: 56 Improvement % Improvement: 80
== END 2024-02-27 19:00 | disposition home or self-care (01) ==
LOC: PT 11:30
PROVIDERS: PCP Family Medicine; Referring Provider Orthopaedic Surgery; Visit Provider Orthopaedic Surgery
DX: M25.661 Stiffness of right knee, not elsewhere classified (principal); S76.111D Strain of right quadriceps muscle, fascia and tendon, subsequent encounter
CPT/HCPCS: 97110; 97113; 97162; 97530

== ENCOUNTER → 2024-03-16 | Outpatient (CLI) | payer MEDICARE, SELFPAY ==
[2024-03-16 11:37] LABS: PSA,Total- Diagnostic 3.55 ng/mL (0.0-4.0)
== END | disposition home or self-care (01) ==
LOC: LAB 10:40
PROVIDERS: PCP Family Medicine; Referring Provider Urology; Visit Provider Urology
DX: N40.1 Benign prostatic hyperplasia with lower urinary tract symptoms (principal)
CPT/HCPCS: 36415; 84153

== ENCOUNTER 2024-06-19 10:00 | Outpatient (RCR) | payer MEDICARE, SELFPAY ==
--- NOTE | 2024-05-28 13:41 | HP.PTEVAL_ITS ---
Patient's Visit Information Visit Information Visit Information: CAT MICHAELS is a 84 year old M referred to Physical Therapy by Dr. 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 Date of Evaluation: 05/28/24 Physical Therapist: Bryan Penn, BOOT, OCS, CSCS Visit Plan Frequency: 2x /Week Duration: 4-6 Weeks Plan: 2x/week for 4-6 weeks for... IE: HEP HO of HS supine stretch, quad prone stretch with strap, ITB sidelie stretch all 30 5x daily. Treat with : MH and rollout to L upper leg emphasizing HS , quad and ITB, stretch same aggressively, move to funcitonal hip ROM and strengthening via HEP then to final gym LE program through full ROM to I with list. Subjective Subjective: H/o R knee operation. Stiffness adn soreness on lateral R>L leg. Saw Aman as he is his surgeon and said knee looked good but has tightness in ITB. Legs feel weak and ache at times. L one is minimal to nil but aches at times differently. Some days worse than others for no apparent reason. HEP: DKC, calf stretches adn LB movements at home. In gym trying 2/week does hip abd and adduction. Had water therapy for balance and it helped alot. Sitting too long is Ok. Steps at home are done but can make him worse. Activitiy: avoids some aggressive cleaning like cleaning stereo room. Has to do a little at a t [place]hel. Sleep is not a problem, CPAP 7 hrs. 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 plays [employer] Employed: none. Pain R lateral leg: Pain Intensity (Out of 10): 1 Pain Intensity Range: 0 and 5 Objective Objective: Walks into PT I, trasnfers bed and chair I, Max tight in Upper legs with 3 degree adduction in ITB, -35 90/90 on HS and 95 ddgree knee flexion in prone before quad pulls pelvisanteriorly. AROM knee 0-130 R knee and 0-135 L knee. Hips WNL outside of flexibility deficits, Ankle aROM WFL LB AROM ext mod limtied and flexion mod limtied but not painful. reflexes 2/3 patella and achilles B Sensation LE WNL to gross light touch B LE. strength hip abd and ext 3+ B with pain L abduction, flexion 4- B, knee flex/ext 4+, ankles 4+. - varus and valgus B, - ant drawer B, - patellar grind , - bounce home B Balance/Special Test Scores Lower Extremity Functional Score: 28 Goals Goal 1:: Patient feel 90% better in lateral leg and 1/10 at worst Goal Time Frame: 4-6 Weeks Goal 2:: Patient do all ADLs including cleaning stereo room without tightness or pain in lateral legs Goal Time Frame: 4-6 Weeks Goal 3:: I appropriate HEP adn gym to minimize future problems. Goal Time Frame: 4-6 Weeks Goal 4:: LEFS 45 Goal Time Frame: 4-6 Weeks Rehabilitation Potential Physical Therapy Diagnosis: tightness in upper legs limtiing excurison and comfortable function. Rehabilitation Potential: Good Anticipated Interventions Patient/Client Instruction: Educate patient on: Condition and Plan of Care For the Purpose of:: To decrease pain, To increase ROM, To improve nutrient delivery to tissue and To improve muscle performance and motor function Therapeutic Exercise to Include: Strength training, Postural training, Flexibilty training, Relaxation training, Passive ROM and Active ROM For the Purpose of:: To decrease pain, To increase ROM, To improve nutrient delivery to tissue, To improve muscle performance and motor function, To increase tolerance to activity/condition/position, To improve ability of physical actions for home/community/work/leisure and To improve gait and locomotor functions Manual Therapy Techniques to Include: Mobilization, Passive ROM and Soft tissue mobilization For the Purpose of:: To decrease pain, To increase ROM, To improve nutrient delivery to tissue and To improve muscle performance and motor function Thermo therapy (hot pack): Yes For the Purpose of:: To improve nutrient delivery to tissue Text: Thank you for the opportunity to evaluate your patient. For Medicare and Medicare HMO plans, please review the plan of care and approve it. It will need to be FAXED BACK to us at [phone] for Medicare purposes. For Medicare only, by signing this I certify the plan of care. Please let me know if there are questions or concerns regarding this plan of care. Physician Signature:___ Date:
== END 2024-06-19 19:00 | disposition home or self-care (01) ==
LOC: PT 10:00
PROVIDERS: PCP Family Medicine; Referring Provider Orthopaedic Surgery; Visit Provider Orthopaedic Surgery
DX: M76.31 Iliotibial band syndrome, right leg (principal); M76.32 Iliotibial band syndrome, left leg
CPT/HCPCS: 97110; 97161; 97530

== ENCOUNTER → 2024-07-22 | Outpatient (CLI) | payer MEDICARE, SELFPAY ==
--- NOTE | 2024-07-22 15:43 | RAD_ITS ---
PROCEDURE: CHEST PA AND LATERAL 07/22/2024 REASON FOR EXAM: SHORTNESS OF BREATH TECHNIQUE: Frontal and lateral views of the chest. COMPARISON: CHEST X-RAY OF 08/21/2023. RAD/Chest PA and Lateral IMPRESSION: BILATERAL HEMIDIAPHRAGM EVENTRATION, [id number], IS SIMILAR TO THE PRIOR EXAMINATION. Lungs appear clear of acute disease. No pleural effusion or pneumothorax is noted. The cardiomediastinal silhouette is within the normal range. No acute osseous process is noted. Reading Location: [id number]
[2024-07-22 17:59] LABS: Anion Gap 12 (5-15); BUN 27 mg/dL (4-19); BUN/Creat Ratio 17.5 RATIO (10-20); Calcium,Total 8.9 mg/dL (7.6-11.0); Carbon Dioxide 20.9 mmol/L (21.0-32.0); Chloride 105 mmol/L (98-108); Creatinine, Serum 1.53 mg/dL (0.70-1.20); EST Glomerular Filtration Rate 45 (>60); Glucose 150 mg/dL (70-99); Potassium 4.2 mmol/L (3.3-5.1); Pro- Brain NATRIURETIC PEPTIDE 347 pg/mL (<=1800); Sodium Level 138 mmol/L (133-145)
== END | disposition home or self-care (01) ==
LOC: RAD 15:33
PROVIDERS: PCP Family Medicine; Referring Provider Nurse Practitioner Acute Care; Visit Provider Nurse Practitioner Acute Care
DX: R06.02 Shortness of breath (principal)
CPT/HCPCS: 36415; 71046; 80048; 83880

== ENCOUNTER 2024-07-28 10:30 | Outpatient (RCR) | payer MEDICARE, SELFPAY ==
--- NOTE | 2024-07-22 10:01 | HP.PTEVAL ---
Patient's Visit Information Visit Information Visit Information: CAT MICHAELS is a 84 year old M referred to Physical Therapy by Dr. Moi Echevarria DO with a diagnosis of Lumbar radiculopathy. Date of Evaluation: 07/22/24 Physical Therapist: Bryan Penn, DPT, OCS, CSCS Visit Plan Frequency: 2x /Week Duration: 4-6 Weeks Plan: 2x/week for 4-6 weeks IE HEP trunk rotation 15x, SKC 15x, PPT x15 and standing pelvic tilt x10 all 3x/day with pics and educatee on benefits of NS position Treat with ex to increase pelvic mobility, flexion mobs and lumbar flexion and NS bias core strength, progress back to HS and quad stretches all to HEP. Most emphasis should be on NS in standing position once he gets on HEP MH and STM to R posterior hip mm if needed. Subjective Subjective: Got worse leg pain again after last visit but having a hard time remembering the time line. This is all R leg pain R lateral lower leg adn into foot and R latral hip , No back pain. Saw Kayden who thinks that treatment previously to ITB did its job. R leg pain now is different and ranges 6/10 most of time. Tingling intermittently R lower leg and worse with walking. Mostly painfree when sitting. Sleep is interrupted by foot and ankle pain. Foot doctor thinks strained ligs in ankle and prescribed voltarin which helps somewhat. No treatment from Dr. Newton. Activities: Going up and down steps hurts due to pain. Working at [employer] walking into it is painful . 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 Stopped all exercises at home. Pain R leg: Pain Intensity (Out of 10): 3 Pain Intensity Range: 0 and 6 Objective Objective: Some R antalgia into PT but I gait and trasnfers bed and chair, also has pain in lower leg with rolling in bed and shear force to spine. LB and pelvic ROM is poor into extension and flexion, SB mod deficits, pelvis move minimally in supine and hardly at all in standing. HS very tight at -35 90/90 test. quads mod tight. reflexes 2/3 patella adn achilles B Sensation LE WNL to gross light touch B. strength in hips is 4- abd and ext(R xt causes ankle pain to worsen as does walking.) hip flexion 3+ R and 4- L knee flexion ext is 4 B, ankles 4+ B. - SLR, - slump but very tight and poor movement. good balance with ambulation but slow movement adn weight shifting Balance/Special Test Scores Oswestry Low Back Score: 27 Goals Goal 1:: pelvic movement in standing is noticeable and painfree Goal Time Frame: 4-6 Weeks Goal 2:: I appropriate NS strength to core adn pelvic mobility ex to manage condition Goal Time Frame: 4-6 Weeks Goal 3:: Pt feel pain in leg is 75% better and manageable Goal Time Frame: 4-6 Weeks Goal 4:: Walks into adn out of clinic without increased pain. Goal Time Frame: 4-6 Weeks Rehabilitation Potential Physical Therapy Diagnosis: leg pain possibly lumbar in nature adn limiting walking ability. Rehabilitation Potential: Fair Anticipated Interventions Patient/Client Instruction: Educate patient on: Condition and Plan of Care For the Purpose of:: To decrease pain, To increase ROM, To improve nutrient delivery to tissue, To improve muscle performance and motor function, To increase tolerance to activity/condition/position, To improve ability of physical actions for home/community/work/leisure and To improve gait and locomotor functions Therapeutic Exercise to Include: Strength training, Postural training, Flexibilty training, Passive ROM and Active ROM For the Purpose of:: To decrease pain, To increase ROM, To improve nutrient delivery to tissue, To improve muscle performance and motor function, To increase tolerance to activity/condition/position and To improve gait and locomotor functions Manual Therapy Techniques to Include: Passive ROM and Soft tissue mobilization For the Purpose of:: To decrease pain, To increase ROM, To improve muscle performance and motor function, To increase tolerance to activity/condition/position and To improve gait and locomotor functions Thermo therapy (hot pack): Yes For the Purpose of:: To decrease pain and To improve nutrient delivery to tissue Text: Thank you for the opportunity to evaluate your patient. For Medicare and Medicare HMO plans, please review the plan of care and approve it. It will need to be FAXED BACK to us at [phone] for Medicare purposes. For Medicare only, by signing this I certify the plan of care. Please let me know if there are questions or concerns regarding this plan of care. Physician Signature: Date:
--- NOTE | 2024-09-09 08:45 | HP.PTDCNRP_ITS ---
Patient Information Patient Information: CAT MICHAELS was seen in my office for initial evaluation on 07/22/24. The following Plan of Care was established for this patient: POC Established Initial Frequency: 2x /Week Initial Duration: 4-6 Weeks Anticipated Interventions Patient/Client Instruction: Educate patient on: Condition and Plan of Care For the Purpose of:: To decrease pain, To increase ROM, To improve nutrient delivery to tissue, To improve muscle performance and motor function, To increase tolerance to activity/condition/position, To improve ability of phys ical actions for home/community/work/leisure and To improve gait and locomotor functions Therapeutic Exercise to Include: Strength training, Postural training, Flexibilty training, Passive ROM and Active ROM For the Purpose of:: To decrease pain, To increase ROM, To improve nutrient delivery to tissue, To improve muscle performance and motor function, To increase tolerance to activity/condition/position and To improve gait and locomotor functions Manual Therapy Techniques to Include: Passive ROM and Soft tissue mobilization For the Purpose of:: To decrease pain, To increase ROM, To improve muscle performance and motor function, To increase tolerance to activity/condition/position and To improve gait and locomotor functions Thermo therapy (hot pack): Yes For the Purpose of:: To decrease pain and To improve nutrient delivery to tissue Last Seen Last Seen: This patient was last seen in our office 07/28/24. Pertinent comments regarding their Physical therapy will appear below: Pt seen 3 visits of POC and then did not attend any further visits. Appears as if he had hospital stay after that. At this point, it has been over 5 weeks and I will discontinue from my care. At this point I will be discontinuing this patient from physical therapy. I would be happy to see this patient again in the future if found appropriate by the physician. Thank you! Bryan Penn, DPT, OCS, CSCS Balance/Gait/Functional tests Balance/Special Test Scores Oswestry Low Back Score: 27
== END 2024-07-28 19:00 | disposition home or self-care (01) ==
LOC: PT 10:30
PROVIDERS: PCP Family Medicine; Visit Provider Orthopaedic Surgery
DX: M54.16 Radiculopathy, lumbar region (principal); R20.2 Paresthesia of skin
CPT/HCPCS: 97110; 97162

== ENCOUNTER 2024-07-28 13:25 | Inpatient (IN) | payer MEDICARE, SELFPAY ==
[2024-07-28] VITALS (9 sets, daily range): BP systolic 128–153; BP diastolic 51–76; PULSE 63–69; RESP 14–18; TEMP 36.1–37.2; O2SAT 96–99; BMI 27.0; BMI 27.1
--- NOTE | 2024-07-28 14:09 | EKG12_ITS ---
Test Reason : WEAKNESS Blood Pressure : */* mmHG Vent. Rate : 66 BPM Atrial Rate : 66 BPM P-R Int : 232 ms QRS Dur : 102 ms QT Int : 428 ms P-R-T Axes : 77 55 31 degrees QTcB Int : 448 ms Sinus rhythm with 1st degree A-V block Otherwise normal ECG Confirmed by ALEXANDRE ERNANDEZ, MYKE ([id number]), field map editor SANTHOSH MOORE ([id number]) on 07/29/2024 8:19:35 AM Referred By: Confirmed By: MYKE SCHROEDER MD
[2024-07-28 14:16] LABS: Absolute Lymphocyte Count 0.91 X10^3/uL (0.83-4.51); Absolute Neutrophil Count 15.3 X10^3/uL (2.0-7.7); Basophil# 0.05 X10^3/uL; Basophil% 0.3 % (0-1); Eosinophils% 0.6 % (0-5); Hematocrit 28.5 % (40-54); Hemoglobin 8.6 g/dL (13.0-16.5); Lymphocyte # 0.91 X10^3/ul (0.83-4.51); Mean Corp Hgb Conc 30.2 g/dL (32-36); Mean Corpuscular Hgb 23.6 pg (27.0-32.0); Mean Corpuscular Volume 78.1 fL (80-94); Mean Platelet Vol. 10.8 fl (6.2-12.0); Monocyte# 1.59 X10^3/uL; Monocyte% 8.8 % (0-10); NRBC Flagged by Analyzer 0 % (0-5); Neutrophil # 15.33 X10^3/uL (2.7-7.7); Neutrophil % 84.6 % (47-70); POSITIVE DIFFERENTIAL YES; Platelet Count 241 K/mm3 (150-450); RBC Distribution Width SD 47.6 fl (35.1-43.9); Red Blood Count 3.65 M/mm3 (4.6-6.2); White Blood Count 18.1 K/mm3 (4.4-11.0)
[2024-07-28 14:17] LABS: Differential Indicated SCAN CRITERIA MET
[2024-07-28 14:28] LABS: Bacteria 0 SEEN /hpf (None Seen); Mucous, Urine 0 SEEN /hpf (<or=2+); Squamous Epithelial Cells - UA 0 SEEN /hpf (0-5)
--- NOTE | 2024-07-28 14:28 | ED.VIS.DYS ---
HPI History of Present Illness Chief Complaint: Shortness of Breath Narrative Narrative: Chief complaint and HPI: Shortness of breath and weakness. 84-year-old gentleman with past medical history of asthma, atrial fibrillation on Eliquis, CKD, HLD presents for evaluation of shortness of breath and weakness. Patient states that he has had progressive shortness of breath for the past several months. He saw pulmonology who is concerned about CHF. He is scheduled for an outpatient stress test and echocardiogram. Patient states that his shortness of breath is worse with exertion. He states he presents today due to weakness. Weakness started yesterday but worsened today. was recently ill with a URI. He denies any fever, chills, chest pain, URI symptoms, cough, abdominal pain, nausea, vomiting, dysuria. Denies any bilateral lower extremity swelling. Review of systems: See HPI Medications: As listed on the chart Allergies: As listed on the chart PFSH: Per chart Vital signs: As listed on the chart. Reviewed. Physical exam: Gen: A&O x3, NAD Head: Normocephalic, atraumatic Eyes: No sclera icterus, conjunctiva clear, PERRL, EOMI ENT: Moist mucous membranes Neck: Trachea midline, No JVD CV: RRR, no murmurs, no peripheral edema Resp: Lungs CTA BL, no w/r/c GI: Abd soft, non-distended, non-tender, no r/r/g Musc: Full ROM, no deformity Skin: Warm, dry Neuro: Alert, oriented, grossly intact, sensation intact Psych: Cooperative, appropriate mood and affect PFS PFS Medical History (Reviewed 07/22/24 @ 14:58 by Idalmis Dillon CALL CENTER COORDINATOR, CALL CENTER COORDINATOR-C) Knee pain, right Hx of amiodarone therapy Stool contents finding, abnormal Other acute postprocedural pain Quadriceps tendon rupture Hx of echocardiogram History of stress test Wears glasses Shortness of breath on exertion Former smoker CPAP (continuous positive airway pressure) dependence Asthma Irregular heart beat Rhinitis Chronic kidney disease CKD (chronic kidney disease) stage 3, GFR 30-59 ml/min Candidiasis of mouth CHUCKIE (obstructive sleep apnea) Dyspnea on exertion Hyperlipidemia Moderate persistent asthma Paroxysmal atrial fibrillation Home Medications ?Medication ?Instructions ?Recorded ?Last Taken ?Type fluticasone propionate 230 2 inh inhalation BID #3 ea 08/19/23 07/28/24 Rx mcg-salmeterol 21 mcg/actuation HFA inhaler (Advair HFA) apixaban 5 mg tablet (Eliquis) 5 mg PO BID #180 tabs 10/21/23 07/28/24 Rx azelastine 137 mcg (0.1 %) nasal 2 spray intranasal BID PRN 04/20/24 07/28/24 History spray BREAKING CONTROL amiodarone 200 mg tablet 200 mg PO DAILY #90 tabs 05/22/24 07/28/24 Rx albuterol sulfate 90 mcg/actuation 2 puff inhalation Q6H PRN 07/22/24 07/28/24 Rx aerosol inhaler shortness of breath or wheezing #8.5 grams finasteride 5 mg tablet 5 mg PO DAILY 07/22/24 07/28/24 History amoxicillin 875 mg-potassium 1 tab PO BID 07/28/24 07/28/24 History clavulanate 125 mg tablet cetirizine 10 mg tablet 10 mg PO DAILY allergy symptoms 07/28/24 07/28/24 History diclofenac sodium 1 % topical gel 2 g topical QHS 07/28/24 Unknown History (Arthritis Pain (diclofenac)) fluticasone propionate 50 2 spray intranasal DAILY PRN 07/28/24 Unknown History mcg/actuation nasal allergy symptoms spray,suspension Allergy/AdvReac Type Severity Reaction Status Date / Time No Known Allergies Allergy Verified 07/28/24 13:26 Family History (Reviewed 07/22/24 @ 14:58 by Idalmis Dillon CALL CENTER COORDINATOR, CALL CENTER COORDINATOR-C) Father , Had pacemaker, at advanced age No problems noted. Mother , lived to advanced age No problems noted. Other Chronic kidney disease Surgical History History of cardiac radiofrequency ablation History of cardioversion (09/05/23) History of cardiac radiofrequency ablation (RFA) (~07/03/22) History of appendectomy History of nasal surgery History of umbilical hernia repair History of appendectomy Social History Smoking Status: Former smoker how long ago did patient quit smokin years ago alcohol intake: current alcohol intake frequency: a few times a week Alcohol type: wine substance use type: does not use caffeine: Yes Type: coffee Number of servings: 1 EXAM Physical Exam Const Vital Signs: 07/28/24 13:25 07/28/24 14:15 07/28/24 15:25 Temperature 97 F L Temperature Source Temporal Pulse Rate 63 65 Respiratory Rate 14 18 Respiratory Effort Normal Short of Breath Respiratory Depth Normal Respiratory Pattern Normal Blood Pressure 131/51 H 128/63 H Blood Pressure Mean 77 84 Pulse Ox 97 98 Oxygen Delivery Method Room Air Room Air Room Air 07/28/24 16:52 Temperature 97 F L Temperature Source Pulse Rate 64 Respiratory Rate 14 Respiratory Effort Respiratory Depth Respiratory Pattern Blood Pressure 138/62 H Blood Pressure Mean 87 Pulse Ox 97 Oxygen Delivery Method MDM MDM MDM Narrative Medical decision making narrative: 84-year-old gentleman with past medical history of asthma, atrial fibrillation on Eliquis, CKD, HLD presents for evaluation of shortness of breath and weakness. Differential diagnosis includes but is not limited to CHF exacerbation, ACS, viral illness, UTI, electrolyte abnormality. On chart review, patient follows with cardiology. Dr. Whatley. His last echo was 05/29 with an EF of 65%. His last stress test was 01/04/2020 which was unremarkable. Laboratory workup ordered including chest x-ray. CBC with leukocytosis of 18.1. Patient not on any steroids for his asthma. Patient has anemia with a hemoglobin of 8.6. Patient denies any bloody or dark stools. However we will perform stool occult. Rectal: Normal external examination. No evidence of hemorrhoids or fissures. Normal tone and sensation. No masses, fluctuance, or tenderness. No pain out of proportion. Stool is brown. Magnesium mildly high at 2.3. BNP 529. UA positive for glucose and ketones. Patient is not diabetic. Will give NS bolus. Will add on VBG for venous pH, beta hydroxybutyrate, and hemoglobin A1c. VBG shows metabolic mild acidosis with a pH of 7.346 and a bicarb of 22. No hypercapnia. He is compensating with his pCO2. BMP again is consistent with metabolic acidosis with bicarb of 19.3. No anion gap. Patient has baseline CKD. Glucose is 232. Suspect patient is a diabetic. Troponin is 38. Will wait 2-hour troponin. Patient stool occult is positive. Patient's A1c is 6.9. This is consistent with diabetes. His hydroxybutyrate is normal. Patient's shortness of breath and weakness is likely secondary to acute anemia secondary to GI bleed. I spoke with Dr. Cook who agrees with admission and plan for endoscopy. Patient and family updated of all results and confirmed understanding of plan. Dr. Fuller accepted admission. EKG: Interpreted by me/EM physician: Normal sinus rhythm with first-degree AV block. No acute ischemic changes. Heart rate 66. This is similar to patient's previous EKG. Diagnostic: Interpreted by me/EM physician: Chest x-ray without pneumonia, effusion, cardiomegaly, pneumothorax Impression: 1. Symptomatic anemia secondary to GI bleed 2. New diagnosis of diabetes 3. Mild dehydration 4. CKD Lab Data Labs: Laboratory Results - last 24 hr 07/28/24 07/28/24 07/28/24 13:38 14:19 14:25 WBC 18.1 H RBC 3.65 L Hgb 8.6 L Hct 28.5 L MCV 78.1 L MCH 23.6 L MCHC 30.2 L RDW Std Deviation 47.6 H RDW Coeff of Tiffany 17.0 H Plt Count 241 MPV 10.8 Immature Gran % (Auto) 0.700 Neut % (Auto) 84.6 H Lymph % (Auto) 5.0 L [place] % (Auto) 8.8 Eos % (Auto) 0.6 Baso % (Auto) 0.3 Absolute Neuts (auto) 15.3 H Absolute Lymphs (auto) 0.91 Nucleated RBC % 0 Diff Path Review May foll Platelet Estimate A Polychromasia 1+ Sodium 136 Potassium 4.1 Chloride 106 Carbon Dioxide 19.3 L Anion Gap 11 BUN 27 H Creatinine 1.65 H Est GFR (MDRD) Non-Af 41 L BUN/Creatinine Ratio 16.4 Glucose 232 H Hemoglobin A1c 6.9 Calcium 8.9 Magnesium 2.3 H Troponin T High Sens 38 H NT pro BNP II 529 b-Hydroxybutyric mmol/L 0.1 Urine Color Yellow Urine Clarity Clear Urine pH 5.0 Ur Specific [place] 1.020 Urine Protein 30 H Urine Glucose (UA) 1000 H Urine Ketones 5 H Urine Occult Blood Negative Urine Nitrite Negative Urine Bilirubin Negative Urine Urobilinogen 1 H Ur Leukocyte Esterase 25 H Urine RBC 0 SEEN Urine WBC 0-5 SEEN Ur Squamous Epith Cells 0 SEEN Urine Bacteria 0 SEEN Urine Mucus 0 SEEN ABG Data ABG results: ABG 07/28/24 15:30 Specimen Type JU Sample Site Not entered VBG pH 7.35 VBG pO2 35 VBG HCO3 22 VBG Total CO2 24 VBG O2 Sat (Calc) 64 VBG Base Excess -3 L POC Mix VBG pCO2 Pt Tmp 40.7 L O2 Delivery Device Room Air Radiography Diagnostic Testing: Clinical Impression(s) from Imaging Studies Chest X-Ray 07/28/24 14:30 IMPRESSION: No acute cardiopulmonary process. Reading Location: [facility] Discharge Plan Triage Chief Complaint: Shortness of Breath ED Provider: Issac Murray Dx/Rx/DC Orders Prescriptions: No Action azelastine 137 mcg (0.1 %) spray,non-aerosol 2 spray intranasal BID PRN (Reason: BREAKING CONTROL) Rx Instructions: administer into each nostril finasteride 5 mg tablet 5 mg PO DAILY albuterol sulfate 90 mcg/actuation HFA aerosol inhaler 2 puff inhalation Q6H PRN (Reason: shortness of breath or wheezing) Qty: 8.5 11RF amoxicillin-pot clavulanate 875-125 mg tablet 1 tab PO BID Patient Comments: TOOK LAST DOSE TODAY. STARTED 07/23/24. cetirizine 10 mg tablet 10 mg PO DAILY fluticasone propionate 50 mcg/actuation spray,suspension 2 spray intranasal DAILY PRN (Reason: allergy symptoms) diclofenac sodium [Arthritis Pain (diclofenac)] 1 % gel 2 g topical QHS Patient Comments: PT STATES HE USES IT ON HIS ANKLES fluticasone propion-salmeterol [Advair HFA] 230-21 mcg/actuation HFA aerosol inhaler 2 inh inhalation BID Qty: 3 3RF Eliquis 5 mg tablet 5 mg PO BID Qty: 180 3RF amiodarone 200 mg tablet 200 mg PO DAILY Qty: 90 3RF Primary Care Provider: Manju Coulter Referrals: Manju Coulter MD [Primary Care Provider] - Print Language: Greenlandic
--- NOTE | 2024-07-28 14:30 | RAD_ITS ---
EXAM: XR Chest, 2 Views CLINICAL INDICATION: SOB TECHNIQUE: Frontal and lateral views of the chest. COMPARISON: No relevant prior studies available. FINDINGS: LUNGS AND PLEURAL SPACES: Unremarkable. No consolidation. No pneumothorax. HEART: Unremarkable. No cardiomegaly. MEDIASTINUM: Unremarkable. Normal mediastinal contour. BONES/JOINTS: Unremarkable. No acute fracture. RAD/Chest PA and Lateral IMPRESSION: No acute cardiopulmonary process. Reading Location: [facility]
[2024-07-28 14:32] LABS: Color, Urine Yellow (Yellow); Glucose, Dipstick 1000 mg/dl (Normal); Ketone-Dipstick 5 mg/dl (Negative); Leukocyte Esterase-Dipstick 25 /ul (Negative); Nitrite-Dipstick Negative (Negative); Occult Blood-Urine Negative /ul (Negative); Protein-Dipstick 30 mg/dl (Negative); Urine Bilirubin Dipstick Negative (Negative); Urine Clarity Clear (Clear); Urine Urobilinogen 1 mg/dl (Normal)
[2024-07-28 14:48] LABS: Platelet Estimate A (ADEQ); Polychromasia 1+
[2024-07-28 14:49] LABS: Red Blood Cells-Urine 0 SEEN /hpf (0-5); White Blood Cells 0-5 SEEN /hpf (0-5)
[2024-07-28 14:49] LABS: Pathologist Review May foll
[2024-07-28 15:02] LABS: Pro- Brain NATRIURETIC PEPTIDE 529 pg/mL (<=1800); Troponin T High Sensitivity 38 ng/L (<=22)
[2024-07-28 15:15] LABS: Magnesium 2.3 mg/dL (1.5-2.2)
[2024-07-28 15:28] LABS: Anion Gap 11 (5-15); Calcium,Total 8.9 mg/dL (7.6-11.0); Carbon Dioxide 19.3 mmol/L (21.0-32.0); Chloride 106 mmol/L (98-108); Creatinine, Serum 1.65 mg/dL (0.70-1.20); EST Glomerular Filtration Rate 41 (>60); Glucose 232 mg/dL (70-99); Potassium 4.1 mmol/L (3.3-5.1); Sodium Level 136 mmol/L (133-145)
[2024-07-28 15:34] LABS: Blood Gas Specimen Type VEN; O2 Delivery Device Room Air; SITE Not entered; VBG BASE EXCESS -3 mmol/L (-1.0-3.5); VBG Bicarbonate 22 mmol/L (22-26); VBG PO2 35 mmHg (25-40); VBG SO2 64 % (50-70); VBG TCO2 24 mmol/L (23-33); VBG pCO2 40.7 mmHg (41-51); VBG pH 7.35 (7.32-7.42)
[2024-07-28] MEDS: 0.9% Normal Saline (1000mL) 1,000 ML 1000 ML IV (15:38)
[2024-07-28 15:45] LABS: BUN 27 mg/dL (4-19); BUN/Creat Ratio 16.4 RATIO (10-20)
[2024-07-28 16:12] LABS: Hemoglobin A1c 6.9 % (<=5.6)
[2024-07-28 16:39] LABS: BETA-HYDROXYBUTYRATE 0.1 mmol/L (0.0-0.3)
--- NOTE | 2024-07-28 17:18 | HP.PCM.HOS_ITS ---
HPI - General General Date of Admission: 07/28/24 Date of Service: 07/28/24 Chief Complaint: Shortness of breath, fatigue, weakness HPI Narrative CAT MICHAELS, is a 84-year-old male history of A-fib status post ablation on amnio and Eliquis, asthma, CKD, CHUCKIE presented to [facility] ED 07/28/2024 due to shortness of breath and weakness. He has been having increased shortness of breath and weakness for several months and saw pulmonology last week who ordered cardiac studies and were concerned he could have heart failure, patient presented to the ED due to increased shortness of breath on exertion has not had the studies yet. In the ED patient vitally stable but is short of breath on exertion. White count 18, hemoglobin 8.6 with a baseline previously around 13-14, glucose 232 and creatinine 1.65 which is baseline. FOBT positive due to concern for GI bleed hospitalist contacted for admission. Patient evaluated with at bedside, patient reports the increased shortness of breath over the past couple months without any significant cough, not as much shortness of breath at rest but does sometimes feel like he needs to take a big deep breath, has been compliant with his CPAP, does note he has had some right ankle pain and has seen podiatry and uses topical Voltaren, also has had some hip pain which is improving with physical therapy. Sees Dr. Estrada due to difficulty with a steady stream with his urine and has been constipated, denies any fevers or chills, no nausea or vomiting, does get some indigestion at times but did not note any overt heartburn. Of note patient reports no history of upper endoscopy but has had routine colonoscopies his most recent was 5 or 6 years ago and was told he would not have to have another 1 and he does not believe there are any abnormalities [facility] Medical History (Reviewed 07/22/24 @ 14:58 by Idalmis Dillon SCALE ASSEMBLY SET UP WORKER, SCALE ASSEMBLY SET UP WORKER-C) Knee pain, right Hx of amiodarone therapy Stool contents finding, abnormal Other acute postprocedural pain Quadriceps tendon rupture Hx of echocardiogram History of stress test Wears glasses Shortness of breath on exertion Former smoker CPAP (continuous positive airway pressure) dependence Asthma Irregular heart beat Rhinitis Chronic kidney disease CKD (chronic kidney disease) stage 3, GFR 30-59 ml/min Candidiasis of mouth CHUCKIE (obstructive sleep apnea) Dyspnea on exertion Hyperlipidemia Moderate persistent asthma Paroxysmal atrial fibrillation Home Medications ?Medication ?Instructions ?Recorded ?Last Taken ?Type fluticasone propionate 230 2 inh inhalation BID #3 ea 08/19/23 07/28/24 Rx mcg-salmeterol 21 mcg/actuation HFA inhaler (Advair HFA) apixaban 5 mg tablet (Eliquis) 5 mg PO BID #180 tabs 0 10/21/23 07/28/24 Rx azelastine 137 mcg (0.1 %) nasal 2 spray intranasal BI D PRN 04/20/24 07/28/24 History spray BREAKING CONTROL amiodarone 200 mg tablet 200 mg PO DAILY #90 tabs 07/28/24 Rx albuterol sulfate 90 mcg/actuation 2 puff inhalation Q 6H PRN 07/22/24 07/28/24 Rx aerosol inhaler shortness of breath or wheez ing #8.5 grams finasteride 5 mg tablet 5 mg PO DAILY 07/22/2407/28 History amoxicillin 875 mg-potassium 1 tab PO BID 07/28/24 History clavulanate 125 mg tablet cetirizine 10 mg tablet 10 mg PO DAILY allergy sympt oms 07/28/24 07/28/24 History diclofenac sodium 1 % topical gel 2 g topical QHS 07/05 09/27 Unknown History (Arthritis Pain (diclofenac)) fluticasone propionate 50 2 spray intranasal DAILY PRN 07/28/24 Unknown History mcg/actuation nasal allergy symptoms spray,suspension Allergy/AdvReac Type Severity Reaction Status Date / Time No Known Allergies Allergy Verified 07/28/24 13:26 Family History (Reviewed 07/22/24 @ 14:58 by Idalmis Dillon SCALE ASSEMBLY SET UP WORKER, SCALE ASSEMBLY SET UP WORKER-C) Father , Had pacemaker, at advanced age No problems noted. Mother , lived to advanced age No problems noted. Other Chronic kidney disease Surgical History History of cardiac radiofrequency ablation History of cardioversion (09/05/23) History of cardiac radiofrequency ablation (RFA) (~07/03/22) History of appendectomy History of nasal surgery History of umbilical hernia repair History of appendectomy Social History Smoking Status: Former smoker how long ago did patient quit smokin years ago alcohol intake: current alcohol intake frequency: a few times a week Alcohol type: wine substance use type: does not use caffeine: Yes Type: coffee Number of servings: 1 ROS ROS Narrative General: Denies fever/chills HENT: Denies headache, has some allergies chronically, denies sore throat EYES: Denies changes in vision Resp: Denies cough, does have some increased shortness of breath Cardiac: Denies chest pain GI: Denies abdominal pain, denies changes in bowel, denies nausea/vomiting : Denies changes in urination Extremity: Denies swelling MSK: Denies weakness Neuro: Denies any numbness/tingling Heme: Denies any bleeding or bruising Skin: Denies rashes Psychiatric: No complaints voiced Vital Signs Vital Signs Vital Signs: 07/28/24 13:25 07/28/24 14:15 07/28/24 15:25 Temperature 97 F L Temperature Source Temporal Pulse Rate 63 65 Respiratory Rate 14 18 Respiratory Effort Normal Short of Breath Respiratory Depth Normal Respiratory Pattern Normal Blood Pressure 131/51 H 128/63 H Blood Pressure Mean 77 84 Pulse Ox 97 98 Oxygen Delivery Method Room Air Room Air Room Air 07/28/24 16:52 Temperature 97 F L Temperature Source Pulse Rate 64 Respiratory Rate 14 Respiratory Effort Respiratory Depth Respiratory Pattern Blood Pressure 138/62 H Blood Pressure Mean 87 Pulse Ox 97 Oxygen Delivery Method Physical Exam Narrative General: Alert, oriented, no apparent distress HEENT: Atraumatic, normocephalic Eyes: Anicteric, normal conjunctiva, extraocular movements grossly intact Neck: Supple Respiratory: Very fine inspiratory crackles in the bases, slight increased respiratory effort with movement Cardiovascular: Regular rate and rhythm GI: Soft, nontender, nondistended Extremities: No edema Musculoskeletal: Moving all extremities, no tenderness over her ankle when palpating, no swelling Neuro: No overt focal neurological deficits Skin: No rashes appreciated Psych: Cooperative Results Lab / Micro Data 07/28/24 13:38 07/28/24 13:38 Labs: Laboratory Results - last 24 hr 07/28/24 13:38: WBC 18.1 H, RBC 3.65 L, Hgb 8.6 L, Hct 28.5 L, MCV 78.1 L, MCH 23.6 L, MCHC 30.2 L, RDW Std Deviation 47.6 H, RDW Coeff of Tiffany 17.0 H, Plt Count 241, MPV 10.8, Immature Gran % (Auto) 0.700, Neut % (Auto) 84.6 H, Lymph % (Auto) 5.0 L, [place] % (Auto) 8.8, Eos % (Auto) 0.6, Baso % (Auto) 0.3, Absolute Neuts (auto) 15.3 H, Absolute Lymphs (auto) 0.91, Nucleated RBC % 0, Diff Path Review September, Platelet Estimate A, Polychromasia 1+, Sodium 136, Potassium 4.1, Chloride 106, Carbon Dioxide 19.3 L, Anion Gap 11, BUN 27 H, Creatinine 1.65 H, Est GFR (MDRD) Non-Af 41 L, BUN/Creatinine Ratio 16.4, Glucose 232 H, Calcium 8.9, Magnesium 2.3 H, Troponin T High Sens 38 H, NT pro BNP II 529, b- Hydroxybutyric mmol/L 0.1 07/28/24 14:19: Urine Color Yellow, Urine Clarity Clear, Urine pH 5.0, Ur Specific [place] 1.020, Urine Protein 30 H, Urine Glucose (UA) 1000 H, Urine Ketones 5 H, Urine Occult Blood Negative, Urine Nitrite Negative, Urine Bilirubin Negative, Urine Urobilinogen 1 H, Ur Leukocyte Esterase 25 H, Urine RBC 0 SEEN, Urine WBC 0-5 SEEN, Ur Squamous Epith Cells 0 SEEN, Urine Bacteria 0 SEEN, Urine Mucus 0 SEEN 07/28/24 14:25: Hemoglobin A1c 6.9 Micro: Microbiology 07/28/24 15:18 Stool Stool Occult Blood (JOEY) - Final Occult Blood Positive 07/28/24 14:19 Mucosa - Nose SARS-CoV-2, Influenza & RSV (PCR) - Final ABG Data ABG results: ABG 07/28/24 15:30 Specimen Type JU Sample Site Not entered VBG pH 7.35 VBG pO2 35 VBG HCO3 22 VBG Total CO2 24 VBG O2 Sat (Calc) 64 VBG Base Excess -3 L POC Mix VBG pCO2 Pt Tmp 40.7 L O2 Delivery Device Room Air Imaging Radiology Impression Chest X-Ray 07/28/24 14:30 IMPRESSION: No acute cardiopulmonary process. Reading Location: [facility] Assessment & Plan Assessment/Plan (1) Symptomatic anemia: PLAN: Plan #Symptomatic anemia with concern for GI bleed -Hemoglobin in the 8 range and previously was 13-14 -Suspect this is the cause of his shortness of breath -FOBT positive -PPI -GI consult -Hold Eliquis -Trend H&H # Shortness of breath -Suspect this is due to his anemia, proBNP is not elevated, x-ray with no congestion -No wheezing, does not seem to be an asthma exacerbation, no signs or symptoms of pneumonia -Compliant with his CPAP -If symptoms do not prove with improvement of anemia may need to consider if amiodarone could be a possible contributor and if this medication needs to be changed #CHUCKIE -Continue home NIPPV if applicable # History of asthma -PFTs in 2020 with fully reversible mild large airways obstructive ventilatory defect and a pattern consistent with asthma -Continue home inhalers # History of atrial fibrillation -Patient status post ablation and has been in sinus rhythm, takes amiodarone chronically, takes Eliquis -Hold Eliquis # Elevated white blood cell count -Unclear etiology, no cough, no focal nidus of infection or other signs or symptoms suggestive of infection -Will check Pro-Antonio -Patient afebrile, I do not see an indication for acute antibiotics given afebrile and otherwise appears stable -Monitor vitals, white blood cell count, Pro-Antonio and further determination depending on clinical progress # Hyperglycemia -Patient with glucose in the 200s, not on anything chronically -Glucose checks and sliding scale insulin -A1c in the a.m. #Chronic BPH with obstruction -Continue home medications #DVT ppx: SCDs Krystle Fuller MD Charges/Coding Visit Charges Inpatient E&M: 41825 Init Hosp L2
--- NOTE | 2024-07-28 18:27 | CON.PCM.GI_ITS ---
HPI Consult Data Date of Consult: 07/28/24 HPI Narrative Reason for Consultation: anemia HPI Narrative: CAT MICHAELS, is a 84-year-old gentleman with past medical history of asthma, atrial fibrillation on Eliquis, CKD, HLD presents for evaluation of shortness of breath and weakness. Patient states that he has had progressive shortness of breath for the past several months. He saw pulmonology who is concerned about CHF. He is scheduled for an outpatient stress test and echocardiogram. Patient states that his shortness of breath is worse with exertion. He states he presents today due to weakness. He started having weakness started yesterday but worsened today. His was recently ill with a URI. He denies any fever, chills, chest pain, URI symptoms, cough, abdominal pain, nausea, vomiting, dysuria. Denies any bilateral lower extremity swelling. I was asked to see him due to a significant anemia. [facility] Medical History Knee pain, right Hx of amiodarone therapy Stool contents finding, abnormal Other acute postprocedural pain Quadriceps tendon rupture Hx of echocardiogram History of stress test Wears glasses Shortness of breath on exertion Former smoker CPAP (continuous positive airway pressure) dependence Asthma Irregular heart beat Rhinitis Chronic kidney disease CKD (chronic kidney disease) stage 3, GFR 30-59 ml/min Candidiasis of mouth CHUCKIE (obstructive sleep apnea) Dyspnea on exertion Hyperlipidemia Moderate persistent asthma Paroxysmal atrial fibrillation Home Medications ?Medication ?Instructions ?Recorded ?Last Taken ?Type fluticasone propionate 230 2 inh inhalation BID #3 ea 08/19/23 07/28/24 Rx mcg-salmeterol 21 mcg/actuation HFA inhaler (Advair HFA) apixaban 5 mg tablet (Eliquis) 5 mg PO BID #180 tabs 0 10/21/23 07/28/24 Rx azelastine 137 mcg (0.1 %) nasal 2 spray intranasal BI D PRN 04/20/24 07/28/24 History spray BREAKING CONTROL amiodarone 200 mg tablet 200 mg PO DAILY #90 tabs 07/28/24 Rx albuterol sulfate 90 mcg/actuation 2 puff inhalation Q 6H PRN 07/22/24 07/28/24 Rx aerosol inhaler shortness of breath or wheez ing #8.5 grams finasteride 5 mg tablet 5 mg PO DAILY 07/22/2407/28 History amoxicillin 875 mg-potassium 1 tab PO BID 07/28/24 History clavulanate 125 mg tablet cetirizine 10 mg tablet 10 mg PO DAILY allergy sympt oms 07/28/24 07/28/24 History diclofenac sodium 1 % topical gel 2 g topical QHS 07/05 09/27 Unknown History (Arthritis Pain (diclofenac)) fluticasone propionate 50 2 spray intranasal DAILY PRN 07/28/24 Unknown History mcg/actuation nasal allergy symptoms spray,suspension Allergy/AdvReac Type Severity Reaction Status Date / Time No Known Allergies Allergy Verified 07/28/24 13:26 Family History Father , Had pacemaker, at advanced age No problems noted. Mother , lived to advanced age No problems noted. Other Chronic kidney disease Surgical History History of cardiac radiofrequency ablation History of cardioversion (09/05/23) History of cardiac radiofrequency ablation (RFA) (~07/03/22) History of appendectomy History of nasal surgery History of umbilical hernia repair History of appendectomy Social History Smoking Status: Former smoker how long ago did patient quit smokin years ago alcohol intake: current alcohol intake frequency: a few times a week Alcohol type: wine substance use type: does not use caffeine: Yes Type: coffee Number of servings: 1 ROS Constitutional Constitutional: Denies fatigue, fever(s), poor appetite, weight gain or weight loss Gastrointestinal Gastrointestinal: Denies belching, bloating, change in bowel habits, change in stool character, chewing difficulty, coffee ground emesis, constipation, cramping, diarrhea, dyspepsia, dysphagia, early satiety, excessive flatus, fecal incontinence, heartburn, hematemesis, hematochezia, hemorrhoids, loose stools, melena, nausea, odynophagia, rectal bleeding, tenesmus, vomiting or weight changes Physical Exam Const alert, oriented x3, no apparent distress and healthy appearing General Appearance: cooperative GI normal to inspection, nondistended, normoactive bowel sounds, soft to palpation, non-tender and non-distended Percussion: normal to percussion Rectal Exam: deferred Lab / Micro Data 07/28/24 13:38 07/28/24 13:38 Labs: Laboratory Results - last 24 hr 07/28/24 13:38: WBC 18.1 H, RBC 3.65 L, Hgb 8.6 L, Hct 28.5 L, MCV 78.1 L, MCH 23.6 L, MCHC 30.2 L, RDW Std Deviation 47.6 H, RDW Coeff of Tiffany 17.0 H, Plt Count 241, MPV 10.8, Immature Gran % (Auto) 0.700, Neut % (Auto) 84.6 H, Lymph % (Auto) 5.0 L, [place] % (Auto) 8.8, Eos % (Auto) 0.6, Baso % (Auto) 0.3, Absolute Neuts (auto) 15.3 H, Absolute Lymphs (auto) 0.91, Nucleated RBC % 0, Diff Path Review September, Platelet Estimate A, Polychromasia 1+, Sodium 136, Potassium 4.1, Chloride 106, Carbon Dioxide 19.3 L, Anion Gap 11, BUN 27 H, Creatinine 1.65 H, Est GFR (MDRD) Non-Af 41 L, BUN/Creatinine Ratio 16.4, Glucose 232 H, Calcium 8.9, Magnesium 2.3 H, Troponin T High Sens 38 H, NT pro BNP II 529, b- Hydroxybutyric mmol/L 0.1 07/28/24 14:19: Urine Color Yellow, Urine Clarity Clear, Urine pH 5.0, Ur Specific [place] 1.020, Urine Protein 30 H, Urine Glucose (UA) 1000 H, Urine Ketones 5 H, Urine Occult Blood Negative, Urine Nitrite Negative, Urine Bilirubin Negative, Urine Urobilinogen 1 H, Ur Leukocyte Esterase 25 H, Urine RBC 0 SEEN, Urine WBC 0-5 SEEN, Ur Squamous Epith Cells 0 SEEN, Urine Bacteria 0 SEEN, Urine Mucus 0 SEEN 07/28/24 14:25: Hemoglobin A1c 6.9 Micro: Microbiology 07/28/24 15:18 Stool Stool Occult Blood (JOEY) - Final Occult Blood Positive 07/28/24 14:19 Mucosa - Nose SARS-CoV-2, Influenza & RSV (PCR) - Final ABG Data ABG results: ABG 07/28/24 15:30 Specimen Type JU Sample Site Not entered VBG pH 7.35 VBG pO2 35 VBG HCO3 22 VBG Total CO2 24 VBG O2 Sat (Calc) 64 VBG Base Excess -3 L POC Mix VBG pCO2 Pt Tmp 40.7 L O2 Delivery Device Room Air Imaging Radiology Impression Chest X-Ray 07/28/24 14:30 IMPRESSION: No acute cardiopulmonary process. Reading [facility] Assessment & Plan Assessment/Plan (1) Symptomatic anemia: PLAN: Plan 84yo with shortness of breath likely secondary to symptomatic anemia with concern for GI bleed. His hemoglobin in the 8 range and previously was 13-14. There is a possibility that suspect that is the the cause of his shortness of breath. He is FOBT positive. His Eliquis is on hold. N.p.o. past midnight for possible endoscopy tomorrow Charges/Coding Visit Charges Inpatient E&M: 22343 Init Hosp L3
[2024-07-28] MEDS: Pantoprazole Sodium 40 MG in 0.9% Normal Saline (100mL MB+) 100 ML 330 MG IV (18:43)
[2024-07-28] MEDS: 0.9% Saline Lock 10 ML Syringe IV ×2 (18:43→22:23)
[2024-07-28 19:13] LABS: Hematocrit 25.2 % (40-54); Hemoglobin 7.6 g/dL (13.0-16.5)
[2024-07-28] MEDS: Budesonide Respules 0.5 MG/2 ML AMPUL.NEB. INHALATION (19:21)
[2024-07-28] MEDS: Albuterol 2.5 MG/3 ML VIAL.NEB. INHALATION (19:22)
[2024-07-28 20:11] LABS: Procalcitonin 0.19 ng/mL (<=0.10)
[2024-07-28 22:14] LABS: Troponin T High Sens 2 HR 30 ng/L (<=22)
[2024-07-28] MEDS: Insulin Lispro 100 UNIT/ML INSULN.PEN SC (22:17)
[2024-07-28] MEDS: Arthritis Pain Compound 60 CLICK TUBE TOPICAL (22:23)
[2024-07-28 22:54] LABS: Bedside Glucose 222 mg/dL (74-106)
[2024-07-29] VITALS (22 sets, daily range): BP systolic 94–131; BP diastolic 52–66; PULSE 58–72; RESP 14–20; TEMP 36.4–37.3; O2SAT 93–100; BMI 27.1
[2024-07-29 00:09] LABS: Hematocrit 23.3 % (40-54); Hemoglobin 7.2 g/dL (13.0-16.5)
[2024-07-29 04:14] LABS: Absolute Lymphocyte Count 1.27 X10^3/uL (0.83-4.51); Absolute Neutrophil Count 10.8 X10^3/uL (2.0-7.7); Basophil# 0.05 X10^3/uL; Basophil% 0.4 % (0-1); Eosinophil# 0.12 X10^3/uL; Eosinophils% 0.9 % (0-5); Hematocrit 23.5 % (40-54); Hemoglobin 7.2 g/dL (13.0-16.5); Lymphocyte # 1.27 X10^3/ul (0.83-4.51); Lymphocyte % 9.1 % (19-41); Mean Corp Hgb Conc 30.6 g/dL (32-36); Mean Corpuscular Hgb 23.5 pg (27.0-32.0); Mean Corpuscular Volume 76.5 fL (80-94); Mean Platelet Vol. 10.1 fl (6.2-12.0); Monocyte# 1.55 X10^3/uL; Monocyte% 11.2 % (0-10); NRBC Flagged by Analyzer 0 % (0-5); Neutrophil # 10.82 X10^3/uL (2.7-7.7); Neutrophil % 77.8 % (47-70); POSITIVE DIFFERENTIAL YES; Platelet Count 206 K/mm3 (150-450); RBC Distribution Width CV 16.9 % (11.6-14.6); RBC Distribution Width SD 46.7 fl (35.1-43.9); Red Blood Count 3.07 M/mm3 (4.6-6.2); White Blood Count 13.9 K/mm3 (4.4-11.0)
[2024-07-29 04:21] LABS: International Normalized Ratio 1.3; Prothrombin Time (Protime)PT. 16.4 SECONDS (11.7-14.9)
[2024-07-29 04:39] LABS: Differential Indicated SCAN CRITERIA MET
[2024-07-29 04:50] LABS: ALB/GLOB Ratio 1.4 RATIO (0.9-2.4); AST(SGOT) 39 U/L (<=37); Alanine Aminotransfer ALT/SGPT 122 U/L (<=46); Albumin, Serum 3.5 g/dL (3.4-4.8); Alkaline Phosphatase 118 U/L (40-129); Anion Gap 8 (5-15); BUN 22 mg/dL (4-19); Calcium,Total 8.2 mg/dL (7.6-11.0); Carbon Dioxide 19.6 mmol/L (21.0-32.0); Chloride 110 mmol/L (98-108); Creatinine, Serum 1.36 mg/dL (0.70-1.20); EST Glomerular Filtration Rate 51 (>60); Estimated Creatinine Clearance 36.49 ml/min (50-250); Globulin 2.5 g/dL (2.2-4.2); Glucose 126 mg/dL (70-99); Potassium 4.3 mmol/L (3.3-5.1); Sodium Level 137 mmol/L (133-145); Total Bilirubin 0.41 mg/dL (0.00-1.30)
[2024-07-29 05:46] LABS: Differential Comment SCANNED; Hemoglobin A1c 6.8 % (<=5.6); Pathologist Review May foll
[2024-07-29 06:51] LABS: Bedside Glucose 117 mg/dL (74-106)
[2024-07-29] MEDS: Budesonide Respules 0.5 MG/2 ML AMPUL.NEB. INHALATION (08:57)
[2024-07-29] MEDS: Albuterol 2.5 MG/3 ML VIAL.NEB. INHALATION (08:57)
[2024-07-29] MEDS: Pantoprazole Sodium 40 MG in 0.9% Normal Saline (100mL MB+) 100 ML 330 MG IV ×2 (09:08→21:57)
[2024-07-29] MEDS: Loratadine 10 MG Tablet PO (09:10)
[2024-07-29] MEDS: Amiodarone 200 MG Tablet PO (09:10)
[2024-07-29] MEDS: Arthritis Pain Compound 60 CLICK TUBE TOPICAL ×2 (09:10→21:58)
[2024-07-29] MEDS: Finasteride 5 MG Tablet PO (09:10)
--- NOTE | 2024-07-29 09:37 | PN.HOSP_ITS ---
Subjective Subjective Doing well, no issues overnight. Hemoglobin still low and is still requiring oxygen via nasal cannula. Plan for EGD today Objective Data Objective Data Vital Signs: Vital Signs Temp Pulse Resp BP Pulse Ox O2 Del Method O2 Flow Rate 99 F 66 20 H 122/58 H 99 Nasal Cannula 2 07/29/24 07:30 07/29/24 08:56 07/29/24 08:56 07/29/24 07:30 07/29/24 08:56 07/29/24 08:56 07/29/24 08:56 FiO2 21 07/28/24 22:47 Oxygen Flow Rate (L/min) 2 Oxygen Delivery Method Nasal Cannula Weight: 168 lb Body Mass Index (BMI) 27.1 Intake & Output: Intake and Output for Last 24 Hours 07/28/24 07/29/24 07/30/24 03:59 03:59 03:59 Intake Total 1110 / 1110 Balance 1110 / 1110 Lab / Micro Data 07/29/24 04:01 07/29/24 04:01 Labs: Laboratory Results - last 24 hr 07/28/24 13:38: WBC 18.1 H, RBC 3.65 L, Hgb 8.6 L, Hct 28.5 L, MCV 78.1 L, MCH 23.6 L, MCHC 30.2 L, RDW Std Deviation 47.6 H, RDW Coeff of Tiffany 17.0 H, Plt Count 241, MPV 10.8, Immature Gran % (Auto) 0.700, Neut % (Auto) 84.6 H, Lymph % (Auto) 5.0 L, [place] % (Auto) 8.8, Eos % (Auto) 0.6, Baso % (Auto) 0.3, Absolute Neuts (auto) 15.3 H, Absolute Lymphs (auto) 0.91, Nucleated RBC % 0, Diff Path Review September, Platelet Estimate A, Polychromasia 1+, Sodium 136, Potassium 4.1, Chloride 106, Carbon Dioxide 19.3 L, Anion Gap 11, BUN 27 H, Creatinine 1.65 H, Est GFR (MDRD) Non-Af 41 L, BUN/Creatinine Ratio 16.4, Glucose 232 H, Calcium 8.9, Magnesium 2.3 H, Troponin T High Sens 38 H, NT pro BNP II 529, b- Hydroxybutyric mmol/L 0.1 07/28/24 14:19: Urine Color Yellow, Urine Clarity Clear, Urine pH 5.0, Ur Specific [place] 1.020, Urine Protein 30 H, Urine Glucose (UA) 1000 H, Urine Ketones 5 H, Urine Occult Blood Negative, Urine Nitrite Negative, Urine Bilirubin Negative, Urine Urobilinogen 1 H, Ur Leukocyte Esterase 25 H, Urine RBC 0 SEEN, Urine WBC 0-5 SEEN, Ur Squamous Epith Cells 0 SEEN, Urine Bacteria 0 SEEN, Urine Mucus 0 SEEN 07/28/24 14:25: Hemoglobin A1c 6.9 07/28/24 19:05: Hgb 7.6 L, Hct 25.2 L, Troponin T Hi Sens 2 Hr 30 H, P rocalcitonin 0.19 H 07/28/24 22:16: POC Glucose 222 H 07/28/24 23:56: Hgb 7.2 L, Hct 23.3 L 07/29/24 04:01: WBC 13.9 H, RBC 3.07 L, Hgb 7.2 L, Hct 23.5 L, MCV 76.5 L, MCH 23.5 L, MCHC 30.6 L, RDW Std Deviation 46.7 H, RDW Coeff of Tiffany 16.9 H, Plt Count 206, MPV 10.1, Immature Gran % (Auto) 0.600, Neut % (Auto) 77.8 H, Lymph % (Auto) 9.1 L, [place] % (Auto) 11.2 H, Eos % (Auto) 0.9, Baso % (Auto) 0.4, A bsolute Neuts (auto) 10.8 H, Absolute Lymphs (auto) 1.27, Nucleated RBC % 0, Differential Comment SCANNED, Diff Path Review September foll, PT 16.4 H, INR 1.3, Sodium 137, Potassium 4.3, Chloride 110 H, Carbon Dioxide 19.6 L, Anion Gap 8, B UN 22 H, Creatinine 1.36 H, Estim Creat Clear Calc 36.49 L, Est GFR (MDRD) Non- Af 51 L, BUN/Creatinine Ratio 16.0, Glucose 126 H, Hemoglobin A1c 6.8, Calcium 8.2, Total Bilirubin 0.41, AST 39 H, ALT 122 H, Alkaline Phosphatase 118, Total Protein 6.0, Albumin 3.5, Globulin 2.5, Albumin/Globulin Ratio 1.4, TSH 3.890, Blood Type O POSITIVE, Antibody Screen NEGATIVE 07/29/24 06:31: POC Glucose 117 H Micro: Microbiology 07/28/24 15:18 Stool Stool Occult Blood (JOEY) - Final Occult Blood Positive 07/28/24 14:19 Mucosa - Nose SARS-CoV-2, Influenza & RSV (PCR) - Final ABG Data ABG results: ABG 07/28/24 15:30 Specimen Type JU Sample Site Not entered VBG pH 7.35 VBG pO2 35 VBG HCO3 22 VBG Total CO2 24 VBG O2 Sat (Calc) 64 VBG Base Excess -3 L POC Mix VBG pCO2 Pt Tmp 40.7 L O2 Delivery Device Room Air Radiography Diagnostic Testing: Radiology Impression Chest X-Ray 07/28/24 14:30 IMPRESSION: No acute cardiopulmonary process. Reading Location: [facility] Physical Exam Narrative General: Alert, Oriented x3, Cooperative, No apparent distress HEENT: Atraumatic, PERRLA, EOMI, Normocephalic Oral: Moist Mucosa Neck: Supple, No JVD Lungs: Diminished, Normal air movement, No rhonchi, No wheeze, No rales Cardiovascular: Regular rate, Regular Rhythm, Normal S1, Normal S2, No murmurs Abdomen: Soft, Non Tender, Non-Distended, No Hepato-splenomegaly Extremities: No edema, Capillary Refill Less than 3 Seconds Skin: No rashes, No breakdown Musculoskeletal: No Tenderness to Palpation of Joints or Extremities Neurological: No focal neurological deficits, Motor Exam 5/5 strength throughout, Sensory exam intact to light touch and pain Psych/Mental Status: Normal Affect, Appropriate Assessment & Plan Assessment/Plan (1) Symptomatic anemia: PLAN: Plan 1. Acute blood loss anemia secondary to GI bleed with shortness of breath/leukocytosis ? This is likely worsened by Eliquis use ? Will hold his Eliquis, and monitor his anemia ? Continue with PPI ? Plan for EGD ? Leukocytosis improved from 18.9-13.9 without any antibiotics, will continue to monitor 2. A-fib ? Continue with amiodarone ? Hold his Eliquis ? He is not on any rate control medications 3. CHUCKIE/history of asthma ? Continue with home inhalers ? NIPPV 4. BPH ? Stable Continue with home meds DVT: SCDs Charges/Coding Visit Charges Inpatient E&M: 79062 Subs Hosp L2
[2024-07-29 11:38] LABS: Bedside Glucose 150 mg/dL (74-106)
[2024-07-29 11:51] LABS: Hematocrit 26.3 % (40-54)
--- NOTE | 2024-07-29 14:58 | CASEMGMT ---
BENJAMIN DONALDSON Assessment: Face to Face with pt for initial transition planning/care coordination assessment. RN ANIKA introduced self and role at [facility], pt voices understanding and consents to assessment. Pt is A&O x4 and answers all questions appropriately at this time. Pt just getting in bed in no distress with at bedside. Care providers, pharmacy, and demographics verified/updated. Admitting Dx: concern for GIB Strata Score: 2 PCP:Yfn Specialists:Hernando pulm; Laz pod; Natalie, uro; Linda, cardio [facility]erred [facility]: [facility] Prescription Benefit: yes LNOK: Chasidy Mcmahan, Living Arrangements: Pt lives with in a two story home with 3 steps to enter. Pt reports he is I in ADLs and assists in IADLs. Pt denies concerns at home. Transportation: Pt drives self and denies concerns with transportation. DME:cane, walker, CPAP HHC/SNF: Denies hx of Pt states no concerns with going home at time of dc. Pt states no further concerns/needs. CM to follow. Advised pt to ask CM if any further questions/concerns/needs arise, voices understanding. Pt Goal: Home Plan: Home [place] ALEXANDER CM
--- NOTE | 2024-07-29 15:28 | PCM.PRE.AN2 ---
ASA Classification* ASA Classification ASA Classification: 3 Assessment & Plan Anesthesia* Anesthesia Assessment Anesthesia Assessment: Discussed sedation and/or anesthesia options, risks, benefits, and alternatives with patient/parents/legal guardian/POA. Questions invited. The patient/parents/legal guardian/POA seems to understand and agrees to proceed with anesthesia plan. Reviewed the physical assessment, medical history, allergy history and patient home medications list prior to surgery/procedure/anesthetic and documented any changes. Performed airway and anesthesia risk assessments. Anesthesia Type Anesthesia Type: MAC Anesthesia Focused Assessment* Temperature: 98.1 F Pulse Rate: 61 Blood Pressure: 131/61 Respiratory Rate: 16 Pulse Ox: 99 Oxygen Flow Rate (L/min): 2 Fraction of Inspired Oxygen (FIO2): 21 Airway Assessment Mouth opens: >3 cm Mallampati Score: II Focused Labs Anesthesia Preop lab: CBC WBC 13.9 K/mm3 (4.4-11.0) H 07/29/24 04:01 07/29/24 RBC 3.07 M/mm3 (4.6-6.2) L 07/29/24 04:01 07/29/24 Hgb 8.0 g/dL (13.0-16.5) L 07/29/24 11:45 07/29/24 Hct 26.3 % (40-54) L 07/29/24 11:45 07/29/24 Plt Count 206 K/mm3 (150-450) 07/29/24 04:01 07/29/24 CHEMISTRY Potassium 4.3 mmol/L (3.3-5.1) 07/29/24 04:01 07/29/24 Sodium 137 mmol/L (133-145) 07/29/24 04:01 07/29/24 Magnesium 2.3 mg/dL (1.5-2.2) H 07/28/24 13:38 07/28/24 BUN 22 mg/dL (4-19) H 07/29/24 04:01 07/29/24 Creatinine 1.36 mg/dL (0.70-1.20) H 07/29/24 04:01 07/29/24 Glucose 126 mg/dL (70-99) H 07/29/24 04:01 07/29/24 POC Glucose 150 mg/dL (74-106) H 07/29/24 11:16 07/29/24 TSH 3.890 uIU/mL (0.300-4.200) 07/29/24 04:01 07/29/24 COAG PT 16.4 SECONDS (11.7-14.9) H 07/29/24 04:01 07/29/24 Pre-Assessment Diagnosis/Proposed Procedure Planned Operative Procedure(s): EGD Anesthesia History Anesthesia History - gas treater: Anesthesia History - gas treater Hx Hospitalization Yes: 08/2020 nausea from pain 07/22/24 10:14 meds given in er Any Problems With Anesthesia Yes: nausea 07/28/24 22:26 Cholinesterase deficiency No 07/28/24 22:26 You/Your Family Experience No 07/22/24 10:14 fever (hyperthermia) with Relationship Recent Exposure to Contagious No 07/28/24 22:26 Disease Does patient have nerve No 07/28/24 22:26 stimulator Patient instructed to have device shut off --Does patient have Pacemaker or ICD? When Was Last Pacemaker Check QUESTION #4 FULL TEXT: You/Your Family Experience fever (hyperthermia) with Anesthesia Last Oral Intake Last Oral intake: Last Oral Intake NPO since 00:00 07/29/24 14:00 Meds taken in AM with sips of Yes 07/29/24 14:00 water? Meds patient instructed to see mar 07/29/24 14:00 take am of surgery PONV PONV - gas treater: PONV - gas treater Female HX of Motion Sickness HX of N/V After Surgery Non-Smoker Duration of Surgery greater than 60 minutes Number of Risk Factors PONV Score Height & Weight Height & Weight: Anesthesia: Height & Weight Height 5 ft 6 in 07/29/24 14:00 Weight: 76.2 kg 07/29/24 14:00 Body Mass Index (BMI) 27.1 07/29/24 14:00 Respiratory Assessment Respiratory Assessment - gas treater: Respiratory Tract Infection Hx - gas treater Hx Respiratory Tract Infection No 07/28/24 22:26 STOP Sleep Apnea STOP Sleep Apnea - gas treater: STOP Sleep Apnea - gas treater Hx Hypertension No 07/29/24 13:21 Hx Sleep Apnea Yes 07/28/24 17:49 CPAP Yes 07/28/24 17:49 BIPAP No 07/28/24 17:49 Do you snore loudly (louder than talking or can be heard Do you often feel tired/ fatigued/ sleepy during daytime? Has anyone observed you stop breathing during sleep? STOP Results Positive 07/28/24 17:49 QUESTION #5 FULL TEXT : Do you snore loudly (louder than talking or can be heard through closed doors)? Tobacco Use History Tobacco Use History - gas treater: Tobacco Use History - gas treater Tobacco Use Non-smoker 07/22/24 10:14 Smoking Status Former smoker 07/28/24 17:49 Hx Tobacco Use No 07/28/24 17:49 Years Smoking Packs Smoked per Day Smoking Cessation Date was No - quit smoking greater 07/28/24 17:49 within the last 15 years than 15 years ago Hx Smoking Cessation Date 08/26/69 07/28/24 17:49 Hx Smoking Cessation No 07/28/24 17:49 Counseling Hematologic Medial History Hematologic Hx - gas treater: Hematologic Medical Hx - hairspring vibrator Hx of Blood Transfusion No 07/28/24 17:49 Hx of Transfusion in last 3 No 07/28/24 17:49 Months Date of Last Transfusion (if within last 3 months) Ever experience any problems No 07/28/24 17:49 with transfusion(s)? Specify any problems Hx of Preganancy in last 3 N/A 07/28/24 17:49 Months Nurse Filling Out Transfusion [id number] 07/28/24 17:49 & Questions: Date: 07/28/24 07/28/24 17:49 Time: 18:04 07/28/24 17:49 Patient unable to answer at this time (ie. confused, unrespo /Reproduction History /Reproductive History - gas treater: /Reproductive Hx- gas treater Hx Now Gestational Age (in weeks): EDC: Hx Hx Para Hx Section SAB Active Medications Active Medications: Current Medications Generic Name Dose Route Start Last Admin Trade Name Freq PRN Reason Stop Dose Admin Acetaminophen 650 mg 07/28/24 17:48 Acetaminophen 325 Mg Tablet PO Q6H PRN PRN Pain 1-10 Or Fever >100.7 Albuterol Sulfate 2.5 mg 07/28/24 17:48 Albuterol 2.5 Mg/3 Ml Vial.Neb. INHALATION Q2H PRN PRN SOB &/OR WHEEZING Albuterol Sulfate 2.5 mg 07/28/24 18:15 07/29/24 08:57 Albuterol 2.5 Mg/3 Ml Vial.Neb. INHALATION 2.5 mg Q6HWA.RT JOSH Administration Amiodarone HCl 200 mg 07/29/24 10:00 07/29/24 09:10 Amiodarone 200 Mg Tablet PO 200 mg DAILY JOSH Administration Budesonide 0.5 mg 07/28/24 18:15 07/29/24 08:57 Budesonide Respules 0.5 Mg/2 Ml Ampul.Neb. INHALATION 0.5 mg Q12H.RT JOSH Administration Compound Med 2 click 07/28/24 22:00 07/29/24 09:10 Arthritis Pain Compound 60 Click Tube TOPICAL 2 click BID JOSH Administration Protocol Finasteride 5 mg 07/29/24 10:00 07/29/24 09:10 Finasteride 5 Mg Tablet PO 5 mg DAILY JOSH Administration Glucagon 1 mg 07/28/24 17:48 Glucagon 1 Mg/Ml Syringe IM X1 PRN HYPOGLYCEMIA Protocol Dextrose 250 mls @ 0 mls/hr 07/28/24 17:48 Dextrose 10%-Water IV .Q0M PRN HYPOGLYCEMIA Protocol As Directed Pantoprazole Sodium 40 mg/ 110 mls @ 330 mls/hr 07/28/24 17:48 07/29/24 09:50 Sodium Chloride IV Infused Q12 JOSH Infusion Sodium Chloride 100 mls @ 15 mls/hr 07/28/24 17:54 IV .Q6H40M PRN Saline Flush Sodium Chloride 100 mls @ 15 mls/hr 07/28/24 17:54 IV .Q6H40M PRN Additional IVPB Infusion Insulin Human Lispro 0 unit 07/28/24 22:00 07/29/24 11:22 Insulin Lispro 100 Unit/Ml Insuln.Pen SC Not Given ACHS JOSH Protocol Loratadine 10 mg 07/29/24 10:00 07/29/24 09:10 Loratadine 10 Mg Tablet PO 10 mg DAILY JOSH Administration Melatonin 3 mg 07/28/24 17:48 Melatonin 3 Mg Tablet PO QHS PRN PRN INSOMNIA Ondansetron HCl 4 mg 07/28/24 17:48 Ondansetron 4 Mg/2 Ml Vial IV Q8H PRN PRN NAUSEA/VOMITING Senna/Docusate Sodium 2 tablet 07/28/24 22:00 07/29/24 09:08 Senna/Docusate Sodium 1 Tablet PO Not Given BID JOSH Sodium Chloride 10 - 40 ml 07/28/24 17:54 07/28/24 22:23 0.9% Saline Lock 10 Ml Syringe IV 10 ml UD PRN Administration SALINE FLUSH PFSH Medical History Knee pain, right Hx of amiodarone therapy Stool contents finding, abnormal Other acute postprocedural pain Quadriceps tendon rupture Hx of echocardiogram History of stress test Wears glasses Shortness of breath on exertion Former smoker CPAP (continuous positive airway pressure) dependence Asthma Irregular heart beat Rhinitis Chronic kidney disease CKD (chronic kidney disease) stage 3, GFR 30-59 ml/min Candidiasis of mouth CHUCKIE (obstructive sleep apnea) Dyspnea on exertion Hyperlipidemia Moderate persistent asthma Paroxysmal atrial fibrillation Home Medications ?Medication ?Instructions ?Recorded ?Last Taken ?Type fluticasone propionate 230 2 inh inhalation BID #3 ea 08/19/23 07/28/24 Rx mcg-salmeterol 21 mcg/actuation HFA inhaler (Advair HFA) apixaban 5 mg tablet (Eliquis) 5 mg PO BID #180 tabs 10/21/23 07/28/24 Rx azelastine 137 mcg (0.1 %) nasal 2 spray intranasal BID PRN 04/20/24 07/28/24 History spray BREAKING CONTROL amiodarone 200 mg tablet 200 mg PO DAILY #90 tabs 05/22/24 07/28/24 Rx albuterol sulfate 90 mcg/actuation 2 puff inhalation Q6H PRN 07/22/24 07/28/24 Rx aerosol inhaler shortness of breath or wheezing #8.5 grams finasteride 5 mg tablet 5 mg PO DAILY 07/22/24 07/28/24 History amoxicillin 875 mg-potassium 1 tab PO BID 07/28/24 07/28/24 History clavulanate 125 mg tablet cetirizine 10 mg tablet 10 mg PO DAILY allergy symptoms 07/28/24 07/28/24 History diclofenac sodium 1 % topical gel 2 g topical QHS 07/28/24 Unknown History (Arthritis Pain (diclofenac)) fluticasone propionate 50 2 spray intranasal DAILY PRN 07/28/24 Unknown History mcg/actuation nasal allergy symptoms spray,suspension Allergy/AdvReac Type Severity Reaction Status Date / Time No Known Allergies Allergy Verified 07/28/24 13:26 Family History Father , Had pacemaker, at advanced age No problems noted. Mother , lived to advanced age No problems noted. Other Chronic kidney disease Surgical History History of cardiac radiofrequency ablation History of cardioversion (09/05/23) History of cardiac radiofrequency ablation (RFA) (~07/03/22) History of appendectomy History of nasal surgery History of umbilical hernia repair History of appendectomy Social History Smoking Status: Former smoker how long ago did patient quit smokin years ago alcohol intake: current alcohol intake frequency: a few times a week Alcohol type: wine substance use type: does not use caffeine: Yes Type: coffee Number of servings: 1 Review of Systems (Anesthesia) ROS Narrative System reviewed and no additional complaints, except as documented.
--- NOTE | 2024-07-29 15:45 | EGD_PTH ---
PATIENT: CAT MCMAHAN LOC: [facility] U#:[id number] AGE/SX: 84/M ROOM: WY314 RE07/28/[address]: Dr. Papo Soliz MD : 1940 BED: 1 DIS: 07/31/2024 SPEC #: [id number] RECD: 07/30/24 09:15 STATUS: JOJO HARVEY #: [id number] JORGE: 07/29/24 15:[address]: Roberto Cook DEPT: SURGICAL PATHOLOGY RECD BY: Fidencio Walton ENTERED: 07/30/24 09:16 SP TYPE: EGD BIOPSY [facility] DR: MD Dr. Papo Robin MD Dr. Paige Pierce, MD Tissues: A - Gastric mucous membrane Procedures: Immunohistochemical Stains Surgery Specimen Level IV HEADER OPERATION: EGD with biopsy PRE-OP DIAGNOSIS: Symptomatic anemia TISSUE SUBMITTED: A- Gastric antrum biopsy MICROSCOPIC DIAGNOSIS STOMACH, ANTRUM, BIOPSY: -MILD CHRONIC INFLAMMATION WITH FEATURES OF REACTIVE GASTROPATHY. -NEGATIVE FOR H PYLORI ORGANISMS (H&E STAIN). MICROSCOPIC DESCRIPTION Slides are reviewed. GROSS DESCRIPTION A. Received in formalin labeled Cat Mcmahan, and designated gastric antrum biopsy, are three arguello tissue fragments aggregating to 0.4 x 0.4 x 0.2 cm. Totally submitted in one cassette. RAYMON 07/30/2024 CPT:90220,29149
--- NOTE | 2024-07-29 16:03 | PCM.PN.BLA ---
Progress Note Patient scheduled for EGD today. He has been NPO. He has not seen any bleeding today. Physical Exam Narrative General: Alert, Oriented x3, Cooperative, No apparent distress HEENT: Atraumatic, PERRLA, EOMI, Normocephalic Oral: Moist Mucosa Neck: Supple, No JVD Lungs: Diminished, Normal air movement, No rhonchi, No wheeze, No rales Cardiovascular: Regular rate, Regular Rhythm, Normal S1, Normal S2, No murmurs Abdomen: Soft, Non Tender, Non-Distended, No Hepato-splenomegaly Extremities: No edema, Capillary Refill Less than 3 Seconds Skin: No rashes, No breakdown Musculoskeletal: No Tenderness to Palpation of Joints or Extremities Neurological: No focal neurological deficits, Motor Exam 5/5 strength throughout, Sensory exam intact to light touch and pain Psych/Mental Status: Normal Affect, Appropriate Assessment & Plan Assessment/Plan (1) Symptomatic anemia: PLAN: Symptomatic anemia presumed to be secondary to upper GI bleed. Patient was explained alternatives, risk and benefits include not withstanding bleeding, infection, sepsis, perforation, need for charge and . He will have an ASA of 3. Visit Charges Inpatient E&M: 89033 Subs Hosp L2
--- NOTE | 2024-07-29 16:22 | NURSING ---
All documentation by nursing staffing coordinator Simin Cedillo reviewed by nursing home assistant Christa HUDSONN, RN.
--- NOTE | 2024-07-29 16:26 | OP.CCLET_ITS ---
07/29/2024 Manju Coulter [place] [id number] [place] [address] Re : Upper GI endoscopy procedure for Isiah Mcmahan Dear Dr. Coulter This procedure was performed on Monday, July 29, 2024. My impressions and recommendations are as follows: Impressions : - Normal esophagus. - Erythematous mucosa in the antrum. Biopsied. - No gross lesions in the fourth portion of the duodenum. Recommendations : - Return patient to hospital [facility] for ongoing care. - Clear liquid diet. - Continue present medications. - Await pathology results. My findings are described in the full procedure note, which is enclosed. If I can be of further assistance, please feel free to contact me at . Sincerely, Roberto Cook, 07/29/2024 4:25:46 PM This report has been signed electronically.
--- NOTE | 2024-07-29 16:26 | OP.EGD_ITS ---
Patient Name: Isiah Mcmahan Procedure Date: 07/29/2024 4:06 PM Date of : 1940 Age: 84 Procedure: Upper GI endoscopy Indications: Iron deficiency anemia secondary to chronic blood loss, Iron deficiency anemia Providers: Roberto Cook DO Medicines: Monitored Anesthesia Care Patient Profile: This is an 84 year old male. Refer to note in patient chart for documentation of history and physical. Patient has symptoms. Complications: No immediate complications. Procedure: Pre-Anesthesia Assessment: - Prior to the procedure, a History and Physical was performed, and patient medications and allergies were reviewed. The patient is competent. The risks and benefits of the procedure and the sedation options and risks were discussed with the patient. All questions were answered and informed consent was obtained. Patient identification and proposed procedure were verified by the physician in the pre-procedure area. Mental Status Examination: alert and oriented. Airway Examination: normal oropharyngeal airway and neck mobility. Respiratory Examination: clear to auscultation. CV Examination: normal. Prophylactic Antibiotics: The patient does not require prophylactic antibiotics. Prior Anticoagulants: The patient has taken no anticoagulant or antiplatelet agents except for NSAID medication. ASA Grade Assessment: II - A patient with mild systemic disease. After reviewing the risks and benefits, the patient was deemed in satisfactory condition to undergo the procedure. The anesthesia plan was to use monitored anesthesia care (MAC). Immediately prior to administration of medications, the patient was re-assessed for adequacy to receive sedatives. The heart rate, respiratory rate, oxygen saturations, blood pressure, adequacy of pulmonary ventilation, and response to care were monitored throughout the procedure. The physical status of the patient was re-assessed after the procedure. After obtaining informed consent, the endoscope was passed under direct vision. Throughout the procedure, the patient's blood pressure, pulse, and oxygen saturations were monitored continuously. The Endoscope was introduced through the mouth, and advanced to the fourth part of the duodenum. Small bowel enteroscopy was deemed necessary. The upper GI endoscopy was accomplished without difficulty. The patient tolerated the procedure well. Scope In: 4:19:36 PM Scope Out: 4:23:17 PM Total Procedure Duration Time 0 hours 3 minutes 41 seconds Findings: The examined esophagus was normal. Patchy mildly erythematous mucosa without bleeding was found in the gastric antrum. Biopsies were taken with a cold forceps for histology. Verification of patient identification for the specimen was done. Estimated blood loss was minimal. Biopsies were taken with a cold forceps for Helicobacter pylori testing. Verification of patient identification for the specimen was done. Estimated blood loss was minimal. No gross lesions were noted in the fourth portion of the duodenum. Impression: - Normal esophagus. - Erythematous mucosa in the antrum. Biopsied. - No gross lesions in the fourth portion of the duodenum. Recommendation: - Return patient to hospital [facility] for ongoing care. - Clear liquid diet. - Continue present medications. - Await pathology results. Procedure Code(s): --- Professional --- 82040, Small intestinal endoscopy, enteroscopy beyond second portion of duodenum, not including ileum; with biopsy, single or multiple CPT copyright 2021 [employer]. All rights reserved. The codes documented in this report are preliminary and upon offset press operator review may be revised to meet current compliance requirements. Roberto Cook DO 07/29/2024 4:25:46 PM This report has been signed electronically. Number of Addenda: 0 Note Initiated On: 07/29/2024 4:06 PM
--- NOTE | 2024-07-29 16:32 | PCM.POST.ANE ---
Anesthesia: Postop Eval I Current Vital Signs Temperature: 97.9 F Pulse Rate: 66 Blood Pressure: 94/52 Respiratory Rate: 18 Pulse Ox: 94 Assessment Airway patent: Yes Spontaneous unlabored respirations: Yes nausea: No Vomiting: No Anesthesia Complication: No Fluid Hydration Crystalloid volume administer (ml): 20 Total IV fluid infused: 20 Progress Note Anesthesia document: Postop Eval 1 completed: Yes
[2024-07-29] MEDS: Bisacodyl 5 MG Tablet 20 MG PO (17:24)
[2024-07-29] MEDS: Polyethylene Glycol 3350 BOWEL PREP PO (17:24)
[2024-07-29 17:46] LABS: Bedside Glucose 123 mg/dL (74-106)
[2024-07-29] MEDS: Sodium Ferric Gluconat/Sucrose 250 MG in 0.9% Normal Saline (250mL Bag) 250 ML 135 MG IV (18:36)
[2024-07-29] MEDS: 0.9% Saline Lock 10 ML Syringe IV (18:36)
--- NOTE | 2024-07-29 19:15 | CPS ---
Pt stated that he did not want to wear his CPAP machine for tonight.
[2024-07-29 19:21] LABS: Ferritin 18 ng/mL (37-417); Iron 16 ug/dL (65-175); Iron Binding Capacity,Total 331 ug/dL (250-450); Iron Binding Capacity,Unsat 315 ug/dL (228-428)
[2024-07-29 22:22] LABS: Bedside Glucose 161 mg/dL (74-106)
[2024-07-30] VITALS (11 sets, daily range): BP systolic 82–131; BP diastolic 37–69; PULSE 55–62; RESP 16–18; TEMP 36.5–37.1; O2SAT 94–100
[2024-07-30 04:12] LABS: Absolute Lymphocyte Count 1.36 X10^3/uL (0.83-4.51); Basophil# 0.05 X10^3/uL; Basophil% 0.4 % (0-1); Eosinophil# 0.13 X10^3/uL; Hemoglobin 7.5 g/dL (13.0-16.5); Lymphocyte # 1.36 X10^3/ul (0.83-4.51); Lymphocyte % 10.3 % (19-41); Mean Corpuscular Hgb 23.1 pg (27.0-32.0); Mean Corpuscular Volume 76.9 fL (80-94); Mean Platelet Vol. 10.3 fl (6.2-12.0); Monocyte# 1.62 X10^3/uL; Monocyte% 12.3 % (0-10); NRBC Flagged by Analyzer 0 % (0-5); Neutrophil # 9.95 X10^3/uL (2.7-7.7); Neutrophil % 75.4 % (47-70); POSITIVE DIFFERENTIAL YES; Platelet Count 200 K/mm3 (150-450); RBC Distribution Width CV 16.9 % (11.6-14.6); RBC Distribution Width SD 47.5 fl (35.1-43.9); Red Blood Count 3.25 M/mm3 (4.6-6.2); White Blood Count 13.2 K/mm3 (4.4-11.0)
[2024-07-30 04:13] LABS: Differential Indicated SCAN CRITERIA MET
[2024-07-30 04:28] LABS: Anion Gap 10 (5-15); BUN 18 mg/dL (4-19); BUN/Creat Ratio 12.9 RATIO (10-20); Calcium,Total 7.8 mg/dL (7.6-11.0); Carbon Dioxide 20.1 mmol/L (21.0-32.0); Chloride 105 mmol/L (98-108); Creatinine, Serum 1.38 mg/dL (0.70-1.20); EST Glomerular Filtration Rate 50 (>60); Estimated Creatinine Clearance 35.96 ml/min (50-250); Glucose 105 mg/dL (70-99); Potassium 3.7 mmol/L (3.3-5.1); Sodium Level 135 mmol/L (133-145)
[2024-07-30 05:06] LABS: Platelet Estimate ADEQUATE (ADEQ)
[2024-07-30 05:07] LABS: Polychromasia 2+
[2024-07-30 05:11] LABS: Anisocytosis 2+; Hypochromasia 1+; Macrocytosis 1+; Ovalocyte 1+; Pathologist Review May foll
[2024-07-30 07:55] LABS: Bedside Glucose 140 mg/dL (74-106)
[2024-07-30] MEDS: Pantoprazole Sodium 40 MG in 0.9% Normal Saline (100mL MB+) 100 ML 330 MG IV ×2 (09:17→22:25)
[2024-07-30] MEDS: Sodium Ferric Gluconat/Sucrose 250 MG in 0.9% Normal Saline (250mL Bag) 250 ML 135 MG IV (10:54)
[2024-07-30 11:31] LABS: Bedside Glucose 119 mg/dL (74-106)
--- NOTE | 2024-07-30 16:00 | PN.HOSP_ITS ---
Subjective Subjective Doing well and feeling much better today. No issues overnight Objective Data Objective Data Vital Signs: Vital Signs Temp Pulse Resp BP Pulse Ox O2 Del Method O2 Flow Rate 98.7 F 56 L 18 109/69 100 Room Air 2 07/30/24 15:45 07/30/24 15:45 07/30/24 15:45 07/30/24 15:45 07/30/24 15:45 07/30/24 15:45 07/29/24 19:15 FiO2 21 07/29/24 15:30 Oxygen Flow Rate (L/min) 2 Oxygen Delivery Method Room Air Weight: 167 lb 15.876 oz Body Mass Index (BMI) 27.1 Intake & Output: Intake and Output for Last 24 Hours 07/29/24 07/30/24 07/31/24 03:59 03:59 03:59 Intake Total 1110 / 1110 490 / 490 380 / 380 Balance 1110 / 1110 490 / 490 380 / 380 Lab / Micro Data 07/30/24 03:35 07/30/24 03:35 Labs: Laboratory Results - last 24 hr 07/29/24 04:01: Iron 16 L, TIBC 331, Iron Saturation 5.0 L, Unsaturated IBC 315, Ferritin 18 L 07/29/24 17:23: POC Glucose 123 H 07/29/24 21:55: POC Glucose 161 H 07/30/24 03:35: WBC 13.2 H, RBC 3.25 L, Hgb 7.5 L, Hct 25.0 L, MCV 76.9 L, MCH 23.1 L, MCHC 30.0 L, RDW Std Deviation 47.5 H, RDW Coeff of Tiffany 16.9 H, Plt Count 200, MPV 10.3, Immature Gran % (Auto) 0.600, Neut % (Auto) 75.4 H, Lymph % (Auto) 10.3 L, Nobles % (Auto) 12.3 H, Eos % (Auto) 1.0, Baso % (Auto) 0.4, A bsolute Neuts (auto) 10.0 H, Absolute Lymphs (auto) 1.36, Nucleated RBC % 0, Differential Comment , Diff Path Review May foll, Platelet Estimate ADEQUATE, Polychromasia 2+, Hypochromasia 1+, Anisocytosis 2+, Macrocytosis 1+, Ovalocytes 1+, Sodium 135, Potassium 3.7, Chloride 105, Carbon Dioxide 20.1 L, Anion Gap 10, BUN 18, Creatinine 1.38 H, Estim Creat Clear Calc 35.96 L, Est GFR (MDRD) Non-Af 50 L, BUN/Creatinine Ratio 12.9, Glucose 105 H, Calcium 7.8 07/30/24 04:22: POC Glucose 140 H 07/30/24 11:08: POC Glucose 119 H Micro: Microbiology 07/28/24 15:18 Stool Stool Occult Blood (JOEY) - Final Occult Blood Positive 07/28/24 14:19 Mucosa - Nose SARS-CoV-2, Influenza & RSV (PCR) - Final Physical Exam Narrative General: Alert, Oriented x3, Cooperative, No apparent distress HEENT: Atraumatic, PERRLA, EOMI, Normocephalic Oral: Moist Mucosa Neck: Supple, No JVD Lungs: Diminished, Normal air movement, No rhonchi, No wheeze, No rales Cardiovascular: Regular rate, Regular Rhythm, Normal S1, Normal S2, No murmurs Abdomen: Soft, Non Tender, Non-Distended, No Hepato-splenomegaly Extremities: No edema, Capillary Refill Less than 3 Seconds Skin: No rashes, No breakdown Musculoskeletal: No Tenderness to Palpation of Joints or Extremities Neurological: No focal neurological deficits, Motor Exam 5/5 strength throughout, Sensory exam intact to light touch and pain Psych/Mental Status: Normal Affect, Appropriate Assessment & Plan Assessment/Plan (1) Symptomatic anemia: PLAN: Plan 1. Acute blood loss anemia secondary to GI bleed with shortness of breath/leukocytosis ? This is likely worsened by Eliquis use ? Will hold his Eliquis, and monitor his anemia ? Continue with PPI ? EGD was unremarkable so planning for colonoscopy today ? Will provide another dose of Venofer today 2. A-fib ? Continue with amiodarone ? Hold his Eliquis ? He is not on any rate control medications 3. CHUCKIE/history of asthma ? Continue with home inhalers ? NIPPV 4. BPH ? Stable ?Continue with home meds DVT: SCDs Charges/Coding Visit Charges Inpatient E&M: 09169 Subs Hosp L2
[2024-07-30 17:09] LABS: Bedside Glucose 104 mg/dL (74-106)
--- NOTE | 2024-07-30 18:15 | COLBX_PTH ---
PATIENT: CAT MICHAELS LOC: MS3 U#:[id number] AGE/SX: 84/M ROOM: SD314 RE07/28/[address]: Dr. Papo Soliz MD : 1940 BED: 1 DIS: 07/31/2024 SPEC #: [id number] RECD: 07/30/24 21:36 STATUS: JOJO HARVEY #: [id number] JORGE: 07/30/24 18:[address]: Roberto Cook DEPT: SURGICAL PATHOLOGY RECD BY: Faheem Parks ENTERED: 07/31/24 09:29 SP TYPE: COLON BX OTHR DR: MD Dr. Papo Robin MD Dr. Paige Pierce, MD Tissues: A - Cecum, NOS B - COLON BIOPSY Procedures: Surgery Specimen Level IV HEADER OPERATION: Colonoscopy with biopsy PRE-OP DIAGNOSIS: Symptomatic anemia TISSUE SUBMITTED: A- Cecum biopsy, B- Random colon biopsy MICROSCOPIC DIAGNOSIS A. Colon, cecum, biopsy: * Patchy acute inflammation without significant crypt distortion - see Comment. B. Colon, random, biopsy: * Patchy acute inflammation without significant crypt distortion - see Comment. COMMENT A, B) Patchy acute inflammation without associated crypt distortion or other features of chronicity is favored to reflect focal active colitis . The histologic differential diagnosis includes medication injury (eg: NSAIDs), bowel prep artifact, infection, and ischemia. No granulomas or dysplasia seen. Recommend correlation with clinical and endoscopic fingings. MICROSCOPIC DESCRIPTION Slides are reviewed. GROSS DESCRIPTION A. Received in fixative is one container labeled with the patient's name and designated Cecum biopsy. The specimen consists of multiple irregular fragments of light arguello soft tissue that in aggregate measure 0.8 x 0.5 x 0.2 cm. The specimen is totally submitted in one cassette. B. Received in fixative is one container labeled with the patient's name and designated Random colon biopsy. The specimen consists of multiple irregular fragments of light arguello soft tissue that in aggregate measure 1.3 x 0.4 x 0.2 cm. The specimen is totally submitted in one cassette. 07/31/2024 CPT:29244y0
--- NOTE | 2024-07-30 20:40 | PCM.PN.BLA ---
Progress Note Patient is n.p.o. for colonoscopy today. Physical Exam Const alert, oriented x3, no apparent distress and healthy appearing General Appearance: cooperative GI normal to inspection, nondistended, normoactive bowel sounds, soft to palpation, non-tender and non-distended Percussion: normal to percussion Rectal Exam: deferred Assessment & Plan Assessment/Plan (1) Symptomatic anemia: PLAN: Symptomatic anemia presumed to be secondary to upper GI bleed. Patient was explained alternatives, risk and benefits include not withstanding bleeding, infection, sepsis, perforation, need for charge and . He will have an ASA of 3. Visit Charges Inpatient E&M: 53728 Subs Hosp L2
--- NOTE | 2024-07-30 20:46 | PCM.PRE.AN2 ---
ASA Classification* ASA Classification ASA Classification: 3 Assessment & Plan Anesthesia* Anesthesia Assessment Anesthesia Assessment: Discussed sedation and/or anesthesia options, risks, benefits, and alternatives with patient/parents/legal guardian/POA. Questions invited. The patient/parents/legal guardian/POA seems to understand and agrees to proceed with anesthesia plan. Reviewed the physical assessment, medical history, allergy history and patient home medications list prior to surgery/procedure/anesthetic and documented any changes. Performed airway and anesthesia risk assessments. Anesthesia Type Anesthesia Type: MAC History Source History Obtained from:: Patient and Chart Anesthesia Focused Assessment* Temperature: 98.7 F Pulse Rate: 56 Blood Pressure: 109/69 Respiratory Rate: 18 Pulse Ox: 100 Oxygen Delivery Method: Room Air Oxygen Flow Rate (L/min): 2 Fraction of Inspired Oxygen (FIO2): 21 Airway Assessment Mouth opens: >3 cm Mallampati Score: II Teeth Condition: Caps/Crowns (Patient has several crowns. They are tight.) Neck Range of motion (ROM): Limited ROM (Slight decreased extension) Focused Labs Anesthesia Preop lab: CBC WBC 13.2 K/mm3 (4.4-11.0) H 07/30/24 03:35 07/30/24 RBC 3.25 M/mm3 (4.6-6.2) L 07/30/24 03:35 07/30/24 Hgb 7.5 g/dL (13.0-16.5) L 07/30/24 03:35 07/30/24 Hct 25.0 % (40-54) L 07/30/24 03:35 07/30/24 Plt Count 200 K/mm3 (150-450) 07/30/24 03:35 07/30/24 CHEMISTRY Potassium 3.7 mmol/L (3.3-5.1) 07/30/24 03:35 07/30/24 Sodium 135 mmol/L (133-145) 07/30/24 03:35 07/30/24 Magnesium 2.3 mg/dL (1.5-2.2) H 07/28/24 13:38 07/28/24 BUN 18 mg/dL (4-19) 07/30/24 03:35 07/30/24 Creatinine 1.38 mg/dL (0.70-1.20) H 07/30/24 03:35 07/30/24 Glucose 105 mg/dL (70-99) H 07/30/24 03:35 07/30/24 POC Glucose 104 mg/dL (74-106) 07/30/24 16:52 07/30/24 TSH 3.890 uIU/mL (0.300-4.200) 07/29/24 04:01 07/29/24 COAG PT 16.4 SECONDS (11.7-14.9) H 07/29/24 04:01 07/29/24 Pre-Assessment Diagnosis/Proposed Procedure Planned Operative Procedure(s): Colonoscopy Anesthesia History Anesthesia History - touch up worker: Anesthesia History - touch up worker Hx Hospitalization Yes: 08/2020 nausea from pain 07/22/24 10:14 meds given in er Any Problems With Anesthesia Yes: nausea 07/28/24 22:26 Cholinesterase deficiency No 07/28/24 22:26 You/Your Family Experience No 07/22/24 10:14 fever (hyperthermia) with Relationship Recent Exposure to Contagious No 07/28/24 22:26 Disease Does patient have nerve No 07/28/24 22:26 stimulator Patient instructed to have device shut off --Does patient have Pacemaker or ICD? When Was Last Pacemaker Check QUESTION #4 FULL TEXT: You/Your Family Experience fever (hyperthermia) with Anesthesia Last Oral Intake Last Oral intake: Last Oral Intake NPO since 00:00 07/29/24 14:00 Meds taken in AM with sips of 07/29/24 14:00 water? Meds patient instructed to 07/29/24 14:00 take am of surgery PONV PONV - touch up worker: PONV - touch up worker Female HX of Motion Sickness HX of N/V After Surgery Non-Smoker Duration of Surgery greater than 60 minutes Number of Risk Factors PONV Score Height & Weight Height & Weight: Anesthesia: Height & Weight Height 5 ft 6 in 07/29/24 14:00 Weight: 76.2 kg 07/29/24 14:00 Body Mass Index (BMI) 27.1 07/29/24 14:00 Respiratory Assessment Respiratory Assessment - touch up worker: Respiratory Tract Infection Hx - touch up worker Hx Respiratory Tract Infection No 07/28/24 22:26 STOP Sleep Apnea STOP Sleep Apnea - touch up worker: STOP Sleep Apnea - touch up worker Hx Hypertension No 07/29/24 13:21 Hx Sleep Apnea Yes 07/28/24 17:49 CPAP Yes 07/28/24 17:49 BIPAP No 07/28/24 17:49 Do you snore loudly (louder than talking or can be heard Do you often feel tired/ fatigued/ sleepy during daytime? Has anyone observed you stop breathing during sleep? STOP Results Positive 07/29/24 16:28 QUESTION #5 FULL TEXT : Do you snore loudly (louder than talking or can be heard through closed doors)? 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 Specify any problems Hx of Preganancy in last 3 N/A 07/28/24 17:49 Months Nurse Filling Out Transfusion [id number] 07/28/24 17:49 & Questions: Date: 07/28/24 07/28/24 17:49 Time: 18:04 07/28/24 17:49 Patient unable to answer at this time (ie. confused, unrespo /Reproduction History /Reproductive History - touch up worker: /Reproductive Hx- touch up worker Hx Now Gestational Age (in weeks): EDC: Hx Hx Para Hx Section SAB Active Medications Active Medications: Current Medications Generic Name Dose Route Start Last Admin Trade Name Freq PRN Reason Stop Dose Admin Acetaminophen 650 mg 07/28/24 17:48 Acetaminophen 325 Mg Tablet PO Q6H PRN PRN Pain 1-10 Or Fever >100.7 Albuterol Sulfate 2.5 mg 07/28/24 17:48 Albuterol 2.5 Mg/3 Ml Vial.Neb. INHALATION Q2H PRN PRN SOB &/OR WHEEZING Albuterol Sulfate 2.5 mg 07/28/24 18:15 07/29/24 08:57 Albuterol 2.5 Mg/3 Ml Vial.Neb. INHALATION 2.5 mg Q6HWA.RT JOSH Administration Amiodarone HCl 200 mg 07/29/24 10:00 07/30/24 10:59 Amiodarone 200 Mg Tablet PO Not Given DAILY JOSH Budesonide 0.5 mg 07/28/24 18:15 07/29/24 08:57 Budesonide Respules 0.5 Mg/2 Ml Ampul.Neb. INHALATION 0.5 mg Q12H.RT JOSH Administration Compound Med 2 click 07/28/24 22:00 07/30/24 09:19 Arthritis Pain Compound 60 Click Tube TOPICAL Not Given BID JOSH Protocol Finasteride 5 mg 07/29/24 10:00 07/30/24 10:59 Finasteride 5 Mg Tablet PO Not Given DAILY JOSH Glucagon 1 mg 07/28/24 17:48 Glucagon 1 Mg/Ml Syringe IM X1 PRN HYPOGLYCEMIA Protocol Dextrose 250 mls @ 0 mls/hr 07/28/24 17:48 Dextrose 10%-Water IV .Q0M PRN HYPOGLYCEMIA Protocol As Directed Pantoprazole Sodium 40 mg/ 110 mls @ 330 mls/hr 07/28/24 17:48 07/30/24 09:40 Sodium Chloride IV Infused Q12 JOSH Infusion Sodium Chloride 100 mls @ 15 mls/hr 07/28/24 17:54 IV .Q6H40M PRN Saline Flush Sodium Chloride 100 mls @ 15 mls/hr 07/28/24 17:54 IV .Q6H40M PRN Additional IVPB Infusion Insulin Human Lispro 0 unit 07/28/24 22:00 07/30/24 17:23 Insulin Lispro 100 Unit/Ml Insuln.Pen SC Not Given ACHS JOSH Protocol Loratadine 10 mg 07/29/24 10:00 07/30/24 09:18 Loratadine 10 Mg Tablet PO Not Given DAILY JOSH Melatonin 3 mg 07/28/24 17:48 Melatonin 3 Mg Tablet PO QHS PRN PRN INSOMNIA Ondansetron HCl 4 mg 07/28/24 17:48 Ondansetron 4 Mg/2 Ml Vial IV Q8H PRN PRN NAUSEA/VOMITING Senna/Docusate Sodium 2 tablet 07/28/24 22:00 07/30/24 09:18 Senna/Docusate Sodium 1 Tablet PO Not Given BID JOSH Sodium Chloride 10 - 40 ml 07/28/24 17:54 07/29/24 18:36 0.9% Saline Lock 10 Ml Syringe IV 10 ml UD PRN Administration SALINE FLUSH PFSH Medical History Knee pain, right Hx of amiodarone therapy Stool contents finding, abnormal Other acute postprocedural pain Quadriceps tendon rupture Hx of echocardiogram History of stress test Wears glasses Shortness of breath on exertion Former smoker CPAP (continuous positive airway pressure) dependence Asthma Irregular heart beat Rhinitis Chronic kidney disease CKD (chronic kidney disease) stage 3, GFR 30-59 ml/min Candidiasis of mouth CHUCKIE (obstructive sleep apnea) Dyspnea on exertion Hyperlipidemia Moderate persistent asthma Paroxysmal atrial fibrillation Home Medications ?Medication ?Instructions ?Recorded ?Last Taken ?Type fluticasone propionate 230 2 inh inhalation BID #3 ea 08/19/23 07/28/24 Rx mcg-salmeterol 21 mcg/actuation HFA inhaler (Advair HFA) apixaban 5 mg tablet (Eliquis) 5 mg PO BID #180 tabs 10/21/23 07/28/24 Rx azelastine 137 mcg (0.1 %) nasal 2 spray intranasal BID PRN 04/20/24 07/28/24 History spray BREAKING CONTROL amiodarone 200 mg tablet 200 mg PO DAILY #90 tabs 05/22/24 07/28/24 Rx albuterol sulfate 90 mcg/actuation 2 puff inhalation Q6H PRN 07/22/24 07/28/24 Rx aerosol inhaler shortness of breath or wheezing #8.5 grams finasteride 5 mg tablet 5 mg PO DAILY 07/22/24 07/28/24 History amoxicillin 875 mg-potassium 1 tab PO BID 07/28/24 07/28/24 History clavulanate 125 mg tablet cetirizine 10 mg tablet 10 mg PO DAILY allergy symptoms 07/28/24 07/28/24 History diclofenac sodium 1 % topical gel 2 g topical QHS 07/28/24 Unknown History (Arthritis Pain (diclofenac)) fluticasone propionate 50 2 spray intranasal DAILY PRN 07/28/24 Unknown History mcg/actuation nasal allergy symptoms spray,suspension Allergy/AdvReac Type Severity Reaction Status Date / Time No Known Allergies Allergy Verified 07/28/24 13:26 Family History Father , Had pacemaker, at advanced age No problems noted. Mother , lived to advanced age No problems noted. Other Chronic kidney disease Surgical History (Updated 07/30/24 @ 20:[address] Mykel Stanley MD) History of esophagogastroduodenoscopy (EGD) History of cardiac radiofrequency ablation History of cardioversion (09/05/23) History of cardiac radiofrequency ablation (RFA) (~07/03/22) History of appendectomy History of nasal surgery History of umbilical hernia repair History of appendectomy Social History Smoking Status: Former smoker how long ago did patient quit smokin years ago alcohol intake: current alcohol intake frequency: a few times a week Alcohol type: wine substance use type: does not use caffeine: Yes Type: coffee Number of servings: 1 Review of Systems (Anesthesia) ROS Narrative System reviewed and no additional complaints, except as documented.
--- NOTE | 2024-07-30 21:27 | OP.COLON_ITS ---
Patient Name: Isiah Mcmahan Procedure Date: 07/30/2024 8:45 PM Date of : 1940 Age: 84 Procedure: Colonoscopy Indications: Chronic diarrhea, Iron deficiency anemia secondary to chronic blood loss Providers: Roberto Cook DO Medicines: Monitored Anesthesia Care Patient Profile: This is an 84 year old male. Refer to note in patient chart for documentation of history and physical. Last Colonoscopy: several years ago. Complications: No immediate complications. Procedure: Pre-Anesthesia Assessment: - Prior to the procedure, a History and Physical was performed, and patient medications and allergies were reviewed. The patient is competent. The risks and benefits of the procedure and the sedation options and risks were discussed with the patient. All questions were answered and informed consent was obtained. Patient identification and proposed procedure were verified by the physician in the pre-procedure area. Mental Status Examination: alert and oriented. Airway Examination: normal oropharyngeal airway and neck mobility. Respiratory Examination: clear to auscultation. CV Examination: normal. Prophylactic Antibiotics: The patient does not require prophylactic antibiotics. Prior Anticoagulants: The patient has taken no anticoagulant or antiplatelet agents. ASA Grade Assessment: II - A patient with mild systemic disease. After reviewing the risks and benefits, the patient was deemed in satisfactory condition to undergo the procedure. The anesthesia plan was to use monitored anesthesia care (MAC). Immediately prior to administration of medications, the patient was re-assessed for adequacy to receive sedatives. The heart rate, respiratory rate, oxygen saturations, blood pressure, adequacy of pulmonary ventilation, and response to care were monitored throughout the procedure. The physical status of the patient was re-assessed after the procedure. After I obtained informed consent, the scope was passed under direct vision. Throughout the procedure, the patient's blood pressure, pulse, and oxygen saturations were monitored continuously. The Colonoscope was introduced through the anus and advanced to the cecum, identified by appendiceal orifice and ileocecal valve. The colonoscopy was performed without difficulty. The patient tolerated the procedure well. The quality of the bowel preparation was fair. The ileocecal valve, appendiceal orifice, and rectum were photographed. Scope In: 9:05:32 PM Scope Withdrawal Time 0 hours 8 minutes 18 seconds Scope Out: 9:20:29 PM Total Procedure Duration Time 0 hours 14 minutes 57 seconds Findings: The perianal and digital rectal examinations were normal. Diffuse moderate inflammation characterized by erythema, granularity and aphthous ulcerations was found in the recto-sigmoid colon, in the sigmoid colon, at the hepatic flexure, in the ascending colon and in the cecum. Biopsies were taken with a cold forceps for histology. Verification of patient identification for the specimen was done. Estimated blood loss was minimal. Multiple small and large-mouthed diverticula were found in the entire colon. Impression: - Preparation of the colon was fair. - Diffuse moderate inflammation was found in the recto-sigmoid colon, in the sigmoid colon, at the hepatic flexure, in the ascending colon and in the cecum secondary to colitis. Biopsied. - Diverticulosis in the entire examined colon. Recommendation: - Return patient to [facility] for ongoing care. - Resume regular diet. - Continue present medications. - Await pathology results. - Repeat colonoscopy for surveillance based on pathology results. Procedure Code(s): --- Professional --- 23460, Colonoscopy, flexible; with biopsy, single or multiple CPT copyright 2021 [employer]. All rights reserved. The codes documented in this report are preliminary and upon surgical coder review may be revised to meet current compliance requirements. Roberto Cook DO 07/30/2024 9:26:41 PM This report has been signed electronically. Number of Addenda: 0 Note Initiated On: 07/30/2024 8:45 PM
--- NOTE | 2024-07-30 21:27 | OP.CCLET_ITS ---
07/30/2024 Manju Coulter [place] [id number] [place] [address] Re : Colonoscopy procedure for Isiah Mcmahan Dear Dr. Coulter This procedure was performed on July. My impressions and recommendations are as follows: Impressions : - Preparation of the colon was fair. - Diffuse moderate inflammation was found in the recto-sigmoid colon, in the sigmoid colon, at the hepatic flexure, in the ascending colon and in the cecum secondary to colitis. Biopsied. - Diverticulosis in the entire examined colon. Recommendations : - Return patient to [facility] for ongoing care. - Resume regular diet. - Continue present medications. - Await pathology results. - Repeat colonoscopy for surveillance based on pathology results. My findings are described in the full procedure note, which is enclosed. If I can be of further assistance, please feel free to contact me at . Sincerely, Roberto Cook, 07/30/2024 9:26:41 PM This report has been signed electronically.
--- NOTE | 2024-07-30 21:30 | PCM.POST.ANE ---
Anesthesia: Postop Eval I Current Vital Signs Temperature: 97.7 F Pulse Rate: 56 Blood Pressure: 82/37 Respiratory Rate: 16 Pulse Ox: 97 Oxygen Delivery Method: Room Air Assessment Airway patent: Yes Spontaneous unlabored respirations: Yes Mental status: Awake and Calm nausea: No Vomiting: No Anesthesia Complication: No Fluid Hydration Crystalloid volume administer (ml): 10 Total IV fluid infused: 10 Progress Note Anesthesia document: Postop Eval 1 completed: Yes
[2024-07-30] MEDS: Arthritis Pain Compound 60 CLICK TUBE TOPICAL (22:18)
--- NOTE | 2024-07-30 22:34 | PCM.POSTANE2 ---
Anesthesia Postop Eval I Sum Postop Eval Completion status Anesthesia document: Postop Eval 1 completed: Yes Anesthesia Postop Eval I Summary Anesthesia Postop Eval I Summary: Anesthesia Postop Eval I: Assessment Summary Airway patent Yes 07/30/24 21:33 Spontaneous unlabored Yes 07/30/24 21:33 respirations Mental status Awake,Calm 07/30/24 21:33 nausea No 07/30/24 21:33 Vomiting No 07/30/24 21:33 Anesthesia Postop Eval I: Fluid Summary Crystalloid volume administer 10 07/30/24 21:33 (ml) Colloids volume administered ( ml) Blood Product volume administered (ml) Total IV fluid infused 10 07/30/24 21:33 Anesthesia Postop Eval I: Summary Notes Anesthesia Complication No 07/30/24 21:33 Anesthesia Complication Comment: Post-operative progress note Anesthesia: Postop Eval II Evaluation Mental status: Awake and Calm Pain Level: 0 nausea: No Vomiting: No Complications Anesthesia Complication: No
--- NOTE | 2024-07-30 22:35 | ANES.CONFIRM ---
Anesthesia: Confirm Documents Multiple Procedures on Account (2) Confirmed Documents: Yes
[2024-07-30 22:47] LABS: Bedside Glucose 93 mg/dL (74-106)
--- NOTE | 2024-07-31 02:21 | CPS ---
Patient stated he did not wish to wear our V60 CPAP HS, due to discomfort. This [employer] offered him another machine, patient declined.
[2024-07-31 06:06] VITALS: BP 103/47; PULSE 64; RESP 18; TEMP 36.7; O2SAT 97
[2024-07-31 06:12] LABS: Absolute Lymphocyte Count 1.39 X10^3/uL (0.83-4.51); Absolute Neutrophil Count 6.1 X10^3/uL (2.0-7.7); Basophil# 0.05 X10^3/uL; Basophil% 0.5 % (0-1); Eosinophil# 0.15 X10^3/uL; Eosinophils% 1.6 % (0-5); Hematocrit 25.1 % (40-54); Hemoglobin 7.6 g/dL (13.0-16.5); Lymphocyte # 1.39 X10^3/ul (0.83-4.51); Lymphocyte % 15.2 % (19-41); Mean Corp Hgb Conc 30.3 g/dL (32-36); Mean Corpuscular Hgb 23.4 pg (27.0-32.0); Mean Corpuscular Volume 77.2 fL (80-94); Mean Platelet Vol. 10.3 fl (6.2-12.0); Monocyte# 1.38 X10^3/uL; Monocyte% 15.1 % (0-10); NRBC Flagged by Analyzer 0.4 % (0-5); Neutrophil # 6.05 X10^3/uL (2.7-7.7); Neutrophil % 66.4 % (47-70); Platelet Count 224 K/mm3 (150-450); RBC Distribution Width CV 16.9 % (11.6-14.6); RBC Distribution Width SD 46.4 fl (35.1-43.9); Red Blood Count 3.25 M/mm3 (4.6-6.2); White Blood Count 9.1 K/mm3 (4.4-11.0)
[2024-07-31 06:38] LABS: Erythrocyte Sedimentation Rate 17 mm/hr (0-20)
[2024-07-31 07:00] LABS: Anion Gap 10 (5-15); BUN 19 mg/dL (4-19); BUN/Creat Ratio 12.2 RATIO (10-20); Calcium,Total 8.4 mg/dL (7.6-11.0); Carbon Dioxide 19.4 mmol/L (21.0-32.0); Chloride 108 mmol/L (98-108); Creatinine, Serum 1.58 mg/dL (0.70-1.20); EST Glomerular Filtration Rate 43 (>60); Estimated Creatinine Clearance 31.41 ml/min (50-250); Glucose 112 mg/dL (70-99); Potassium 3.8 mmol/L (3.3-5.1); Sodium Level 137 mmol/L (133-145)
[2024-07-31 07:18] LABS: Bedside Glucose 111 mg/dL (74-106)
[2024-07-31 08:16] LABS: LDH 197 U/L (87-241)
[2024-07-31 08:52] VITALS: BP 119/77; PULSE 61; RESP 16; TEMP 36.6; O2SAT 95
[2024-07-31] MEDS: Senna/Docusate Sodium 1 Tablet 2 TABLET PO (08:54)
[2024-07-31] MEDS: Finasteride 5 MG Tablet PO (08:55)
[2024-07-31] MEDS: Amiodarone 200 MG Tablet PO (08:55)
[2024-07-31] MEDS: Loratadine 10 MG Tablet PO (08:55)
--- NOTE | 2024-07-31 09:08 | DCINST_ITS ---
Discharge Instructions Diet Discharge Diet: No restrictions DC O2, CPAP, BIPAP needs Home O2 Discharge instructions: No Dressing / Incision Discharge Activity: Return to Normal Activity Dressing / Incision Call your doctor if you observe: Fever of 101 or Higher, Shortness of breath, Dizziness, Fainting spells, Swelling in the ankles, Chest pain and Increased palpitations (irregular heartbeat) Follow Up Care Test Results: Test results from this visit will be discussed in further detail at your follow- up appointment, if applicable. Discharge Plan Admission Admit Date/Time: 07/28/24 17:18 Attending Provider: Papo Soliz Primary Care Provider: Manju Coulter Consulting Providers: Krystle Fuller Instructions Patient Instructions: ED Anemia, Iron-Deficiency (Adult) Additional Instructions / Restrictions: Follow-up with your primary care doctor in 3 to 5 days to monitor your hemoglobin as well as to have a recheck of your iron studies in a month or 2 Discharge Orders/Prescriptions Prescriptions: New ferrous gluconate 324 mg (37.5 mg iron) Tablet 324 mg PO BIDLS 30 Days Qty: 60 0RF Continued azelastine 137 mcg (0.1 %) spray,non-aerosol 2 spray intranasal BID PRN (Reason: BREAKING CONTROL) Rx Instructions: administer into each nostril finasteride 5 mg tablet 5 mg PO DAILY albuterol sulfate 90 mcg/actuation HFA aerosol inhaler 2 puff inhalation Q6H PRN (Reason: shortness of breath or wheezing) Qty: 8.5 11RF cetirizine 10 mg tablet 10 mg PO DAILY fluticasone propionate 50 mcg/actuation spray,suspension 2 spray intranasal DAILY PRN (Reason: allergy symptoms) diclofenac sodium [Arthritis Pain (diclofenac)] 1 % gel 2 g topical QHS Patient Comments: PT STATES HE USES IT ON HIS ANKLES fluticasone propion-salmeterol [Advair HFA] 230-21 mcg/actuation HFA aerosol inhaler 2 inh inhalation BID Qty: 3 3RF amiodarone 200 mg tablet 200 mg PO DAILY Qty: 90 3RF Held Eliquis 5 mg tablet 5 mg PO BID Qty: 180 3RF Hold Instructions: Resume on 08/02/24. Discontinued amoxicillin-pot clavulanate 875-125 mg tablet 1 tab PO BID Patient Comments: TOOK LAST DOSE TODAY. STARTED 07/23/24. Referrals / Follow Up: Manju Coulter MD [Primary Care Provider] - Within 1 Week Roberto Cook DO [Med Staff - Active Staff] - Within 1 Month Disposition Disposition (needs filled in before D/C Order can be placed): Home, Self Care
[2024-07-31] MEDS: Pantoprazole Sodium 40 MG in 0.9% Normal Saline (100mL MB+) 100 ML 330 MG IV (09:52)
[2024-07-31] MEDS: Sodium Ferric Gluconat/Sucrose 125 MG in 0.9% Normal Saline (100mL Bag) 100 ML 110 MG IV (10:37)
[2024-07-31 11:29] LABS: Bedside Glucose 160 mg/dL (74-106)
--- NOTE | 2024-07-31 12:26 | PCM.DC.SUM ---
Providers Date of Admission: 07/28/24 Primary Care Physician: Dr. Manju Coulter MD Consultations 07/28/24 17:48 Consult: Gastroenterology Routine Consulting Provider: Jack Gastroenterdarling Reason for Consult: GI bleed EMERGENT Consult: No MD Notified: Yes Date Notified: 07/28/24 Time Notified: 17:28 Method of Notification: ED Physician Initiated Reason For Visit: CONCERN FOR GI BLEED Diagnosis Discharge Diagnosis (1) Symptomatic anemia: Status: Acute Code(s): D64.9 - Anemia, unspecified Medications at Discharge Home Medications fluticasone propionate 230 mcg-salmeterol 21 mcg/actuation HFA inhaler (Advair HFA) 2 inh inhalation BID #3 ea 08/19/23 apixaban 5 mg tablet (Eliquis) 5 mg PO BID #180 tabs 10/21/23 Held on 07/31/24. Instructions: Resume on 08/02/24. azelastine 137 mcg (0.1 %) nasal spray 2 spray intranasal BID PRN BREAKING CONTROL 04/20/24 amiodarone 200 mg tablet 200 mg PO DAILY #90 tabs 05/22/24 albuterol sulfate 90 mcg/actuation aerosol inhaler 2 puff inhalation Q6H PRN shortness of breath or wheezing #8.5 grams 07/22/24 finasteride 5 mg tablet 5 mg PO DAILY 07/22/24 cetirizine 10 mg tablet 10 mg PO DAILY allergy symptoms 07/28/24 diclofenac sodium 1 % topical gel (Arthritis Pain (diclofenac)) 2 g topical QHS 07/28/24 fluticasone propionate 50 mcg/actuation nasal spray,suspension 2 spray intranasal DAILY PRN allergy symptoms 07/28/24 ferrous gluconate 324 mg (37.5 mg iron) tablet 324 mg PO BIDLS 30 days #60 tabs 07/31/24 Hospital Course Operations None Procedures Colonoscopy and EGD Summary of Care Provided Minutes Spent on Discharge: 35 Hospital Course: Per HPI: CAT MICHAELS, is a 84-year-old male history of A-fib status post ablation on amnio and Eliquis, asthma, CKD, CHUCKIE presented to [facility] ED 07/28/2024 due to shortness of breath and weakness. He has been having increased shortness of breath and weakness for several months and saw pulmonology last week who ordered cardiac studies and were concerned he could have heart failure, patient presented to the ED due to increased shortness of breath on exertion has not had the studies yet. In the ED patient vitally stable but is short of breath on exertion. White count 18, hemoglobin 8.6 with a baseline previously around 13-14, glucose 232 and creatinine 1.65 which is baseline. FOBT positive due to concern for GI bleed hospitalist contacted for admission. Patient evaluated with at bedside, patient reports the increased shortness of breath over the past couple months without any significant cough, not as much shortness of breath at rest but does sometimes feel like he needs to take a big deep breath, has been compliant with his CPAP, does note he has had some right ankle pain and has seen podiatry and uses topical Voltaren, also has had some hip pain which is improving with physical therapy. Sees Dr. Estrada due to difficulty with a steady stream with his urine and has been constipated, denies any fevers or chills, no nausea or vomiting, does get some indigestion at times but did not note any overt heartburn. Of note patient reports no history of upper endoscopy but has had routine colonoscopies his most recent was 5 or 6 years ago and was told he would not have to have another 1 and he does not believe there are any abnormalities Hospital Course: 1. Iron deficiency anemia with acute blood loss anemia secondary to colitis worsened by Eliquis?84-year-old male presents to the hospital with increasing shortness of breath and was found to be anemic. He had an EGD which was unremarkable so he was prepped for colonoscopy which demonstrated colitis, biopsies were taken and I discussed the colitis with GI who did not feel that he needed any acute medications at this time other than iron replacement. He did receive 3 doses of IV iron replacement and will be placed on p.o. iron on discharge. Hemoglobin stabilized at 7.6. I do recommend he follow-up with his PCP as an outpatient to monitor his hemoglobin next week and to also follow-up iron studies in a couple of months. Given that his upper GI tract was normal I do not feel that he needs a PPI on discharge. Will recommend holding his Eliquis for a few more days and can likely restart on Saturday or Saturday. I discussed with him the plan for discharge today he expressed understanding of the risks and benefits of going home and would like to go home today. Will have him follow-up with gastroenterology in the next couple weeks as well. 2. Atrial fibrillation, CHUCKIE, history of asthma, BPH are all chronic medical conditions which complicate his care. His home medications were continued where appropriate Physical Exam Narrative General: Alert, Oriented x3, Cooperative, No apparent distress HEENT: Atraumatic, PERRLA, EOMI, Normocephalic Oral: Moist Mucosa Neck: Supple, No JVD Lungs: Diminished, Normal air movement, No rhonchi, No wheeze, No rales Cardiovascular: Regular rate, Regular Rhythm, Normal S1, Normal S2, No murmurs Abdomen: Soft, Non Tender, Non-Distended, No Hepato-splenomegaly Extremities: No edema, Capillary Refill Less than 3 Seconds Skin: No rashes, No breakdown Musculoskeletal: No Tenderness to Palpation of Joints or Extremities Neurological: No focal neurological deficits, Motor Exam 5/5 strength throughout, Sensory exam intact to light touch and pain Psych/Mental Status: Normal Affect, Appropriate Weight / BMI Weight Weight: 167 lb 15.876 oz Body Mass Index (BMI) 27.1 ABG / Lab / Microbiology Data 07/31/24 05:58 07/31/24 05:58 Laboratory: Laboratory Results - last 24 hr 07/30/24 16:52: POC Glucose 104 07/30/24 22:16: POC Glucose 93 07/31/24 05:58: WBC 9.1, RBC 3.25 L, Hgb 7.6 L, Hct 25.1 L, MCV 77.2 L, MCH 23.4 L, MCHC 30.3 L, RDW Std Deviation 46.4 H, RDW Coeff of Tiffany 16.9 H, Plt Count 224, MPV 10.3, Immature Gran % (Auto) 1.200 H, Neut % (Auto) 66.4, Lymph % (Auto) 15.2 L, [place] % (Auto) 15.1 H, Eos % (Auto) 1.6, Baso % (Auto) 0.5, Absolute Neuts (auto) 6.1, Absolute Lymphs (auto) 1.39, Nucleated RBC % 0.4, ESR 17, Sodium 137, Potassium 3.8, Chloride 108, Carbon Dioxide 19.4 L, Anion Gap 10, BUN 19, Creatinine 1.58 H, Estim Creat Clear Calc 31.41 L, Est GFR (MDRD) Non-Af 43 L, BUN/Creatinine Ratio 12.2, Glucose 112 H, Calcium 8.4, Lactate Dehydrogenase 197, C-React Prot Ext Range 63.10 H 07/31/24 06:11: POC Glucose 111 H 07/31/24 11:04: POC Glucose 160 H Microbiology: Microbiology 07/28/24 15:18 Stool Stool Occult Blood (JOEY) - Final Occult Blood Positive 07/28/24 14:19 Mucosa - Nose SARS-CoV-2, Influenza & RSV (PCR) - Final D/C Instructions Discharge Diet: No restrictions Call your doctor if you observe: Fever of 101 or Higher, Shortness of breath, Dizziness, Fainting spells, Swelling in the ankles, Chest pain and Increased palpitations (irregular heartbeat) DC O2, CPAP, BIPAP Needs PSN CPAP & BiPAP: BiPAP & CPAP Settings per PSN Mode BiPAP 07/29/24 07:00 Bipap Delivery Device Face Mask 07/28/24 22:47 BiPAP Expiratory Pressure 10 07/28/24 22:47 Fraction of Inspired Oxygen ( 21 07/30/24 20:51 FIO2) Home O2 Discharge instructions: No Meaningful Use Info Meaningful Use Meaningful Use Diagnoses (Choose all that apply): None applicable Ischemic Stroke Statin Dosing Therapy Reference: STATIN DOSE THERAPY REFERENCE: * Patients > 75 years receive moderate or high dose statin therapy. * Patients 75 years or YOUNGER should receive HIGH intensity statin dose unless contraindicated. You will be required to document reason for non-treatment if statin daily dose does not meet guidelines. HIGH DOSE STATIN THERAPY DAILY Atorvastatin > than or = to 40 mg Rosuvastatin > than or = to 20 mg Amlodipine + Atorvastatin > than or = to 2.5/40 mg Ezetimibe + Simvastatin 10/80 mg Simvastatin 80mg Discharge Plan Admission Admit Date/Time: 07/28/24 17:18 Attending Provider: Papo Soliz Primary Care Provider: Manju Coulter Consulting Providers: Krystle Fuller Instructions Patient Instructions: ED Anemia, Iron-Deficiency (Adult) Additional Instructions / Restrictions: Follow-up with your primary care doctor in 3 to 5 days to monitor your hemoglobin as well as to have a recheck of your iron studies in a month or 2 Discharge Orders/Prescriptions Prescriptions: New ferrous gluconate 324 mg (37.5 mg iron) Tablet 324 mg PO BIDLS 30 Days Qty: 60 0RF Continued azelastine 137 mcg (0.1 %) spray,non-aerosol 2 spray intranasal BID PRN (Reason: BREAKING CONTROL) Rx Instructions: administer into each nostril finasteride 5 mg tablet 5 mg PO DAILY albuterol sulfate 90 mcg/actuation HFA aerosol inhaler 2 puff inhalation Q6H PRN (Reason: shortness of breath or wheezing) Qty: 8.5 11RF cetirizine 10 mg tablet 10 mg PO DAILY fluticasone propionate 50 mcg/actuation spray,suspension 2 spray intranasal DAILY PRN (Reason: allergy symptoms) diclofenac sodium [Arthritis Pain (diclofenac)] 1 % gel 2 g topical QHS Patient Comments: PT STATES HE USES IT ON HIS ANKLES fluticasone propion-salmeterol [Advair HFA] 230-21 mcg/actuation HFA aerosol inhaler 2 inh inhalation BID Qty: 3 3RF amiodarone 200 mg tablet 200 mg PO DAILY Qty: 90 3RF Held Eliquis 5 mg tablet 5 mg PO BID Qty: 180 3RF Hold Instructions: Resume on 08/02/24. Discontinued amoxicillin-pot clavulanate 875-125 mg tablet 1 tab PO BID Patient Comments: TOOK LAST DOSE TODAY. STARTED 07/23/24. Referrals / Follow Up: Manju Coulter MD [Primary Care Provider] - Within 1 Week Roberto Cook DO [Med Staff - Active Staff] - Within 1 Month Disposition Disposition (needs filled in before D/C Order can be placed): Home, Self Care Charges/Coding Visit Charges Inpatient E&M: 33911 Disch Hosp >30min
[2024-07-31] MEDS: Ferrous Gluconate 324 MG Tablet PO (12:36)
[2024-07-31 12:42] VITALS: BP 106/63; PULSE 63; RESP 16; O2SAT 100
== END 2024-07-31 13:32 | disposition home or self-care (01) | DRG 394 ==
LOC: ED 14:18 → MS3 17:27
PROVIDERS: Internal Medicine Gastroenterology; Admitting Provider Internal Medicine; Emergency Provider Surgery; PCP Family Medicine; Visit Provider Family Medicine
PROC: 0DJ08ZZ Inspection of Upper Intestinal Tract, Via Natural or Artificial Opening Endoscopic (ICD-10-PCS; CPT 43235; principal; 2024-07-29 15:40)
PROC: 0DJD8ZZ Inspection of Lower Intestinal Tract, Via Natural or Artificial Opening Endoscopic (ICD-10-PCS; CPT 45378; principal; 2024-07-30 18:10)
DX: K63.3 Ulcer of intestine (principal); E87.20 Acidosis, unspecified; N13.8 Other obstructive and reflux uropathy; D62 Acute posthemorrhagic anemia; E11.22 Type 2 diabetes mellitus with diabetic chronic kidney disease; D50.0 Iron deficiency anemia secondary to blood loss (chronic); J45.909 Unspecified asthma, uncomplicated; I48.91 Unspecified atrial fibrillation; K57.30 Diverticulosis of large intestine without perforation or abscess without bleeding; K52.9 Noninfective gastroenteritis and colitis, unspecified; E11.65 Type 2 diabetes mellitus with hyperglycemia; G47.33 Obstructive sleep apnea (adult) (pediatric); E78.5 Hyperlipidemia, unspecified; Z79.51 Long term (current) use of inhaled steroids; Z79.01 Long term (current) use of anticoagulants; Z87.891 Personal history of nicotine dependence; N40.1 Benign prostatic hyperplasia with lower urinary tract symptoms
CPT/HCPCS: 36415; 71046; 80048; 80053; 81001; 82010; 82274; 82728; 82784; 82785; 82787; 82803; 82962; 83036; 83516; 83540; 83550; 83615; 83735; 83880; 84145; 84165; 84443; 84484; 85014; 85018; 85025; 85610; 85652; 86036; 86140; 86255; 86334; 86671; 86850; 86900; 86901; 87631; 88305; 88342; 93005; 94640; 94660; 94762; 97161; 99284; A4216; J2405; J2916

== ENCOUNTER → 2024-08-04 | Outpatient (CLI) | payer MEDICARE, SELFPAY ==
[2024-08-04 15:35] LABS: Absolute Lymphocyte Count 1.38 X10^3/uL (0.83-4.51); Absolute Neutrophil Count 8.7 X10^3/uL (2.0-7.7); Basophil# 0.06 X10^3/uL; Basophil% 0.5 % (0-1); Eosinophil# 0.08 X10^3/uL; Eosinophils% 0.7 % (0-5); Hematocrit 26.9 % (40-54); Hemoglobin 7.9 g/dL (13.0-16.5); Lymphocyte # 1.38 X10^3/ul (0.83-4.51); Lymphocyte % 11.5 % (19-41); Mean Corp Hgb Conc 29.4 g/dL (32-36); Mean Corpuscular Hgb 23.8 pg (27.0-32.0); Mean Platelet Vol. 10.4 fl (6.2-12.0); Monocyte# 1.48 X10^3/uL; Monocyte% 12.4 % (0-10); NRBC Flagged by Analyzer 0.2 % (0-5); Neutrophil # 8.74 X10^3/uL (2.7-7.7); Neutrophil % 72.9 % (47-70); POSITIVE MORPHOLOGY YES; Platelet Count 254 K/mm3 (150-450); RBC Distribution Width CV 21.2 % (11.6-14.6); RBC Distribution Width SD 49.6 fl (35.1-43.9); Red Blood Count 3.32 M/mm3 (4.6-6.2)
[2024-08-04 15:45] LABS: Differential Indicated SCAN CRITERIA MET
[2024-08-04 16:19] LABS: Differential Comment SCANNED
[2024-08-04 16:20] LABS: Anisocytosis 2+
[2024-08-04 16:21] LABS: Hypochromasia 2+
[2024-08-04 16:22] LABS: Crenated RBC RARE; Polychromasia 1+
[2024-08-04 17:34] LABS: Anion Gap 11 (5-15); BUN 20 mg/dL (4-19); BUN/Creat Ratio 13.9 RATIO (10-20); Calcium,Total 8.2 mg/dL (7.6-11.0); Carbon Dioxide 20.8 mmol/L (21.0-32.0); Chloride 107 mmol/L (98-108); Creatinine, Serum 1.46 mg/dL (0.70-1.20); EST Glomerular Filtration Rate 47 (>60); Glucose 258 mg/dL (70-99); Potassium 4.3 mmol/L (3.3-5.1); Sodium Level 139 mmol/L (133-145)
== END | disposition home or self-care (01) ==
PROVIDERS: PCP Family Medicine; Visit Provider Family Medicine
DX: D62 Acute posthemorrhagic anemia (principal); I48.91 Unspecified atrial fibrillation
CPT/HCPCS: 36415; 80048; 85025

== ENCOUNTER → 2024-08-12 | Outpatient (CLI) | payer MEDICARE, SELFPAY ==
--- NOTE | 2024-08-12 13:14 | RAD_ITS ---
PROCEDURE: HIPS B/L MIN 2 VIEWS W/ PELVIS 08/12/2024 REASON FOR EXAM: PAIN TECHNIQUE: AP view of the pelvis; AP and bilateral views of the COMPARISON: None available FINDINGS: Bones: No acute displaced fracture or dislocation. Joints: Bilateral hip joint space narrowing with marginal periarticular osteophytosis. Soft tissues: No overlying soft tissue swelling. Other: None RAD/Hips B/L min 2 views w/ Pelvis IMPRESSION: No acute displaced fracture or dislocation. Reading Location: [id number]
== END | disposition home or self-care (01) ==
LOC: MTRAD 13:13
PROVIDERS: PCP Family Medicine; Referring Provider Family Medicine; Visit Provider Family Medicine
DX: M25.559 Pain in unspecified hip (principal)
CPT/HCPCS: 73521

== ENCOUNTER → 2024-08-17 | Outpatient (CLI) | payer MEDICARE, SELFPAY ==
--- NOTE | 2024-08-17 11:02 | ECHOD_ITS ---
Reason For Study Reason For Study: Dyspnea/SOB Procedure This was a 2D Doppler, Color Flow transthoracic echocardiogram. Exam performed in department. Left Ventricle Normal LV size. Left ventricular systolic function is normal. The left ventricular ejection fraction is 60 %. No regional wall motion abnormalities noted. Right Ventricle Normal RV size. Normal systolic function. Atria Normal left atrium. Normal right atrium. Mitral Valve Normal mitral valve. Tricuspid Valve Normal tricuspid valve. Mild (1+) tricuspid valve insufficiency. Pulmonary artery systolic pressure is 50 mmHg. Aortic Valve Trisinus/trileaflet aortic valve. Mild (1+) eccentric aortic valve insufficiency. Pulmonic Valve Normal pulmonic valve. Great Vessels Normal aortic root. The pulmonary artery is normal size. Normal inferior vena cava. Pericardium/Pleural No pericardial effusion. MMode/2D Measurements & Calculations LVIDd: 4.3 cm IVSd: 1.4 cm Ao root diam: 3.7 cm LVIDs: 3.2 cm LVPWd: 0.96 cm RVDd: 4.0 cm FS: 26.8 % LAV(MOD-bp): 38.8 ml LVAd ap4: 23.7 cm2 SV(MOD-sp4): 40.4 ml LAV(MOD-bp) Indexed: 21.1 ml/m2 LVLd ap4: 7.5 cm SI(MOD-sp4): 22.0 ml/m2 LAV(MOD-sp2): 34.0 ml EDV(MOD-sp4): 62.3 ml LAV(MOD-sp4): 42.6 ml EDV(sp4-el): 63.7 ml LVAs ap4: 11.9 cm2 LVLs ap4: 5.6 cm ESV(MOD-sp4): 21.8 ml ESV(sp4-el): 21.2 ml EF(MOD-sp4): 64.9 % EF(sp4-el): 66.7 % SV(sp4-el): 42.5 ml LA A4 area: 15.2 cm2 LA dimension(2D): 3.7 cm RA A4 area: 13.6 cm2 TAPSE: 1.6 cm Time Measurements MV dec time: 0.27 sec Doppler Measurements & Calculations MV E max rajesh: 90.9 cm/sec Lat Peak E' Rajesh: 11.5 cm/sec Med Peak E' Rajesh: 8.4 cm/sec MV A max rajesh: 41.5 cm/sec E/E' lat: 7.9 E/E' med: 10.8 MV E/A: 2.2 MV V2 max: 102.9 cm/sec MV P1/2t max rajesh: 105.8 cm/sec Ao V2 max: 151.0 cm/sec MV max P.2 mmHg MV P1/2t: 84.9 msec Ao max P.1 mmHg MV V2 mean: 46.9 cm/sec Ao V2 mean: 98.7 cm/sec MV mean P.1 mmHg MV dec slope: 364.8 cm/sec2 Ao mean P.5 mmHg MV V2 VTI: 32.1 cm MVA(P1/2t): 2.6 cm2 Ao V2 VTI: 28.2 cm AV (velocity ratio): 0.79 AI max rajesh: 295.5 cm/sec LV V1 max: 116.4 cm/sec TR max rajesh: 339.2 cm/sec AI max P.0 mmHg LV V1 max P.4 mmHg TR max P.0 mmHg LV V1 mean P.1 mmHg AI dec slope: 95.2 cm/sec2 LV V1 mean: 83.8 cm/sec AI P1/2t: 908.8 msec LV V1 VTI: 22.2 cm ECHO/Echo Complete Interpretation Summary Normal LV size. Left ventricular systolic function is normal. The left ventricular ejection fraction is 60 %. Pulmonary artery systolic pressure is 50 mmHg. Mild (1+) eccentric aortic valve insufficiency. Structurally normal valves. Ordering Physician: Gibson Lopez Referring Physician: Manju Coulter Performed By: Issac Mirza RCS
== END | disposition home or self-care (01) ==
LOC: CVS 11:01
PROVIDERS: PCP Family Medicine; Referring Provider Nurse Practitioner Family; Visit Provider Nurse Practitioner Family
DX: I48.0 Paroxysmal atrial fibrillation (principal); R06.02 Shortness of breath
CPT/HCPCS: 93306

== ENCOUNTER → 2024-10-26 | Outpatient (CLI) | payer MEDICARE, SELFPAY ==
[2024-10-26 10:29] LABS: Absolute Neutrophil Count 4.3 X10^3/uL (2.0-7.7); Basophil# 0.08 X10^3/uL; Basophil% 1.1 % (0-1); Eosinophil# 0.18 X10^3/uL; Eosinophils% 2.4 % (0-5); Hematocrit 41.2 % (40-54); Hemoglobin 13.9 g/dL (13.0-16.5); Mean Corp Hgb Conc 33.7 g/dL (32-36); Mean Corpuscular Hgb 30.6 pg (27.0-32.0); Mean Corpuscular Volume 90.7 fL (80-94); Mean Platelet Vol. 9.9 fl (6.2-12.0); Monocyte# 0.86 X10^3/uL; Monocyte% 11.6 % (0-10); NRBC Flagged by Analyzer 0 % (0-5); Neutrophil # 4.26 X10^3/uL (2.7-7.7); Neutrophil % 57.5 % (47-70); Platelet Count 189 K/mm3 (150-450); RBC Distribution Width CV 17.6 % (11.6-14.6); RBC Distribution Width SD 58.3 fl (35.1-43.9); RET-HE 34.7 pg (30-35); Red Blood Count 4.54 M/mm3 (4.6-6.2); Reticulocyte Count 2.28 % (0.5-1.5); White Blood Count 7.4 K/mm3 (4.4-11.0)
[2024-10-26 11:02] LABS: ALB/GLOB Ratio 1.6 RATIO (0.9-2.4); AST(SGOT) 27 U/L (<=37); Alanine Aminotransfer ALT/SGPT 30 U/L (<=46); Albumin, Serum 4.1 g/dL (3.4-4.8); Alkaline Phosphatase 70 U/L (40-129); Anion Gap 12 (5-15); BUN 17 mg/dL (4-19); BUN/Creat Ratio 10.7 RATIO (10-20); Calcium,Total 9.2 mg/dL (7.6-11.0); Carbon Dioxide 22.9 mmol/L (21.0-32.0); Chloride 105 mmol/L (98-108); Creatinine, Serum 1.57 mg/dL (0.70-1.20); EST Glomerular Filtration Rate 43 (>60); Ferritin 65 ng/mL (37-417); Globulin 2.5 g/dL (2.2-4.2); Glucose 144 mg/dL (70-99); Iron 75 ug/dL (65-175); Iron Binding Capacity,Total 290 ug/dL (250-450); Iron Binding Capacity,Unsat 215 ug/dL (228-428); LDH 186 U/L (87-241); Potassium 4.4 mmol/L (3.3-5.1); Protein, Total 6.6 g/dL (5.9-8.4); Sodium Level 139 mmol/L (133-145); Total Bilirubin 0.39 mg/dL (0.00-1.30)
[2024-10-27 05:07] LABS: Transferrin 248 mg/dL (149-313)
== END | disposition home or self-care (01) ==
PROVIDERS: PCP Family Medicine; Referring Provider Internal Medicine Gastroenterology; Visit Provider Internal Medicine Gastroenterology
DX: D64.9 Anemia, unspecified (principal); R53.83 Other fatigue
CPT/HCPCS: 36415; 80053; 82728; 83540; 83550; 83615; 84466; 85025; 85045

== ENCOUNTER → 2025-01-15 | Outpatient (CLI) | payer MEDICARE, SELFPAY ==
[2025-01-15 15:26] LABS: Hematocrit 40.3 % (40-54); Hemoglobin 13.5 g/dL (13.0-16.5); Immature Granulocytes Count 0.040 X10^3/uL (0.0-0.0); Mean Corp Hgb Conc 33.5 g/dL (32-36); Mean Corpuscular Volume 96.9 fL (80-94); Mean Platelet Vol. 10.8 fl (6.2-12.0); NRBC Flagged by Analyzer 0 % (0-5); Platelet Count 186 K/mm3 (150-450); RBC Distribution Width CV 14.3 % (11.6-14.6); RBC Distribution Width SD 50.7 fl (35.1-43.9); Red Blood Count 4.16 M/mm3 (4.6-6.2); White Blood Count 8.5 K/mm3 (4.4-11.0)
== END | disposition home or self-care (01) ==
LOC: MTLAB 12:58
PROVIDERS: PCP Family Medicine; Referring Provider Nurse Practitioner Acute Care; Visit Provider Nurse Practitioner Acute Care
DX: J45.40 Moderate persistent asthma, uncomplicated (principal); R05.1 Acute cough
CPT/HCPCS: 36415; 85025; 87070; 87205

== ENCOUNTER 2025-03-03 09:20 | Outpatient (CLI) | payer MEDICARE, SELFPAY ==
[2025-03-03 10:52] LABS: Creatinine, Urine (random) 148.00 mg/dL (39.00-259.00); Microalbumin,Random Urine 14.0 mg/L (<20 mg/L)
[2025-03-03 14:21] LABS: Hematocrit 41.4 % (40-54); Hemoglobin 14.1 g/dL (13.0-16.5); Immature Granulocytes Count 0.030 X10^3/uL (0.0-0.0); Mean Corp Hgb Conc 34.1 g/dL (32-36); Mean Corpuscular Volume 95.8 fL (80-94); Mean Platelet Vol. 11.3 fl (6.2-12.0); NRBC Flagged by Analyzer 0 % (0-5); Platelet Count 181 K/mm3 (150-450); RBC Distribution Width CV 13.5 % (11.6-14.6); RBC Distribution Width SD 47.9 fl (35.1-43.9); Red Blood Count 4.32 M/mm3 (4.6-6.2); White Blood Count 7.0 K/mm3 (4.4-11.0)
[2025-03-03 14:45] LABS: Iron 113 ug/dL (65-175); Iron Binding Capacity,Total 267 ug/dL (250-450); Iron Binding Capacity,Unsat 154 ug/dL (228-428)
== END 2025-03-03 23:59 | disposition home or self-care (01) ==
LOC: MTLAB 09:22
PROVIDERS: Student in an Organized Health Care Education/Training Program; PCP Family Medicine; Referring Provider Family Medicine; Visit Provider Family Medicine
DX: E11.9 Type 2 diabetes mellitus without complications (principal); Z86.2 Personal history of diseases of the blood and blood-forming organs and certain disorders involving the immune mechanism
CPT/HCPCS: 36415; 82043; 82570; 83540; 83550; 85025